=== PATIENT | male | born 1955 | race Caucasian/White ===

== ENCOUNTER 2023-04-14 10:37 | Emergency (ER) | payer MEDICARE, MEDICAID, SELFPAY ==
[2023-04-14 10:44] VITALS: BP 156/82; PULSE 111
[2023-04-14 10:46] VITALS: BP 122/68; PULSE 70; RESP 18; TEMP 36.5; O2SAT 97; BMI 21.9
[2023-04-14 11:44] VITALS: BP 121/66; PULSE 60; RESP 18; O2SAT 99
--- NOTE | 2023-04-14 11:44 | ED.GENADULT ---
HPI - General Adult General Chief complaint: General Medical Stated complaint: RAN OUT OF EMPHYSEMA MEDS,2LPM PER EMS Time Seen by Provider: 04/14/23 11:02 Source: patient Mode of arrival: ambulatory Limitations: no limitations History of Present Illness HPI narrative: 67-year-old male with history of COPD ran out of his albuterol medication. Patient reports being in allergic to inhaled steroids. Denies any fevers or chills. Has a chronic cough, chronic dyspnea on exertion. Is not worse than usual. He only ran out of his medication. Denies any fevers or chills. He denies any mucus production. Denies any chest pain. He is on oxygen at home approximately 2.5 L on a regular basis. Patient reports 5-6 septicemia chief patient is actively smoking. Denies smoking while using his oxygen. Related Data Previous Rx's Medication Instructions Recorded albuterol sulfate 90 mcg/actuation 2 inh inhalation QID PRN shortness 04/14/23 aerosol inhaler of breath or wheezing #6.7 grams ipratropium bromide 17 2 puff inhalation TID #12.9 grams 04/14/23 mcg/actuation HFA aerosol inhaler (Atrovent HFA) Allergies Allergy/AdvReac Type Severity Reaction Status Date / Time aspirin [Aspirin] Allergy Unknown RASH, Verified 04/14/23 10:51 SWELLING OF FACE, VOMITING ibuprofen [From Motrin] Allergy Unknown RASH, Verified 04/14/23 10:51 NUMBNESS TO EXTREMITIES NSAIDS (Non-Steroidal Allergy Unknown UNKNOWN Verified 04/14/23 10:51 Anti-Inflamma [Nsaids] aspirin Allergy Unknown swelling Uncoded 04/29/20 00:00 motrin Allergy Unknown swelling Uncoded 04/29/20 00:00 Review of Systems Review of Systems: GEN: Well developed, no acute distress, alert, oriented HEENT: Normocephalic, atraumatic, normal external ears, nose appears normal, no oropharyngeal edema or exudates Eyes: Normal to appearance Neck: Supple, no lymphadenopathy Respiratory: Talks in complete sentences, no respiratory distress, clear to auscultation bilaterally Cardiovascular: Regular rate and rhythm, no murmurs rubs or gallops Abdomen: Soft, nontender, nondistended, no guarding, no rebound Back: No CVA tenderness Extremities: No clubbing cyanosis or edema Neurologic: No focal neurologic deficits, cranial nerves 2-12 intact, strength is 5/5 bilaterally Skin: No rash PMFSH Social History Social History Advance Directives: No Physical Exam ED Vital Signs: Vital Signs - 24 hr 04/14/23 10:46 04/14/23 11:44 Temperature 97.7 F Pulse Rate 70 60 Respiratory Rate 18 18 Blood Pressure 122/68 121/66 Pulse Oximetry 97 99 Oxygen Delivery Method Nasal Cannula BMI result Body Mass Index 21.9 GEN: Well developed, no acute distress, alert, oriented HEENT: Normocephalic, atraumatic, normal external ears, nose appears normal, no oropharyngeal edema or exudates Eyes: Normal to appearance Neck: Supple, no lymphadenopathy Respiratory: Talks in complete sentences, no respiratory distress, clear to auscultation bilaterally Cardiovascular: Regular rate and rhythm, no murmurs rubs or gallops Abdomen: Soft, nontender, nondistended, no guarding, no rebound Back: No CVA tenderness Extremities: No clubbing cyanosis or edema Neurologic: No focal neurologic deficits, cranial nerves 2-12 intact, strength is 5/5 bilaterally Skin: No rash Course Course Course Narrative: Patient reports no change in his baseline respiratory status. Will prescribe the patient is albuterol inhaler. Since he reports being allergic to inhaled steroids, will order Atrovent to hopefully assist with his shortness of breath. Medical Decision Making Medical Decision Making MDM Narrative: Patient presents with chronic shortness of breath. Unchanged. Examination revealed 99% oxygen saturation on 2 L nasal cannula. Patient is typically on 2.5 L at home. Patient denies any progression of any of his symptoms. He is only requesting his medications be represcribed for him at this time, I will prescribe the patient albuterol as requested and also add Atrovent to help reduce his exacerbations. Recommending close follow-up with his primary care provider. Differential Diagnosis Differential Diagnoses: The differential diagnosis associated with the presentation includes (Shortness of breath, bronchitis, pneumonia, CHF, COPD) Chronic Conditions Patient?s care impacted by: Other (COPD) Discharge Plan Discharge Clinical Impression: COPD (chronic obstructive pulmonary disease) Patient Disposition: Home, Self-Care Instructions: COPD (Chronic Obstructive Pulmonary Disease) (ED) Prescriptions: New albuterol sulfate 90 mcg/actuation HFA aerosol inhaler 2 inh inhalation QID PRN (Reason: shortness of breath or wheezing) Qty: 6.7 0RF Atrovent HFA 17 mcg/actuation HFA aerosol inhaler 2 puff inhalation TID Qty: 12.9 0RF Referrals: Physician,Unknown J [Primary Care Provider] - Interventions: ED Discharge Assessment Last Done: 04/14/23 11:44 Discharge Date/Time: 04/14/23 11:45
== END 2023-04-14 11:45 | disposition home or self-care (01) ==
PROVIDERS: Emergency Provider Emergency Medicine
DX: J44.9 Chronic obstructive pulmonary disease, unspecified (principal); R06.02 Shortness of breath; Z99.81 Dependence on supplemental oxygen
CPT/HCPCS: 99282; 99283

== ENCOUNTER 2023-05-18 16:26 | Outpatient (REF) | payer MEDICARE, MEDICAID, SELFPAY ==
[2023-05-18 17:52] LABS: Imm Gran Abs Auto 0.01 X10*3/uL (0.00-0.03); Imm Gran Pct Auto 0.2 % (0.0-0.4); MANUAL DIFF FLAG SCAN; Mean Corpuscular Volume 104.3 fL (80.0-98.0); PLT CLUMP 1; SCAN SMEAR FLAG 1
[2023-05-18 17:54] LABS: Basophils Percent Auto 0.7 % (0-2); Eosinophils Absolute Auto 0.1 X10*3/uL (0.0-0.4); Eosinophils Percent Auto 2.4 % (0-4); Hematocrit 39.2 % (42.0-52.0); Hemoglobin 13.3 g/dl (14.0-18.0); Lymphocytes Absolute Auto 1.3 X10*3/uL (1.2-4.9); Lymphocytes Percent Auto 28.6 % (20-40); Mean Corpuscular HGB Conc 33.9 g/dl (31.0-36.0); Mean Corpuscular Hemoglobin 35.4 pg (27.0-33.0); Mean Platelet Volume 10.3 fL (9.4-12.4); Monocytes Absolute Auto 0.5 X10*3/uL (0.1-1.2); Monocytes Percent Auto 10.2 % (2-11); Neutrophils Absolute Auto 2.6 x10*3/uL (2.0-8.3); Neutrophils Percent Auto 57.9 % (45-73); Red Blood Count 3.76 X10*6/uL (4.60-5.80); Red Cell Distribution Width 12.8 % (11.0-16.0)
[2023-05-18 18:06] LABS: Estimated Average Glucose 94 mg/dL; Hemoglobin A1C 102.9474 umol/L; Hemoglobin A1c % 4.9 %
[2023-05-18 18:09] LABS: White Blood Count 4.5 X10*3/uL (4.8-10.8)
[2023-05-18 18:10] LABS: Platelet Count 74 X10*3/uL (160-400); SLIDE REVIEW VERIFIED
[2023-05-18 19:00] LABS: Alanine Aminotransferase 46 U/L (0-40); Albumin Level 2.8 g/dL (3.5-5.0); Alkaline Phosphatase 132 U/L (39-117); Anion Gap 11 (12-20); Aspartate Amino Transferase 65 U/L (5-37); Bilirubin Total 1.8 mg/dL (0.0-1.0); Blood Urea Nitrogen 9 mg/dL (9-16); Carbon Dioxide 26 mmol/L (22-29); Chloride 105 mmol/L (96-108); Cholesterol 124 mg/dL; Estimated Glomerular Filt Rate > 60; Glucose Random 182 mg/dL (60-115); HDL Cholesterol 46 mg/dL; LDL Cholesterol Calculated 67 mg/dl; Potassium 4.1 mmol/L (3.3-5.1); Sodium 138 mmol/L (135-145); Triglycerides 58 mg/dL
[2023-05-18 19:17] LABS: TSH reflex Free T4 0.73 uIU/mL (0.32-4.0); Vitamin D 25-OH Total 9.4 ng/mL (>30)
[2023-05-18 19:26] LABS: Folate 9.7 ng/mL (> or = 4.0); Vitamin B12 552 pg/mL (200-900)
[2023-05-18 22:11] LABS: Creatinine Urine 239.13 mg/dL; Microalbum/Creatinine Ratio Ur 4.1 ug/mg cr
[2023-05-19 11:06] LABS: CT PCR NOT DETECTED (Not Detect.); NG PCR NOT DETECTED (Not Detect.)
[2023-05-20 06:24] LABS: HBS Num1 182.39 mIU/mL (0-7.99); HBc Num1 4.97 S/CO (0.00-0.79); HBsAGNum1 0.39 S/CO (0.00-0.99); HIV AB/AG Nonreactive (Nonreactive); HIV Num 1 0.07 S/CO (0.00-0.99); Hepatitis B Surface Antigen Negative (Negative); ~HepC Num1 11.99 S/CO (0.00-0.79); ~Hepatitis B Surface Antibody REACTIVE (Nonreactive); ~Hepatitis C Antibody Reactive (Nonreactive)
[2023-05-20 08:47] LABS: HBc Num2 5.03 S/CO; HBc Num3 5.16 S/CO; Hepatitis B Core Antibody Reactive (Nonreactive)
[2023-05-20 12:09] LABS: Syphilis Screen Nonreactive (Nonreactive)
[2023-05-21 15:29] LABS: HCV Log PCR 5.55 Log IU/mL (NOT DETECTED); HepC Viral Load 358000 IU/mL (NOT DETECTED)
[2023-05-23 11:32] LABS: Free Prostate Spec Ag 0.1 ng/mL; Percent Free Prostate Spec Ag 33 % (calc) (>25); Prostate Specific Ag Total 0.3 ng/mL (< OR = 4.0)
== END 2023-05-18 16:27 | disposition home or self-care (01) ==
LOC: HO.HHCL 16:26
PROVIDERS: Visit Provider Student in an Organized Health Care Education/Training Program
DX: Z00.00 Encounter for general adult medical examination without abnormal findings (principal); E55.9 Vitamin D deficiency, unspecified; Z85.46 Personal history of malignant neoplasm of prostate; Z20.2 Contact with and (suspected) exposure to infections with a predominantly sexual mode of transmission; E11.9 Type 2 diabetes mellitus without complications; I10 Essential (primary) hypertension
CPT/HCPCS: 0353U; 80053; 80061; 82043; 82306; 82607; 82746; 83036; 84154; 84443; 85025; 86704; 86706; 86780; 86803; 87340; 87389; 87522

== ENCOUNTER 2023-06-21 07:02 | Emergency (ER) | payer MEDICARE, MEDICAID, SELFPAY ==
--- NOTE | ~2023-06-21 | XR_ITS ---
EXAMINATION: XR CHEST CLINICAL INFORMATION: Coughing COMPARISON: 01/14/2020 TECHNIQUE: Frontal view of the chest was obtained. FINDINGS: Heart and mediastinum within normal limits. Aortic calcifications are seen. No vascular congestion. Peribronchial cuffing and hyperinflation. Coarse and peribronchiolar markings are more prominent in the right upper lobe than on previous. No consolidations or effusions. Bones are demineralized with degenerative changes. Lateral views. XR/XR chest 1V IMPRESSION: Increasing peribronchiolar markings right upper lobe, possibly bronchitis. Consider short-term radiographic follow-up with PA and lateral.
--- NOTE | ~2023-06-21 | CT_ITS ---
EXAMINATION: CT ABDOMEN AND PELVIS WITHOUT CONTRAST CLINICAL INFORMATION: Left flank pain COMPARISON: 08/24/2011 report only TECHNIQUE: Multidetector volumetric imaging was performed from the superior aspect of the liver through the pubic symphysis. Sagittal and coronal reformatted images were obtained on the technologist's workstation. This CT examination was performed using dose optimization techniques as appropriate, variously including the following: *Automated exposure control *Adjustment of mA and/or kV according to patient size (this includes techniques or standardized protocols for targeted exams where dose is matched to indication/reason for exam; i.e. extremities or head) *Use of iterative reconstruction technique DLP: 350 mGy-cm FINDINGS: ANIMAL CARE TAKER: Nonspecific bowel pattern. LUNG BASES: The visualized lung bases are unremarkable. LIVER, GALLBLADDER, AND BILIARY TREE: Liver is small and nodular No focal hepatic lesion or biliary ductal dilatation is present. Distended but otherwise unremarkable gallbladder. PANCREAS: Unremarkable. SPLEEN: Enlarged at 14 cm. ADRENAL GLANDS: Unremarkable. KIDNEYS AND URETERS: The kidneys are normal in size, shape, and attenuation. No hydronephrosis or hydroureter. 4 mm medial upper pole calcification, possibly nonobstructing calculus versus vascular. No perinephric stranding. BLADDER: Decompressed. GASTROINTESTINAL TRACT: Stomach compressed. No evidence of bowel obstruction. Unremarkable appendix. Mild diverticulosis. ABDOMINAL WALL: Bilateral groin hernias containing ascitic fluid. LYMPH NODES: Normal. VASCULAR: Atherosclerotic calcifications nonaneurysmal aorta and iliac veins. Normal caliber inferior vena cava. PELVIC VISCERA: Prostate calcifications. PERITONEUM: Moderate ascites. OSSEOUS STRUCTURES: Bilateral sclerotic femoral heads, left greater than right, possibly bone infarcts. CT/CT abdomen pelvis wo IV con IMPRESSION: Cirrhosis, portal hypertension and moderate ascites. Chronic osteonecrosis bilateral femoral heads. 4 mm left upper pole nonobstructing renal calculus versus vascular calcification. Fleischner guidelines were followed.
[2023-06-21 07:05] VITALS: BP 124/32; PULSE 78; RESP 16; TEMP 36.9; O2SAT 94; BMI 21.3
[2023-06-21 07:38] LABS: MANUAL DIFF FLAG NO
[2023-06-21 07:44] VITALS: BP 107/57
[2023-06-21 07:44] LABS: Basophils Percent Auto 0.3 % (0-2); Eosinophils Absolute Auto 0.1 X10*3/uL (0.0-0.4); Eosinophils Percent Auto 3.7 % (0-4); Hematocrit 37.4 % (42.0-52.0); Hemoglobin 12.4 g/dl (14.0-18.0); Imm Gran Abs Auto 0.01 X10*3/uL (0.00-0.03); Imm Gran Pct Auto 0.3 % (0.0-0.4); Lymphocytes Absolute Auto 1.2 X10*3/uL (1.2-4.9); Lymphocytes Percent Auto 33.5 % (20-40); Mean Corpuscular HGB Conc 33.2 g/dl (31.0-36.0); Mean Corpuscular Hemoglobin 34.3 pg (27.0-33.0); Mean Corpuscular Volume 103.6 fL (80.0-98.0); Mean Platelet Volume 10.2 fL (9.4-12.4); Monocytes Absolute Auto 0.4 X10*3/uL (0.1-1.2); Monocytes Percent Auto 9.9 % (2-11); Neutrophils Absolute Auto 1.9 x10*3/uL (2.0-8.3); Neutrophils Percent Auto 52.3 % (45-73); Platelet Count 62 X10*3/uL (160-400); Red Blood Count 3.61 X10*6/uL (4.60-5.80); Red Cell Distribution Width 12.3 % (11.0-16.0); White Blood Count 3.6 X10*3/uL (4.8-10.8)
--- NOTE | 2023-06-21 08:07 | ED_ITS ---
HPI - Abdominal Pain General Chief Complaint: Abdominal Pain Stated Complaint: L flank pain Time Seen by Provider: 06/21/23 07:51 Source: patient Mode of arrival: ambulatory Limitations: no limitations History of Present Illness HPI narrative: 67-year-old male came in for evaluation of left-sided abdominal/left flank pain started since yesterday. Started as a coughing with no phlegm every time the patient cough feels heat in the left groin area, last night patient started to have a sudden onset of left side abdominal pain and left groin pain, pain is intermittent, worsening with movement or coughing, no relieving factor, never had a history of kidney stones, no fever, no chills no frequency urination, no dysuria, no hematuria. Last bowel movement was yesterday and was normal with no bleeding, no associated nausea or vomiting, passing flatus, never had intra-abdominal surgery in the past. Pain is moderate 8/10. Related Data Previous Rx's Medication Instructions Recorded albuterol sulfate 90 mcg/actuation 2 inh inhalation QID PRN shortness 04/14/23 aerosol inhaler of breath or wheezing #6.7 grams ipratropium bromide 17 2 puff inhalation TID #12.9 grams 04/14/23 mcg/actuation HFA aerosol inhaler (Atrovent HFA) Allergies Allergy/AdvReac Type Severity Reaction Status Date / Time aspirin [Aspirin] Allergy Unknown RASH, Verified 04/14/23 10:51 SWELLING OF FACE, VOMITING ibuprofen [From Motrin] Allergy Unknown RASH, Verified 04/14/23 10:51 NUMBNESS TO EXTREMITIES NSAIDS (Non-Steroidal Allergy Unknown UNKNOWN Verified 04/14/23 10:51 Anti-Inflamma [Nsaids] aspirin Allergy Unknown swelling Uncoded 04/29/20 00:00 motrin Allergy Unknown swelling Uncoded 04/29/20 00:00 Review of Systems Review of Systems All other systems are reviewed and are negative Constitutional: Reports as per HPI and Reports no additional constitutional complaints Eyes: Reports as per HPI and Reports no additional eye complaints Reports system reviewed and no additional complaints, except as documented Cardiovascular: Reports as per HPI and Reports no additional cardiovascular co mplaints Respiratory: Reports as per HPI and Reports no additional respiratory complaints Gastrointestinal: Reports as per HPI and Reports no additional gastrointestinal complaints Genitourinary: Reports no additional female genitourinary complaints Musculoskeletal: Reports no additional musculoskeletal complaints Skin/Breast: Reports system reviewed and no additional complaints, except as docu Psychiatric: Reports no additional psychiatric complaints Endocrine: Reports no additional endocrine complaints Hematologic/Lymphatic: Reports no additional hematologic/lymphatic complaints Allergic/Immunologic: Reports no additional allergic/immunologic complaints Reports system reviewed and no additional complaints, except as documented and Reports Abnormal speech present [facility] Social History Social History Alcohol intake: never Smoked in Last 30 Days: Yes Use of substances other than those prescribed or required for medical reasons: No Advance Directives: Yes Advance Directives Information Provided: Yes Advance Directives on File: No Physical Exam ED Vital Signs: Vital Signs - 24 hr 06/21/23 07:05 06/21/23 07:44 06/21/23 10:09 Temperature 98.5 F 98.4 F Pulse Rate 78 64 Respiratory Rate 16 17 Blood Pressure 124/32 L 107/57 L 95/45 L Pulse Oximetry 94 99 Oxygen Delivery Method Room Air Nasal Cannula Oxygen Flow Rate 2 BMI result Body Mass Index 21.3 Vital signs have been reviewed as appeared to be correct. Blood pressure normal. Heart rate normal. Respiration rate normal. Temperature normal. Oxygen saturation normal. Appearance: Alert. Oriented X3. No acute distress. Head: Normal external exam. Normocephalic. Atraumatic. No Gregory signs noted. No raccoon eyes noted Eyes: PERRLA. EOMI. Conjunctiva and sclera normal. Eyelids normal. ENT: TM's Normal. Pharynx normal. Uvula midline. Moist mucous membranes. No trismus noted. No drooling noted. No muffled voice noted. Neck: Normal inspection. Neck supple. FROM. No adenopathy. Thyroid Normal. No meningeal signs. No neck mass noted. CVS: Normal heart rate and rhythm. Heart sound normal. No murmurs noted. Pulses normal throughout. Respiratory: No respiratory distress. Painless inspiration. Breath sounds normal. No wheezes/rales/rhonchi noted. Chest nontender. No accessory muscle usage noted or decreased air movement noted. Abdomen: Soft, left abdominal tenderness, no rebound tenderness, no guarding. Bowel sounds normal in all 4 quadrants. No distention noted. No organomegaly noted. No visible injury noted. Back: Left CVA tenderness. Full range of motion noted. Skin: Skin warm and dry. Normal skin color. Normal skin turgor. No rashes/lesions/lacerations noted. Extremities: No lower extremity edema. Extremities exhibit normal range of motion. Extremities nontender. Neuro: Oriented X 3. Cranial nerve exam: II-XII are grossly intact No motor deficit. No sensory deficit. Reflexes normal. Course Course Course Narrative: 67-year-old male with left flank pain for 2 days patient also been having chronic coughing, patient presented with left-sided abdominal/left flank pain for 2 days, pain is mostly with coughing, movements. UA/CT of the abdomen pelvis showing no obstructive kidney stone, x-ray show no pneumonia, patient was instructed to take ibuprofen if needed for pain. Patient found also to have elevated LFTs, liver cirrhosis with portal hypertension on the CT of the abdomen and pelvis patient stated that he had a history of hepatitis C but do not follow up with doctor for, patient decline history of alcohol abuse history, patient was instructed to follow-up with his PCP and was given information for GI to follow up with. Abdominal exam revealed no right upper quadrant tenderness or rebound tenderness or guarding. Was instructed to refrain from taking Tylenol or drinking any alcohol (which the p atient declined). Overall patient's symptoms likely due to abdominal wall muscular pain. Medical Decision Making Differential Diagnosis Differential Diagnoses: The differential diagnosis associated with the presen tation includes (Kidney stone, colitis, diverticulitis, elevated LFTs, liver disease, severe anemia, electrolyte abnormality, pneumothorax, pneumonia.) Admission/Observation Consideration of admission/observation: Escalation of care including admissio n/observation considered Lab Data MDM Lab Attestation statement: I reviewed the patient's lab results. 06/21/23 07:28 06/21/23 07:28 Labs: Lab Results 06/21/23 06/21/23 06/21/23 Range/Units 07:28 07:28 10:16 WBC 3.6 L (4.8-10.8) X10*3/uL RBC 3.61 L (4.60-5.80) X10*6/uL Hgb 12.4 L (14.0-18.0) g/dl Hct 37.4 L (42.0-52.0) % MCV 103.6 H (80.0-98.0) fL MCH 34.3 H (27.0-33.0) pg MCHC 33.2 (31.0-36.0) g/dl RDW 12.3 (11.0-16.0) % Plt Count 62 L (160-400) X10*3/uL MPV 10.2 (9.4-12.4) fL Immature Gran % (Auto) 0.3 (0.0-0.4) % Neut % (Auto) 52.3 (45-73) % Lymph % (Auto) 33.5 (20-40) % [place] % (Auto) 9.9 (2-11) % Eos % (Auto) 3.7 (0-4) % Baso % (Auto) 0.3 (0-2) % Lymph # (Auto) 1.2 (1.2-4.9) X10*3/uL [place] # (Auto) 0.4 (0.1-1.2) X10*3/uL Eos # (Auto) 0.1 (0.0-0.4) X10*3/uL Baso # (Auto) 0.0 (0.0-0.2) X10*3/uL Abs Immat Gran (auto) 0.01 (0.00-0.03) X10*3/uL Absolute Neuts (auto) 1.9 L (2.0-8.3) x10*3/uL Absolute Nucleated RBC 0.000 (0.0-0.012) X10*3/uL Nucleated RBC % (auto) 0.0 (0.0-0.2) /100WBC Sodium 138 (135-145) mmol/L Potassium 4.5 (3.3-5.1) mmol/L Chloride 106 (96-108) mmol/L Carbon Dioxide 26 (22-29) mmol/L Anion Gap 11 L (12-20) BUN 7 L (9-16) mg/dL Creatinine 0.77 (0.5-1.4) mg/dL Estim Creat Clear Calc 84.7 Estimated GFR > 60 Random Glucose 109 (60-115) mg/dL Calcium 8.3 L D (8.4-10.2) mg/dL Total Bilirubin 1.9 H (0.0-1.0) mg/dL Direct Bilirubin 1.0 H (0.0-0.5) mg/dL AST 48 H (5-37) U/L ALT 33 (0-40) U/L Alkaline Phosphatase 117 (39-117) U/L Total Protein 6.7 (6.5-8.0) g/dL Albumin 2.5 L (3.5-5.0) g/dL Lipase 19 (8-78) U/L Urine Color Dark Yellow Urine Appearance Clear Urine pH 7.0 (5.0-9.0) Ur Specific [place] 1.025 (1.005-1.025) Urine Protein Negative (Neg-Trace) mg/dL Urine Glucose (UA) Negative (Negative) mg/dL Urine Ketones Trace (Negative) mg/dL Urine Blood Negative (Negative) Urine Nitrite Negative (Negative) Ur Leukocyte Esterase Trace H (Negative) Urine RBC 0-2 (0-2) /HPF Urine WBC 0-5 (0-5) /HPF Ur Squamous Epith Cells 0-2 (0-2) /HPF Urine Bacteria None Seen (None Seen) Hyaline Casts 0-2 (0-2) /LPF Independent Interpretation I performed an independent interpretation of an: CT Scan (Cirrhosis, portal hypertension and moderate ascites. Chronic osteonecrosis bilateral femoral heads. 4 mm left upper pole nonobstructing renal calculus versus vascular calcification. ) Radiology Impression Discussion of test interpretation with radiology: I have reviewed the radiologist's reading. (Cirrhosis, portal hypertension and moderate ascites. Chronic osteonecrosis bilateral femoral heads. 4 mm left upper pole nonobstructing renal calculus versus vascular calcification. ) Medications Administered Discontinued Medications Generic Name Dose Route Start Last Admin Trade Name Freq PRN Reason Stop Dose Admin Oxycodone HCl 5 mg 06/21/23 08:09 06/21/23 09:01 Oxycodone Hcl Immed Release 5 Mg Tablet PO 06/21/23 08:10 5 mg ONCE ONE Administration Discharge Plan Discharge Clinical Impression: Abdominal wall pain Patient Disposition: Home, Self-Care Instructions: Musculoskeletal Pain (ED) Additional Instructions: Refrain from taking Tylenol or drinking alcohol and follow up with delivery analyst/PCP for further evaluation of your liver issue. Prescriptions: No Action albuterol sulfate 90 mcg/actuation HFA aerosol inhaler 2 inh inhalation QID PRN (Reason: shortness of breath or wheezing) Qty: 6.7 0RF Atrovent HFA 17 mcg/actuation HFA aerosol inhaler 2 puff inhalation TID Qty: 12.9 0RF Referrals: Soraida Kwok MD [Physician] -
[2023-06-21 08:19] LABS: Alanine Aminotransferase 33 U/L (0-40); Albumin Level 2.5 g/dL (3.5-5.0); Alkaline Phosphatase 117 U/L (39-117); Anion Gap 11 (12-20); Aspartate Amino Transferase 48 U/L (5-37); Bilirubin Total 1.9 mg/dL (0.0-1.0); Blood Urea Nitrogen 7 mg/dL (9-16); Calcium 8.3 mg/dL (8.4-10.2); Carbon Dioxide 26 mmol/L (22-29); Chloride 106 mmol/L (96-108); Creatinine Clr Calc Pharmacy 84.7; Estimated Glomerular Filt Rate > 60; Glucose Random 109 mg/dL (60-115); Lipase 19 U/L (8-78); Potassium 4.5 mmol/L (3.3-5.1); Sodium 138 mmol/L (135-145); Total Protein 6.7 g/dL (6.5-8.0)
[2023-06-21] MEDS: oxyCODONE HCl Immed Release 5 MG TABLET PO (09:01)
[2023-06-21 10:09] VITALS: BP 95/45; PULSE 64; RESP 17; TEMP 36.9; O2SAT 99
--- NOTE | 2023-06-21 10:17 | PC.NURSE ---
pt's daughter gregory called ([phone][place] [facility] [place] status. pt is aware.
[2023-06-21 10:27] LABS: Appearance Urine Clear; Color Urine Dark Yellow; Glucose Urine UA Negative (Negative); Leukocyte Esterase Urine Trace (Negative); Nitrite Urine Negative (Negative); Specific Gravity - Urine 1.025 (1.005-1.025); UMIC TRIGGER UACC YES; Urine Blood Negative (Negative); Urine Ketones Trace mg/dL (Negative); Urine Protein Negative (Neg-Trace)
[2023-06-21 10:32] LABS: Bacteria Urine None Seen (None Seen); Hyaline Casts Urine 0-2 /LPF (0-2); RBC Urine 0-2 /HPF (0-2); Squamous Epithelial Cell Urine 0-2 /HPF (0-2); WBC Urine 0-5 /HPF (0-5)
== END 2023-06-21 12:58 | disposition home or self-care (01) ==
PROVIDERS: Emergency Provider Emergency Medicine
DX: R10.9 Unspecified abdominal pain (principal); M79.18 Myalgia, other site; R05.3 Chronic cough; Z79.899 Other long term (current) drug therapy
CPT/HCPCS: 36415; 71045; 74176; 80048; 80076; 81001; 83690; 85025; 99284

== ENCOUNTER 2023-06-22 15:34 | Emergency (ER) | payer MEDICARE, MEDICAID, SELFPAY ==
--- NOTE | ~2023-06-22 | XR_ITS ---
EXAMINATION: XR CHEST CLINICAL INFORMATION: Pain. COMPARISON: 06/21/2023. TECHNIQUE: Frontal view of the chest was obtained. FINDINGS: The cardiomediastinal silhouette is stable. There is mild diffuse increased interstitial markings similar to previous. There is no focal lung consolidation or pleural effusion. The bony structures and soft tissues are unremarkable XR/XR chest 1V IMPRESSION: No active cardiopulmonary disease. No significant interval change.
[2023-06-22 15:58] VITALS: BP 138/80; PULSE 74; RESP 18; TEMP 36.8; O2SAT 95; BMI 25.8
--- NOTE | 2023-06-22 15:59 | ED.SOB ---
HPI - SOB/Dyspnea General Chief Complaint: Abdominal Pain Stated Complaint: difficulty breathing Time Seen by Provider: 06/22/23 18:39 Source: patient Mode of arrival: ambulatory Limitations: no limitations History of Present Illness HPI Narrative: 67-year-old male with past medical history of COPD, cirrhosis, presenting to the ED complaining of left-sided abdominal pain worse with coughing/breathing.? Patient is evaluated in our ED yesterday, states pain worse with coughing today.? Patient had labs showing transaminitis, CXR showing possible bronchitis and CT abdomen/pelvis showing cirrhosis with portal hypertension in the left upper pole nonobstructing renal calculus. Patient currently in wheelchair No fever no chills no urinary complaint patient has been diagnosed with hepatitis-C has not started any treatment here plan to see contact center manager in 2 weeks Related Data Previous Rx's Medication Instructions Recorded albuterol sulfate 90 mcg/actuation 2 inh inhalation QID PRN shortness 04/14/23 aerosol inhaler of breath or wheezing #6.7 grams ipratropium bromide 17 2 puff inhalation TID #12.9 grams 04/14/23 mcg/actuation HFA aerosol inhaler (Atrovent HFA) oxycodone 5 mg tablet 5 mg PO Q6H PRN pain #20 tabs 06/22/23 Allergies Allergy/AdvReac Type Severity Reaction Status Date / Time aspirin [Aspirin] Allergy Unknown RASH, Verified 04/14/23 10:51 SWELLING OF FACE, VOMITING ibuprofen [From Motrin] Allergy Unknown RASH, Verified 04/14/23 10:51 NUMBNESS TO EXTREMITIES NSAIDS (Non-Steroidal Allergy Unknown UNKNOWN Verified 04/14/23 10:51 Anti-Inflamma [Nsaids] aspirin Allergy Unknown swelling Uncoded 04/29/20 00:00 motrin Allergy Unknown swelling Uncoded 04/29/20 00:00 Review of Systems Review of Systems: Yes all other systems are reviewed and are negative PMFSH Social History Social History Alcohol intake: never Smoked in Last 30 Days: Yes Use of substances other than those prescribed or required for medical reasons: No Advance Directives: No Advance Directives Information Provided: No Physical Exam Vital Signs: Vital Signs: Last Vital Signs Temp 98.3 F 06/22/23 15:58 Pulse 88 06/22/23 21:15 Resp 20 08/16/23 21:15 BP 136/74 06/22/23 21:15 Pulse Ox 95 06/22/23 21:15 O2 Del Method Nasal Cannula 06/22/23 21:15 O2 Flow Rate 2 06/22/23 21:15 BMI result Body Mass Index 25.8 Appearance: Alert. Oriented X3. No acute distress. Eyes: No pallor/icterus ENT: Pharynx normal. Oral Mucosa moist Neck: Normal inspection. Neck supple. CVS: Normal heart rate and rhythm. Pulses normal. Respiratory: No respiratory distress. Equal air entry bilateral, no wheezing/rales/rhonchi Abdomen: Soft free fluid+ no rebound tenderness or guarding slight tenderness on the left flank and left lower abdomen Bowel sounds are present, no mass palpable, no CVA tenderness Skin: Skin warm and dry. Normal skin color. Normal skin turgor. Extremities: No lower extremity edema. No calf tenderness Neuro: Oriented X 3. No motor deficit. No sensory deficit.No cerebellar signs , cranial nerves II-XII intact Course Course Course Narrative: RME: 67-year-old male with past medical history of COPD, cirrhosis, presenting to the ED complaining of left-sided abdominal pain worse with coughing/breathing. Patient is evaluated in our ED yesterday, states pain worse with coughing today. Patient had labs showing transaminitis, CXR showing possible bronchitis and CT abdomen/pelvis showing cirrhosis with portal hypertension in the left upper pole nonobstructing renal calculus. Patient currently in wheelchair Repeat labs/UA ordered today Full HPI, ROS and PE to be performed by primary ED provider. Medications Administered Discontinued Medications Generic Name Dose Route Start Last Admin Trade Name Freq PRN Reason Stop Dose Admin Oxycodone HCl 10 mg 06/22/23 19:19 06/22/23 19:53 Oxycodone Hcl Immed Release 5 Mg Tablet PO 06/22/23 19:20 10 mg ONCE ONE Administration Medical Decision Making Medical Decision Making [facility] Narrative: Patient chest x-ray is negative CT scan was done negative yesterday showed left kidney stone nonobstructive with cirrhosis and ascites labs are stable advised to follow-up with contact center manager pain medication as prescribed patient refused repeat labs Discharge Plan Discharge Clinical Impression: Chronic hepatitis C with cirrhosis Patient Disposition: Home, Self-Care Instructions: Cirrhosis (ED), Hepatitis C (ED) Additional Instructions: See contact center manager as scheduled Pain medication advised Prescriptions: New oxycodone 5 mg tablet 5 mg PO Q6H PRN (Reason: pain) Qty: 20 0RF Rx Instructions: Partial Fill upon patient request. No Action albuterol sulfate 90 mcg/actuation HFA aerosol inhaler 2 inh inhalation QID PRN (Reason: shortness of breath or wheezing) Qty: 6.7 0RF Atrovent HFA 17 mcg/actuation HFA aerosol inhaler 2 puff inhalation TID Qty: 12.9 0RF Interventions: ED Discharge Assessment Last Done: 06/22/23 21:20 Discharge Date/Time: 06/22/23 21:21 Print Language: [place]
--- NOTE | 2023-06-22 16:34 | MHC.EDTECH ---
PATIENT REFUSED LABS ,SAID HE HAD SOME TAKEN YESTERDAY ,PIT PROVIDER AND GEOPHYSICAL DRAFTER AWARE .
[2023-06-22 18:30] VITALS: BP 131/64; PULSE 83; RESP 16; O2SAT 92
[2023-06-22] MEDS: oxyCODONE HCl Immed Release 5 MG TABLET 10 MG PO (19:53)
[2023-06-22 21:15] VITALS: BP 136/74; PULSE 88; RESP 20; O2SAT 95
== END 2023-06-22 21:21 | disposition home or self-care (01) ==
PROVIDERS: Emergency Provider Internal Medicine
DX: R06.02 Shortness of breath (principal); K74.3 Primary biliary cirrhosis; R07.89 Other chest pain; R10.2 Pelvic and perineal pain; B18.2 Chronic viral hepatitis C; Z79.899 Other long term (current) drug therapy
CPT/HCPCS: 71045; 99283; 99284

== ENCOUNTER 2023-07-01 13:03 | Outpatient (REF) | payer MEDICARE, MEDICAID, SELFPAY ==
[2023-07-01 18:17] LABS: INTERNATIONAL NORM RATIO 1.1 (0.9-1.1); Prothrombin Time 12.9 SEC (11.1-13.3)
[2023-07-04 12:58] LABS: Alpha Fetoprotein 26.3 ng/mL (<6.1)
[2023-07-07 09:09] LABS: Hepatitis C Genotype 1b
== END 2023-07-01 13:04 | disposition home or self-care (01) ==
LOC: HO.HHCL 13:03
PROVIDERS: Visit Provider Internal Medicine
DX: B18.2 Chronic viral hepatitis C (principal)
CPT/HCPCS: 36415; 82105; 85610; 87902

== ENCOUNTER 2023-08-26 11:21 | Outpatient (REF) | payer MEDICARE, MEDICAID, SELFPAY ==
[2023-08-29 17:13] LABS: HCV Log PCR 5.41 Log IU/mL (NOT DETECTED); HepC Viral Load 255000 IU/mL (NOT DETECTED)
[2023-09-02 16:08] LABS: FIB-ALT 20 U/L (9-46); FIB-Alpha-2-Macroglobulin 197 mg/dL (106-279); FIB-Apolipoprotein A1 107 mg/dL (94-176); FIB-GGT 41 U/L (3-70); FIB-Haptoglobin 11 mg/dL (43-212); FIB-Total Bilirubin 2.2 mg/dL (0.2-1.2); Liver Fibrosis Score 0.91; Liver Fibrosis Stage F4; Nec Inflam Act Grade A0-A1; Nec Inflam Act Score 0.18
== END 2023-08-26 11:22 | disposition home or self-care (01) ==
LOC: HO.HHCL 11:21
PROVIDERS: Visit Provider Family Medicine
DX: B18.2 Chronic viral hepatitis C (principal)
CPT/HCPCS: 36415; 81596; 87522

== ENCOUNTER 2023-08-31 14:36 | Outpatient (AMB) | payer MEDICARE, SELFPAY ==
--- NOTE | 2023-08-31 14:55 | MHC.OFFVIS ---
Intake Intake Visit Reasons: Renal stone Intake Note: New Patient presents for initial visit renal stone Urology Medications: none Blood Thinner: none Superintendent [employer] Required: No Allergies aspirin [Aspirin] Allergy (Unknown, Verified 08/31/23 15:33) RASH, SWELLING OF FACE, VOMITING ibuprofen [From Motrin] Allergy (Unknown, Verified 08/31/23 15:33) RASH, NUMBNESS TO EXTREMITIES NSAIDS (Non-Steroidal Anti-Inflamma [Nsaids] Allergy (Unknown, Verified 08/31/23 15:33) UNKNOWN aspirin Allergy (Unknown, Uncoded 08/31/23 15:33) swelling motrin Allergy (Unknown, Uncoded 08/31/23 15:33) swelling Medication List - Last Reconciled 08/31/23 by DEANNE Newman albuterol sulfate 90 mcg/actuation 2 inhalations inhalation QID PRN ipratropium bromide 17 mcg/actuation (Atrovent HFA) 2 puffs inhalation TID oxycodone 5 mg PO Q6H PRN HPI HPI Comments History of Present Illness Details Jose Raul is a pleasant 68-year-old male patient of who was accompanied by his daughter at today's office visit. He has a past medical history of COPD and hep C. He presents to the office today as a new patient for nephrolithiasis. In discussion with the patient and his daughter today he reports having seeked emergency room care approximately 2 months ago here at [facility] for ongoing left-sided abdominal/left flank pain at which time a CT of the abdomen and pelvis was ordered. These results were reviewed with the patient is daughter today. The kidneys are normal in size, shape, and attenuation. No hydronephrosis or hydroureter. 4 mm medial upper pole calcification, possibly nonobstructing calculus versus vascular. He reports pain has since subsided significantly. However, he also states pain is intermittent. He discusses his main concern with his liver as well as his emphysema. When asked he endorses to not be drinking water. He reports not liking the way that it taste. Discussed at length potential causes for nephrolithiasis as well as further surveillance monitoring. In office urinalysis results reviewed with the patient and his daughter today. When asked patient does report concentrated in foul-smelling urine at times however states that if he increases his fluid intake this then subsides. He otherwise denies any bothersome urinary issues or concerns. When asked he reports to be happy with current voiding parameters. [facility] Social History Alcohol intake: never Review of Systems Const Reports no additional complaints Eyes Reports no additional complaints ENT Reports no additional complaints Card Reports no additional complaints Resp Reports as per HPI GI Reports as per HPI Reports as per HPI Musc Reports no additional complaints Neuro Reports no additional complaints Psych Reports no additional complaints Endo Reports no additional complaints Yemi/Lymph Reports no additional complaints Aller/Immun Reports no additional complaints Physical Exam Const General: cooperative, comfortable, no acute distress, well developed, alert and awake Nutritional Appearance: thin Orientation/consciousness: patient oriented x3 Limitations: wheelchair HEENT Head: Yes normal to inspection, Yes No palpable skull fracture present and Yes atraumatic Eyes General: appearance normal, both eyes and all related structures Neck Neck: Yes normal visual inspection and Yes trachea midline Chest Chest palpation & inspection: normal inspection of the chest Resp Effort & Inspection: normal respiratory effort and able to speak in complete sentences Cardio Rate: regular rate GI Other: round General: Yes no CVA tenderness Back/Spine/Pelvis Back: no CVA tenderness Neuro General: patient oriented x3 Extrem General: Yes normal to inspection Psych Appearance: grossly normal Mental Status: mental status grossly normal Speech and movement: Normal speech and movement present and Clear speech present Affect: normal affect Attitude: cooperative Thought process: Normal thought process present Thought content: Normal thought content present Insight: Fair insight present (Psych) Judgement: Fair judgement present (Psych) Results AMB Urinalysis, Automated UA Leukoctes 70 Sofia/uL Last Edit by Antonio Diehl on 08/31/23 14:58 UA Nitrite Negative Last Edit by Antonio Diehl on 08/31/23 14:58 UA Urobilinogen 2 mg/dL Last Edit by Antonio Diehl on 08/31/23 14:58 UA Protein 30 mg/dL Last Edit by Antonio Diehl on 08/31/23 14:58 UA pH 6.0 Last Edit by Antonio Diehl on 08/31/23 14:58 UA Blood 0 Joselito/uL Last Edit by Antonio Diehl on 08/31/23 14:58 UA Specific [place] 1.030 Last Edit by Antonio Diehl on 08/31/23 14:58 UA Ketone Positive Last Edit by Antonio Diehl on 08/31/23 14:58 UA Bilirubin 1 mg/dL Last Edit by Antonio Diehl on 08/31/23 14:58 UA Glucose 0 mg/dL Last Edit by Antonio Diehl on 08/31/23 14:58 Results Reviewed Results Reviewed: Laboratory Last Values Urine pH (Auto) 6.0 08/31/23 14:56 Specific [place] (Auto) 1.030 08/31/23 14:56 Urine Protein (Auto) 30 mg/dL 08/31/23 14:56 Glucose (UA)(Auto) 0 mg/dL 08/31/23 14:56 Urine Ketones (Auto) Positive 08/31/23 14:56 Urine Blood (Auto) 0 Joselito/uL 08/31/23 14:56 Urine Nitrite (Auto) Negative 08/31/23 14:56 Urine Bilirubin (Auto) 1 mg/dL 08/31/23 14:56 Urine Urobilinogen (Auto) 2 mg/dL 08/31/23 14:56 Leukocyte Esterase (Auto) 70 Sofia/uL 08/31/23 14:56 Date of Service: 06/21/23 EXAMINATION: CT ABDOMEN AND PELVIS WITHOUT CONTRAST FINDINGS: OVER THE ROAD DRIVER: Nonspecific bowel pattern. LUNG BASES: The visualized lung bases are unremarkable. LIVER, GALLBLADDER, AND BILIARY TREE: Liver is small and nodular No focal hepatic lesion or biliary ductal dilatation is present. Distended but otherwise unremarkable gallbladder. PANCREAS: Unremarkable. SPLEEN: Enlarged at 14 cm. ADRENAL GLANDS: Unremarkable. KIDNEYS AND URETERS: The kidneys are normal in size, shape, and attenuation. No hydronephrosis or hydroureter. 4 mm medial upper pole calcification, possibly nonobstructing calculus versus vascular. No perinephric stranding. BLADDER: Decompressed. GASTROINTESTINAL TRACT: Stomach compressed. No evidence of bowel obstruction. Unremarkable appendix. Mild diverticulosis. ABDOMINAL WALL: Bilateral groin hernias containing ascitic fluid. LYMPH NODES: Normal. VASCULAR: Atherosclerotic calcifications nonaneurysmal aorta and iliac veins. Normal caliber inferior vena cava. PELVIC VISCERA: Prostate calcifications. PERITONEUM: Moderate ascites. OSSEOUS STRUCTURES: Bilateral sclerotic femoral heads, left greater than right, possibly bone infarcts. IMPRESSION: Cirrhosis, portal hypertension and moderate ascites. Chronic osteonecrosis bilateral femoral heads. 4 mm left upper pole nonobstructing renal calculus versus vascular calcification. Assessment & Plan Assessment & Plan (1) Nephrolithiasis: Code(s): N20.0 - Calculus of kidney Plan In office urinalysis results reviewed with the patient today; as noted above. CT of the abdomen results reviewed with the patient today; as noted above. Discussed at length potential causes for nephrolithiasis. Discussed, educated, encouraged on the importance of drinking plenty of water daily. Discussed adding 1 oz of lemon juice to water daily. Will continue with surveillance monitoring. Will obtain renal ultrasound in 6 months. Follow-up in 6 months with imaging to be completed prior; or sooner with any issues, concerns, and or questions. Orders: Orders AMB Urinalysis Automated Today Z13.9 - Encounter for screening, unspecified US renal BI 6 Months N20.0 - Calculus of kidney Patient Instructions: The patient had an opportunity to ask questions regarding the treatment plan. All questions were answered. Physical exam, labs, and imaging were discussed and reviewed in detail. As well as risks, benefits, and discussion of treatment choices. No major barriers to understanding were identified. The patient expressed understanding and agreement with the above treatment plan. The patient was made aware they should contact our office by phone for worsening of their current condition, the appearance of new symptoms, or with any questions or concerns. Compliance is encouraged with any medications and follow up testing that is ordered. It is a privilege to be allowed the opportunity to participate in? your urological care.? Again, if you have any questions or concerns If you have any questions or concerns please do not hesitate to contact me. The office is [phone]. This note is constructed using voice recognition software. While every effort has been made to ensure accuracy sales marketing coordinator errors may have been included. Yours sincerely, DEANNE Newman Coding Level of Care Code New Pt Level 3 (56795) Diagnoses Nephrolithiasis N20.0
== END 2023-08-31 15:28 | disposition home or self-care (01) ==
LOC: HO.HUSH 14:37
PROVIDERS: PCP Internal Medicine; Visit Provider Nurse Practitioner Family
DX: N20.0 Calculus of kidney (principal)
CPT/HCPCS: 99203

== ENCOUNTER → 2023-08-31 14:36 | Outpatient (BNVA) | payer MEDICARE, MEDICAID, SELFPAY | PROVIDERS: PCP Internal Medicine; Visit Provider Nurse Practitioner Family | DX: N20.0 Calculus of kidney (principal) | CPT/HCPCS: 81003 ==

== ENCOUNTER 2023-09-05 13:11 | Outpatient (REF) | payer MEDICARE, SELFPAY ==
--- NOTE | ~2023-09-05 | US_ITS ---
EXAMINATION: US COMPLETE ABDOMEN WITH LIVER ELASTOGRAPHY CLINICAL INFORMATION: Cirrhosis of liver COMPARISON: None available. TECHNIQUE: Real-time imaging of the abdominal viscera. Noninvasive ultrasound liver fibrosis assessment is performed using Dez ElastPQ point quantification shear wave elastography (2D-SWE) with a C5-2 MHz transducer. Multiple elastography samples are obtained. FINDINGS: PANCREAS: The pancreas is not well seen due to bowel gas. ABDOMINAL AORTA: The proximal are normal in caliber. The mid and distal abdominal aorta are obscured by bowel gas. INFERIOR VENA CAVA: Visualized portions are normal. LIVER: The right lobe of the liver is atrophic. The contours of the liver are nodular. The echotexture is coarse. No focal or intrahepatic biliary duct dilatation. The right lobe measures 12.1 cm in length. The left lobe measures 12.1 cm in length. Portal flow is hepatopedal. There is significant ascites with movement of the liver during breast suspension during elastography. High probability of elastography being nondiagnostic/erroneous due to movement. Shear wave liver elastography median stiffness is 0.13 m/s (reference: normal median stiffness is 1.3 m/s or less). IQR/median stiffness to assess sampling precision is 1.03 (reference: good quality data set is IQR/median stiffness of 0.15 or less). GALLBLADDER: The gallbladder is physiologically distended without evidence of stones, sludge, polyps or pericholecystic fluid. The gallbladder wall is thickened, measuring 0.78. This is not unusual in the setting of ascites. No sonographic Yi's sign. COMMON BILE DUCT: Normal in caliber measuring 0.3 cm in diameter. RIGHT KIDNEY: Normal. No hydronephrosis. No renal calculi or focal parenchymal lesions. The kidney measures 10.6 cm in maximum dimension. LEFT KIDNEY: Normal. No hydronephrosis. No renal calculi or focal parenchymal lesions. The kidney measures 10.8 cm in maximum dimension. SPLEEN: Enlarged. The spleen measures 14.3 cm in maximum dimension. FREE FLUID: Large amount ascites in the upper abdomen, surrounding the liver. US/US abdomen comp w elastography IMPRESSION: 1. Atrophic right lobe of the liver with nodular contours of the liver and coarse echotexture suggestive of cirrhosis. 2. Large amount of ascites in the upper abdomen, surrounding the liver. 3. Splenomegaly. 4. Pancreas is not well seen due to bowel gas. 5. Thickening of the gallbladder wall is not unusual in the setting of ascites. 2. Liver elastography: Median value 0.13 corresponding to high probability of normal quality of data set is 1.03 indicates poor quality of data set, as discussed above. REFERENCE: Society of Radiologists in Ultrasound Liver Stiffness Thresholds (2020): LIVER STIFFNESS THRESHOLDS: *Liver Stiffness equal or less than 1.3 m/s: High probability of being normal. *Liver Stiffness less than 1.7 m/s: In the absence of other known clinical signs, rules out compensated advanced chronic liver disease. *Liver Stiffness 1.7-2.1 m/s: Suggestive of compensated advanced chronic liver disease but need further test for confirmation. *Liver Stiffness over 2.1 m/s: Rules in compensated advanced chronic liver disease. *Liver Stiffness over 2.4 m/s: Suggestive of clinically significant portal hypertension. QUALITY OF DATA SET: *IQR/Median value equal or less than 0.15 implies a quality data set. *IQR/Median value over 0.15 implies a poor quality data set. SIGNIFICANT CHANGE FROM PRIOR EXAM: Significant change if liver stiffness measurement is 10% or greater from prior exam. OTHER CONSIDERATIONS: The stage of liver fibrosis may be overestimated in the setting of acute hepatitis, liver inflammation, elevated liver function tests, hepatic vascular congestion, obstructive cholestasis, non-fasting state, and infiltrative diseases such as amyloidosis and lymphoma. In some patients with NAFLD, the liver stiffness thresholds for compensated advanced chronic liver disease may be lower. In causes other than viral hepatitis and NAFLD, liver stiffness thresholds are not well established.
== END 2023-09-05 13:12 | disposition home or self-care (01) ==
LOC: HO.US 13:11
PROVIDERS: PCP Internal Medicine; Visit Provider Student in an Organized Health Care Education/Training Program
DX: K74.69 Other cirrhosis of liver (principal)
CPT/HCPCS: 76705; 76981

== ENCOUNTER 2023-10-11 14:47 | Emergency (ER) | payer MEDICARE, MEDICAID, SELFPAY ==
--- NOTE | ~2023-10-11 | CT_ITS ---
EXAMINATION: CT ABDOMEN AND PELVIS WITHOUT CONTRAST CLINICAL INFORMATION: Ascites COMPARISON: Previous abdominal ultrasound August [address] of the abdomen and pelvis February 2023 TECHNIQUE: Multidetector volumetric imaging was performed from the superior aspect of the liver through the pubic symphysis. Sagittal and coronal reformatted images were obtained on the technologist's workstation. This CT examination was performed using dose optimization techniques as appropriate, variously including the following: *Automated exposure control *Adjustment of mA and/or kV according to patient size (this includes techniques or standardized protocols for targeted exams where dose is matched to indication/reason for exam; i.e. extremities or head) *Use of iterative reconstruction technique DLP: 676 mGy-cm FINDINGS: LUNG BASES: Bronchiectasis and bronchial wall thickening in the left lower lobe. 3 mm calcified left lower lobe nodule. Findings are similar to June 2023 exam. Large amount of ascites LIVER, GALLBLADDER, AND BILIARY TREE: Cirrhotic-appearing liver. No focal liver lesion. Normal gallbladder. No biliary duct dilatation. PANCREAS: Unremarkable. SPLEEN: Upper normal-size spleen measuring 13 cm. ADRENAL GLANDS: Unremarkable. KIDNEYS AND URETERS: The kidneys are normal in size, shape, and attenuation. No hydronephrosis, hydroureter. Stable central calcification upper pole left kidney probably representing a vascular calcification posterior done. No perinephric stranding. BLADDER: Unremarkable. GASTROINTESTINAL TRACT: Diverticulosis. No evidence of diverticulitis. Small and large bowel are otherwise normal. Appendix is normal. Question wall thickening of the distal thoracic esophagus. Normal stomach. ABDOMINAL WALL: Umbilical and bilateral inguinal hernias containing fluid. LYMPH NODES: Normal. VASCULAR: Varices are in normal caliber abdominal aorta. Atherosclerotic disease. PELVIC VISCERA: Unremarkable. OSSEOUS STRUCTURES: Bilateral femoral CT/CT abdomen pelvis wo IV con IMPRESSION: Cirrhosis, ascites and varices. Bilateral inguinal hernias containing ascitic fluid. Diverticulosis colon. Question wall thickening distal thoracic esophagus. Fleischner guidelines were followed.
--- NOTE | ~2023-10-11 | XR_ITS ---
EXAMINATION: XR CHEST CLINICAL INFORMATION: Shortness of breath COMPARISON: 06/22/2023 TECHNIQUE: Frontal view of the chest was obtained. FINDINGS: Chronically increased bronchovascular markings are not significantly changed. There are no pleural effusions. The cardiomediastinal silhouette is stable. XR/XR chest 1V IMPRESSION: Chronically increased bronchovascular markings but no significant change since 06/22/2023.
[2023-10-11] MEDS: Albuterol Sulfate 5 MG, Albuterol/Iprat 2.5/0.5MG 3 ML 3 ML INHALE (15:06)
[2023-10-11 15:07] VITALS: PULSE 68; RESP 22; O2SAT 97
[2023-10-11 15:13] VITALS: BP 131/66; BP 136/75; PULSE 87; RESP 24; TEMP 36.4; O2SAT 92; O2SAT 98; BMI 23.5
--- NOTE | 2023-10-11 15:16 | ED.SOB ---
HPI - SOB/Dyspnea General Chief Complaint: Upper Respiratory Symptoms Stated Complaint: SOB FOR DAYS PER EMS Time Seen by Provider: 10/11/23 15:16 Source: patient Mode of arrival: EMS Limitations: no limitations History of Present Illness HPI Narrative: Patient with hepatitis-C untreated with ascites COPD on oxygen 2.5 L been feeling increased shortness of breath for last 10 days over the last 3 days oxygen was increased to 4 L to keep saturation more than 90% no chest pain patient feel nauseated using nebulizing treatment without much relief Related Data Home Medications Medication Instructions Recorded Confirmed ergocalciferol (vitamin D2) 1,250 1,250 mcg PO TH 10/11/23 10/11/23 mcg (50,000 unit) capsule fluticasone fur. 100 mcg-umeclid 1 ea inhalation QAM 10/11/23 10/11/23 62.5 mcg-vilant 25 mcg inhalat.powder (Trelegy Ellipta) Previous Rx's Medication Instructions Recorded albuterol sulfate 90 mcg/actuation 2 inh inhalation QID PRN shortness 04/14/23 aerosol inhaler of breath or wheezing #6.7 grams pantoprazole 40 mg tablet,delayed 40 mg PO DAILY #30 tabs 10/11/23 release (Protonix) spironolactone 50 mg tablet 50 mg PO QAM #30 tabs 10/11/23 Allergies Allergy/AdvReac Type Severity Reaction Status Date / Time aspirin [Aspirin] Allergy Unknown RASH, Verified 10/11/23 15:17 SWELLING OF FACE, VOMITING ibuprofen [From Motrin] Allergy Unknown RASH, Verified 10/11/23 15:17 NUMBNESS TO EXTREMITIES NSAIDS (Non-Steroidal Allergy Unknown UNKNOWN Verified 10/11/23 15:17 Anti-Inflamma [Nsaids] aspirin Allergy Unknown swelling Uncoded 08/31/23 15:33 motrin Allergy Unknown swelling Uncoded 08/31/23 15:33 Review of Systems Review of Systems: Yes all other systems are reviewed and are negative [facility] Social History Social History Alcohol intake: never Physical Exam Vital Signs: Vital Signs: Last Vital Signs Temp 98.3 F 10/11/23 20:21 Pulse 98 10/11/23 20:21 Resp 16 10/11/23 20:21 BP 115/62 10/11/23 20:21 Pulse Ox 97 10/11/23 20:21 O2 Del Method Nasal Cannula 10/11/23 20:21 O2 Flow Rate 2.5 10/11/23 20:21 Oxygen Flow Rate 2.5 10/11/23 15:13 BMI result Body Mass Index 23.5 Appearance: Alert. Oriented X3. Moderate respiratory distress Eyes: PERRLA, No Nystagmus ENT: Pharynx normal. Oral Mucosa moist Neck: Normal inspection. Neck supple. CVS: Normal heart rate and rhythm. Pulses normal. Respiratory: No respiratory distress. Equal air entry bilateral, decreased air entry bilateral lower prolonged expiration Abdomen: Tense with free fluid nontender Bowel sounds are present, no mass palpable, no CVA tenderness Skin: Skin warm and dry. Normal skin color. Normal skin turgor. Extremities: 1+lower extremity edema. No calf tenderness Neuro: Oriented X 3. No motor deficit. Medications Administered Discontinued Medications Generic Name Dose Route Start Last Admin Trade Name Freq PRN Reason Stop Dose Admin Albuterol Sulfate 5 mg/ 0 mg 10/11/23 15:03 10/11/23 15:06 Albuterol/Ipratropium 3 ml INHALE 10/11/23 15:04 1 each ONCE ONE Administration Albumin Human 100 mls @ 100 mls/hr 10/11/23 18:15 10/11/23 21:13 Kedbumin 25 % IV 10/11/23 20:14 Infused Q1H MARINA Infusion Medical Decision Making Medical Decision Making [facility] Narrative: Patient with tense ascites secondary to hepatitis-C 5.5 L was removed patient feeling much better breathing better saturating 98% at 2 L , fluid sent for cell count and culture. Urine has nitrite with no bacteria patient denies any symptoms\ Fluid negative for SBP will discharge patient home on spironolactone Differential Diagnosis Differential Diagnoses: The differential diagnosis associated with the presentation includes Ascites/CHF/hypoxia/SBP Admission/Observation Consideration of admission/observation: Escalation of care including admission/observation considered Consult Healthcare Provider Management of the patient was discussed with: Hospitalist Lab Data [facility] Lab Attestation statement: I reviewed the patient's lab results. 10/11/23 16:35 10/11/23 16:35 Labs: Lab Results 10/11/23 10/11/23 Range/Units 16:35 18:55 WBC 4.2 L (4.8-10.8) X10*3/uL RBC 3.11 L (4.60-5.80) X10*6/uL Hgb 11.0 L (14.0-18.0) g/dl Hct 34.1 L (42.0-52.0) % MCV 109.6 H (80.0-98.0) fL MCH 35.4 H (27.0-33.0) pg MCHC 32.3 (31.0-36.0) g/dl RDW 13.5 (11.0-16.0) % Plt Count 57 L (160-400) X10*3/uL MPV Not Reportable Immature Gran % (Auto) 0.2 (0.0-0.4) % Neut % (Auto) 65.0 (45-73) % Lymph % (Auto) 19.2 L (20-40) % [place] % (Auto) 10.2 (2-11) % Eos % (Auto) 4.7 H (0-4) % Baso % (Auto) 0.7 (0-2) % Lymph # (Auto) 0.8 L (1.2-4.9) X10*3/uL [place] # (Auto) 0.4 (0.1-1.2) X10*3/uL Eos # (Auto) 0.2 (0.0-0.4) X10*3/uL Baso # (Auto) 0.0 (0.0-0.2) X10*3/uL Abs Immat Gran (auto) 0.01 (0.00-0.03) X10*3/uL Absolute Neuts (auto) 2.6 (2.0-8.3) x10*3/uL Absolute Nucleated RBC 0.000 (0.0-0.012) X10*3/uL Nucleated RBC % (auto) 0.0 (0.0-0.2) /100WBC Smear Tech's Comments VERIFIED PT 14.5 H (11.1-13.3) SEC INR 1.2 H (0.9-1.1) APTT 39.7 H (26.0-36.4) SEC Sodium 137 (135-145) mmol/L Potassium 4.4 (3.3-5.1) mmol/L Chloride 101 (96-108) mmol/L Carbon Dioxide 31 H (22-29) mmol/L Anion Gap 9 L (12-20) BUN 10 (9-16) mg/dL Creatinine 0.68 (0.5-1.4) mg/dL Estim Creat Clear Calc 98.5 Estimated GFR > 60 Random Glucose 191 H (60-115) mg/dL Calcium 8.6 (8.4-10.2) mg/dL Magnesium 1.8 (1.6-2.6) mg/dL Total Bilirubin 2.4 H (0.0-1.0) mg/dL AST 52 H (5-37) U/L ALT 28 (0-40) U/L Alkaline Phosphatase 104 (39-117) U/L B-Natriuretic Peptide 92 (<100) pg/mL Total Protein 7.5 (6.5-8.0) g/dL Albumin 2.4 L (3.5-5.0) g/dL Urine Color [place] Urine Appearance Clear Urine pH 5.5 (5.0-9.0) Ur Specific [place] >= 1.030 H (1.005-1.025) Urine Protein Trace (Neg-Trace) mg/dL Urine Glucose (UA) Negative (Negative) mg/dL Urine Ketones Trace (Negative) mg/dL Urine Blood Negative (Negative) Urine Nitrite Positive H (Negative) Ur Leukocyte Esterase Negative (Negative) Urine RBC 3-5 H (0-2) /HPF Urine WBC 0-5 (0-5) /HPF Ur Squamous Epith Cells 0-2 (0-2) /HPF Calcium Oxalate Crystal Present Urine Bacteria None Seen (None Seen) Hyaline Casts 0-2 (0-2) /LPF Peritoneal WBC 0.084 X10*3/uL Peritoneal RBC < 0.002 X10*6/uL [place] Neutrophils 10 % [place] Lymphocytes 26 % Peritoneal Monocytes 14 % Peritoneal Eosinophils 0 % Peritoneal Basophils 0 % Peritoneal Other Cells 50 % Independent Interpretation I performed an independent interpretation of an: CT Scan Radiology Impression Discussion of test interpretation with radiology: I have reviewed the radiologist's reading. Radiologist Impression: CT/CT abdomen pelvis wo IV con IMPRESSION: Cirrhosis, ascites and varices. Bilateral inguinal hernias containing ascitic fluid. Diverticulosis colon. Question wall thickening distal thoracic esophagus. Fleischner guidelines were followed. Procedures Paracentesis Time Out Performed: Yes Indication: Ascites Procedure: therapeutic paracentesis Location: RLQ Local Anesthetic: lidocaine 1% Amount of anesthesia used (mL): 1 Preparation: sterile prep and drape Amount of fluid obtained (mL): 5,500 Fluid: clear Size of Needle Used: 7 Post Procedure Exam: awake, alert Patient Tolerated Procedure: well Complications: none Critical Care Time Critical Care Time Critical Care Time: Yes Total Critical Care Time: 55 Attestation: The patient was critically ill with a high probability of imminent or life threatening deterioration. I spent greater than 60 minutes of discontinuous time evaluating the patient,delivering critical care at the bedside, discussing and evaluating pertinent data with consultants. Critical care time does not include time spent performing separately billable procedures or teaching. Total time spent performing critical care was 55 minutes. Discharge Plan Discharge Clinical Impression: Anasarca Patient Disposition: Home, Self-Care Instructions: Ascites (ED) Additional Instructions: Take medication as prescribed and follow-up with gastroenterology Prescriptions: New spironolactone 50 mg tablet 50 mg PO QAM Qty: 30 0RF pantoprazole [Protonix] 40 mg tablet,delayed release (DR/EC) 40 mg PO DAILY Qty: 30 0RF No Action ergocalciferol (vitamin D2) 1,250 mcg (50,000 unit) capsule 1,250 mcg PO TH Trelegy Ellipta 100-62.5-25 mcg blister with device 1 ea INHALATION QAM albuterol sulfate 90 mcg/actuation HFA aerosol inhaler 2 inh inhalation QID PRN (Reason: shortness of breath or wheezing) Qty: 6.7 0RF Referrals: Usman Alvarado MD [Physician] - 1 week
[2023-10-11 16:00] VITALS: BP 137/74; PULSE 84; RESP 24; TEMP 36.3; O2SAT 97
[2023-10-11 16:56] LABS: Imm Gran Abs Auto 0.01 X10*3/uL (0.00-0.03); Imm Gran Pct Auto 0.2 % (0.0-0.4); MANUAL DIFF FLAG SCAN; PLT CLUMP 1; SCAN SMEAR FLAG 1
[2023-10-11 16:57] LABS: Basophils Percent Auto 0.7 % (0-2); Eosinophils Absolute Auto 0.2 X10*3/uL (0.0-0.4); Eosinophils Percent Auto 4.7 % (0-4); Hematocrit 34.1 % (42.0-52.0); Lymphocytes Absolute Auto 0.8 X10*3/uL (1.2-4.9); Lymphocytes Percent Auto 19.2 % (20-40); Mean Corpuscular HGB Conc 32.3 g/dl (31.0-36.0); Mean Corpuscular Hemoglobin 35.4 pg (27.0-33.0); Mean Corpuscular Volume 109.6 fL (80.0-98.0); Monocytes Absolute Auto 0.4 X10*3/uL (0.1-1.2); Monocytes Percent Auto 10.2 % (2-11); Neutrophils Absolute Auto 2.6 x10*3/uL (2.0-8.3); Red Blood Count 3.11 X10*6/uL (4.60-5.80); Red Cell Distribution Width 13.5 % (11.0-16.0)
[2023-10-11 17:01] LABS: Alanine Aminotransferase 28 U/L (0-40); Albumin Level 2.4 g/dL (3.5-5.0); Alkaline Phosphatase 104 U/L (39-117); Anion Gap 9 (12-20); Aspartate Amino Transferase 52 U/L (5-37); Bilirubin Total 2.4 mg/dL (0.0-1.0); Blood Urea Nitrogen 10 mg/dL (9-16); Calcium 8.6 mg/dL (8.4-10.2); Carbon Dioxide 31 mmol/L (22-29); Chloride 101 mmol/L (96-108); Creatinine Clr Calc Pharmacy 98.5; Estimated Glomerular Filt Rate > 60; Glucose Random 191 mg/dL (60-115); Magnesium 1.8 mg/dL (1.6-2.6); Potassium 4.4 mmol/L (3.3-5.1); Sodium 137 mmol/L (135-145); Total Protein 7.5 g/dL (6.5-8.0)
[2023-10-11 17:05] LABS: B Type Natriuretic Peptide 92 pg/mL (<100)
[2023-10-11 17:06] LABS: INTERNATIONAL NORM RATIO 1.2 (0.9-1.1); Prothrombin Time 14.5 SEC (11.1-13.3)
[2023-10-11 17:08] LABS: Partial Thromboplastin Time 39.7 SEC (26.0-36.4)
[2023-10-11 17:10] LABS: Appearance Urine Clear; Color Urine Orange; Glucose Urine UA Negative (Negative); Leukocyte Esterase Urine Negative (Negative); Nitrite Urine Positive (Negative); PH 5.5 (5.0-9.0); Specific Gravity - Urine >= 1.030 (1.005-1.025); UMIC TRIGGER UACC YES; Urine Blood Negative (Negative); Urine Ketones Trace mg/dL (Negative); Urine Protein Trace mg/dL (Neg-Trace)
[2023-10-11 17:25] LABS: Platelet Count 57 X10*3/uL (160-400); White Blood Count 4.2 X10*3/uL (4.8-10.8)
[2023-10-11 17:27] LABS: SLIDE REVIEW VERIFIED
--- NOTE | 2023-10-11 17:28 | PHA.MEDREC ---
Pharmacy Consult ? Medication Reconciliation Pharmacy has completed the medication reconciliation. Patient and family confirmed medications. Colleen Vo, DamarisD
[2023-10-11 17:35] LABS: Bacteria Urine None Seen (None Seen); Calcium Oxalate Crystals Urine Present; Hyaline Casts Urine 0-2 /LPF (0-2); Squamous Epithelial Cell Urine 0-2 /HPF (0-2); UACC Culture Trigger YES; WBC Urine 0-5 /HPF (0-5)
[2023-10-11] MEDS: Albumin Human 25 % 100 ML IV ×2 (19:23→20:11)
[2023-10-11 19:37] LABS: MN% 88.3 %; PMN% 11.7 %; WBC Peritoneal Fluid 0.084 X10*3/uL
[2023-10-11 19:40] LABS: RBC Peritoneal Fluid < 0.002 X10*6/uL
[2023-10-11 20:21] VITALS: BP 115/62; PULSE 98; RESP 16; TEMP 36.8; O2SAT 97
[2023-10-11 20:44] LABS: BF Shift QC OK YES; Man Diluent Bkgrd OK YES
[2023-10-11 21:12] LABS: Basophils Peritoneal Fl 0 %; Eosinophils Peritoneal Fl 0 %
--- NOTE | 2023-10-11 21:13 | PC.NURSE ---
this rn assumed care of pt @ 1900. family at bedside. pt medicated according to jan. awaiting on ambulance for transport back to home
[2023-10-11 21:16] LABS: Lymphocyte Peritoneal Fl 26 %; Monocytes Peritoneal Fl 14 %; Neutrophils Peritoneal Fluid 10 %; Other Peritioneal Fl 50 %
[2023-10-11 21:24] VITALS: O2SAT 97
--- NOTE | 2023-10-11 21:58 | PC.NURSE ---
iv removed at time of discharge. ems report given for transport back to pt home. pt provided with discharge packet. pt verbalized understanding of discharge plan.
[2023-10-11 22:28] LABS: Albumin Peritoneal Fluid 0.2 GM/DL
== END 2023-10-11 22:00 | disposition home or self-care (01) ==
PROVIDERS: Emergency Provider Internal Medicine; PCP Family Medicine
DX: R60.1 Generalized edema (principal); R10.31 Right lower quadrant pain; R10.2 Pelvic and perineal pain; R06.02 Shortness of breath; J44.9 Chronic obstructive pulmonary disease, unspecified; Z99.81 Dependence on supplemental oxygen; Z79.899 Other long term (current) drug therapy
CPT/HCPCS: 36415; 49082; 71045; 74176; 80053; 81001; 82042; 83735; 83880; 85025; 85610; 85730; 87070; 87073; 87086; 87205; 89051; 94640; 96365; 96366; 99285; P9047

== ENCOUNTER 2023-10-16 04:10 | Emergency (ER) | payer MEDICARE, MEDICAID, SELFPAY ==
--- NOTE | ~2023-10-16 | US_ITS ---
EXAMINATION: US ABDOMEN COMPLETE CLINICAL INFORMATION: Abdominal pain. Evaluate for ascites.. COMPARISON: Previous abdominal abdominal ultrasound August [address] of the abdomen and pelvis October 2023 TECHNIQUE: Real-time imaging of the abdominal viscera. FINDINGS: PANCREAS: Not well visualized ABDOMINAL AORTA: Not well-visualized INFERIOR VENA CAVA: Not well visualized LIVER: Cirrhotic-appearing liver. New slightly hyperechoic solid lesion in the peripheral left lobe measuring 1.8 cm. No other focal liver lesion. No biliary duct dilatation. The main portal vein is patent with appropriate hepatopedal flow. GALLBLADDER: Gallbladder is contracted. The gallbladder wall appears thickened. COMMON BILE DUCT: Normal in caliber measuring 0.5 cm in diameter. RIGHT KIDNEY: Normal. No hydronephrosis. No renal calculi or focal parenchymal lesions. The kidney measures 9 cm in maximum dimension. LEFT KIDNEY: Normal. No hydronephrosis. No renal calculi or focal parenchymal lesions. The kidney measures 10.6 cm in maximum dimension. SPLEEN: Slightly enlarged. The spleen measures 14 cm in maximum dimension. FREE FLUID: Moderate amount of ascites. US/US abdomen complete IMPRESSION: Cirrhotic-appearing liver. Newly appreciated 1.8 cm slightly hyperechoic lesion in the left lobe of the liver. Follow-up liver MRI recommended. Contracted gallbladder. The gallbladder wall thickening similar to prior exams. Moderate amount of ascites.
--- NOTE | ~2023-10-16 | XR_ITS ---
EXAMINATION: XR CHEST CLINICAL INFORMATION: Shortness of breath COMPARISON: Previous chest x-ray 10/11/2023 TECHNIQUE: 2 views of the chest were obtained. FINDINGS: No significant abnormality is noted involving the heart, lungs, mediastinum, bony thorax or soft tissues. XR/XR chest 2V IMPRESSION: Unremarkable examination.
[2023-10-16 04:14] VITALS: BP 125/64; BP 133/79; PULSE 76; PULSE 88; RESP 20; TEMP 36.8; O2SAT 94; O2SAT 98; BMI 24.4
[2023-10-16 05:31] LABS: Influenza A PCR NEGATIVE (Negative); Influenza B PCR NEGATIVE (Negative); Resp Syncy Virus RNA Qual PCR NEGATIVE (Negative); SARS COV2 PCR INHOUSE NEGATIVE (Negative)
[2023-10-16 06:05] VITALS: BP 123/71; PULSE 87; RESP 20; O2SAT 96
--- NOTE | 2023-10-16 06:06 | PC.NURSE ---
Pt A&Ox3, denies any pain, BIBA from home, reports increase SOB since yesterday with no relief of home inhalers. Was here Tuesday for same reason and had paracentesis done with 5 L of fluid drained. ABD is distended. Pt is on 2L via [place] at baseline, SPo2 94%, RR 22, reports improvement with duoneb EMS gave.
--- NOTE | 2023-10-16 06:40 | ED.GENADULT ---
HPI - General Adult General Chief complaint: Dyspnea Stated complaint: sob Time Seen by Provider: 10/16/23 06:35 Source: patient and EMS Mode of arrival: EMS Limitations: no limitations History of Present Illness HPI narrative: Patient is a 68 year old assigned male at with a history of COPD, hepatitis C with cirrhosis, and kidney stones presenting to the emergency department today with shortness of breath. Patient states that over the last day he has had worsening shortness of breath with no relief from his inhalers. Patient states that he was seen here 5 days ago, on 10/11/2023, and had a paracentesis which removed 5 liters of fluid. Patient states that he does not feel like his abdomen is that large today and does not want to be tapped. Patient denies any dizziness, lightheadedness, abdominal pain, nausea, vomiting, fever, chills, blurry vision, double vision, loss of vision, chest pain, back pain, night sweats, pain with urination, increased urinary frequency, increased urinary urgency, blood in his urine or stool, syncope or a near syncopal episode, recent trauma or falls, bowel incontinence, bladder incontinence, bowel retention, bladder retention, or any other complaints at this time. Onset (ago): day(s) (1) Severity: mild Severity scale (1-10): 3 Relieving factors: none Exacerbating factors: none Associated symptoms: shortness of breath Treatments prior to arrival: none Related Data Home Medications Medication Instructions Recorded Confirmed ergocalciferol (vitamin D2) 1,250 1,250 mcg PO TH 10/11/23 10/11/23 mcg (50,000 unit) capsule fluticasone fur. 100 mcg-umeclid 1 ea inhalation QAM 10/11/23 10/11/23 62.5 mcg-vilant 25 mcg inhalat.powder (Trelegy Ellipta) Previous Rx's Medication Instructions Recorded albuterol sulfate 90 mcg/actuation 2 inh inhalation QID PRN shortness 04/14/23 aerosol inhaler of breath or wheezing #6.7 grams pantoprazole 40 mg tablet,delayed 40 mg PO DAILY #30 tabs 10/11/23 release (Protonix) spironolactone 50 mg tablet 50 mg PO QAM #30 tabs 10/11/23 Allergies Allergy/AdvReac Type Severity Reaction Status Date / Time aspirin [Aspirin] Allergy Unknown RASH, Verified 10/16/23 04:26 SWELLING OF FACE, VOMITING ibuprofen [From Motrin] Allergy Unknown RASH, Verified 10/16/23 04:26 NUMBNESS TO EXTREMITIES NSAIDS (Non-Steroidal Allergy Unknown UNKNOWN Verified 10/16/23 04:26 Anti-Inflamma [Nsaids] aspirin Allergy Unknown swelling Uncoded 08/31/23 15:33 motrin Allergy Unknown swelling Uncoded 08/31/23 15:33 Review of Systems Constitutional: Constitutional: Reports no additional constitutional complaints, Denies chills, Denies fever(s) and Denies night sweats Eyes: Eyes: Reports no additional eye complaints, Denies blurry vision, Denies change in vision, Denies diplopia, Denies eye discharge, Denies loss of vision and Denies eye pain ENT: Denies dizziness Cardiovascular: Cardiovascular: Reports no additional cardiovascular complaints, Denies chest pain, Denies lightheadedness, Denies Loss of Consciousness and Reports dyspnea Respiratory: Respiratory: Reports no additional respiratory complaints and Reports dyspnea Gastrointestinal: Gastrointestinal: Reports no additional gastrointestinal complaints, Denies abdominal pain, Denies melena, Denies hematochezia, Denies change in bowel habits and Denies change in stool character Genitourinary: Genitourinary: Reports no additional male genitourinary complaints, Denies hematuria, Denies oliguria, Denies difficulty urinating, Denies dysuria, Denies urinary frequency, Denies urinary hesitancy, Denies urinary incontinence and Denies urinary urgency Musculoskeletal: Musculoskeletal: Reports no additional musculoskeletal complaints, Denies numbness and Denies tingling Neurologic: Denies dizziness, Denies loss of vision, Denies numbness and Denies tingling Psychiatric: Psychiatric: Reports no additional psychiatric complaints Endocrine: Endocrine: Reports no additional endocrine complaints Hematologic/Lymphatic: Hematologic/Lymphatic: Reports no additional hematologic/lymphatic complaints Allergic/Immunologic: Allergic/Immunologic: Reports no additional allergic/immunologic complaints PMFSH Past Medical History Attestation statement: The following information was validated with the patient. Source: old records reviewed and nursing notes reviewed Social History Social History Alcohol intake: never Smoked in Last 30 Days: Yes Use of substances other than those prescribed or required for medical reasons: No Advance Directives: Yes Advance Directives Information Provided: Yes Advance Directives on File: No Physical Exam ED Vital Signs: Vital Signs - 24 hr 10/16/23 04:14 10/16/23 06:05 10/16/23 07:39 Temperature 98.2 F Pulse Rate 76 87 89 Respiratory Rate 20 20 23 H Blood Pressure 125/64 123/71 Pulse Oximetry 94 96 Oxygen Delivery Method Nasal Cannula Nasal Cannula Oxygen Flow Rate 2.5 10/16/23 09:21 Temperature 97.6 F Pulse Rate 106 H Respiratory Rate 26 H Blood Pressure 133/66 Pulse Oximetry 98 Oxygen Delivery Method Nasal Cannula Oxygen Flow Rate 4 BMI result Body Mass Index 24.4 Const General: cooperative, no acute distress, alert and awake Nutritional Appearance: well nourished Orientation/consciousness: patient oriented x3 Limitations: no limitations HENMT Head: Yes normal to inspection and Yes atraumatic Ears: hearing grossly normal bilaterally and external ears normal General nose exam: Normal external nose present, no nasal discharge noted and no epistaxis Face and sinus: Yes normal facial exam, No abrasion and No laceration Mouth: Normal oral and palatal mucosa present, no drooling and no muffled voice Eyes General: appearance normal, both eyes and all related structures Periorbital: periorbital findings normal Eyelids: Yes eyelids normal Conjunctivae: conjunctivae normal Pupils: Equal, round and reactive pupils present EOM: EOMs intact bilaterally Neck Neck: Yes normal visual inspection, Yes full ROM and Yes no lymphadenopathy Chest Chest palpation & inspection: normal inspection of the chest Resp Effort & Inspection: normal respiratory effort and able to speak in complete sentences GI Inspection: Yes distended (chronic for the patient - reported it is not worse than usual) Palpation (GI): Soft to palpation, not firm, nontender, no guarding and not rigid Neuro General: patient oriented x3 and moves all extremities Cranial nerves: Yes Equal, round and reactive pupils present Cognition (Neuro): normal cognition Motor exam (neuro): 5/5 motor strength present throughout Sensory Exam: Normal double simultaneous stimulation for sensation Coordination: [id number] test normal Extrem General: Yes normal to inspection, Yes full ROM and Yes capillary refill normal Psych Appearance: grossly normal Mental Status: mental status grossly normal Affect: normal affect Attitude: cooperative Thought process: Normal thought process present Thought content: Normal thought content present Insight: Good insight present (Psych) Medications Administered Discontinued Medications Generic Name Dose Route Start Last Admin Trade Name Freq PRN Reason Stop Dose Admin Albuterol Sulfate 2.5 mg/ 0 mg 10/16/23 07:34 10/16/23 07:37 Albuterol/Ipratropium 3 ml INHALE 10/16/23 07:35 5 dose ONCE ONE Administration Lorazepam 1 mg 10/16/23 08:50 10/16/23 09:00 Lorazepam 2 Mg/Ml Vial IVPUSH 10/16/23 08:51 1 mg ONCE ONE Administration Methylprednisolone Sodium Succinate 60 mg 10/16/23 08:50 10/16/23 09:00 Methylprednisolone Sod Succ 125 Mg/2 Ml Vial IVPUSH 10/16/23 08:51 60 mg ONCE ONE Administration Medical Decision Making Medical Decision Making [facility] Narrative: Patient is a 68 year old assigned male at with a history of COPD, hepatitis C with cirrhosis, and kidney stones presenting to the emergency department today with shortness of breath. Patient's physical exam was as noted in the physical exam portion of this note. Patient's blood work showed findings consistent for the patient and his liver disease. Patient's EKG was unremarkable. Patient's chest x-ray showed no acute process. Patient's abdominal US showed a new 1.8cm hyperechoic lesion in the liver which radiology recommends following up on an outpatient basis for. I explained my physical exam findings as well as all test results to the patient. I answered all questions asked by the patient. Patient declined admission or paracentesis. Patient received IV Solu-medrol, a breathing treatment, and IV ativan which he stated helped his symptoms significantly. I stressed the importance of the patient taking his medication as prescribed and continuing to use his oxygen at 4lpm. I stressed the importance of the patient following up with his primary care provider. I stressed the importance of the patient returning to the emergency department immediately if his symptoms were to worsen or if he were to develop any dizziness, shortness of breath, difficulty breathing, chest pain, blurry vision, loss of vision, nausea, vomiting, abdominal pain, fever, chills, back pain, or any other complaints. Patient verbalized agreement and understanding with this treatment plan and discharge. Differential Diagnosis Differential Diagnoses: The differential diagnosis associated with the presentation includes Ascites COPD exacerbation Anxiety Admission/Observation Consideration of admission/observation: Escalation of care including admission/observation considered Patient would have been admitted to the hospital had his work up had any findings where hospital admission was appropriate, his clinical presentation warranted hospital admission, and he had been willing to be admitted. Lab Data [facility] Lab Attestation statement: I reviewed the patient's lab results. My interpretation of these results are in the [facility] Rationale portion of this note. 10/16/23 08:11 10/16/23 08:11 Labs: Lab Results 10/16/23 10/16/23 10/16/23 Range/Units 04:50 08:10 08:11 WBC 6.2 (4.8-10.8) X10*3/uL RBC 3.11 L (4.60-5.80) X10*6/uL Hgb 11.1 L (14.0-18.0) g/dl Hct 33.0 L (42.0-52.0) % MCV 106.1 H (80.0-98.0) fL MCH 35.7 H (27.0-33.0) pg MCHC 33.6 (31.0-36.0) g/dl RDW 13.8 (11.0-16.0) % Plt Count 77 L D (160-400) X10*3/uL MPV 10.3 (9.4-12.4) fL Immature Gran % (Auto) 0.3 (0.0-0.4) % Neut % (Auto) 61.7 (45-73) % Lymph % (Auto) 22.8 (20-40) % [place] % (Auto) 10.4 (2-11) % Eos % (Auto) 4.2 H (0-4) % Baso % (Auto) 0.6 (0-2) % Lymph # (Auto) 1.4 (1.2-4.9) X10*3/uL [place] # (Auto) 0.7 (0.1-1.2) X10*3/uL Eos # (Auto) 0.3 (0.0-0.4) X10*3/uL Baso # (Auto) 0.0 (0.0-0.2) X10*3/uL Abs Immat Gran (auto) 0.02 (0.00-0.03) X10*3/uL Absolute Neuts (auto) 3.9 (2.0-8.3) x10*3/uL Absolute Nucleated RBC 0.000 (0.0-0.012) X10*3/uL Nucleated RBC % (auto) 0.0 (0.0-0.2) /100WBC PT 15.6 H (11.1-13.3) SEC INR 1.3 H (0.9-1.1) APTT 40.7 H (26.0-36.4) SEC Sodium 137 (135-145) mmol/L Potassium 5.0 (3.3-5.1) mmol/L Chloride 99 (96-108) mmol/L Carbon Dioxide 32 H (22-29) mmol/L Anion Gap 11 L (12-20) BUN 9 (9-16) mg/dL Creatinine 0.69 (0.5-1.4) mg/dL Estim Creat Clear Calc 103.8 Estimated GFR > 60 Random Glucose 137 H (60-115) mg/dL Lactic Acid 0.9 (0.5-2.0) mmol/L Calcium 8.5 (8.4-10.2) mg/dL Magnesium 1.9 (1.6-2.6) mg/dL Total Bilirubin 2.1 H (0.0-1.0) mg/dL AST 47 H (5-37) U/L ALT 28 (0-40) U/L Alkaline Phosphatase 103 (39-117) U/L Troponin I High Sens 3.3 (<3.5-35.0) ng/L Total Protein 7.1 (6.5-8.0) g/dL Albumin 2.6 L (3.5-5.0) g/dL Influenza Type A (PCR) NEGATIVE (Negative) Influenza Type B (PCR) NEGATIVE (Negative) RSV RNA Qual (PCR) NEGATIVE (Negative) SARS-CoV-2 RNA (RT-PCR) NEGATIVE (Negative) Independent Interpretation I performed an independent interpretation of an: EKG, Plain X-Ray and Ultrasound Interpretation: My interpretation is in agreement with the radiologist's impression of these imaging studies. EXAMINATION: XR CHEST CLINICAL INFORMATION: Shortness of breath COMPARISON: Previous chest x-ray 10/11/2023 TECHNIQUE: 2 views of the chest were obtained. FINDINGS: No significant abnormality is noted involving the heart, lungs, mediastinum, bony thorax or soft tissues. XR/XR chest 2V IMPRESSION: Unremarkable examination. Dictated By: Anabel Masterson MD Signed By: Electronically signed by Anabel Masterson MD 10/16/23 0918 EXAMINATION: US ABDOMEN COMPLETE CLINICAL INFORMATION: Abdominal pain. Evaluate for ascites.. COMPARISON: Previous abdominal abdominal ultrasound August [address] of the abdomen and pelvis October 2023 TECHNIQUE: Real-time imaging of the abdominal viscera. FINDINGS: PANCREAS: Not well visualized ABDOMINAL AORTA: Not well-visualized INFERIOR VENA CAVA: Not well visualized LIVER: Cirrhotic-appearing liver. New slightly hyperechoic solid lesion in the peripheral left lobe measuring 1.8 cm. No other focal liver lesion. No biliary duct dilatation. The main portal vein is patent with appropriate hepatopedal flow. GALLBLADDER: Gallbladder is contracted. The gallbladder wall appears thickened. COMMON BILE DUCT: Normal in caliber measuring 0.5 cm in diameter. RIGHT KIDNEY: Normal. No hydronephrosis. No renal calculi or focal parenchymal lesions. The kidney measures 9 cm in maximum dimension. LEFT KIDNEY: Normal. No hydronephrosis. No renal calculi or focal parenchymal lesions. The kidney measures 10.6 cm in maximum dimension. SPLEEN: Slightly enlarged. The spleen measures 14 cm in maximum dimension. FREE FLUID: Moderate amount of ascites. US/US abdomen complete IMPRESSION: Cirrhotic-appearing liver. Newly appreciated 1.8 cm slightly hyperechoic lesion in the left lobe of the liver. Follow-up liver MRI recommended. Contracted gallbladder. The gallbladder wall thickening similar to prior exams. Moderate amount of ascites. Dictated By: Anabel Masterson MD Signed By: Electronically signed by Anabel Masterson MD 10/16/23 0937 Vent. Rate: 086 BPM Atrial Rate: 086 BPM P-R Int: 142 ms QRS Dur: 076 ms QT Int: 352 ms P-R-T Axes: 051 080 058 degrees QTc Int: 421 ms Normal sinus rhythm Normal ECG When compared with ECG of 14-JAN-2020 10:10, No significant change was found DD/ [id number] Radiology Impression Discussion of test interpretation with radiology: I have reviewed the radiologist's reading. Independent Historian Clinical information obtained from an independent historian. History obtained from or confirmed by: EMS (EMS provided additional history and confirmed the history provided by the patient.) and Other (patient's daughter provided additional history and confirmed the history provided by the patient.) Discharge Plan Discharge Clinical Impression: COPD (chronic obstructive pulmonary disease), Anxiety, Cirrhosis Patient Disposition: Home, Self-Care Instructions: Cirrhosis (ED), COPD (Chronic Obstructive Pulmonary Disease) (DC), Anxiety (ED) Additional Instructions: Your abdominal US showed a 1.8cm slightly hyperechoic lesion in the left lobe of the liver. This needs follow up with a GI specialist. Follow up with your primary care provider and your GI doctor. Return to the emergency department immediately if your symptoms worsen or if you develop any dizziness, shortness of breath, difficulty breathing, chest pain, blurry vision, loss of vision, nausea, vomiting, abdominal pain, fever, chills, back pain, or any other complaints. Prescriptions: No Action ergocalciferol (vitamin D2) 1,250 mcg (50,000 unit) capsule 1,250 mcg PO TH Trelegy Ellipta 100-62.5-25 mcg blister with device 1 ea INHALATION QAM spironolactone 50 mg tablet 50 mg PO QAM Qty: 30 0RF pantoprazole [Protonix] 40 mg tablet,delayed release (DR/EC) 40 mg PO DAILY Qty: 30 0RF albuterol sulfate 90 mcg/actuation HFA aerosol inhaler 2 inh inhalation QID PRN (Reason: shortness of breath or wheezing) Qty: 6.7 0RF Referrals: Soledad Galarza DO [Primary Care Provider] - Print Language: Lao
--- NOTE | 2023-10-16 07:07 | ECG_ITS ---
Test Reason : SOB Blood Pressure : / mmHG Vent. Rate : 086 BPM Atrial Rate : 086 BPM P-R Int : 142 ms QRS Dur : 076 ms QT Int : 352 ms P-R-T Axes : 051 080 058 degrees QTc Int : 421 ms Normal sinus rhythm Normal ECG When compared with ECG of 14-JAN-2020 10:10, No significant change was found Referred By: Elizabeth Sears Electronically Signed By:DRAKE JC
[2023-10-16] MEDS: Albuterol Sulfate 2.5 MG, Albuterol/Iprat 2.5/0.5MG 3 ML 3 ML INHALE (07:37)
[2023-10-16 07:39] VITALS: PULSE 89; RESP 23; O2SAT 94
[2023-10-16 08:16] LABS: MANUAL DIFF FLAG NO
[2023-10-16 08:28] LABS: Lactic Acid 0.9 mmol/L (0.5-2.0)
[2023-10-16 08:28] LABS: Basophils Percent Auto 0.6 % (0-2); Eosinophils Absolute Auto 0.3 X10*3/uL (0.0-0.4); Eosinophils Percent Auto 4.2 % (0-4); Hemoglobin 11.1 g/dl (14.0-18.0); INTERNATIONAL NORM RATIO 1.3 (0.9-1.1); Imm Gran Abs Auto 0.02 X10*3/uL (0.00-0.03); Imm Gran Pct Auto 0.3 % (0.0-0.4); Lymphocytes Absolute Auto 1.4 X10*3/uL (1.2-4.9); Lymphocytes Percent Auto 22.8 % (20-40); Mean Corpuscular HGB Conc 33.6 g/dl (31.0-36.0); Mean Corpuscular Hemoglobin 35.7 pg (27.0-33.0); Mean Corpuscular Volume 106.1 fL (80.0-98.0); Mean Platelet Volume 10.3 fL (9.4-12.4); Monocytes Absolute Auto 0.7 X10*3/uL (0.1-1.2); Monocytes Percent Auto 10.4 % (2-11); Neutrophils Absolute Auto 3.9 x10*3/uL (2.0-8.3); Neutrophils Percent Auto 61.7 % (45-73); Platelet Count 77 X10*3/uL (160-400); Prothrombin Time 15.6 SEC (11.1-13.3); Red Blood Count 3.11 X10*6/uL (4.60-5.80); Red Cell Distribution Width 13.8 % (11.0-16.0); White Blood Count 6.2 X10*3/uL (4.8-10.8)
[2023-10-16 08:31] LABS: Partial Thromboplastin Time 40.7 SEC (26.0-36.4)
[2023-10-16 08:33] LABS: Alanine Aminotransferase 28 U/L (0-40); Albumin Level 2.6 g/dL (3.5-5.0); Alkaline Phosphatase 103 U/L (39-117); Anion Gap 11 (12-20); Aspartate Amino Transferase 47 U/L (5-37); Bilirubin Total 2.1 mg/dL (0.0-1.0); Blood Urea Nitrogen 9 mg/dL (9-16); Calcium 8.5 mg/dL (8.4-10.2); Carbon Dioxide 32 mmol/L (22-29); Chloride 99 mmol/L (96-108); Creatinine Clr Calc Pharmacy 103.8; Estimated Glomerular Filt Rate > 60; Glucose Random 137 mg/dL (60-115); Magnesium 1.9 mg/dL (1.6-2.6); Sodium 137 mmol/L (135-145); Total Protein 7.1 g/dL (6.5-8.0)
[2023-10-16 08:40] LABS: Troponin-I High Sensitivity 3.3 ng/L (<3.5-35.0)
--- NOTE | 2023-10-16 08:45 | PC.NURSE ---
upset with staff, requesting food and something to drink. provider and rn to bedside to explain events of the emergency visit today. provided with sandwich and juice. patient much more comfortable and less agitated after receiving sandwich. removed EMS iv and re-established IV in right forearm. medicated per the MAR.
[2023-10-16] MEDS: methylPREDNISolone Sod Succ 125 MG/2 ML VIAL 60 MG IVPUSH (09:00)
[2023-10-16] MEDS: LORazepam 2 MG/ML VIAL 1 MG IVPUSH (09:00)
[2023-10-16 09:21] VITALS: BP 133/66; PULSE 106; RESP 26; TEMP 36.4; O2SAT 98
[2023-10-16 10:00] VITALS: BP 127/75; PULSE 100; RESP 22; O2SAT 4
--- NOTE | 2023-10-16 11:35 | PC.NURSE ---
medical office secretary notified that pt needs transportation at this time - will notify pt and family on ETA when able.
--- NOTE | 2023-10-16 11:55 | PC.NURSE ---
pt and family speaking w/ ED provider at this time.
--- NOTE | 2023-10-16 12:15 | PC.NURSE ---
pt refused transportation via S d/t wait. pt uses 2.5L via [place] baseline and [place] 4L [place] [facility] [place] pt verbalizes he does not want to use transportation services. pt and family aware that oxygen is not provided/they do not have pt's oxygen concentrator with them. family states concentrator is not portable and they do not want to wait.
== END 2023-10-16 12:17 | disposition home or self-care (01) ==
PROVIDERS: Physician Assistant Medical; Emergency Provider Emergency Medicine Emergency Medical Services; PCP Family Medicine
DX: J44.9 Chronic obstructive pulmonary disease, unspecified (principal); F41.9 Anxiety disorder, unspecified; K74.60 Unspecified cirrhosis of liver; R06.02 Shortness of breath; Z20.822 Contact with and (suspected) exposure to COVID-19; Z20.828 Contact with and (suspected) exposure to other viral communicable diseases; B19.20 Unspecified viral hepatitis C without hepatic coma; Z99.81 Dependence on supplemental oxygen; Z79.899 Other long term (current) drug therapy
CPT/HCPCS: 0241U; 36415; 71046; 76700; 80053; 83605; 83735; 84484; 85025; 85610; 85730; 87040; 93005; 94640; 96374; 96375; 99284; 99285; J2060; J2930

== ENCOUNTER → 2023-10-16 07:07 | Outpatient (BNV) | payer MEDICARE, MEDICAID, SELFPAY | PROVIDERS: Emergency Provider Emergency Medicine Emergency Medical Services; PCP Family Medicine; Visit Provider Internal Medicine | DX: R06.02 Shortness of breath (principal) | CPT/HCPCS: 93010 ==

== ENCOUNTER 2023-10-22 20:08 | Emergency (ER) | payer MEDICARE, MEDICAID, SELFPAY ==
--- NOTE | 2023-10-22 | ECG_ITS ---
Test Reason : DYSPEA Blood Pressure : / mmHG Vent. Rate : 080 BPM Atrial Rate : 080 BPM P-R Int : 150 ms QRS Dur : 078 ms QT Int : 372 ms P-R-T Axes : 075 081 075 degrees QTc Int : 429 ms Normal sinus rhythm Normal ECG When compared with ECG of 16-OCT-2023 07:26, No significant change was found Referred By: Generic ED Physician Electronically Signed By:aDrryl Gilbert
[2023-10-22 20:18] VITALS: BP 124/62; PULSE 94; O2SAT 96
[2023-10-22 20:28] VITALS: BP 124/65; PULSE 82; RESP 20; TEMP 36.5; O2SAT 98; BMI 23.7
[2023-10-22 20:55] LABS: Basophils Percent Auto 0.4 % (0-2); Lymphocytes Absolute Auto 1.2 X10*3/uL (1.2-4.9); PLT CLUMP 1; SCAN SMEAR FLAG 1
[2023-10-22 20:57] LABS: Eosinophils Absolute Auto 0.3 X10*3/uL (0.0-0.4); Eosinophils Percent Auto 6.7 % (0-4); Hematocrit 30.3 % (42.0-52.0); Hemoglobin 10.2 g/dl (14.0-18.0); Imm Gran Abs Auto 0.02 X10*3/uL (0.00-0.03); Imm Gran Pct Auto 0.4 % (0.0-0.4); Mean Corpuscular HGB Conc 33.7 g/dl (31.0-36.0); Mean Corpuscular Hemoglobin 35.4 pg (27.0-33.0); Mean Corpuscular Volume 105.2 fL (80.0-98.0); Monocytes Absolute Auto 0.6 X10*3/uL (0.1-1.2); Monocytes Percent Auto 12.2 % (2-11); Neutrophils Absolute Auto 2.9 x10*3/uL (2.0-8.3); Neutrophils Percent Auto 57.3 % (45-73); Red Blood Count 2.88 X10*6/uL (4.60-5.80); Red Cell Distribution Width 13.9 % (11.0-16.0)
[2023-10-22 20:59] LABS: Platelet Count 71 X10*3/uL (160-400); White Blood Count 5.1 X10*3/uL (4.8-10.8)
[2023-10-22 21:00] LABS: MANUAL DIFF FLAG NO
[2023-10-22 21:18] LABS: Lactic Acid 1.3 mmol/L (0.5-2.0)
[2023-10-22 21:24] LABS: Alanine Aminotransferase 34 U/L (0-40); Albumin Level 2.4 g/dL (3.5-5.0); Alkaline Phosphatase 123 U/L (39-117); Anion Gap 11 (12-20); Aspartate Amino Transferase 47 U/L (5-37); Bilirubin Total 1.5 mg/dL (0.0-1.0); Blood Urea Nitrogen 12 mg/dL (9-16); Calcium 8.5 mg/dL (8.4-10.2); Carbon Dioxide 29 mmol/L (22-29); Chloride 100 mmol/L (96-108); Creatinine Clr Calc Pharmacy 85.6; Estimated Glomerular Filt Rate > 60; Glucose Random 180 mg/dL (60-115); Potassium 4.4 mmol/L (3.3-5.1); Sodium 136 mmol/L (135-145); Total Protein 6.7 g/dL (6.5-8.0)
[2023-10-22 21:37] LABS: Influenza A PCR NEGATIVE (Negative); Influenza B PCR NEGATIVE (Negative); Resp Syncy Virus RNA Qual PCR NEGATIVE (Negative); SARS COV2 PCR INHOUSE NEGATIVE (Negative)
--- NOTE | 2023-10-22 22:22 | ED_ITS ---
HPI - General Adult General Chief complaint: General Medical Stated complaint: ABD PAIN,DIFF BREATHING Time Seen by Provider: 10/22/23 22:22 Source: patient Mode of arrival: EMS Limitations: no limitations History of Present Illness HPI narrative: 68-year-old male history of hepatitis C, COPD wears home oxygen who presents emergency department for abdominal distension and shortness of breath. Patient was seen in the emergency department on 10/11/2023 (11 days prior) for similar complaints and had 5.5 L of ascites fluid drained from his abdomen. He states the fluid has reaccumulated and he is feeling a pressure in his abdomen. He states that he has had a good appetite he has been eating and drinking well. He denied fever, chills or weakness above his baseline. Related Data Home Medications Medication Instructions Recorded Confirmed ergocalciferol (vitamin D2) 1,250 1,250 mcg PO TH 10/11/23 10/11/23 mcg (50,000 unit) capsule fluticasone fur. 100 mcg-umeclid 1 ea inhalation QAM 10/11/23 10/11/23 62.5 mcg-vilant 25 mcg inhalat.powder (Trelegy Ellipta) Previous Rx's Medication Instructions Recorded albuterol sulfate 90 mcg/actuation 2 inh inhalation QID PRN shortness 04/14/23 aerosol inhaler of breath or wheezing #6.7 grams pantoprazole 40 mg tablet,delayed 40 mg PO DAILY #30 tabs 10/11/23 release (Protonix) spironolactone 50 mg tablet 50 mg PO QAM #30 tabs 10/11/23 furosemide 40 mg tablet (Lasix) 40 mg PO DAILY #30 tabs 10/22/23 spironolactone 50 mg tablet 50 mg PO BID 30 days #60 tabs 10/22/23 Allergies Allergy/AdvReac Type Severity Reaction Status Date / Time aspirin [Aspirin] Allergy Unknown RASH, Verified 10/16/23 04:26 SWELLING OF FACE, VOMITING ibuprofen [From Motrin] Allergy Unknown RASH, Verified 10/16/23 04:26 NUMBNESS TO EXTREMITIES NSAIDS (Non-Steroidal Allergy Unknown UNKNOWN Verified 10/16/23 04:26 Anti-Inflamma [Nsaids] aspirin Allergy Unknown swelling Uncoded 08/31/23 15:33 motrin Allergy Unknown swelling Uncoded 08/31/23 15:33 Review of Systems 2 Review of Systems: Yes all other systems are reviewed and are negative [facility], [facility] Past Medical History [facility] Narrative: Social history: He states he lives alone. States that his daughter helps a make his appointments. He has an appointment to see his GI specialist in November of 2023 Social History Social History Alcohol intake: never Advance Directives: No Advance Directives Information Provided: No Physical Exam ED Vital Signs: Vital Signs - 24 hr 10/22/23 20:28 Temperature 97.7 F Pulse Rate 82 Respiratory Rate 20 Blood Pressure 124/65 Pulse Oximetry 98 Oxygen Delivery Method Nasal Cannula BMI result Body Mass Index 23.7 Vital signs were normal, patient's O2 saturation was 98% on 2.5 L now and this is his baseline FiO2. General: Awake, alert in no distress Head: Normocephalic, atraumatic EENT: PERRL, Lids normal, sclera normal, conjunctiva normal, nose normal , ears normal, throat without erythema or exudates Neck: Supple, no adenopathy, no trachea midline or C-spine tenderness Lung: breath sounds symmetric, no wheezing, rales or rhonchi Chest: symmetric movement, nontender Heart: regular rate and rhythm, normal S1, S2 no murmurs or rubs Abdomen: soft, distended consistent with ascites however his abdomen is not tense at this time, there is no abdominal tenderness Back: no vertebral tenderness, no CVAT Extremities: no deformities, moves all extremities symmetrically Neuro: Awake, alert, oriented, normal speech, cranial nerves intact, moves all extremities symmetrically Psych: Pleasant, cooperative Medical Decision Making Medical Decision Making [facility] Narrative: 68-year-old male history of hepatitis C, COPD wears home oxygen who presents emergency department for abdominal distension and shortness of breath. Had a similar presentation a 10/11/2023 (11 days prior) for similar complaints and had 5.5 L of ascites fluid drained from his abdomen. It appears at this time but the fluid has reaccumulated however he does not have tense ascites and he has no tenderness or do not think that he has subacute bacterial peritonitis. My interpretation patient's laboratory evaluation is as follows:WBC normal 5100 no left shift. Low platelet count [id number]. Elevated PT/INR 15.6 and 1.38 as well as elevated PTT 40.7-consistent with his liver failure. Glucose elevated 180. Bilirubin elevated 1.5. AST elevated 47. Alk-phos elevated 123. Total protein normal at 6.7, albumin low 2.4. Patient's 10/11/[address] scan which did not reveal any acute findings. On 10/16/2023 patient had a right upper quadrant ultrasound which revealed chronic appearing liver with a new 1.8 cm hyperechoic lesion in the left lobe but no acute findings. Patient's presentation is consistent with his chronic liver failure and he has reaccumulated the ascites. Patient is only on 50 mg of spironolactone once a day, I will increase this dose to 50 mg q.12 hours. Is also started on Lasix 40 mg once a day. He is advised to restrict his fluid intake and to take these 2 medications as prescribed. I did give the patient information to contact our Outpatient interventional radiology department to see if he can be set up for routine paracenteses to help with his reaccumulation of ascites. Differential Diagnosis Differential Diagnoses: The differential diagnosis associated with the presentation includes Differential diagnosis includes was not limited to ascites, subacute bacterial peritonitis, pancreatitis, bowel obstruction Admission/Observation Consideration of admission/observation: Escalation of care including admission/observation considered Lab Data MDM Lab Attestation statement: I reviewed the patient's lab results. 10/22/23 20:43 10/22/23 20:43 Labs: Lab Results 10/22/23 10/22/23 Range/Units 20:43 20:47 WBC 5.1 (4.8-10.8) X10*3/uL RBC 2.88 L (4.60-5.80) X10*6/uL Hgb 10.2 L (14.0-18.0) g/dl Hct 30.3 L (42.0-52.0) % MCV 105.2 H (80.0-98.0) fL MCH 35.4 H (27.0-33.0) pg MCHC 33.7 (31.0-36.0) g/dl RDW 13.9 (11.0-16.0) % Plt Count 71 L (160-400) X10*3/uL MPV 10.0 (9.4-12.4) fL Immature Gran % (Auto) 0.4 (0.0-0.4) % Neut % (Auto) 57.3 (45-73) % Lymph % (Auto) 23.0 (20-40) % Jones % (Auto) 12.2 H (2-11) % Eos % (Auto) 6.7 H (0-4) % Baso % (Auto) 0.4 (0-2) % Lymph # (Auto) 1.2 (1.2-4.9) X10*3/uL Jones # (Auto) 0.6 (0.1-1.2) X10*3/uL Eos # (Auto) 0.3 (0.0-0.4) X10*3/uL Baso # (Auto) 0.0 (0.0-0.2) X10*3/uL Abs Immat Gran (auto) 0.02 (0.00-0.03) X10*3/uL Absolute Neuts (auto) 2.9 (2.0-8.3) x10*3/uL Absolute Nucleated RBC 0.000 (0.0-0.012) X10*3/uL Nucleated RBC % (auto) 0.0 (0.0-0.2) /100WBC Sodium 136 (135-145) mmol/L Potassium 4.4 (3.3-5.1) mmol/L Chloride 100 (96-108) mmol/L Carbon Dioxide 29 (22-29) mmol/L Anion Gap 11 L (12-20) BUN 12 (9-16) mg/dL Creatinine 0.81 (0.5-1.4) mg/dL Estim Creat Clear Calc 85.6 Estimated GFR > 60 Random Glucose 180 H (60-115) mg/dL Lactic Acid 1.3 (0.5-2.0) mmol/L Calcium 8.5 (8.4-10.2) mg/dL Total Bilirubin 1.5 H (0.0-1.0) mg/dL AST 47 H (5-37) U/L ALT 34 (0-40) U/L Alkaline Phosphatase 123 H (39-117) U/L Total Protein 6.7 (6.5-8.0) g/dL Albumin 2.4 L (3.5-5.0) g/dL Influenza Type A (PCR) NEGATIVE (Negative) Influenza Type B (PCR) NEGATIVE (Negative) RSV RNA Qual (PCR) NEGATIVE (Negative) SARS-CoV-2 RNA (RT-PCR) NEGATIVE (Negative) Discharge Plan Discharge Clinical Impression: Acute liver failure Qualifiers: Hepatic coma status: without hepatic coma Qualified Code(s): K72.00 - Acute and subacute hepatic failure without coma Ascites Qualifiers: Ascites type: other type Qualified Code(s): R18.8 - Other ascites Patient Disposition: Home, Self-Care Instructions: Ascites (ED) Additional Instructions: At this time I do not think you have an infection of the ascites fluid and I do not think that you have tense ascites that requires emergent/urgent drainage in the emergency department. Have your daughter called the interventional radiology department on Tuesday morning to set up an appointment next week so that they can drain the fluid from your abdomen. The interventional radiologist can set up appointments for you every 2-3 weeks or as needed to help keep the fluid from getting too large in your abdomen. This will you will not have to come to the emergency department if your belly is distended. Call the main number and either ask for interventional radiology or put in the extension [phone]. I am increasing her spironolactone from 50 mg once a day to 50 mg twice a day. I am also starting you on Lasix 20 mg once a day to try to keep the fluid from reaccumulating in your abdomen These medications are called water pills and they will make you pee frequently, the goal is to restrict the amount of fluid that you drink set your peeing out more fluid than you take in. Follow-up with your doctor in 2 days. Please return to the emergency department if your symptoms get worse or if you develop any symptoms that are concerning to you. Prescriptions: New spironolactone 50 mg tablet 50 mg PO BID 30 Days Qty: 60 0RF furosemide [Lasix] 40 mg tablet 40 mg PO DAILY Qty: 30 0RF No Action ergocalciferol (vitamin D2) 1,250 mcg (50,000 unit) capsule 1,250 mcg PO TH Trelegy Ellipta 100-62.5-25 mcg blister with device 1 ea INHALATION QAM spironolactone 50 mg tablet 50 mg PO QAM Qty: 30 0RF pantoprazole [Protonix] 40 mg tablet,delayed release (DR/EC) 40 mg PO DAILY Qty: 30 0RF albuterol sulfate 90 mcg/actuation HFA aerosol inhaler 2 inh inhalation QID PRN (Reason: shortness of breath or wheezing) Qty: 6.7 0RF
[2023-10-23 00:09] VITALS: BP 123/67; PULSE 70; RESP 20; O2SAT 98
--- NOTE | 2023-10-23 00:14 | PC.NURSE ---
this RN called patients daughter to update her and to review discharge plan; daughter became verbally aggressive, upset that father was not drained in the ER. explained his course of stay, vital signs, lab work, and discharge instructions. reviewed the plan with interventional radiology and the change in meds. daughter still very upset and requesting to speak to the MD.
--- NOTE | 2023-10-23 00:18 | PC.NURSE ---
did speak w/ daughter on the phone; DC plan remains the same.
== END 2023-10-23 00:18 | disposition home or self-care (01) ==
PROVIDERS: Emergency Provider Emergency Medicine Emergency Medical Services
DX: K72.00 Acute and subacute hepatic failure without coma (principal); R18.8 Other ascites; R14.0 Abdominal distension (gaseous); R06.02 Shortness of breath; B19.20 Unspecified viral hepatitis C without hepatic coma; J44.9 Chronic obstructive pulmonary disease, unspecified; Z99.81 Dependence on supplemental oxygen; Z20.822 Contact with and (suspected) exposure to COVID-19; Z20.828 Contact with and (suspected) exposure to other viral communicable diseases
CPT/HCPCS: 0241U; 36415; 80053; 83605; 85025; 93005; 99283; 99284

== ENCOUNTER → 2023-10-22 20:55 | Outpatient (BNV) | payer MEDICARE, MEDICAID, SELFPAY | PROVIDERS: Emergency Provider Emergency Medicine Emergency Medical Services; Visit Provider Internal Medicine Cardiovascular Disease | DX: R06.00 Dyspnea, unspecified (principal) | CPT/HCPCS: 93010 ==

== ENCOUNTER 2023-10-26 07:01 | Emergency (ER) | payer MEDICARE, MEDICAID, SELFPAY ==
--- NOTE | ~2023-10-26 | CT_ITS ---
EXAMINATION: CT HEAD WITHOUT CONTRAST CLINICAL INFORMATION: Question head strike COMPARISON: None TECHNIQUE: Contiguous axial imaging was performed from the skull base to vertex without intravenous administration of contrast. This CT examination was performed using dose optimization techniques as appropriate, variously including the following: *Automated exposure control *Adjustment of mA and/or kV according to patient size (this includes techniques or standardized protocols for targeted exams where dose is matched to indication/reason for exam; i.e. extremities or head) *Use of iterative reconstruction technique DLP: 928 mGy-cm FINDINGS: There is no evidence of acute intracranial hemorrhage or territorial infarction. Chronic white matter small vessel ischemic changes. No abnormal mass effect or midline shift is seen. Wilson to white matter differentiation is well preserved. No extra-axial fluid collections are identified. The ventricles are normal in size. There is no abnormal attenuation within the brain parenchyma. The osseous structures and soft tissues are normal. Mucoperiosteal thickening of the right sphenoid sinus. The mastoid air cells and visualized portions of the paranasal sinuses are well aerated. CT/CT cervical spine wo IV con IMPRESSION: 1. No acute intracranial pathology. 2. Chronic white matter small vessel ischemic changes. EXAMINATION: Noncontrast CT scan of the cervical spine. INDICATION: Neck pain COMPARISON: None. TECHNIQUE: Helical, multidetector axial images were obtained from the occiput to the upper thorax. Coronal and sagittal reformats of the cervical spine were provided for interpretation. DLP: 928 mGy-cm FINDINGS: No acute fractures or dislocations of the cervical spine are seen. Straightening of the normal cervical curvature which may be secondary to patient positioning versus muscle spasm. Very slight grade 1 anterolisthesis of C3 on C4. Multilevel degenerative changes. Anatomic alignment and positioning of the vertebral bodies and posterior elements is noted. The atlantoaxial joint and craniovertebral articulations are normal without evidence of subluxation. There is no prevertebral soft tissue swelling. The thyroid gland and visualized portions of the lung apices and mediastinum are unremarkable. IMPRESSION: 1. No acute visible fracture or dislocation. 2. Straightening of the normal cervical curvature which may be secondary to patient positioning versus muscle spasm. 3. Very slight grade 1 anterolisthesis of C3 on C4. 4. Multilevel degenerative changes.
--- NOTE | ~2023-10-26 | XR_ITS ---
EXAMINATION: CHEST, PELVIS AND RIGHT HIP CLINICAL INFORMATION: Cough and right hip pain COMPARISON: CT abdomen pelvis 10/11/2023, chest radiograph 10/16/2023 TECHNIQUE: Single view chest with single view pelvis and 2 additional views right hip FINDINGS: Again seen are changes of osteonecrosis in the left hip and to a lesser extent the right hip. No acute fractures are seen. The heart and pulmonary vessels appear normal. There is a slight increase in reticular nodular densities and interstitial opacity in the right lung compared to the left lung and the prior study. Findings could be related to COPD and associated bronchiectasis which can be seen at the lung bases at the time of the prior CT abdomen pelvis. No pleural effusions or gross consolidations with air bronchograms are seen. XR/XR chest 1V IMPRESSION: 1. No acute intrathoracic disease. Slight increase in reticular nodular densities and interstitial opacity in the right lung compared to the left lung with bronchiectasis and COPD better demonstrated on prior CT. 2. Bilateral hip osteonecrosis/AVN, left greater than right which has been seen in the past.
--- NOTE | ~2023-10-26 | XR_ITS ---
EXAMINATION: CHEST, PELVIS AND RIGHT HIP CLINICAL INFORMATION: Cough and right hip pain COMPARISON: CT abdomen pelvis 10/11/2023, chest radiograph 10/16/2023 TECHNIQUE: Single view chest with single view pelvis and 2 additional views right hip FINDINGS: Again seen are changes of osteonecrosis in the left hip and to a lesser extent the right hip. No acute fractures are seen. The heart and pulmonary vessels appear normal. There is a slight increase in reticular nodular densities and interstitial opacity in the right lung compared to the left lung and the prior study. Findings could be related to COPD and associated bronchiectasis which can be seen at the lung bases at the time of the prior CT abdomen pelvis. No pleural effusions or gross consolidations with air bronchograms are seen. XR/XR hip RT w PEL1V IMPRESSION: 1. No acute intrathoracic disease. Slight increase in reticular nodular densities and interstitial opacity in the right lung compared to the left lung with bronchiectasis and COPD better demonstrated on prior CT. 2. Bilateral hip osteonecrosis/AVN, left greater than right which has been seen in the past.
[2023-10-26 07:11] VITALS: BP 129/74; PULSE 90; O2SAT 97
[2023-10-26 07:15] VITALS: BP 131/68; PULSE 75; RESP 20; TEMP 36.9; O2SAT 98; BMI 23.8
--- NOTE | 2023-10-26 07:20 | ECG_ITS ---
Test Reason : fall Blood Pressure : / mmHG Vent. Rate : 073 BPM Atrial Rate : 073 BPM P-R Int : 146 ms QRS Dur : 074 ms QT Int : 380 ms P-R-T Axes : 049 080 054 degrees QTc Int : 418 ms Normal sinus rhythm Normal ECG When compared with ECG of 22-OCT-2023 20:55, No significant change was found Referred By: Felicia Abdi Electronically Signed By:TORI SUAREZ MD
--- NOTE | 2023-10-26 07:21 | ED.FALL ---
HPI - Fall General Chief Complaint: Fall Stated Complaint: Fall Time Seen by Provider: 10/26/23 07:20 Source: patient and EMS Mode of arrival: EMS Limitations: other ( poor historian) History of Present Illness HPI Narrative: This is a 68-year-old male history of nephrolithiasis presenting to the emergency department for evaluation of fall, patient reports he went to go sit on his bed, he missed the bed fell onto his right hip. Fall beyond that unclear. Reports initially is having hip pain now improved. Daughter wanted him to come in and be evaluated. He denies any preceding symptoms to fall such as chest pain, shortness of breath, dizziness, headache or weakness. Patient reports slight discomfort to his right hip at this time. Denies numbness tingling changes in urination, chest pain, shortness of breath, nausea, vomiting, abdominal pain Related Data Home Medications Medication Instructions Recorded Confirmed ergocalciferol (vitamin D2) 1,250 1,250 mcg PO TH 10/11/23 10/11/23 mcg (50,000 unit) capsule fluticasone fur. 100 mcg-umeclid 1 ea inhalation QAM 10/11/23 10/11/23 62.5 mcg-vilant 25 mcg inhalat.powder (Trelegy Ellipta) Previous Rx's Medication Instructions Recorded albuterol sulfate 90 mcg/actuation 2 inh inhalation QID PRN shortness 04/14/23 aerosol inhaler of breath or wheezing #6.7 grams pantoprazole 40 mg tablet,delayed 40 mg PO DAILY #30 tabs 10/11/23 release (Protonix) spironolactone 50 mg tablet 50 mg PO QAM #30 tabs 10/11/23 furosemide 40 mg tablet (Lasix) 40 mg PO DAILY #30 tabs 10/22/23 spironolactone 50 mg tablet 50 mg PO BID 30 days #60 tabs 10/22/23 albuterol sulfate 2.5 mg/3 mL 2.5 mg (3 mL) inhalation Q6H #75 mL 10/26/23 (0.083 %) solution for nebulization albuterol sulfate 90 mcg/actuation 2 inh inhalation Q4-6H PRN 10/26/23 breath activated powder inhaler shortness of breath or wheezing #1 ea Allergies Allergy/AdvReac Type Severity Reaction Status Date / Time aspirin [Aspirin] Allergy Unknown RASH, Verified 10/16/23 04:26 SWELLING OF FACE, VOMITING ibuprofen [From Motrin] Allergy Unknown RASH, Verified 10/16/23 04:26 NUMBNESS TO EXTREMITIES NSAIDS (Non-Steroidal Allergy Unknown UNKNOWN Verified 10/16/23 04:26 Anti-Inflamma [Nsaids] aspirin Allergy Unknown swelling Uncoded 08/31/23 15:33 motrin Allergy Unknown swelling Uncoded 08/31/23 15:33 Review of Systems Review of Systems: Constitutional : No Weight loss, No Fever, No Chills, No Fatigue, No Malaise ENT/Mouth : No sore throat, No Rhinorrhea Eyes: No Eye Pain, No Swelling, No Redness Cardiovascular : No Chest Pain, No SOB, No Dyspnea on Exertion, No Orthopnea, No Edema, No Palpitations Respiratory : No Cough, No Sputum, No Wheezing Gastrointestinal : No Nausea, No Vomiting, No Diarrhea, No Constipation, No abdominal Pain, No Hematochezia, No Melena Genitourinary : No Dysuria, No Urinary Frequency, No Hematuria, Musculoskeletal : + joint pain, No Myalgias, No Joint Swelling Skin : No Skin Lesions, No rash Neuro : No Weakness, No Numbness, No Dizziness, No Headache Psych : No Anxiety/Panic, No Depression All other systems reviewed and are negative Yes all other systems are reviewed and are negative [facility] Past Medical History Attestation statement: The following information was validated with the patient. Source: old records reviewed and nursing notes reviewed Social History Social History Alcohol intake: never Smoked in Last 30 Days: Yes Use of substances other than those prescribed or required for medical reasons: No Advance Directives: No Advance Directives Information Provided: Yes Physical Exam Vital Signs: Vital Signs: Last Vital Signs Temp 98.5 F 10/26/23 07:15 Pulse 85 10/26/23 09:11 Resp 20 10/26/23 09:11 BP 131/68 10/26/23 07:15 Pulse Ox 98 10/26/23 07:15 O2 Del Method Nasal Cannula 10/26/23 07:15 Oxygen Flow Rate 2 10/26/23 07:15 BMI result Body Mass Index 23.8 vital signs stable Appearance: Alert.? Oriented X3.? No acute distress.? Head: Normocephalic, atraumatic, no step-offs or deformities Eyes: Pupils equal, round and reactive to light.? ENT: Pharynx normal.? Neck: Normal inspection.? Neck supple.? CVS: Normal heart rate and rhythm.? Pulses normal.? Respiratory: No respiratory distress.? Breath sounds diffuse expiratory wheezing..? Abdomen: Soft and nontender.? Skin: Skin warm and dry.? Normal skin color.? Normal skin turgor.? Extremities: No lower extremity edema.? No calf ttp. 5/5 strength to bilateral upper and lower extremities . Full range of motion to bilateral hips, ankles, knees. Neuro: Oriented X 3.? No motor deficit.? No sensory deficit. CN 2-12 intact . Patient able to ambulate without difficulty Course Reevaluation(s) Reevaluation #1: patient has been having a cough while in the department, when I asked him about the cough he says it has been going on for a while. This could explain why patient has significant wheezing on expiration on exam. bronchodilator protocol ordered Time: 07:53 Reevaluation #2: CBC appears to be around patient's baseline with a macrocytic anemia likely secondary to chronic alcohol abuse. Chemistry unremarkable. Total bilirubin 2.2, no abdominal tenderness to palpation and appears to be around patient's baseline, transaminases elevated however this appears to be around patient's baseline. Albumin 2.8. Likely 3rd spacing. Patient is scheduled to have a paracentesis on Tuesday according to patient's daughter. Troponin negative, EKG nonischemic. Serology, chest x-ray And x-ray of pelvis pending. Time: 09:22 Reevaluation #3: Flu / COVID/RSV negative. x-ray of right hip / pelvis with bilateral hip osteonecrosis an avascular necrosis left greater than right which is been seen in the past. Patient able to ambulate without difficulty. Patient's x-ray of chest with no acute intrathoracic disease slight increase in reticular nodular densities and interstitial opacity in the right lung compared to the left lung unlikely pneumonia this is likely chronic lung condition. CT of cervical spine with no acute visible fracture dislocation straightening of the normal cervical curvature question muscle spasm. Multilevel degenerative changes in question anterolisthesis of C3 and C4. CT head no acute intracranial pathology. Chronic white matter small-vessel ischemic changes. Patient to be discharged home. Educated patient on diagnosis and treatment plan, answered all question, patient verbalizes understanding. At this time patient will be discharged home, advised to return with new or worsening symptoms. Educated on worrisome signs and symptoms and when to return. At this time I feel comfortable discharge home. Time: 10:30 Medications Administered Discontinued Medications Generic Name Dose Route Start Last Admin Trade Name Ronaldo PRN Reason Stop Dose Admin Albuterol Sulfate 2 puff 10/26/23 08:45 10/26/23 09:10 Albuterol Sulfate 90 Mcg 8 Gm Inhaler INHALE 10/26/23 08:46 2 puff ONCE ONE Administration Lorazepam 0.5 mg 10/26/23 08:46 10/26/23 09:59 Lorazepam 0.5 Mg Tablet PO 10/26/23 08:47 0.5 mg ONCE ONE Administration Medical Decision Making Medical Decision Making [facility] Narrative: 68-year-old male presents status post fall while trying to get into his bed. Denies head strike, loss of consciousness. Not on blood thinners. Mild complaints of right hip pain. On exam There is diffuse expiratory wheezing in full range of motion to hip, knees and ankles bilaterally. likely mechanical fall. I do not suspect ACS, PE, intracranial hemorrhage, stroke, posterior stroke. Unlikely traumatic injury to head, neck, chest, abdomen or pelvis. Wheezing likely from chronic lung condition versus viral illness. No signs of acute respiratory distress Plan at this time labs, imaging , urine Differential Diagnosis Differential Diagnoses: The differential diagnosis associated with the presentation includes likely mechanical fall. I do not suspect ACS, PE, intracranial hemorrhage, stroke, posterior stroke. Unlikely traumatic injury to head, neck, chest, abdomen or pelvis. Wheezing likely from chronic lung condition versus viral illness. No signs of acute respiratory distress Admission/Observation Consideration of admission/observation: Escalation of care including admission/observation considered Lab Data [facility] Lab Attestation statement: I reviewed the patient's lab results. 10/26/23 08:17 10/26/23 08:17 Labs: Lab Results 10/26/23 Range/Units 08:17 WBC 5.1 (4.8-10.8) X10*3/uL RBC 3.23 L (4.60-5.80) X10*6/uL Hgb 11.5 L (14.0-18.0) g/dl Hct 34.6 L (42.0-52.0) % MCV 107.1 H (80.0-98.0) fL MCH 35.6 H (27.0-33.0) pg MCHC 33.2 (31.0-36.0) g/dl RDW 14.0 (11.0-16.0) % Plt Count 77 L (160-400) X10*3/uL MPV 10.0 (9.4-12.4) fL Immature Gran % (Auto) 0.4 (0.0-0.4) % Neut % (Auto) 60.7 (45-73) % Lymph % (Auto) 22.1 (20-40) % [place] % (Auto) 11.9 H (2-11) % Eos % (Auto) 4.3 H (0-4) % Baso % (Auto) 0.6 (0-2) % Lymph # (Auto) 1.1 L (1.2-4.9) X10*3/uL [place] # (Auto) 0.6 (0.1-1.2) X10*3/uL Eos # (Auto) 0.2 (0.0-0.4) X10*3/uL Baso # (Auto) 0.0 (0.0-0.2) X10*3/uL Abs Immat Gran (auto) 0.02 (0.00-0.03) X10*3/uL Absolute Neuts (auto) 3.1 (2.0-8.3) x10*3/uL Absolute Nucleated RBC 0.000 (0.0-0.012) X10*3/uL Nucleated RBC % (auto) 0.0 (0.0-0.2) /100WBC PT 15.3 H (11.1-13.3) SEC INR 1.3 H (0.9-1.1) Sodium 137 (135-145) mmol/L Potassium 4.4 (3.3-5.1) mmol/L Chloride 105 (96-108) mmol/L Carbon Dioxide 27 (22-29) mmol/L Anion Gap 9 L (12-20) BUN 9 (9-16) mg/dL Creatinine 0.76 (0.5-1.4) mg/dL Estim Creat Clear Calc 91.2 Estimated GFR > 60 Random Glucose 98 (60-115) mg/dL Calcium 9.4 D (8.4-10.2) mg/dL Total Bilirubin 2.2 H (0.0-1.0) mg/dL AST 58 H (5-37) U/L ALT 44 H (0-40) U/L Alkaline Phosphatase 126 H (39-117) U/L Troponin I High Sens 4.8 (<3.5-35.0) ng/L Total Protein 7.8 (6.5-8.0) g/dL Albumin 2.8 L (3.5-5.0) g/dL Influenza Type A (PCR) NEGATIVE (Negative) Influenza Type B (PCR) NEGATIVE (Negative) RSV RNA Qual (PCR) NEGATIVE (Negative) SARS-CoV-2 RNA (RT-PCR) NEGATIVE (Negative) Independent Interpretation I performed an independent interpretation of an: EKG ( ventricular rate 73 DC, QRS QT / QTC. EKG normal sinus rhythm no ST elevations or inversions concerning for acute ischemia), Plain X-Ray and CT Scan Interpretation: CT/CT head/brain wo IV con IMPRESSION: 1. No acute intracranial pathology. 2. Chronic white matter small vessel ischemic changes. EXAMINATION: Noncontrast CT scan of the cervical spine. INDICATION: Neck pain COMPARISON: None. TECHNIQUE: Helical, multidetector axial images were obtained from the occiput to the upper thorax. Coronal and sagittal reformats of the cervical spine were provided for interpretation. DLP: 928 mGy-cm FINDINGS: No acute fractures or dislocations of the cervical spine are seen. Straightening of the normal cervical curvature which may be secondary to patient positioning versus muscle spasm. Very slight grade 1 anterolisthesis of C3 on C4. Multilevel degenerative changes. Anatomic alignment and positioning of the vertebral bodies and posterior elements is noted. The atlantoaxial joint and craniovertebral articulations are normal without evidence of subluxation. There is no prevertebral soft tissue swelling. The thyroid gland and visualized portions of the lung apices and mediastinum are unremarkable. IMPRESSION: 1. No acute visible fracture or dislocation. 2. Straightening of the normal cervical curvature which may be secondary to patient positioning versus muscle spasm. 3. Very slight grade 1 anterolisthesis of C3 on C4. 4. Multilevel degenerative changes. Radiology Impression Discussion of test interpretation with radiology: I have reviewed the radiologist's reading. Critical Care Time Critical Care Time Critical Care Time: No Discharge Plan Discharge Clinical Impression: Fall, Hip pain, right, Cough, Wheezing Patient Disposition: Home, Self-Care Instructions: Fall Prevention (ED), Wheezing (ED) Additional Instructions: Take your medications as prescribed. If you were prescribed antibiotics today, it is important that you take your medication to their entirety, do not skip any doses, do not finish them early. Follow-up with your primary care provider this week. Return to the emergency department with new or worsening symptoms. Such as fevers, chills, chest pain, shortness of breath, nausea, vomiting, dizziness, headache, vision changes, lethargy In case of emergency call 911 IMPRESSION: 1. No acute intrathoracic disease. Slight increase in reticular nodular densities and interstitial opacity in the right lung compared to the left lung with bronchiectasis and COPD better demonstrated on prior CT. 2. Bilateral hip osteonecrosis/AVN, left greater than right which has been seen in the past. Prescriptions: New albuterol sulfate 90 mcg/actuation aerosol powdr breath activated 2 inh inhalation Q4-6H PRN (Reason: shortness of breath or wheezing) Qty: 1 0RF albuterol sulfate 2.5 mg /3 mL (0.083 %) solution for nebulization 2.5 mg inhalation Q6H Qty: 75 0RF No Action ergocalciferol (vitamin D2) 1,250 mcg (50,000 unit) capsule 1,250 mcg PO Trelegy Ellipta 100-62.5-25 mcg blister with device 1 ea INHALATION QAM spironolactone 50 mg tablet 50 mg PO QAM Qty: 30 0RF pantoprazole [Protonix] 40 mg tablet,delayed release (DR/EC) 40 mg PO DAILY Qty: 30 0RF spironolactone 50 mg tablet 50 mg PO BID 30 Days Qty: 60 0RF furosemide [Lasix] 40 mg tablet 40 mg PO DAILY Qty: 30 0RF albuterol sulfate 90 mcg/actuation HFA aerosol inhaler 2 inh inhalation QID PRN (Reason: shortness of breath or wheezing) Qty: 6.7 0RF Referrals: Jurcsak,Soledad A, DO [Primary Care Provider] - 1 day Stand Alone Forms: Work/School Release
[2023-10-26 08:24] LABS: Basophils Percent Auto 0.6 % (0-2); Eosinophils Percent Auto 4.3 % (0-4); Hemoglobin 11.5 g/dl (14.0-18.0); Imm Gran Abs Auto 0.02 X10*3/uL (0.00-0.03); Imm Gran Pct Auto 0.4 % (0.0-0.4)
[2023-10-26 08:25] LABS: Eosinophils Absolute Auto 0.2 X10*3/uL (0.0-0.4); Hematocrit 34.6 % (42.0-52.0); Lymphocytes Absolute Auto 1.1 X10*3/uL (1.2-4.9); Lymphocytes Percent Auto 22.1 % (20-40); Mean Corpuscular HGB Conc 33.2 g/dl (31.0-36.0); Mean Corpuscular Hemoglobin 35.6 pg (27.0-33.0); Mean Corpuscular Volume 107.1 fL (80.0-98.0); Monocytes Absolute Auto 0.6 X10*3/uL (0.1-1.2); Monocytes Percent Auto 11.9 % (2-11); Neutrophils Absolute Auto 3.1 x10*3/uL (2.0-8.3); Neutrophils Percent Auto 60.7 % (45-73); Red Blood Count 3.23 X10*6/uL (4.60-5.80)
[2023-10-26 08:26] LABS: Platelet Count 77 X10*3/uL (160-400); White Blood Count 5.1 X10*3/uL (4.8-10.8)
[2023-10-26 08:34] LABS: INTERNATIONAL NORM RATIO 1.3 (0.9-1.1); Prothrombin Time 15.3 SEC (11.1-13.3)
[2023-10-26 08:42] LABS: Alanine Aminotransferase 44 U/L (0-40); Albumin Level 2.8 g/dL (3.5-5.0); Alkaline Phosphatase 126 U/L (39-117); Anion Gap 9 (12-20); Aspartate Amino Transferase 58 U/L (5-37); Bilirubin Total 2.2 mg/dL (0.0-1.0); Blood Urea Nitrogen 9 mg/dL (9-16); Calcium 9.4 mg/dL (8.4-10.2); Carbon Dioxide 27 mmol/L (22-29); Chloride 105 mmol/L (96-108); Creatinine Clr Calc Pharmacy 91.2; Estimated Glomerular Filt Rate > 60; Glucose Random 98 mg/dL (60-115); Potassium 4.4 mmol/L (3.3-5.1); Sodium 137 mmol/L (135-145); Total Protein 7.8 g/dL (6.5-8.0)
[2023-10-26 08:47] LABS: Troponin-I High Sensitivity 4.8 ng/L (<3.5-35.0)
[2023-10-26] MEDS: Albuterol Sulfate 90 MCG 8 GM INHALER 2 PUFF INHALE (09:10)
[2023-10-26 09:11] VITALS: PULSE 85; RESP 20; O2SAT 98
[2023-10-26 09:22] LABS: Influenza A PCR NEGATIVE (Negative); Influenza B PCR NEGATIVE (Negative); Resp Syncy Virus RNA Qual PCR NEGATIVE (Negative); SARS COV2 PCR INHOUSE NEGATIVE (Negative)
[2023-10-26] MEDS: LORazepam 0.5 MG TABLET PO (09:59)
[2023-10-26 10:41] VITALS: BP 113/72; PULSE 109; RESP 20; O2SAT 94
[2023-10-26] MEDS: Morphine Sulfate Immed Release 15 MG TABLET PO (10:46)
== END 2023-10-26 12:04 | disposition home or self-care (01) ==
PROVIDERS: Physician Assistant; Emergency Provider Emergency Medicine Emergency Medical Services; PCP Family Medicine
DX: S79.911A Unspecified injury of right hip, initial encounter (principal); R05.9 Cough, unspecified; R06.02 Shortness of breath; R06.2 Wheezing; M25.551 Pain in right hip; R51.9 Headache, unspecified; R10.2 Pelvic and perineal pain; M54.2 Cervicalgia; W06.XXXA Fall from bed, initial encounter; Y93.9 Activity, unspecified; Y92.003 Bedroom of unspecified non-institutional (private) residence as the place of occurrence of the external cause; Y99.9 Unspecified external cause status; Z20.828 Contact with and (suspected) exposure to other viral communicable diseases; Z20.822 Contact with and (suspected) exposure to COVID-19; Z79.899 Other long term (current) drug therapy
CPT/HCPCS: 0241U; 36415; 70450; 71045; 72125; 73502; 80053; 84484; 85025; 85610; 93005; 94640; 99284; 99285

== ENCOUNTER → 2023-10-26 07:20 | Outpatient (BNV) | payer MEDICARE, MEDICAID, SELFPAY | PROVIDERS: Emergency Provider Emergency Medicine Emergency Medical Services; PCP Family Medicine; Visit Provider Internal Medicine Cardiovascular Disease | DX: R06.2 Wheezing (principal) | CPT/HCPCS: 93010 ==

== ENCOUNTER 2023-10-26 12:37 | Emergency (ER) | payer MEDICARE, MEDICAID, SELFPAY ==
--- NOTE | 2023-10-26 12:56 | ED_ITS ---
HPI - General Adult General Chief complaint: Altered Mental Status Stated complaint: RETURN D/T UNABLE TO GET INTO APT PER EMS Time Seen by Provider: 10/26/23 12:50 Source: EMS Mode of arrival: EMS Limitations: other ( poor historian ) History of Present Illness HPI narrative: 68-year-old male presents to the emergency department again after being discharged because when the ambulance got to his house he did not know the code to get in. They brought him back year until we figured out what the code was just discharged within the past 30 minutes. No new complaints. Please refer to initial note from today at 07:21. Related Data Home Medications Medication Instructions Recorded Confirmed ergocalciferol (vitamin D2) 1,250 1,250 mcg PO TH 10/11/23 10/11/23 mcg (50,000 unit) capsule fluticasone fur. 100 mcg-umeclid 1 ea inhalation QAM 10/11/23 10/11/23 62.5 mcg-vilant 25 mcg inhalat.powder (Trelegy Ellipta) Previous Rx's Medication Instructions Recorded albuterol sulfate 90 mcg/actuation 2 inh inhalation QID PRN shortness 04/14/23 aerosol inhaler of breath or wheezing #6.7 grams pantoprazole 40 mg tablet,delayed 40 mg PO DAILY #30 tabs 10/11/23 release (Protonix) spironolactone 50 mg tablet 50 mg PO QAM #30 tabs 10/11/23 furosemide 40 mg tablet (Lasix) 40 mg PO DAILY #30 tabs 10/22/23 spironolactone 50 mg tablet 50 mg PO BID 30 days #60 tabs 10/22/23 albuterol sulfate 2.5 mg/3 mL 2.5 mg (3 mL) inhalation Q6H #75 mL 10/26/23 (0.083 %) solution for nebulization albuterol sulfate 90 mcg/actuation 2 inh inhalation Q4-6H PRN 10/26/23 breath activated powder inhaler shortness of breath or wheezing #1 ea doxycycline hyclate 100 mg capsule 100 mg PO BID 10 days #20 caps 10/26/23 Allergies Allergy/AdvReac Type Severity Reaction Status Date / Time aspirin [Aspirin] Allergy Unknown RASH, Verified 10/16/23 04:26 SWELLING OF FACE, VOMITING ibuprofen [From Motrin] Allergy Unknown RASH, Verified 10/16/23 04:26 NUMBNESS TO EXTREMITIES NSAIDS (Non-Steroidal Allergy Unknown UNKNOWN Verified 10/16/23 04:26 Anti-Inflamma [Nsaids] aspirin Allergy Unknown swelling Uncoded 08/31/23 15:33 motrin Allergy Unknown swelling Uncoded 08/31/23 15:33 Review of Systems Review of Systems: Constitutional : No Weight loss, No Fever, No Chills, No Fatigue, No Malaise ENT/Mouth : No sore throat, No Rhinorrhea Eyes: No Eye Pain, No Swelling, No Redness Cardiovascular : No Chest Pain, No SOB, No Dyspnea on Exertion, No Orthopnea, No Edema, No Palpitations Respiratory : No Cough, No Sputum, No Wheezing Gastrointestinal : No Nausea, No Vomiting, No Diarrhea, No Constipation, No abdominal Pain, No Hematochezia, No Melena Genitourinary : No Dysuria, No Urinary Frequency, No Hematuria, Musculoskeletal : No joint pain, No Myalgias, No Joint Swelling Skin : No Skin Lesions, No rash Neuro : No Weakness, No Numbness, No Dizziness, No Headache Psych : No Anxiety/Panic, No Depression All other systems reviewed and are negative Yes all other systems are reviewed and are negative [facility] Past Medical History Attestation statement: The following information was validated with the patient. Source: old records reviewed and nursing notes reviewed Medical History (Updated 10/26/23 @ 13:01 by ANEUDY Becker) Oxygen dependent Social History Social History Alcohol intake: never Advance Directives: No Advance Directives Information Provided: Yes Physical Exam ED Vital Signs: Vital Signs - 24 hr 10/26/23 13:05 Temperature 97.2 F Pulse Rate 104 H Respiratory Rate 18 Blood Pressure 143/75 H Pulse Oximetry 92 Oxygen Delivery Method Nasal Cannula BMI result Body Mass Index 25.5 vss Appearance: Alert.? Oriented X3.? No acute distress.? Head: Normocephalic, atraumatic, no step-offs or deformities Eyes: Pupils equal, round and reactive to light.? ENT: Pharynx normal.? Neck: Normal inspection.? Neck supple.? CVS: Normal heart rate and rhythm.? Pulses normal.? Respiratory: No respiratory distress.? Breath sounds much improved very mild wheezing b/l Abdomen: Soft and nontender.? Skin: Skin warm and dry.? Normal skin color.? Normal skin turgor.? Extremities: No lower extremity edema.? No calf ttp. 5/5 strength to bilateral upper and lower extremities . Full range of motion to bilateral hips, ankles, knees. Neuro: Oriented X 3.? No motor deficit.? No sensory deficit. CN 2-12 intact . Patient able to ambulate without difficulty Course Reevaluation(s) Reevaluation #1: when EMS arrived to pick patient up they became concerned because he was much more sleepy than earlier, I did explain to them patient received morphine prior to being discharged for pain he is opiate naive therefore he may just be slightly more sleepy secondary to morphine. They were not comfortable. He is saturating 95-96% on room air. I gave Narcan X2 ( patient moved and the first narcan was mostly lost) to reverse the effects as they were concerned were unwilling to bring patient home. I showed them patient was saturating 98%, he was awake just sleepy. He is on home O2 and saturating very well on home O2. Patient's family member at home per nursing staff who have spoken to him multiple times. I feels the patient is good to go home. Received a head scan earlier today and has not had any falls. Time: 14:42 Reevaluation #2: Patient's cough continues while in the department he is not hypoxic. Will discharge home with antibiotics. Time: 14:49 Reevaluation #3: Spoke to John lee who states patient lives alone he refuse PT and case management. She tells me there is not some be there with him 247. [place] may be there to let him in however unclear if he will stay. Therefore will wait to ensure patient has a secure a ride home. As patient did have a narcotic and is sleepy. I told EMS that they could leave until we have a safe plan in place. At this time will place in observation until safe plan is in place Time: 14:55 Additional Reevaluation(s): 1500 Patient now screaming out awake alert x4. On the phone with daughter they are upset the patient is not home. I explained to them that on initial discharge she was brought home but nobody was there. EMS did not feel comfortable the patient appeared lethargic . I suspect this is secondary to narcotic. Narcan was given an outpatient alert and oriented x4. Daughter would like patient home. Patient would like himself home. Ambulance booked for 17:00. Medications Administered Discontinued Medications Generic Name Dose Route Start Last Admin Trade Name Ronaldo PRN Reason Stop Dose Admin Naloxone HCl 8 mg 10/26/23 14:41 10/26/23 14:45 Naloxone Hcl Nasal 4 Mg [place] NOSTRILALT 10/26/23 14:42 8 mg ONCE ONE Administration Medical Decision Making Medical Decision Making MDM Narrative: 68-year-old male re-presented to the emergency department after not being able to get into his house after being discharged. No medical complaints. No changes in his condition. Physical exam wheezing improved from initial exam. Plan at this time is to discharge patient home by ambulance, charge nurse spoke to family and they have the code to get into patient's home. Will call EMS to provide transport back home as patient is O2 dependent. Differential Diagnosis Differential Diagnoses: The differential diagnosis associated with the presentation includes Wheezing likely secondary to chronic lung conditions versus viral illness. No signs of acute respiratory distress. Alert and oriented x4 Unlikely stroke, posterior stroke. Admission/Observation Consideration of admission/observation: Escalation of care including admission/observation considered No indication Critical Care Time Critical Care Time Critical Care Time: No Discharge Plan Discharge Clinical Impression: Wheezing Patient Disposition: Home, Self-Care Instructions: Wheezing (ED) Additional Instructions: Take your medications as prescribed. If you were prescribed antibiotics today, it is important that you take your medication to their entirety, do not skip any doses, do not finish them early. Follow-up with your primary care provider this week. Return to the emergency department with new or worsening symptoms. In case of emergency call 911 Prescriptions: New doxycycline hyclate 100 mg capsule 100 mg PO BID 10 Days Qty: 20 0RF No Action ergocalciferol (vitamin D2) 1,250 mcg (50,000 unit) capsule 1,250 mcg PO TH Trelegy Ellipta 100-62.5-25 mcg blister with device 1 ea INHALATION QAM spironolactone 50 mg tablet 50 mg PO QAM Qty: 30 0RF pantoprazole [Protonix] 40 mg tablet,delayed release (DR/EC) 40 mg PO DAILY Qty: 30 0RF spironolactone 50 mg tablet 50 mg PO BID 30 Days Qty: 60 0RF furosemide [Lasix] 40 mg tablet 40 mg PO DAILY Qty: 30 0RF albuterol sulfate 90 mcg/actuation aerosol powdr breath activated 2 inh inhalation Q4-6H PRN (Reason: shortness of breath or wheezing) Qty: 1 0RF albuterol sulfate 2.5 mg /3 mL (0.083 %) solution for nebulization 2.5 mg inhalation Q6H Qty: 75 0RF albuterol sulfate 90 mcg/actuation HFA aerosol inhaler 2 inh inhalation QID PRN (Reason: shortness of breath or wheezing) Qty: 6.7 0RF Referrals: ED Physician,Generic [Physician] - 2 days Interventions: ED Discharge Assessment Last Done: 10/26/23 14:21 Discharge Date/Time: 10/26/23 14:22
[2023-10-26 13:05] VITALS: BP 132/82; BP 143/75; PULSE 104; PULSE 99; RESP 18; TEMP 36.2; O2SAT 92; O2SAT 95; BMI 25.5
--- NOTE | 2023-10-26 14:18 | PC.NURSE ---
Pt discharged from [facility]; [facility] brought patient back to [facility] after being unable to reach family & access residence. Pt discharged immediately, triage complete & vitals obtained. Pt remains on 2L NC. EMS returned for pickup - family confirmed that they are home and ready to receive patient. Report given to [facility] - preparing patient for transport.
--- NOTE | 2023-10-26 14:20 | MHC.EDTECH ---
@[phone] CALLED SON [phone] TO CONFIRM HE WAS HOME FOR THE PT PER EMS REQUEST
[2023-10-26] MEDS: Naloxone HCl Nasal 4 MG SPRAY 8 MG NOSTRILALT (14:45)
--- NOTE | 2023-10-26 15:06 | PC.NURSE ---
Pt acutely distressed; EMS refusing to transport patient home at this time due to lack of availability of family to stay at home with patient. Attempting to rebook transport for 1729. Attempting to provide verbal redirection. VSS, pt remains on 2L NC.
--- NOTE | 2023-10-26 15:36 | MHC.EDTECH ---
[facility] accepted transfer at 1531.
--- NOTE | 2023-10-26 15:42 | PC.NURSE ---
Spoke with patient family member extensively over the phone regarding plan of care. Pt to be rebooked for EMS transport at 1700. Pt remains agitated, verbal redirection unsuccessful. VSS. Pt speaking loudly on cell phone with daughter. NIKOS
--- NOTE | 2023-10-26 17:14 | PC.NURSE ---
Pt family member to [facility], requesting to take patient home herself. Discharge paperwork signed. Pt left unit in wheelchair with daughter.
== END 2023-10-26 17:14 | disposition home or self-care (01) ==
PROVIDERS: Emergency Provider Emergency Medicine Emergency Medical Services
DX: R41.82 Altered mental status, unspecified (principal); R06.2 Wheezing; G89.29 Other chronic pain

== ENCOUNTER 2023-10-28 07:08 | Day surgery (SDC) | payer MEDICARE, MEDICAID, SELFPAY ==
--- NOTE | ~2023-10-28 | US_ITS ---
Ultrasound paracentesis History: Ascites. Risks and benefits and possible complications were discussed with the patient and consent form was signed. A safe pocket of ascitic fluid was identified using ultrasound guidance, and the overlying skin was marked. The abdomen prepped and draped in sterile fashion. 1% lidocaine was used as a local anesthetic. Using ultrasound guidance, a 5 fr catheter was placed into the ascitic pocket. 3.4 liters of yellow fluid was removed passively. The catheter was then removed. A few farm loan representative images from before and after the examination were obtained. The procedure was performed by Porfirio Horvath PA-C and supervised by Dr. Marin. US/US paracentesis abd w/image Impression: Ultrasound-guided paracentesis as described above. No immediate complications
[2023-10-28 08:17] VITALS: BMI 22.0
--- NOTE | 2023-10-28 08:21 | PC.NURSE ---
patient states he fell out of bed this morning but does not remmeber how or what made him fall. pt denies hitting his head or LOC. ANEUDY Arrieta notified via [employer].
[2023-10-28 08:35] LABS: Glucose, Whole Blood 164 mg/dL (60-115)
[2023-10-28 10:40] VITALS: BP 113/61; PULSE 88; RESP 20; TEMP 36.8; O2SAT 96
[2023-10-28 10:55] VITALS: BP 119/61; PULSE 87; RESP 18; TEMP 37.1; O2SAT 96
== END 2023-10-28 11:11 | disposition home or self-care (01) ==
PROVIDERS: Visit Provider Physician Assistant Surgical
DX: R18.8 Other ascites (principal); K72.00 Acute and subacute hepatic failure without coma; R14.0 Abdominal distension (gaseous); J44.9 Chronic obstructive pulmonary disease, unspecified; Z99.81 Dependence on supplemental oxygen; B19.20 Unspecified viral hepatitis C without hepatic coma; Z79.51 Long term (current) use of inhaled steroids; Z79.82 Long term (current) use of aspirin; Z79.1 Long term (current) use of non-steroidal anti-inflammatories (NSAID); Z79.899 Other long term (current) drug therapy
CPT/HCPCS: 49083; 82947

== ENCOUNTER → 2023-10-28 09:30 | Outpatient (BNV) | payer MEDICARE, MEDICAID, SELFPAY | PROVIDERS: Visit Provider Radiology Diagnostic Radiology | DX: R18.8 Other ascites (principal) | CPT/HCPCS: 49083 ==

== ENCOUNTER 2023-10-29 21:17 | Inpatient (IN) | payer MEDICARE, MEDICAID, SELFPAY ==
--- NOTE | ~2023-10-29 | CT_ITS ---
EXAMINATION: CT CHEST WITHOUT CONTRAST CLINICAL INFORMATION: Hypoxemia COMPARISON: None available. TECHNIQUE: Multidetector volumetric CT imaging of the chest was done. Axial MIP volume rendering provided. Sagittal and coronal reformatted images were obtained. This CT examination was performed using dose optimization techniques as appropriate, variously including the following: *Automated exposure control *Adjustment of mA and/or kV according to patient size (this includes techniques or standardized protocols for targeted exams where dose is matched to indication/reason for exam; i.e. extremities or head) *Use of iterative reconstruction technique DLP: 206 mGy-cm FINDINGS: CONTROL DIRECTOR: Well-expanded lungs. LUNGS: There is diffuse emphysematous changes of both lungs with left lower lobe atelectasis/small consolidation. There is a 5 mm calcified nodule left lung base. MEDIASTINUM: There is an endotracheal tube with its tip 4.1 cm above the dillon. There is enteric tube with its tip below diaphragm in the stomach. CORONARY ARTERY CALCIFICATION: There is mild coronary artery calcification. PLEURA: Suspect minimal left posterior pleural thickening. No pleural effusion, pleural mass or thickening. AXILLA: No lymphadenopathy. UPPER ABDOMEN: The liver is slightly lobulated. The spleen is unremarkable. There is diffuse ascites. OSSEOUS STRUCTURES: No aggressive lytic or sclerotic process seen. CT/CT chest wo IV con IMPRESSION: Diffuse emphysema with left lower lobe small focal consolidation/atelectasis. Diffuse ascites and lobulated liver is suspicious for cirrhosis. Fleischner guidelines were followed.
--- NOTE | ~2023-10-29 | US_ITS ---
EXAMINATION: US ABDOMEN LIMITED CLINICAL INFORMATION: Ascites. Fluid check. COMPARISON: Most recent abdominal radiograph dated 11/03/[address] abdomen/pelvis dated 10/30/2023. TECHNIQUE: Real-time imaging of the right upper quadrant abdominal viscera. FINDINGS: Moderate to large volume ascites, increased when compared to the recent CT. No organized fluid collection. No visualized mass. US/US abdomen limited IMPRESSION: Moderate to large volume ascites, increased when compared to the CT dated 10/30/2023.
--- NOTE | ~2023-10-29 | XR_ITS ---
EXAMINATION: XR CHEST CLINICAL INFORMATION: Support tubing evaluation COMPARISON: Earlier 11/02/2023 exam TECHNIQUE: Frontal view of the chest was obtained. FINDINGS: Endotracheal tube tip above the dillon. There is a nasogastric tube with its tip pointed towards the pylorus. Right-sided central line appears to overlie the right atrium. No pneumothorax or pneumomediastinum. Heart size normal with normal caliber pulmonary vessels. There are patchy nodular and linear infiltrates in both lungs most prominent in the right perihilar region and right lower lobe. These are stable. XR/XR chest 1V IMPRESSION: Stable infiltrates. Support tubing are in acceptable position.
--- NOTE | ~2023-10-29 | US_ITS ---
ULTRASOUND GUIDED PARACENTESIS HISTORY: Ascites. Risks and benefits and possible complications were discussed with the patient and consent form was signed. A safe pocket of ascitic fluid was identified using ultrasound guidance, and the overlying skin was marked. The abdomen prepped and draped in sterile fashion. 1% lidocaine was used as a local anesthetic. Using ultrasound guidance, a 5 fr catheter was placed into the ascitic pocket. 3.3 liters of yellow fluid was removed passively. The catheter was then removed. A few customer success representative images from before and after the examination were obtained. The procedure was performed by Porfirio Horvath PA-C and supervised by Dr. Marin. US/US paracentesis abd w/image IMPRESSION: Ultrasound-guided paracentesis as described above. No immediate complications
--- NOTE | ~2023-10-29 | US_ITS ---
STUDY: Hepatic ultrasound with color Doppler and spectral waveform analysis INDICATION: Portal hypertension, check patency of portal and hepatic veins, rule out thrombus and Budd-Chiari syndrome. COMPARISON: 11/02/2023 CT and 10/30/2023 CT and ultrasound. TECHNIQUE: Real-time ultrasound was used to interrogate the portal venous system, hepatic arteries and hepatic veins with grayscale, color Doppler and spectral waveform analysis. Permanent documented images obtained. Study is technically limited due to ascites and portable nature in intubated ICU patient. FINDINGS: Liver is small in size with nodular contour. The portal splenic confluence is not visualized due to technical limitations. Visualized extrahepatic, main, right and left portal veins are patent with hepatopedal flow. Main, left and right hepatic veins are patent with normal directional flow. Main, right and left hepatic arteries are patent with antegrade flow. Velocity in the main hepatic artery 67.3 cm/s, in the right hepatic artery, 82 cm/s and in the left hepatic artery, 78 cm/s. Visualized splenic vein is patent. Splenic hilar collaterals are present. Spleen was not measured on today's study but previously measured [address] Inferior vena cava is patent. Ascites is present. Multiple floating mildly dilated small bowel loops identified in the right lower, left lower and left upper quadrants. US/US duplex arterial venous comp IMPRESSION: Patency and normal directional flow portal, hepatic veins and hepatic arteries. Cirrhosis and ascites.
--- NOTE | ~2023-10-29 | XR_ITS ---
EXAMINATION: XR CHEST CLINICAL INFORMATION: Shortness of breath COMPARISON: X-ray 10/26/2023 TECHNIQUE: 2 frontal views of the chest was obtained. FINDINGS: Slightly rotated positioning. Lordotic view. Monitoring leads overlie the chest. Cardiomediastinal silhouette is stable, line for positioning/technique. Stable mild elevation left hemidiaphragm. Peribronchial thickening in bilateral lower lobes. Peribronchial hazy opacities in the right lower lung. This may reflect infectious or inflammatory process. No significant pleural effusion. No pulmonary edema. No significant pneumothorax.. XR/XR chest 1V IMPRESSION: Peribronchial thickening in bilateral lower lungs, and right lower lung peribronchial hazy opacities. This could reflect infectious or inflammatory process. No pleural effusion.
--- NOTE | ~2023-10-29 | US_ITS ---
EXAMINATION: US ABDOMEN LIMITED CLINICAL INFORMATION: Doppler to rule out portal venous thrombosis. COMPARISON: None available. TECHNIQUE: Real-time imaging of the right upper quadrant abdominal viscera. FINDINGS: Limited imaging the right upper quadrant reveals a widely patent portal vein with normal Doppler flow. US/US abdomen limited IMPRESSION: Patent portal vein.
--- NOTE | ~2023-10-29 | XR_ITS ---
EXAMINATION: XR CHEST CLINICAL INFORMATION: Hypoxia. COMPARISON: 11/02/2023. TECHNIQUE: Frontal view of the chest was obtained. FINDINGS: The cardiac mediastinal silhouette is stable. There is an endotracheal tube in good position above the dillon. A gastric tube extends below the diaphragm. A right central line is in a stable position. There is mild diffuse interstitial prominence similar to previous. There is no new consolidation or pleural effusion. The bony structures and soft tissues are unremarkable. XR/XR chest 1V IMPRESSION: Lines and tubes in good position. Mild diffuse interstitial prominence similar to previous. No significant interval change.
--- NOTE | ~2023-10-29 | XR_ITS ---
EXAMINATION: XR CHEST CLINICAL INFORMATION: Hypoxia. COMPARISON: Most recent chest radiograph dated 11/04/2023. TECHNIQUE: Frontal view of the chest was obtained. FINDINGS: Endotracheal tube with the tip approximately 2.8 cm proximal to the dillon. Enterogastric tube with its tip beneath the left hemidiaphragm and extending beyond the imaged field of view. Right-sided central venous catheter in unchanged position. Chronic interstitial prominence, unchanged. No new focal airspace consolidation. No pleural effusion or pneumothorax. Stable cardiomediastinal silhouette. XR/XR chest 1V IMPRESSION: 1. Endotracheal tube with its tip approximately 2.8 cm proximal to the dillon. Additional support lines in appropriate position as above. 2. No acute cardiopulmonary findings.
--- NOTE | ~2023-10-29 | CT_ITS ---
EXAMINATION: CT HEAD WITHOUT CONTRAST CLINICAL INFORMATION: Agitation. Altered mental status. COMPARISON: CT head 10/26/2023. TECHNIQUE: Contiguous axial imaging was performed from the skull base to vertex without intravenous administration of contrast. This CT examination was performed using dose optimization techniques as appropriate, variously including the following: *Automated exposure control *Adjustment of mA and/or kV according to patient size (this includes techniques or standardized protocols for targeted exams where dose is matched to indication/reason for exam; i.e. extremities or head) *Use of iterative reconstruction technique DLP: 701 mGy-cm FINDINGS: Mild diffuse commensurate prominence of ventricles and sulci is noted. Mild subcortical and periventricular white matter patchy hypodensities visualized. No intracranial hemorrhage, tumors or acute infarcts visualized. Moderate segmental calcific atherosclerosis of the cavernous portions of the internal carotid arteries. Orbits and globes are normal in appearance. No significant opacification of the visualized paranasal sinuses, mastoid air cells and middle ear cavities. CT/CT head/brain wo IV con IMPRESSION: 1. No acute intracranial abnormalities. 2. Mild white matter chronic small vessel ischemic changes.
--- NOTE | ~2023-10-29 | CT_ITS ---
EXAMINATION: CT ABDOMEN AND PELVIS WITH CONTRAST CLINICAL INFORMATION: Severe abdominal pain COMPARISON: CT abdomen pelvis without contrast 10/29/2023, ultrasound abdomen 10/30/2023 TECHNIQUE: Multidetector volumetric images were obtained from the superior aspect of the liver through the pubic symphysis following administration 85 mL of Omnipaque 350 intravenous contrast. Sagittal and coronal reformatted images were obtained on the technologist's workstation. Oral contrast: No This CT examination was performed using dose optimization techniques as appropriate, variously including the following: *Automated exposure control *Adjustment of mA and/or kV according to patient size (this includes techniques or standardized protocols for targeted exams where dose is matched to indication/reason for exam; i.e. extremities or head) *Use of iterative reconstruction technique DLP: 593 mGy-cm FINDINGS: LUNG BASES: Dense seen is marked peribronchial thickening with bronchiectasis and inspissation of branching bronchi obstructed with mucus. No focal consolidations. No suspicious lung masses. Large calcified granuloma left lower lobe. Underlying changes of bullous emphysema are present. LIVER, GALLBLADDER, AND BILIARY TREE: Cirrhotic appearing liver is once again seen. No focal hepatic lesion or biliary ductal dilatation is present. The gallbladder is unremarkable with no evidence of radiopaque gallstones, gallbladder wall thickening, or obvious pericholecystic inflammatory changes. Ascites is once again seen, decreased since yesterday's study. PANCREAS: Unremarkable. SPLEEN: Splenomegaly again noted measuring 14 cm. ADRENAL GLANDS: Unremarkable. KIDNEYS AND URETERS: The kidneys are normal in size, shape, and attenuation. No hydronephrosis, hydroureter, or calculi seen. No perinephric stranding. BLADDER: Unremarkable. GASTROINTESTINAL TRACT: The small and large bowel are unremarkable. The appendix is unremarkable. ABDOMINAL WALL: A periumbilical hernia seen containing fluid. A left inguinal hernia is seen containing fluid only. LYMPH NODES: No retroperitoneal lymphadenopathy. VASCULAR: Calcific atherosclerotic changes are present in the aorta and iliofemoral vessels. There is no evidence of an abdominal aortic aneurysm. The portal venous system is patent. The IVC appears normal PELVIC VISCERA: Unremarkable. OSSEOUS STRUCTURES: Unremarkable. CT/CT abdomen pelvis w IV con IMPRESSION: 1. Cirrhotic appearing liver with splenomegaly and ascites. 2. Other incidental findings as described above. 3. A cause for the patient's severe abdominal pain has not been found. Fleischner guidelines were followed.
--- NOTE | ~2023-10-29 | CT_ITS ---
EXAMINATION: CT ABDOMEN AND PELVIS WITHOUT CONTRAST CLINICAL INFORMATION: Abdominal pain with history of hepatitis C and ascites COMPARISON: Paracentesis yesterday, CT abdomen pelvis 10/11/2023 TECHNIQUE: Multidetector volumetric imaging was performed from the superior aspect of the liver through the pubic symphysis. Sagittal and coronal reformatted images were obtained on the technologist's workstation. This CT examination was performed using dose optimization techniques as appropriate, variously including the following: *Automated exposure control *Adjustment of mA and/or kV according to patient size (this includes techniques or standardized protocols for targeted exams where dose is matched to indication/reason for exam; i.e. extremities or head) *Use of iterative reconstruction technique DLP: 6:15 mGy-cm FINDINGS: LUNG BASES: Marked peribronchial thickening is present with bronchiectasis and inspissation of branching bronchi obstructed with mucus. No focal consolidations. No suspicious lung masses. Large calcified granuloma left lower lobe. LIVER, GALLBLADDER, AND BILIARY TREE: The liver is is cirrhotic and shape. No focal hepatic lesion or biliary ductal dilatation is present. The gallbladder is unremarkable with no evidence of radiopaque gallstones, gallbladder wall thickening, or obvious pericholecystic inflammatory changes. Moderate ascites is present throughout the abdomen extending into bilateral inguinal hernias. PANCREAS: Unremarkable. SPLEEN: Spleen is enlarged at 15 cm ADRENAL GLANDS: Unremarkable. KIDNEYS AND URETERS: The kidneys are normal in size, shape, and attenuation. No hydronephrosis, hydroureter, or calculi seen. No perinephric stranding. BLADDER: Unremarkable. GASTROINTESTINAL TRACT: Previously seen thickened esophagus is no longer present. There is diverticulosis of the colon without evidence of diverticulitis. The small and large bowel are unremarkable. The appendix is unremarkable, floating in ascites. ABDOMINAL WALL: Bilateral inguinal hernias contain ascites LYMPH NODES: No retroperitoneal lymphadenopathy VASCULAR: Calcific atherosclerotic changes are present in the aorta and iliofemoral vessels. There is no evidence of an abdominal aortic aneurysm. PELVIC VISCERA: The prostate and seminal vesicles are unremarkable. OSSEOUS STRUCTURES: Unremarkable. CT/CT abdomen pelvis wo IV con IMPRESSION: 1. Cirrhotic liver with associated splenomegaly and moderate ascites. 2. Colonic diverticulosis without diverticulitis. 3. Marked peribronchial thickening with bronchiectasis and inspissation of branching bronchi obstructed with mucus. 4. Other incidental findings as described above. Fleischner guidelines were followed.
--- NOTE | ~2023-10-29 | XR_ITS ---
EXAMINATION: XR ABDOMEN KUB CLINICAL INDICATION: Ileus. COMPARISON: CT abdomen/pelvis 10/30/2023. CT chest 11/02/2023. TECHNIQUE: AP view of the abdomen. FINDINGS: Nonspecific bowel gas pattern with diffuse distention of the small and large bowel, that is overall similar compared to the legal billing clerk image of the CT from 10/30/2023. Enteric tube terminates at the level of the stomach. Midline lower pelvic catheter seen. No acute osseous findings. Again noted patchy airspace opacities in the retrocardiac region, refer to recent CT chest for additional details. Partially imaged right IJ CVC catheter projecting over the right atrium. XR/XR KUB IMPRESSION: Diffuse gaseous distention of the small and large bowel suggesting the presence of ongoing ileus, not convincingly changed compared to 10/30/2023.
[2023-10-29 21:39] VITALS: BP 109/67; BP 127/83; PULSE 83; PULSE 86; RESP 16; TEMP 36.6; O2SAT 96; BMI 25.0
[2023-10-29 21:44] VITALS: BP 109/67; PULSE 83; RESP 16; TEMP 36.6; O2SAT 96
--- NOTE | 2023-10-29 21:45 | PC.NURSE ---
Pt presents to ED via EMS form home for abd pain starting today after dinner. Pt has hx of ascites and gets his abdomen drained 3x a week. Pt reports he has gotten drained this week, but the pain feels like it does when he has to be drained. Pt reports laying back makes it better. EMS placed 20g IV in the left wrist. Pt is resting in bed at this time, waiting ED provider.
--- NOTE | 2023-10-29 22:04 | ED.ABDPAIN ---
HPI - Abdominal Pain General Chief Complaint: Abdominal Pain Stated Complaint: ABD PAIN PER EMS Time Seen by Provider: 10/29/23 21:46 Source: patient and EMS Mode of arrival: EMS Limitations: no limitations History of Present Illness HPI narrative: 68-year-old male with history of hepatitis-C (nonalcoholic), COPD on supplemental oxygen came in for abdominal distension and shortness of breath, patient s/p paracentesis yesterday, patient is complaining of abdominal pain, no fever or chills, no change mental status. Related Data Home Medications Medication Instructions Recorded Confirmed ergocalciferol (vitamin D2) 1,250 1,250 mcg PO TH 10/11/23 10/28/23 mcg (50,000 unit) capsule fluticasone fur. 100 mcg-umeclid 1 ea inhalation QAM 10/11/23 10/28/23 62.5 mcg-vilant 25 mcg inhalat.powder (Trelegy Ellipta) Previous Rx's Medication Instructions Recorded albuterol sulfate 90 mcg/actuation 2 inh inhalation QID PRN shortness 04/14/23 aerosol inhaler of breath or wheezing #6.7 grams pantoprazole 40 mg tablet,delayed 40 mg PO DAILY #30 tabs 10/11/23 release (Protonix) furosemide 40 mg tablet (Lasix) 40 mg PO DAILY #30 tabs 10/22/23 spironolactone 50 mg tablet 50 mg PO BID 30 days #60 tabs 10/22/23 albuterol sulfate 2.5 mg/3 mL 2.5 mg (3 mL) inhalation Q6H #75 mL 10/26/23 (0.083 %) solution for nebulization albuterol sulfate 90 mcg/actuation 2 inh inhalation Q4-6H PRN 10/26/23 breath activated powder inhaler shortness of breath or wheezing #1 ea doxycycline hyclate 100 mg capsule 100 mg PO BID 10 days #20 caps 10/26/23 Allergies Allergy/AdvReac Type Severity Reaction Status Date / Time aspirin [Aspirin] Allergy Unknown RASH, Verified 10/16/23 04:26 SWELLING OF FACE, VOMITING ibuprofen [From Motrin] Allergy Unknown RASH, Verified 10/16/23 04:26 NUMBNESS TO EXTREMITIES NSAIDS (Non-Steroidal Allergy Unknown UNKNOWN Verified 10/16/23 04:26 Anti-Inflamma [Nsaids] aspirin Allergy Unknown swelling Uncoded 08/31/23 15:33 motrin Allergy Unknown swelling Uncoded 08/31/23 15:33 Review of Systems Review of Systems All other systems are reviewed and are negative Constitutional: Reports as per HPI and Reports no additional constitutional complaints Eyes: Reports as per HPI and Reports no additional eye complaints Reports system reviewed and no additional complaints, except as documented Cardiovascular: Reports as per HPI and Reports no additional cardiovascular complaints Respiratory: Reports as per HPI and Reports no additional respiratory complaints Gastrointestinal: Reports as per HPI and Reports no additional gastrointestinal complaints Genitourinary: Reports no additional female genitourinary complaints Musculoskeletal: Reports no additional musculoskeletal complaints Skin/Breast: Reports system reviewed and no additional complaints, except as docu Psychiatric: Reports no additional psychiatric complaints Endocrine: Reports no additional endocrine complaints Hematologic/Lymphatic: Reports no additional hematologic/lymphatic complaints Allergic/Immunologic: Reports no additional allergic/immunologic complaints Reports system reviewed and no additional complaints, except as documented and Reports Abnormal speech present [facility] Past Medical History Medical History Oxygen dependent Social History Social History Alcohol intake: never Smoked in Last 30 Days: Yes Use of substances other than those prescribed or required for medical reasons: No Advance Directives: No Advance Directives Information Provided: No Physical Exam ED Vital Signs: Vital Signs - 24 hr 10/29/23 21:39 10/29/23 21:44 Temperature 98 F 98 F Pulse Rate 83 83 Respiratory Rate 16 16 Blood Pressure 109/67 109/67 Pulse Oximetry 96 96 Oxygen Delivery Method Nasal Cannula Nasal Cannula Oxygen Flow Rate 2 BMI result Body Mass Index 25.0 Vital signs have been reviewed and appear to be correct. Blood pressure elevated. Heart rate normal. Respiratory rate normal. Temperature normal. Oxygen saturation normal. Appearance: Alert. Oriented X3. No acute distress. Head: Normal external exam. Normocephalic. Atraumatic. No Gregory signs noted. No raccoon eyes noted Eyes: PERRLA. EOMI. Conjunctiva and sclera normal. Eyelids normal. ENT: TM's Normal. Pharynx normal. Uvula midline. Moist mucous membranes. No trismus noted. No drooling noted. No muffled voice noted. Neck: Normal inspection. Neck supple. FROM. No adenopathy. Thyroid Normal. No meningeal signs. No neck mass noted. CVS: Normal heart rate and rhythm. Heart sound normal. No murmurs noted. Pulses normal throughout. Respiratory: No respiratory distress. Painless inspiration. Breath sounds normal. No wheezes/rales/rhonchi noted. Chest nontender. No accessory muscle usage noted or decreased air movement noted. Abdomen: Distended, diffuse tenderness, was voluntarily guarding but no rebound tenderness. Bowel sounds normal in all 4 quadrants. No distention noted. No organomegaly noted. No visible injury noted. Back: No CVA tenderness. Full range of motion noted. Skin: Skin warm and dry. Normal skin color. Normal skin turgor. No rashes/lesions/lacerations noted. Extremities: No lower extremity edema. Extremities exhibit normal range of motion. Extremities nontender. Neuro: Oriented X 3. Cranial nerve exam: II-XII are grossly intact No motor deficit. No sensory deficit. Reflexes normal. Procedures Paracentesis Time Out Performed: Yes Indication: possible spontaneous bacterial peritonitis Procedure: diagnostic paracentesis Location: LLQ Bedside Ultrasound Used: yes, Ascites confirmed and location marked Preparation: sterile prep and drape Amount of fluid obtained (mL): 1,500 Fluid: clear Size of Needle Used: 20 Post Procedure Exam: awake, alert Patient Tolerated Procedure: well Complications: pain Course Reevaluation(s) Reevaluation #1: S/p paracentesis yesterday physical exam is concern of SBP, had repeat paracentesis today and we will check for culture meanwhile patient will be getting 2 g of prophylactic ceftriaxone. Hyperammonemia, start patient on lactulose. Time: 00:02 Medical Decision Making Differential Diagnosis Differential Diagnoses: The differential diagnosis associated with the presentation includes (SBP, sepsis, severe ascites and abdominal distension, colitis, kidney stone, diverticulitis, severe anemia, electrolyte abnormality.) Admission/Observation Consideration of admission/observation: Escalation of care including admission/observation considered Consult Healthcare Provider Management of the patient was discussed with: Hospitalist (Dr. Mendoza) Lab Data MDM Lab Attestation statement: I reviewed the patient's lab results. 10/29/23 22:12 10/29/23 22:12 Labs: Lab Results 10/29/23 10/29/23 10/29/23 Range/Units 22:12 22:42 23:58 WBC 4.1 L (4.8-10.8) X10*3/uL RBC 2.75 L (4.60-5.80) X10*6/uL Hgb 9.8 L (14.0-18.0) g/dl Hct 29.0 L (42.0-52.0) % MCV 105.5 H (80.0-98.0) fL MCH 35.6 H (27.0-33.0) pg MCHC 33.8 (31.0-36.0) g/dl RDW 13.9 (11.0-16.0) % Plt Count 69 L (160-400) X10*3/uL MPV 9.9 (9.4-12.4) fL Immature Gran % (Auto) 0.2 (0.0-0.4) % Neut % (Auto) 62.3 (45-73) % Lymph % (Auto) 21.9 (20-40) % [place] % (Auto) 12.1 H (2-11) % Eos % (Auto) 3.0 (0-4) % Baso % (Auto) 0.5 (0-2) % Lymph # (Auto) 0.9 L (1.2-4.9) X10*3/uL [place] # (Auto) 0.5 (0.1-1.2) X10*3/uL Eos # (Auto) 0.1 (0.0-0.4) X10*3/uL Baso # (Auto) 0.0 (0.0-0.2) X10*3/uL Abs Immat Gran (auto) 0.01 (0.00-0.03) X10*3/uL Absolute Neuts (auto) 2.5 (2.0-8.3) x10*3/uL Absolute Nucleated RBC 0.000 (0.0-0.012) X10*3/uL Nucleated RBC % (auto) 0.0 (0.0-0.2) /100WBC Smear Tech's Comments VERIFIED PT 16.7 H (11.1-13.3) SEC INR 1.4 H (0.9-1.1) APTT 40.6 H (26.0-36.4) SEC Sodium 134 L (135-145) mmol/L Potassium 4.5 (3.3-5.1) mmol/L Chloride 101 (96-108) mmol/L Carbon Dioxide 31 H (22-29) mmol/L Anion Gap 7 L (12-20) BUN 14 (9-16) mg/dL Creatinine 0.86 (0.5-1.4) mg/dL Estim Creat Clear Calc 83.3 Estimated GFR > 60 Random Glucose 175 H (60-115) mg/dL Calcium 8.4 D (8.4-10.2) mg/dL Total Bilirubin 1.5 H (0.0-1.0) mg/dL Direct Bilirubin 1.0 H (0.0-0.5) mg/dL AST 49 H (5-37) U/L ALT 34 (0-40) U/L Alkaline Phosphatase 121 H (39-117) U/L Ammonia 168 H (13-55) umol/L Total Protein 6.5 (6.5-8.0) g/dL Albumin 2.2 L (3.5-5.0) g/dL Lipase 22 (8-78) U/L Peritoneal WBC 0.093 X10*3/uL Peritoneal RBC < 0.002 X10*6/uL Independent Interpretation I performed an independent interpretation of an: CT Scan (1. Cirrhotic liver with associated splenomegaly and moderate ascites. 2. Colonic diverticulosis without diverticulitis. 3. Marked peribronchial thickening with bronchiectasis and inspissation of branching bronchi obstructed with mucus. 4. Other incidental findings as described above. ) Radiology Impression Discussion of test interpretation with radiology: I have reviewed the radiologist's reading. (1. Cirrhotic liver with associated splenomegaly and moderate ascites. 2. Colonic diverticulosis without diverticulitis. 3. Marked peribronchial thickening with bronchiectasis and inspissation of branching bronchi obstructed with mucus. 4. Other incidental findings as described above. ) Chronic Conditions Patient?s care impacted by: Other (Hepatitis C) Medications Administered Discontinued Medications Generic Name Dose Route Start Last Admin Trade Name Freq PRN Reason Stop Dose Admin Lactulose 30 gm 10/29/23 22:46 10/29/23 22:55 Lactulose 20 Gm/30 Ml Solution PO 10/29/23 22:47 30 gm ONCE ONE Administration Morphine Sulfate 2 mg 10/29/23 22:38 10/29/23 22:44 Morphine Sulfate 2 Mg/Ml Cartridge IVPUSH 10/29/23 22:39 2 mg ONCE ONE Administration Protocol Critical Care Time Critical Care Time Critical Care Time: Yes Total Critical Care Time: 60 Attestation: I spent 60 minutes providing critical care service to the patient, this including time spent at the bedside to evaluate the patient, reassess the patient, monitoring vital signs, review labs, and radiographic studies, counseling the patient/family, discussing the case with consultants, disposition the patient. Discharge Plan Discharge Clinical Impression: Hyperammonemia, SBP (spontaneous bacterial peritonitis) Patient Disposition: Admitted As Inpatient
[2023-10-29 22:28] LABS: Basophils Percent Auto 0.5 % (0-2); PLT CLUMP 1; SCAN SMEAR FLAG 1
[2023-10-29 22:30] LABS: Eosinophils Absolute Auto 0.1 X10*3/uL (0.0-0.4); Hemoglobin 9.8 g/dl (14.0-18.0); Imm Gran Abs Auto 0.01 X10*3/uL (0.00-0.03); Imm Gran Pct Auto 0.2 % (0.0-0.4); Lymphocytes Absolute Auto 0.9 X10*3/uL (1.2-4.9); Lymphocytes Percent Auto 21.9 % (20-40); MANUAL DIFF FLAG SCAN; Mean Corpuscular HGB Conc 33.8 g/dl (31.0-36.0); Mean Corpuscular Hemoglobin 35.6 pg (27.0-33.0); Mean Corpuscular Volume 105.5 fL (80.0-98.0); Mean Platelet Volume 9.9 fL (9.4-12.4); Monocytes Absolute Auto 0.5 X10*3/uL (0.1-1.2); Monocytes Percent Auto 12.1 % (2-11); Neutrophils Absolute Auto 2.5 x10*3/uL (2.0-8.3); Neutrophils Percent Auto 62.3 % (45-73); Red Blood Count 2.75 X10*6/uL (4.60-5.80); Red Cell Distribution Width 13.9 % (11.0-16.0)
[2023-10-29 22:36] LABS: Ammonia 168 umol/L (13-55)
[2023-10-29 22:43] LABS: Alanine Aminotransferase 34 U/L (0-40); Albumin Level 2.2 g/dL (3.5-5.0); Anion Gap 7 (12-20); Aspartate Amino Transferase 49 U/L (5-37); Blood Urea Nitrogen 14 mg/dL (9-16); Calcium 8.4 mg/dL (8.4-10.2); Carbon Dioxide 31 mmol/L (22-29); Chloride 101 mmol/L (96-108); Creatinine Clr Calc Pharmacy 83.3; Estimated Glomerular Filt Rate > 60; Glucose Random 175 mg/dL (60-115); Lipase 22 U/L (8-78); Potassium 4.5 mmol/L (3.3-5.1); Sodium 134 mmol/L (135-145); Total Protein 6.5 g/dL (6.5-8.0)
[2023-10-29] MEDS: Morphine Sulfate 2 MG/ML CARTRIDGE IVPUSH (22:44)
[2023-10-29 22:52] LABS: Alkaline Phosphatase 121 U/L (39-117); Bilirubin Total 1.5 mg/dL (0.0-1.0)
[2023-10-29 22:53] LABS: INTERNATIONAL NORM RATIO 1.4 (0.9-1.1); Prothrombin Time 16.7 SEC (11.1-13.3)
[2023-10-29 22:55] LABS: Partial Thromboplastin Time 40.6 SEC (26.0-36.4)
[2023-10-29] MEDS: Lactulose 20 GM/30 ML SOLUTION 30 GM PO (22:55)
[2023-10-29 22:56] LABS: White Blood Count 4.1 X10*3/uL (4.8-10.8)
[2023-10-29 22:57] LABS: Platelet Count 69 X10*3/uL (160-400)
--- NOTE | 2023-10-29 23:18 | PC.NURSE ---
Daughter left bedside, requested we call with updates. [phone]
[2023-10-29 23:21] LABS: SLIDE REVIEW VERIFIED
[2023-10-30 00:09] LABS: WBC Peritoneal Fluid 0.093 X10*3/uL
--- NOTE | 2023-10-30 00:09 | PC.NURSE ---
Dr Yost at bedside to perform paracentesis. Pt draining fluid well at this time.Sample collected and walked to lab.
--- NOTE | 2023-10-30 00:16 | PC.NURSE ---
Pt drained total of 1450mL of peritoneal fluid
[2023-10-30 00:18] LABS: RBC Peritoneal Fluid < 0.002 X10*6/uL
[2023-10-30] MEDS: cefTRIAXone sodium 2 GM in 0.9 % Sodium Chloride 50 ML IV (00:40)
[2023-10-30 00:41] LABS: BF Shift QC OK YES; Lymphocyte Peritoneal Fl 21 %; Monocytes Peritoneal Fl 40 %; Neutrophils Peritoneal Fluid 8 %; Other Peritioneal Fl 31 %
[2023-10-30] MEDS: Albumin Human 25 % 100 ML IV (01:11)
--- NOTE | 2023-10-30 01:53 | P.HPHOSP_ITS ---
History of Present Illness Date of Service: 10/30/23 Chief Complaint: Abdominal pain This is a 68-year-old male with pertinent history of hepatitis-C cirrhosis, chronic hypoxemic respiratory failure due to COPD who presents to the emergency department for evaluation of abdominal pain. Patient also complaining of abdominal distension and difficulty breathing due to the distention. Patient is very somnolent at the time of my evaluation. He is oriented when awake but falls back to sleep at the end of conversation. Has chills but does not know if he has fevers. Unclear compliance with medications. Admits nausea but no vomiting, palpitations, chest discomfort, changes in urinary habits. In the emergency department, 1.5 L ascitic fluid drained. His ammonia was found to be elevated. Review of Systems 2 Review of Systems: Yes Unobtainable due to mental status PMFSH Medical History Hepatitis C Cirrhosis COPD (chronic obstructive pulmonary disease) Oxygen dependent Pertinent family history: Unable to obtain Social History Alcohol intake: never Smoked in Last 30 Days: Yes Use of substances other than those prescribed or required for medical reasons: No Advance Directives: No Advance Directives Information Provided: No Meds Allergies Allergy/AdvReac Type Severity Reaction Status Date / Time aspirin [Aspirin] Allergy Unknown RASH, Verified 10/16/23 04:26 SWELLING OF FACE, VOMITING ibuprofen [From Motrin] Allergy Unknown RASH, Verified 10/16/23 04:26 NUMBNESS TO EXTREMITIES NSAIDS (Non-Steroidal Allergy Unknown UNKNOWN Verified 10/16/23 04:26 Anti-Inflamma [Nsaids] aspirin Allergy Unknown swelling Uncoded 08/31/23 15:33 motrin Allergy Unknown swelling Uncoded 08/31/23 15:33 Active Medications: Current Medications Acetaminophen (Acetaminophen 325 Mg Tablet) 650 mg PO Q6H PRN PRN Reason: Pain, Mild (Pain Scale 1-3) Melatonin (Melatonin 3 Mg Tablet) 6 mg PO BEDTIME PRN PRN Reason: Insomnia Ondansetron HCl (Ondansetron Hcl 4 Mg/2 Ml Vial) 4 mg IVPUSH Q8H PRN PRN Reason: Nausea and Vomiting Sodium Chloride (0.9 % Sodium Chloride Flush 3 Ml Syringe) 3 ml IVFLUSH [facility] Home Medications Medication Instructions Recorded Confirmed Last Taken Type ergocalciferol (vitamin D2) 1,250 1,250 mcg PO TH 10/11/23 10/28/23 Unknown History mcg (50,000 unit) capsule fluticasone fur. 100 mcg-umeclid 1 ea inhalation QAM 10/11/23 10/28/23 10/11/23 History 62.5 mcg-vilant 25 mcg inhalat.powder (Trelegy Ellipta) Physical Exam 2 Vital Signs and Narrative: Vital Signs: Last Vital Signs Temp 98 F 10/29/23 21:44 Pulse 83 10/29/23 21:44 Resp 16 10/29/23 21:44 BP 109/67 10/29/23 21:44 Pulse Ox 96 10/29/23 21:44 O2 Del Method Nasal Cannula 10/29/23 21:44 O2 Flow Rate 2 10/29/23 21:44 Oxygen Flow Rate 2 10/29/23 21:39 BMI result Body Mass Index 25.0 Middle-aged male lying in bed in no distress on supplemental oxygen Neck supple, no JVD Regular rate and rhythm, S1-S2 heard Regular breath sounds bilaterally, no wheezing or crackles appreciated Abdomen with abdominal tenderness to deep palpation, no guarding, no rigidity, no rebound tenderness Patient is somnolent but awakens to verbal stimulus, oriented to self, place and time but falls back asleep at the end of conversation Psych: Lethargic Results Labs 10/29/23 22:12 10/29/23 22:12 Labs: Laboratory Results - last 24 hr 10/29/23 10/29/23 10/29/23 22:12 22:42 23:58 MCV 105.5 H MCH 35.6 H MCHC 33.8 RDW 13.9 Plt Count 69 L MPV 9.9 Immature Gran % (Auto) 0.2 Neut % (Auto) 62.3 Lymph % (Auto) 21.9 [place] % (Auto) 12.1 H Eos % (Auto) 3.0 Baso % (Auto) 0.5 Lymph # (Auto) 0.9 L [place] # (Auto) 0.5 Eos # (Auto) 0.1 Baso # (Auto) 0.0 Abs Immat Gran (auto) 0.01 Absolute Neuts (auto) 2.5 Absolute Nucleated RBC 0.000 Nucleated RBC % (auto) 0.0 Smear Tech's Comments VERIFIED PT 16.7 H INR 1.4 H APTT 40.6 H Anion Gap 7 L Estim Creat Clear Calc 83.3 Estimated GFR > 60 Random Glucose 175 H Calcium 8.4 D Total Bilirubin 1.5 H Direct Bilirubin 1.0 H AST 49 H ALT 34 Alkaline Phosphatase 121 H Ammonia 168 H Total Protein 6.5 Albumin 2.2 L Lipase 22 Peritoneal WBC 0.093 Peritoneal RBC < 0.002 Periton Neutrophils 8 Periton Lymphocytes 21 Peritoneal Monocytes 40 Peritoneal Other Cells 31 Imaging Radiologist's Impressions: Impressions Abdomen/Pelvis CT 10/29/23 23:40 IMPRESSION: 1. Cirrhotic liver with associated splenomegaly and moderate ascites. 2. Colonic diverticulosis without diverticulitis. 3. Marked peribronchial thickening with bronchiectasis and inspissation of branching bronchi obstructed with mucus. 4. Other incidental findings as described above. Fleischner guidelines were followed. Assessment and Plan (1) Decompensated hepatic cirrhosis: Status: Acute (2) Hepatic encephalopathy: Status: Acute (3) Abdominal pain: Status: Acute Plan This is a 68-year-old male with pertinent history of hepatitis-C cirrhosis, chronic hypoxemic respiratory failure due to COPD who presents to the emergency department for evaluation of abdominal pain. #. Abdominal pain in a patient with acute decompensated liver cirrhosis with ascites and encephalopathy: CYNDI-SOFA score <7. Initiating empiric IV antibiotics. Diagnostic ascitic tap done in the ER, awaiting results. Initiating scheduled lactulose. Continue diuretics. Continue to monitor ammonia and mentation. Consulted Gastroenterology, appreciate assistance #. Thrombocytopenia due to cirrhosis: Defer Lovenox #. Macrocytic anemia: Likely due to liver disease. Obtaining B12 and folate. #. Chronic hypoxemic respiratory failure due to COPD: No exacerbation during admission. Continue home trelegy Ellipta #. Hepatitis C: Outpatient treatment Med rec pending DVT prophylaxis: Mechanical Full code Admit as inpatient and will require two night minimum hospital stay for IV antibiotics, monitoring mentation (as above), which is not possible in a lesser acute setting. Specialist consult pending Quality Stroke Does the patient have a stroke diagnosis?: No VTE Prior VTE?: No VTE Risk Level:: Medical - moderate - high VTE Device Contraindication: N/A - Device Ordered VTE Drug Contraindication: Treatment Not Indicated
[2023-10-30 02:12] VITALS: BP 104/50; PULSE 68; RESP 20; TEMP 36.4; O2SAT 98
[2023-10-30] MEDS: Morphine Sulfate 4 MG/ML CARTRIDGE IVPUSH ×2 (02:22→08:14)
[2023-10-30 02:52] LABS: pH Peritoneal Fluid 7.47
[2023-10-30 03:02] LABS: Albumin Peritoneal Fluid 0.4 GM/DL; Glucose Peritoneal Fluid 186 MG/DL; LDH Peritoneal Fluid 35 U/L; Total Protein Peritoneal Fluid 0.8 GM/DL
--- NOTE | 2023-10-30 04:28 | PC.NURSE ---
Called pt's daughter to give updates and inform her that he is admitted to room 379.
[2023-10-30 06:30] LABS: MANUAL DIFF FLAG NO
[2023-10-30 06:43] LABS: Ammonia 59 umol/L (13-55)
[2023-10-30 06:50] LABS: Alanine Aminotransferase 33 U/L (0-40); Albumin Level 2.6 g/dL (3.5-5.0); Alkaline Phosphatase 108 U/L (39-117); Anion Gap 10 (12-20); Aspartate Amino Transferase 47 U/L (5-37); Bilirubin Total 2.2 mg/dL (0.0-1.0); Blood Urea Nitrogen 12 mg/dL (9-16); Calcium 8.7 mg/dL (8.4-10.2); Carbon Dioxide 32 mmol/L (22-29); Chloride 101 mmol/L (96-108); Creatinine Clr Calc Pharmacy 87.4; Estimated Glomerular Filt Rate > 60; Glucose Random 125 mg/dL (60-115); Potassium 4.7 mmol/L (3.3-5.1); Sodium 138 mmol/L (135-145); Total Protein 6.6 g/dL (6.5-8.0)
[2023-10-30 07:14] LABS: Basophils Percent Auto 0.8 % (0-2); Eosinophils Absolute Auto 0.2 X10*3/uL (0.0-0.4); Eosinophils Percent Auto 4.4 % (0-4); Hematocrit 31.5 % (42.0-52.0); Hemoglobin 10.5 g/dl (14.0-18.0); Imm Gran Abs Auto 0.01 X10*3/uL (0.00-0.03); Imm Gran Pct Auto 0.3 % (0.0-0.4); Lymphocytes Percent Auto 26.7 % (20-40); Mean Corpuscular HGB Conc 33.3 g/dl (31.0-36.0); Mean Corpuscular Hemoglobin 36.2 pg (27.0-33.0); Mean Corpuscular Volume 108.6 fL (80.0-98.0); Monocytes Absolute Auto 0.5 X10*3/uL (0.1-1.2); Monocytes Percent Auto 12.8 % (2-11); Neutrophils Absolute Auto 2.2 x10*3/uL (2.0-8.3); Red Cell Distribution Width 13.7 % (11.0-16.0); White Blood Count 3.9 X10*3/uL (4.8-10.8)
[2023-10-30 07:15] LABS: Platelet Count 63 X10*3/uL (160-400)
[2023-10-30 07:16] VITALS: BP 143/62; PULSE 82; RESP 18; TEMP 36.3; O2SAT 96
[2023-10-30 07:28] LABS: Folate 8.9 ng/mL (> or = 4.0)
--- NOTE | 2023-10-30 08:00 | PC.NURSE ---
Pt yelling out in pain, Pain medication not yet due per JAN, MD Dr Horta notified, Pain medication and frequency changed, Pt medicated per JAN, Upon reassessment Pt resting in bed with eyes closed, less frequent yelling out, respirations even and unlabored, daughter at bedside.
[2023-10-30 08:13] LABS: Magnesium 1.8 mg/dL (1.6-2.6)
[2023-10-30] MEDS: 0.9 % Sodium Chloride Flush 3 ML SYRINGE IVFLUSH ×3 (08:15→19:55)
[2023-10-30] MEDS: Lactulose 20 GM/30 ML SOLUTION 30 GM PO ×2 (08:15→23:34)
--- NOTE | 2023-10-30 09:16 | PHA.MEDREC ---
Pharmacy Consult ? Medication Reconciliation Pharmacy has completed the medication reconciliation. spoke with daughter to confirm medications. She reports that she takes care of him and the only meds that he has been on are the inhalers and the water pills . Previous discharge papers say he was given an outpatient antibiotic but the daughter was unable to recognize it and reports that only the diuretics were at the pharmacy after his admission.
--- NOTE | 2023-10-30 09:57 | HO.PM.IMPN ---
Subjective Subjective Date of Service: 10/30/23 Interval History: confused c/o severe abd pain No hematemesis, hematochezia, or melena. Review of Systems Review of Systems: Yes all other systems are reviewed and are negative Physical Exam Vital Signs: Vital Signs: Last Vital Signs Temp 97.3 F 10/30/23 07:16 Pulse 82 10/30/23 07:16 Resp 18 10/30/23 07:16 BP 143/62 H 10/30/23 07:16 Pulse Ox 96 10/30/23 07:16 O2 Del Method Nasal Cannula 10/30/23 07:16 O2 Flow Rate 2 10/30/23 07:16 Oxygen Flow Rate 2 10/29/23 21:39 BMI result Body Mass Index 25.0 Gen: confused, in pain HEENT: sclera anicteric, moist mucus membranes Neck: supple Lungs: clear to auscultation bilaterally Heart: regular rate and rhythm, no murmurs Abd: distended, generalized tenderness, paracentesis site without fluid leakage Ext: no edema Skin: warm/well-perfused Neuro: alert, disoriented, asterixis Psych: impaired insight Objective Data Active Medications Acetaminophen (Acetaminophen 325 Mg Tablet) 650 mg PO Q6H PRN PRN Reason: Pain, Mild (Pain Scale 1-3) Hydromorphone HCl (Hydromorphone Hcl 0.5 Mg/0.5 Ml Syringe) 0.5 mg IVPUSH Q2H PRN; Protocol PRN Reason: severe pain Ceftriaxone Sodium 2 gm/ (Sodium Chloride) 50 mls @ 100 mls/hr IV DAILY [facility] Last Admin: 10/30/23 02:23 Dose: Not Given Documented By: PIYUSH Non-Admin Reason: Duplicate Order Lactulose (Lactulose 20 Gm/30 Ml Solution) 30 gm PO TID [facility] Last Admin: 10/30/23 08:15 Dose: 30 gm Documented By: NISHA Melatonin (Melatonin 3 Mg Tablet) 6 mg PO BEDTIME PRN PRN Reason: Insomnia Ondansetron HCl (Ondansetron Hcl 4 Mg/2 Ml Vial) 4 mg IVPUSH Q8H PRN PRN Reason: Nausea and Vomiting Rifaximin (Rifaximin 550 Mg Tablet) 550 mg PO BID [facility] Sodium Chloride (0.9 % Sodium Chloride Flush 3 Ml Syringe) 3 ml IVFLUSH QSHIFT [facility] Last Admin: 10/30/23 08:15 Dose: 3 ml Documented By: NISHA Labs 10/30/23 06:25 10/30/23 06:25 Labs: Laboratory Results - last 24 hr 10/29/23 10/29/23 10/29/23 22:12 22:42 23:58 MCV 105.5 H MCH 35.6 H MCHC 33.8 RDW 13.9 Plt Count 69 L MPV 9.9 Immature Gran % (Auto) 0.2 Neut % (Auto) 62.3 Lymph % (Auto) 21.9 [place] % (Auto) 12.1 H Eos % (Auto) 3.0 Baso % (Auto) 0.5 Lymph # (Auto) 0.9 L [place] # (Auto) 0.5 Eos # (Auto) 0.1 Baso # (Auto) 0.0 Abs Immat Gran (auto) 0.01 Absolute Neuts (auto) 2.5 Absolute Nucleated RBC 0.000 Nucleated RBC % (auto) 0.0 Smear Tech's Comments VERIFIED PT 16.7 H INR 1.4 H APTT 40.6 H Anion Gap 7 L Estim Creat Clear Calc 83.3 Estimated GFR > 60 Random Glucose 175 H Calcium 8.4 D Magnesium Total Bilirubin 1.5 H Direct Bilirubin 1.0 H AST 49 H ALT 34 Alkaline Phosphatase 121 H Ammonia 168 H Total Protein 6.5 Albumin 2.2 L Lipase 22 Folate Peritoneal pH 7.47 Peritoneal WBC 0.093 Peritoneal RBC < 0.002 Periton Neutrophils 8 Periton Lymphocytes 21 Peritoneal Monocytes 40 Peritoneal Other Cells 31 Peritoneal Creatinine 1.0 Peritoneal Tot Protein 0.8 Peritoneal Albumin 0.4 Peritoneal LDH 35 Peritoneal Glucose 186 10/30/23 06:25 MCV 108.6 H MCH 36.2 H MCHC 33.3 RDW 13.7 Plt Count 63 L MPV 10.0 Immature Gran % (Auto) 0.3 Neut % (Auto) 55.0 Lymph % (Auto) 26.7 [place] % (Auto) 12.8 H Eos % (Auto) 4.4 H Baso % (Auto) 0.8 Lymph # (Auto) 1.0 L [place] # (Auto) 0.5 Eos # (Auto) 0.2 Baso # (Auto) 0.0 Abs Immat Gran (auto) 0.01 Absolute Neuts (auto) 2.2 Absolute Nucleated RBC 0.000 Nucleated RBC % (auto) 0.0 Smear Tech's Comments PT INR APTT Anion Gap 10 L Estim Creat Clear Calc 87.4 Estimated GFR > 60 Random Glucose 125 H Calcium 8.7 Magnesium 1.8 Total Bilirubin 2.2 H Direct Bilirubin AST 47 H ALT 33 Alkaline Phosphatase 108 Ammonia 59 H Total Protein 6.6 Albumin 2.6 L Lipase Folate 8.9 Peritoneal pH Peritoneal WBC Peritoneal RBC Periton Neutrophils Periton Lymphocytes Peritoneal Monocytes Peritoneal Other Cells Peritoneal Creatinine Peritoneal Tot Protein Peritoneal Albumin Peritoneal LDH Peritoneal Glucose Microbiology Microbiology Results: Microbiology 10/30/23 00:09 Gram Stain - Final Ascites Fluid Assessment and Plan (1) Abdominal pain: Status: Acute (2) Hepatic encephalopathy: Status: Acute Plan d1 68yo M with decompensated HCV cirrhosis with ascites, chronic hypoxia due to COPD presenting with abd pain/distension decompensated HCV cirrhosis with ascites - paracentesis done in ED 10/28 [3.4L removed] and 10/29 [1.5L removed], no evidence of SBP - ceftriaxone for SBP prophylaxis - resume spironolactone + furosemide, sodium restriction - abd US to t/o PVT - GI consult pending - check FOBT - hydromorphone IV prn pain hepatic encephalopathy - lactulose, add rifaximin untreated HCV - GI consult, outpt treatment chronic hypoxic RF due to COPD - continue home Trelegy, prn albuterol, 2L O2 via NC VTE ppx - SCDs dispo - TBD In my clinical judgment, the patient requires continued inpatient hospitalization for the following reasons: decomp cirrhosis, pain control, encephalopathy Total time managing care of this patient today: 50 minutes. Quality Stroke Does the patient have a stroke diagnosis?: No VTE Prior VTE?: No VTE Risk Level:: Medical - moderate - high VTE Device Contraindication: N/A - Device Ordered VTE Drug Contraindication: Treatment Not Indicated
[2023-10-30] MEDS: HYDROmorphone HCl 0.5 MG/0.5 ML SYRINGE IVPUSH ×2 (10:11→13:22)
[2023-10-30 11:15] LABS: Influenza A PCR NEGATIVE (Negative); Influenza B PCR NEGATIVE (Negative); Resp Syncy Virus RNA Qual PCR NEGATIVE (Negative); SARS COV2 PCR INHOUSE NEGATIVE (Negative)
[2023-10-30 11:16] VITALS: BP 142/88; PULSE 125; RESP 18; TEMP 36; O2SAT 96
--- NOTE | 2023-10-30 12:18 | PC.NURSE ---
Pt daughter wanted an update, Primary RN unavailable. This group underwriter went to speak with daughter/HCP. Updated for tests, medications, labs, what to expect with illness. Daughter states understanding, upset, crying at bedside next to patient. Comfort and support given and available as needed for patient and family. Pt dgt ask for no visitors at this time besides herself and her fiance Eliot
--- NOTE | 2023-10-30 13:32 | PC.NURSE ---
desk clerks supervisor and security notified no visitors per HCP/Dgt
--- NOTE | 2023-10-30 14:10 | PC.NURSE ---
Daughter had more questions, attempted to educate dgt, learning barrier identified, wants to speak with MD, MD paged per daughters request.
[2023-10-30] MEDS: HYDROmorphone HCl 0.5 MG/0.5 ML SYRINGE 0.75 MG IVPUSH ×4 (15:05→22:19)
[2023-10-30] MEDS: Pantoprazole Sodium 40 MG/10 ML VIAL IVPUSH (15:13)
--- NOTE | 2023-10-30 15:19 | PC.NURSE ---
Pt spitting out lactlose after attempting to give x 2, made aware
--- NOTE | 2023-10-30 15:37 | PM.EVENT ---
Event Note Date of Service: 10/30/23 Event Note: GI Consult-Full note dictated. History completely from his daughter, the RN's, and the EMR. Imp:68 yo male with advanced cirrhosis due to apparent untreated chronic Hep C, as well as underlying significant lung disease, with associated ascites with tap negative for SBP, significant encephalopathy, hypersplenism, and coagulopathy. There has been no GI bleeding. Imaging studies do not show any acute process. Rec: Continue supportive care as you are doing with diuretics, Lactulose and Xifaxan, and PPI. He is not a transplant candidate given his significant lung disease. I reviewed the severity of his condition in detail with his daughter. I encouraged her to make him a DNR/DNI given his poor prognosis. However, I told her that the supportive and comfort measures could certainly continue. She understood. Please call if I can be of further assistance. Thanks Time Spent With Patient Time: Total time managing care of this patient today ____ minutes.
[2023-10-30 15:42] VITALS: BP 157/80; PULSE 104; RESP 17; TEMP 36.8; O2SAT 95
--- NOTE | 2023-10-30 16:23 | MHC.CM.PN ---
CM SPOKE TO PTS DAUGHTERFAUSTINO SHE REPORTS THE PT LIVES ALONE BUT HAS BEEN WITH HER RECENTLY DUE TO DECLINE SHE SAYS HE IS INDEPENDENT AT BASELINE AND USES A CANE AND NEBULIZER FOR DME SHE SAYS HE HAS ALWAYS REFUSED SERVICES SHE SAYS THE PT DID A HCP IN THE PAST NAMING HER BUT THEY NO LONGER HAVE IT SHE SAYS THE PTS PCP GAVE THEM A NEW ONE BUT HE NEVER COMPLETED IT CM WILL ATTEMPT TO COMPLETE A HCP WITH PT WHEN CONDITION IMPROVES IMM DELIVERED DCP TBD: HOME WITH [facility] VS STR TRANSPORT TBD BY DISPO
[2023-10-30] MEDS: iohexoL 350 MG/ML 100 ML INFUS..BTL IV (18:44)
[2023-10-30 19:49] VITALS: BP 130/61; PULSE 112; RESP 17; TEMP 36.8; O2SAT 93
[2023-10-30] MEDS: Spironolactone 25 MG TABLET 50 MG PO (19:54)
--- NOTE | 2023-10-30 20:09 | PC.NURSE ---
pt combative for care and medications to give. this nurse tried to give medications with syringe but pt spited out, and yells don't do this. grabbing staffs. impossible to give anything by po. will continue to monitor.
--- NOTE | 2023-10-30 22:48 | CONS_ITS ---
DATE OF SERVICE: 10/30/2023 REASON FOR CONSULTATION: Cirrhosis, ascites, and hepatic encephalopathy. HISTORY OF PRESENT ILLNESS: This has been obtained completely from his daughter, John; his nurses; and the medical record. Unfortunately, the patient cannot give any history at the present time due to his poor mental status. The patient is a 68-year-old male with an apparent underlying history of untreated chronic hepatitis C in relation to a distant history of substance abuse. He has developed cirrhosis and has required periodic paracenteses recently. He was brought back to the ER due to worsening mental status as well as his increasing ascites. There has been no report of GI bleeding nor any definitive fever at home. Up until recently, his mental status had been good and he had been eating well at home. He tends to live by himself, but has close observation and care from his daughter. He was just recently started on diuretics as an outpatient through the ER. There is no history of any alcohol use and he has not used drugs in many years. There is no family history of known liver disease. Other significant medical problems include pulmonary disease from COPD, for which he uses oxygen periodically at home. Since admission to the hospital, he has been receiving some lactulose, but has not yet had any bowel movements. There has been no reported GI bleeding here in the hospital. He has had paracenteses, which have been negative for spontaneous bacterial peritonitis. CURRENT MEDICATIONS: His medications at home included an inhaler Trelegy, as well as the recent initiation of furosemide and spironolactone. His medications here in the hospital include albuterol inhaler p.r.n., IV ceftriaxone, furosemide, 40 mg daily, Dilaudid p.r.n., lactulose, melatonin p.r.n., morphine p.r.n., Zofran, IV pantoprazole, rifaximin, and spironolactone. PAST MEDICAL HISTORY: Cirrhosis as above in relation to chronic hepatitis C. COPD for which he is using oxygen at home. There is no reported history of NE or stroke. He apparently has had diabetes in the past, but is no longer needing medication for that. He has had arm surgery for infection, but no other significant surgeries according to his daughter. SOCIAL HISTORY: He does smoke. He does not use any drugs nor alcohol at the present time. His over 10 years ago. FAMILY HISTORY: Noncontributory. REVIEW OF SYSTEMS: Not available from the patient due to his poor mental status. PHYSICAL EXAMINATION: GENERAL: The patient is an elderly, somewhat chronically ill-appearing male. He is not responsive to questioning. SKIN: Warm and dry. Anicteric sclerae. NECK: Supple. CHEST: Reveals bilateral expiratory wheezing and rhonchi. CARDIAC: Normal S1, S2. ABDOMEN: Soft, but distended with ascites. Bowel sounds are normal. There is some mild diffuse tenderness. EXTREMITIES: Without edema. I could not elicit any definitive asterixis on exam. LABORATORY DATA: Abdominal ultrasound done today was negative for any sign of portal vein thrombosis on Doppler studies. His CT of the abdomen done yesterday revealed a liver consistent with cirrhosis, but no focal lesion nor biliary obstruction. There was a moderate amount of ascites. The spleen was enlarged. The pancreas was unremarkable. GI tract was unremarkable as well. His ascites was negative for spontaneous bacterial peritonitis based on cell count. White blood cell count 3.9, hemoglobin 10.5, platelets 63,000. PT 16.7 with INR 1.4. Normal electrolytes. BUN 12, creatinine 0.8, total bilirubin 2.2, AST 47, ALT 33, alkaline phosphatase 108. Ammonia level was 168 and today was 59. Albumin 2.6. Folate 8.9. His hepatitis C viral load was 255,000 in August. IMPRESSION: The patient is a 68-year-old male with advanced liver disease in relation to chronic hepatitis C that has remained untreated. He presents with worsening liver function with associated ascites, hepatic encephalopathy, and evidence of hypersplenism with thrombocytopenia. His ascites was negative for spontaneous bacterial peritonitis based on cell count and there has been no gastrointestinal bleeding. He also has underlying significant pulmonary disease. Based on his clinical history, he is not a liver transplant candidate given the significant associated lung disease. Given his significant liver disease as well as his pulmonary disease, I did have a very detailed discussion with his daughter, John. We focused on continuing supportive care and keep him comfortable, but if things were to deteriorate, I recommended to her that he should be a do not resuscitate and do not intubate patient given his poor prognosis both in regard to his liver disease and pulmonary disease. I did encourage her to think about this and discuss this further with the hospitalist staff. However, otherwise, I would continue supportive care that he is receiving already with the diuretics, the medication for his encephalopathy, his PPI, and his analgesics. I do not think he needs to be on antibiotics based on the negative paracentesis in regard to spontaneous bacterial peritonitis. I do not think he needs any further imaging studies at this time given the negative ultrasound and CT scans since this admission. Again, this has all been reviewed in detail with his daughter and she understood. Thank you for the consultation. MD ARLENE Oh/TOÑA / [id number] MTDD
[2023-10-31] MEDS: HYDROmorphone HCl 0.5 MG/0.5 ML SYRINGE 0.75 MG IVPUSH ×5 (00:50→22:11)
--- NOTE | 2023-10-31 01:49 | PC.NURSE ---
per previous RN, Shanthi, order was placed for rectal lactulose as patient was not taking PO due to spitting and being combative. Shanthi notified me that patient's daughter John was coming in to assist. Patient was given PO lactulose with help from daughter who stated that staff can call her anytime should he not be taking lactulose.
[2023-10-31 04:00] VITALS: BP 145/63; PULSE 114; RESP 18; TEMP 37.1; O2SAT 95
[2023-10-31 05:49] LABS: PLT CLUMP 1
--- NOTE | 2023-10-31 05:49 | PC.NURSE ---
pt did not take any po meds, dr. Mendoza notified, order [place] Lactulose however, [place] Lactulose never came to floor from pharmacy. called to pharm. Mena said, working on it. after 23:00, hand off to night nurse. pt daughter came after my shift given PO Lactulose. still No BM. pt uncomfortably crying, yelling, and keep saying that please will continue to monitor.
[2023-10-31 05:51] LABS: Hematocrit 33.6 % (42.0-52.0); Mean Corpuscular HGB Conc 32.7 g/dl (31.0-36.0); Mean Corpuscular Hemoglobin 36.2 pg (27.0-33.0); Mean Platelet Volume 9.7 fL (9.4-12.4); Red Blood Count 3.04 X10*6/uL (4.60-5.80); Red Cell Distribution Width 14.4 % (11.0-16.0)
[2023-10-31 06:01] LABS: Platelet Count 110 X10*3/uL (160-400)
[2023-10-31 06:02] LABS: Mean Corpuscular Volume 110.5 fL (80.0-98.0)
[2023-10-31 06:05] LABS: Alanine Aminotransferase 42 U/L (0-40); Albumin Level 2.9 g/dL (3.5-5.0); Alkaline Phosphatase 122 U/L (39-117); Anion Gap 13 (12-20); Aspartate Amino Transferase 81 U/L (5-37); Bilirubin Total 4.3 mg/dL (0.0-1.0); Blood Urea Nitrogen 15 mg/dL (9-16); Calcium 9.4 mg/dL (8.4-10.2); Carbon Dioxide 32 mmol/L (22-29); Chloride 99 mmol/L (96-108); Creatinine Clr Calc Pharmacy 77.9; Estimated Glomerular Filt Rate > 60; Glucose Random 131 mg/dL (60-115); Magnesium 1.7 mg/dL (1.6-2.6); Potassium 4.8 mmol/L (3.3-5.1); Sodium 139 mmol/L (135-145); Total Protein 7.4 g/dL (6.5-8.0)
[2023-10-31] MEDS: Lactulose 320 GM/480 ML SOLUTION 200 GM PR (06:05)
[2023-10-31 06:19] VITALS: BP 132/62; PULSE 112; RESP 17; TEMP 37.1; O2SAT 95
--- NOTE | 2023-10-31 06:21 | PC.NURSE ---
Currently patient is alert and moaning and repeating only please . Easily arousable to name or light touch. contacted via [employer] with concern of patient moaning and poor color, however he is in liver failure. His vital signs have been stable. No BM on [id number] Mendoza to see patient. MD to floor and ordered lactulose enema. Administered at 0605. Awaiting results.
[2023-10-31] MEDS: Pantoprazole Sodium 40 MG/10 ML VIAL IVPUSH ×2 (06:39→17:26)
[2023-10-31 08:00] VITALS: BP 129/60; PULSE 118; RESP 20; TEMP 37.1; O2SAT 95
[2023-10-31] MEDS: cefTRIAXone sodium 1 GM in 0.9 % Sodium Chloride 50 ML IV (09:00)
--- NOTE | 2023-10-31 10:44 | P.PNIM_ITS ---
Subjective Subjective Date of Service: 10/31/23 Interval History: agitated, seems to be in pain but not consistent with exam No hematemesis, hematochezia, or melena. Review of Systems Review of Systems: Yes Unobtainable due to mental status Physical Exam 2 Vital Signs: Vital Signs: Last Vital Signs Temp 98.7 F 10/31/23 08:00 Pulse 118 H 10/31/23 08:00 Resp 20 10/31/23 08:00 BP 129/60 10/31/23 08:00 Pulse Ox 95 10/31/23 08:00 O2 Del Method Room Air 10/31/23 08:00 O2 Flow Rate 2 10/31/23 04:00 Oxygen Flow Rate 2 10/29/23 21:39 BMI result Body Mass Index 25.0 Gen: confused, in pain HEENT: sclera anicteric, moist mucus membranes Neck: supple Lungs: clear to auscultation bilaterally Heart: regular rate and rhythm, no murmurs Abd: distended, not consistently tender, paracentesis site without fluid leakage Ext: no edema Skin: warm/well-perfused Neuro: alert, disoriented, asterixis Psych: impaired insight Objective Data Active Medications Acetaminophen (Acetaminophen 325 Mg Tablet) 650 mg PO Q6H PRN PRN Reason: Pain, Mild (Pain Scale 1-3) Albuterol Sulfate (Albuterol Sulfate 90 Mcg 8 Gm Inhaler) 2 puff INHALE Q4H PRN PRN Reason: shortness of breath or wheezing Fluticasone/Umeclidinium/Vilanterol (Fluticasone/Umeclidinium/Vilanterol 100/62.5/25 Blst.W.Dev) 1 puff INHALE RDAILY [facility] Last Admin: 10/31/23 09:02 Dose: Not Given Documented By: STAR Non-Admin Reason: Patient Condition Contraindication Furosemide (Furosemide 40 Mg Tablet) 40 mg PO DAILY [facility]; Protocol Last Admin: 10/30/23 10:37 Dose: Not Given Documented By: SARMAD Non-Admin Reason: Patient Refused Hydromorphone HCl (Hydromorphone Hcl 0.5 Mg/0.5 Ml Syringe) 0.75 mg IVPUSH Q2H PRN; Protocol PRN Reason: severe pain Last Admin: 10/31/23 07:52 Dose: 0.75 mg Documented By: IVAN Ceftriaxone Sodium 1 gm/ (Sodium Chloride) 50 mls @ 100 mls/hr IV Q24H [facility] Lactulose (Lactulose 20 Gm/30 Ml Solution) 30 gm PO Q6H [facility] Last Admin: 10/31/23 03:06 Dose: Not Given Documented By: TAZ Non-Admin Reason: given 2333, off schedule Melatonin (Melatonin 3 Mg Tablet) 6 mg PO BEDTIME PRN PRN Reason: Insomnia Ondansetron HCl (Ondansetron Hcl 4 Mg/2 Ml Vial) 4 mg IVPUSH Q8H PRN PRN Reason: Nausea and Vomiting Pantoprazole Sodium (Pantoprazole Sodium 40 Mg/10 Ml Vial) 40 mg IVPUSH BID@0630,1630 [facility] Last Admin: 10/31/23 06:39 Dose: 40 mg Documented By: TAZ Rifaximin (Rifaximin 550 Mg Tablet) 550 mg PO BID [facility] Last Admin: 10/30/23 20:09 Dose: Not Given Documented By: SERGIO Non-Admin Reason: Patient Refused Sodium Chloride (0.9 % Sodium Chloride Flush 3 Ml Syringe) 3 ml IVFLUSH QSHIFT [facility] Last Admin: 10/30/23 19:55 Dose: 3 ml Documented By: SERGIO Spironolactone (Spironolactone 25 Mg Tablet) 50 mg PO BID [facility]; Protocol Last Admin: 10/30/23 19:54 Dose: 50 mg Documented By: SERGIO Labs 10/31/23 05:15 10/31/23 05:15 Labs: Laboratory Results - last 24 hr 10/30/23 10/31/23 10:15 05:15 MCV 110.5 H MCH 36.2 H MCHC 32.7 RDW 14.4 Plt Count 110 L D MPV 9.7 Absolute Nucleated RBC 0.000 Nucleated RBC % (auto) 0.0 Anion Gap 13 Estim Creat Clear Calc 77.9 Estimated GFR > 60 Random Glucose 131 H Calcium 9.4 D Magnesium 1.7 Total Bilirubin 4.3 H AST 81 H ALT 42 H Alkaline Phosphatase 122 H Total Protein 7.4 Albumin 2.9 L Influenza Type A (PCR) NEGATIVE Influenza Type B (PCR) NEGATIVE RSV RNA Qual (PCR) NEGATIVE SARS-CoV-2 RNA (RT-PCR) NEGATIVE Microbiology Microbiology Results: Microbiology 10/30/23 00:09 Gram Stain - Final Ascites Fluid Anaerobic Culture - Preliminary No growth to date. Body Fluid Culture - Preliminary No growth to date. 10/30/23 00:30 Blood Culture - Preliminary Blood - Venous No growth after 24 hours. 10/30/23 00:30 Blood Culture - Preliminary Blood - Venous No growth after 24 hours. Assessment and Plan (1) Abdominal pain: Status: Acute (2) Hepatic encephalopathy: Status: Acute Plan d2 68yo M with decompensated HCV cirrhosis with ascites, chronic hypoxia due to COPD presenting with abd pain/distension decompensated HCV cirrhosis with ascites - paracentesis done in ED 10/28 [3.4L removed] and 10/29 [1.5L removed], no evidence of SBP - ceftriaxone for SBP prophylaxis - resumed spironolactone + furosemide, sodium restriction - abd US to r/o PVT negative - GI consulted - FOBT pending but no signs of active bleeding - hydromorphone IV prn pain hepatic encephalopathy - lactulose + rifaximin - given agitation, will check CT head untreated HCV - GI consult, outpt treatment chronic hypoxic RF due to COPD - continue home Trelegy, prn albuterol, 2L O2 via NC VTE ppx - SCDs dispo - TBD In my clinical judgment, the patient requires continued inpatient hospitalization for the following reasons: decomp cirrhosis, pain control, encephalopathy Total time managing care of this patient today: 50 minutes. Quality Stroke Does the patient have a stroke diagnosis?: No VTE Prior VTE?: No VTE Risk Level:: Medical - moderate - high VTE Device Contraindication: N/A - Device Ordered VTE Drug Contraindication: Treatment Not Indicated
[2023-10-31] MEDS: LORazepam 2 MG/ML VIAL 0.5 MG IVPUSH (10:59)
[2023-10-31] MEDS: 0.9 % Sodium Chloride Flush 3 ML SYRINGE IVFLUSH ×3 (11:00→22:12)
[2023-10-31 11:11] LABS: Ammonia 61 umol/L (13-55)
[2023-10-31 15:08] VITALS: BP 128/84; PULSE 118; RESP 20; TEMP 36.7; O2SAT 96
[2023-10-31] MEDS: Albumin Human 25 % 100 ML IV ×2 (15:41→22:08)
[2023-10-31 19:53] VITALS: BP 120/57; PULSE 100; RESP 16; TEMP 36.7; O2SAT 96
--- NOTE | 2023-10-31 22:27 | PC.NURSE ---
pt said please, don't do this. resist to care, resist to take meds. impossible to give po meds. this nurse explained to importance of medication. He verbalize to understands it but not taking it. pt spits out the meds, shaking the head, keep saying please, please. given IV meds only. lung sounds rhochi. Oxygen in place via NC 2L. will continue to monitor.
[2023-11-01] MEDS: HYDROmorphone HCl 0.5 MG/0.5 ML SYRINGE 0.75 MG IVPUSH ×6 (00:47→21:20)
--- NOTE | 2023-11-01 02:22 | PC.NURSE ---
pt lung sounds rhonchi. called RT to check on him. RT told me not bad. he doens't need deep suctioning. pt still yelling, crying, most of time q2 dilaudid provided by Emar. will continue to monitor any changes.
[2023-11-01] MEDS: Albumin Human 25 % 100 ML IV ×4 (03:01→19:56)
[2023-11-01 04:00] VITALS: BP 122/68; PULSE 107; RESP 20; TEMP 36.6; O2SAT 94
[2023-11-01] MEDS: Pantoprazole Sodium 40 MG/10 ML VIAL IVPUSH ×2 (05:32→17:12)
[2023-11-01 06:52] LABS: INTERNATIONAL NORM RATIO 1.4 (0.9-1.1); Prothrombin Time 17.5 SEC (11.1-13.3)
[2023-11-01 06:55] LABS: Hematocrit 31.3 % (42.0-52.0); Hemoglobin 10.1 g/dl (14.0-18.0); Mean Corpuscular HGB Conc 32.3 g/dl (31.0-36.0); Mean Corpuscular Hemoglobin 36.1 pg (27.0-33.0); Mean Corpuscular Volume 111.8 fL (80.0-98.0); Mean Platelet Volume 9.9 fL (9.4-12.4); Platelet Count 87 X10*3/uL (160-400); Red Cell Distribution Width 14.3 % (11.0-16.0); White Blood Count 9.3 X10*3/uL (4.8-10.8)
[2023-11-01 07:02] LABS: Alanine Aminotransferase 48 U/L (0-40); Albumin Level 3.5 g/dL (3.5-5.0); Alkaline Phosphatase 82 U/L (39-117); Anion Gap 13 (12-20); Aspartate Amino Transferase 98 U/L (5-37); Bilirubin Total 3.3 mg/dL (0.0-1.0); Blood Urea Nitrogen 30 mg/dL (9-16); Calcium 9.6 mg/dL (8.4-10.2); Carbon Dioxide 30 mmol/L (22-29); Chloride 102 mmol/L (96-108); Creatinine Clr Calc Pharmacy 58.7; Estimated Glomerular Filt Rate 59; Glucose Random 136 mg/dL (60-115); Magnesium 1.9 mg/dL (1.6-2.6); Potassium 5.1 mmol/L (3.3-5.1); Sodium 140 mmol/L (135-145); Total Protein 6.9 g/dL (6.5-8.0)
[2023-11-01 07:25] LABS: Amylase Peritoneal Fluid 24
[2023-11-01 07:52] VITALS: BP 131/60; PULSE 107; RESP 16; TEMP 36; O2SAT 96
--- NOTE | 2023-11-01 09:11 | PC.NURSE ---
Approximately 0815, [employer] notified primary RN that patient pulled out his IV. Secondary RN applied pressure and 2x2 gauze without issue. MD notified of incident and plan to re-establish access.
[2023-11-01 09:13] LABS: Estimated Average Glucose 88 mg/dL; Hemoglobin A1c % 4.7 % (<6.0)
[2023-11-01] MEDS: Lactulose 20 GM/30 ML SOLUTION 30 GM PO ×2 (10:55→19:59)
[2023-11-01] MEDS: Lidocaine 4 % Patch ADH..PATCH 1 PATCH TRANSDERMA (10:55)
[2023-11-01] MEDS: cefTRIAXone sodium 1 GM in 0.9 % Sodium Chloride 50 ML IV (10:55)
--- NOTE | 2023-11-01 11:14 | PC.NURSE ---
Attempted to medicate patient with ordered dose of PO lactulose. Utilized 10mL syringe to measure medicine, patient only received 10mg of ordered dose- then began spitting out medicine. Dr. Brown notified. MAR documentation updated with lower dose than ordered administered.
--- NOTE | 2023-11-01 12:40 | PC.NURSE ---
Dr. Brown ordering 1:1 observation for patient for physical safety due to patient attempting to climb out of bed requiring two staff for redirection. Daughter declined to have sitter present in room while she is visiting. Education provided about reason for sitter and advised to inform staff when she is leaving. Sitter present outside of room. Camera in room remains in place. Dr. Brown notified of situation.
--- NOTE | 2023-11-01 13:05 | P.PNIM_ITS ---
Subjective Subjective Date of Service: 11/01/23 Interval History: seems similar to yesterday-still intermittent agitated ,No hematemesis, hematochezia, or melena. no fever has still abd pain which seems improving daughter is at bedside Review of Systems Review of Systems: Yes all other systems are reviewed and are negative Physical Exam 2 Vital Signs: Vital Signs: Last Vital Signs Temp 96.8 F 11/01/23 07:52 Pulse 107 H 11/01/23 07:52 Resp 16 11/01/23 07:52 BP 131/60 11/01/23 07:52 Pulse Ox 96 11/01/23 07:52 O2 Del Method Nasal Cannula 11/01/23 07:52 O2 Flow Rate 3 11/01/23 07:52 Oxygen Flow Rate 2 10/29/23 21:39 BMI result Body Mass Index 25.0 Gen: confused, in pain,po intake decreased HEENT: sclera anicteric, moist mucus membrane . Lungs: clear to auscultation bilaterally Heart: regular rate and rhythm, no murmurs Abd: distended, not consistently tender-mild tender , paracentesis site without fluid leakage clean. Ext: no edema or cyanosis Neuro: alert, disoriented, asterixis Psych: impaired insight Objective Data Active Medications Acetaminophen (Acetaminophen 325 Mg Tablet) 650 mg PO Q6H PRN PRN Reason: Pain, Mild (Pain Scale 1-3) Albuterol Sulfate (Albuterol Sulfate 90 Mcg 8 Gm Inhaler) 2 puff INHALE Q4H PRN PRN Reason: shortness of breath or wheezing Fluticasone/Umeclidinium/Vilanterol (Fluticasone/Umeclidinium/Vilanterol 100/62.5/25 Blst.W.Dev) 1 puff INHALE RDAILY [facility] Last Admin: 11/01/23 08:04 Dose: Not Given Documented By: ANGELITA Non-Admin Reason: pt appears confused and not following command Furosemide (Furosemide 40 Mg Tablet) 40 mg PO DAILY [facility]; Protocol Last Admin: 11/01/23 11:28 Dose: Not Given Documented By: GREYSON Non-Admin Reason: Patient Refused Hydromorphone HCl (Hydromorphone Hcl 0.5 Mg/0.5 Ml Syringe) 0.75 mg IVPUSH Q2H PRN; Protocol PRN Reason: severe pain Last Admin: 11/01/23 11:50 Dose: 0.75 mg Documented By: GREYSON Ceftriaxone Sodium 1 gm/ (Sodium Chloride) 50 mls @ 100 mls/hr IV Q24H [facility] Last Infusion: 11/01/23 11:29 Dose: Infused Documented By: GREYSON Lactulose (Lactulose 20 Gm/30 Ml Solution) 30 gm PO Q6H [facility] Last Admin: 11/01/23 10:55 Dose: 10 gm Documented By: GREYSON Comments: Patient tolerated 15mL of solution before refusing further administration. notified. Lidocaine (Lidocaine 4 % Patch Adh..Patch) 1 patch TRANSDERMA DAILY [facility]; Protocol Last Admin: 11/01/23 10:55 Dose: 1 patch Documented By: GREYSON Melatonin (Melatonin 3 Mg Tablet) 6 mg PO BEDTIME PRN PRN Reason: Insomnia Ondansetron HCl (Ondansetron Hcl 4 Mg/2 Ml Vial) 4 mg IVPUSH Q8H PRN PRN Reason: Nausea and Vomiting Pantoprazole Sodium (Pantoprazole Sodium 40 Mg/10 Ml Vial) 40 mg IVPUSH BID@0630,1630 [facility] Last Admin: 11/01/23 05:32 Dose: 40 mg Documented By: SERGIO Rifaximin (Rifaximin 550 Mg Tablet) 550 mg PO BID [facility] Last Admin: 11/01/23 11:29 Dose: Not Given Documented By: GREYSON Non-Admin Reason: Patient Refused Sodium Chloride (0.9 % Sodium Chloride Flush 3 Ml Syringe) 3 ml IVFLUSH QSHIFT [facility] Last Admin: 11/01/23 11:25 Dose: Not Given Documented By: GREYSON Non-Admin Reason: Previously Administered Spironolactone (Spironolactone 25 Mg Tablet) 50 mg PO BID [facility]; Protocol Last Admin: 11/01/23 11:29 Dose: Not Given Documented By: GREYSON Non-Admin Reason: Patient Refused Labs 11/01/23 06:26 11/01/23 06:26 Labs: Laboratory Results - last 24 hr 10/29/23 10/31/23 11/01/23 23:58 05:15 06:26 MCV 111.8 H MCH 36.1 H MCHC 32.3 RDW 14.3 Plt Count 87 L MPV 9.9 Absolute Nucleated RBC 0.000 Nucleated RBC % (auto) 0.0 Smear Path Review PT 17.5 H INR 1.4 H Anion Gap 13 Estim Creat Clear Calc 58.7 Estimated GFR 59 Random Glucose 136 H Estimat Average Glucose 88 Hemoglobin A1c % 4.7 Calcium 9.6 Magnesium 1.9 Total Bilirubin 3.3 H AST 98 H ALT 48 H Alkaline Phosphatase 82 Total Protein 6.9 Albumin 3.5 Peritoneal Amylase 24 Microbiology Microbiology Results: Microbiology 10/30/23 00:09 Gram Stain - Final Ascites Fluid Anaerobic Culture - Preliminary No growth to date. Body Fluid Culture - Final No growth after 2 days 10/30/23 00:30 Blood Culture - Preliminary Blood - Venous No growth after 48 hours. 10/30/23 00:30 Blood Culture - Preliminary Blood - Venous No growth after 48 hours. Assessment and Plan (1) Hepatic encephalopathy: Status: Acute (2) Decompensated hepatic cirrhosis: Status: Acute Plan 68 yo male with advanced cirrhosis due to apparent untreated chronic Hep C, as well as underlying significant lung disease, with associated ascites with tap negative for SBP, significant encephalopathy, hypersplenism, and coagulopathy- presenting with abd pain/distension decompensated HCV cirrhosis with ascites paracentesis done in ED 10/28 [3.4L removed] and 10/29 [1.5L removed], no evidence of SBP. ct head negative abd US to r/o PVT negative,CT of the abdomen done yesterday revealed a liver consistent with cirrhosis, but no focal lesion nor biliary obstruction. blood culture neg@48hrs,ascitis cultures preliminary negative ammonia levels improving 168--59-61 passing bm's FOBT and ua needs to be sent plan: encourage po inatke ,avoid sedative meds. hold spironolactone + furosemide due to low po intake for today . continue sodium restriction ,ceftriaxone for SBP prophylaxis continue lactulose and rifixamine ,moniter bm's (goal is 3-4 bm /day) hydromorphone IV prn pain mild yvonne/insetting of liver cirrosis and diuretics/taps/dec po intake added albumin,hold diuretics ,encourage po inatke ,avoid sedative meds. nephrology eval hepatic encephalopathy moniter mental status - lactulose + rifaximin agitation monitering added sitter ,avoid sedative meds untreated HCV GI - outpt treatment. also considerin advanced liver dis /copd : not candidate for liver transplant ,recomended supportive care ,consider dnr/dni if worsen. chronic hypoxic RF due to COPD will check vbg continue home Trelegy, prn albuterol, 2L O2 via NC will check vbg VTE ppx- SCDs dispo- TBD. ongoing continued inpatient hospitalization for the following reasons: decomp cirrhosis, pain control, encephalopathy,also need mantal status monitering Quality Stroke Does the patient have a stroke diagnosis?: No VTE Prior VTE?: No VTE Risk Level:: Medical - moderate - high VTE Device Contraindication: N/A - Device Ordered VTE Drug Contraindication: Treatment Not Indicated
[2023-11-01] MEDS: Magnesium Sulfate/D5W 1 GM/100 ML PIGGYBACK IV (13:58)
--- NOTE | 2023-11-01 14:34 | P.CDIM_ITS ---
PROVIDER RESPONSE TEXT: To clarify, the appropriate diagnosis supported by the clinical indicators: End Stage liver failure QUERY TEXT: PHYSICIAN'S DOCUMENTATION REQUEST Date of Query: 11/01/2023 11:16 AM EST Patient Name: Mahesh Bhatia Admit Date: 10/30/2023 Dear Tanna Brown, A review of the medical record indicates additional documentation may be needed. Please review below and update the documentation accordingly. Clinical Indicators: Abdominal pain, short of breath, lethargic, change in mental status. PN: Acute decompensated liver cirrhosis with ascites. Paracentesis, 1.5 l ascitic fluid drained Increase lactulose He is not a transplant candidate given his significant lung disease. GI: Advanced liver disease in relation to chronic hepatitis c that has remained untreated, who presen ts with worsening liver function. Based on the above, could you clarify the appropriate diagnosis, if significant, that supports the ab ove abnormalities and additional evaluation, monitoring, and/or treatment rendered: Acute liver failure Acute/subacute liver failure Acute on chronic liver failure End Stage liver failure Other please specify Not treating liver failure Other (explain) Clinically unable to determine (explain) Thank you, Jocelyn Rosenberg, CCS, CDIS Use of terms such as suspected, likely, concern for, or probable (associated with a specific diagnosi s that is being evaluated, monitored, or treated as if it exists) are acceptable and can be coded in the inpatient se tting, when documented at the time of discharge. Please use your independent medical judgment in providing your response. THIS QUERY IS PART OF THE PERMANENT MEDICAL RECORD
[2023-11-01 14:36] LABS: Venous Blood Gas Refer to POC result
[2023-11-01 14:39] LABS: VBG Base Excess 12.4 mmol/L; VBG HCO3 37 mmol/L (22-26); VBG pCO2 51 mmHg; VBG pH 7.47 (7.32-7.43); VBG pO2 205 mmHg
[2023-11-01 15:17] VITALS: BP 127/59; PULSE 110; RESP 17; TEMP 36; O2SAT 97
[2023-11-01] MEDS: 0.9 % Sodium Chloride Flush 3 ML SYRINGE IVFLUSH ×2 (17:12→20:00)
[2023-11-01] MEDS: Zinc Sulfate 220 MG CAPSULE PO (17:20)
[2023-11-01 20:00] VITALS: BP 151/70; PULSE 125; RESP 20; TEMP 36.8; O2SAT 92
[2023-11-01 22:04] VITALS: RESP 18
[2023-11-02] VITALS (25 sets, daily range): BP systolic 69–131; BP diastolic 47–84; PULSE 51–115; RESP 10–66; TEMP 34.7–37; O2SAT 71–100; BMI 22.8
[2023-11-02] MEDS: HYDROmorphone HCl 0.5 MG/0.5 ML SYRINGE 0.75 MG IVPUSH ×3 (01:17→10:12)
[2023-11-02] MEDS: Albumin Human 25 % 100 ML IV ×2 (01:18→09:19)
[2023-11-02] MEDS: Pantoprazole Sodium 40 MG/10 ML VIAL IVPUSH ×2 (05:42→18:42)
--- NOTE | 2023-11-02 07:20 | PM.EVENT ---
Event Note Date of Service: 11/02/23 Event Note: 68-year-old male with history of hepatitis-C cirrhosis, chronic hypoxemic respiratory failure due to COPD Baseline creatinine of 0.8 Received IV contrast on 10/30 Creatinine bumped to 1.22 on 11/01 Poor PO intake- LAsix and aldactone on hold Follow creatinine and avoid hypotension/nephrotoxins Agree with holding diuretics temporarily and watch renal function for now Time Spent With Patient Time: Total time managing care of this patient today ____ minutes.
[2023-11-02] MEDS: Zinc Sulfate 220 MG CAPSULE PO (09:24)
[2023-11-02] MEDS: 0.9 % Sodium Chloride Flush 3 ML SYRINGE IVFLUSH ×2 (09:24→15:56)
[2023-11-02] MEDS: rifAXIMin 550 MG TABLET PO ×2 (09:24→21:42)
[2023-11-02] MEDS: Lactulose 20 GM/30 ML SOLUTION 30 GM PO (09:24)
[2023-11-02] MEDS: Lidocaine 4 % Patch ADH..PATCH 1 PATCH TRANSDERMA (09:35)
[2023-11-02 10:51] LABS: Anion Gap 12 (12-20); Blood Urea Nitrogen 30 mg/dL (9-16); Calcium 10.2 mg/dL (8.4-10.2); Carbon Dioxide 33 mmol/L (22-29); Chloride 101 mmol/L (96-108); Creatinine Clr Calc Pharmacy 74.6; Estimated Glomerular Filt Rate > 60; Glucose Random 174 mg/dL (60-115); Potassium 4.6 mmol/L (3.3-5.1); Sodium 141 mmol/L (135-145)
[2023-11-02] MEDS: cefTRIAXone sodium 1 GM in 0.9 % Sodium Chloride 50 ML IV ×2 (11:40→23:09)
--- NOTE | 2023-11-02 11:43 | MHC.CM.PN ---
Addendum entered by Lilli Donohue 11/02/23 13:13: Spoke with Dtr John. She was notified that her father was able to document a HCP this morning. Shortly after that call a rapid response was called on the patient. Both HCPs were called with Dr Brown. Both indicated that they want everything done for the patient. The patient will be evaluated for ICU transfer. A MOLST 2020, was found in the EMR. The HCPs were notified of the patients wishes at that time. Original Note: Met with patient and his brother Oh. Patient more alert today. He is able to answer questions. A HCP has been documented. The patient has chosen his brother Oh and his dtr John as HCPs. The document has been scanned into the EMR. Copies have been given to Oh and a copy left at the pts bedside for John. A financial consult has been sent. The patient will need a secondary payor. The patient has Health safety net and Medicare. [facility] via [facility].
[2023-11-02] MEDS: LORazepam 2 MG/ML VIAL 0.5 MG IVPUSH (12:53)
--- NOTE | 2023-11-02 13:13 | P.PNIM_ITS ---
Subjective Subjective Date of Service: 11/02/23 Interval History: hepatic encephalopathy ,copd Review of Systems Patient is intermittently agitated and mental status also fluctuating Patient is not participating in the care including p.o. medications and keeping episode oxygen Physical Exam 2 Vital Signs: Vital Signs: Last Vital Signs Temp 98.6 F 11/02/23 07:39 Pulse 104 H 11/02/23 07:39 Resp 16 11/02/23 07:39 BP 126/58 L 11/02/23 07:39 Pulse Ox 79 L 11/02/23 07:39 O2 Del Method Room Air 11/02/23 07:39 O2 Flow Rate 3 11/02/23 03:31 Oxygen Flow Rate 2 10/29/23 21:39 BMI result Body Mass Index 25.0 physicial exam limited due to agiatation Appearance: Alert.? Oriented X1.?agitated .? cvs: rrr, [id number] . res:air entry diminshed . abd: no rebound or guarding ,abd globular ,unable to tell if pain, bs present. ext pulses present , no cyanosis . neuro: agiatated,moving all ext. Objective Data Active Medications Acetaminophen (Acetaminophen 325 Mg Tablet) 650 mg PO Q6H PRN PRN Reason: Pain, Mild (Pain Scale 1-3) Albuterol Sulfate (Albuterol Sulfate 90 Mcg 8 Gm Inhaler) 2 puff INHALE Q4H PRN PRN Reason: shortness of breath or wheezing Fluticasone/Umeclidinium/Vilanterol (Fluticasone/Umeclidinium/Vilanterol 100/62.5/25 Blst.W.Dev) 1 puff INHALE RDAILY [facility] Last Admin: 11/01/23 08:04 Dose: Not Given Documented By: ANGELITA Non-Admin Reason: pt appears confused and not following command Furosemide (Furosemide 40 Mg Tablet) 40 mg PO DAILY [facility]; Protocol Last Admin: 11/01/23 11:28 Dose: Not Given Documented By: GREYSON Non-Admin Reason: Patient Refused Ceftriaxone Sodium 1 gm/ (Sodium Chloride) 50 mls @ 100 mls/hr IV Q24H [facility] Last Infusion: 11/02/23 12:59 Dose: Infused Documented By: RISHABH Lactulose (Lactulose 20 Gm/30 Ml Solution) 30 gm PO Q6H [facility] Last Admin: 11/02/23 09:24 Dose: 30 gm Documented By: RISHABH Lidocaine (Lidocaine 4 % Patch Adh..Patch) 1 patch TRANSDERMA DAILY [facility]; Protocol Last Admin: 11/02/23 09:35 Dose: 1 patch Documented By: RISHABH Melatonin (Melatonin 3 Mg Tablet) 6 mg PO BEDTIME PRN PRN Reason: Insomnia Ondansetron HCl (Ondansetron Hcl 4 Mg/2 Ml Vial) 4 mg IVPUSH Q8H PRN PRN Reason: Nausea and Vomiting Pantoprazole Sodium (Pantoprazole Sodium 40 Mg/10 Ml Vial) 40 mg IVPUSH BID@0630,1630 [facility] Last Admin: 11/02/23 05:42 Dose: 40 mg Documented By: NORY Rifaximin (Rifaximin 550 Mg Tablet) 550 mg PO BID [facility] Last Admin: 11/02/23 09:24 Dose: 550 mg Documented By: RISHABH Sodium Chloride (0.9 % Sodium Chloride Flush 3 Ml Syringe) 3 ml IVFLUSH QSHIFT [facility] Last Admin: 11/02/23 09:24 Dose: 3 ml Documented By: RISHABH Spironolactone (Spironolactone 25 Mg Tablet) 50 mg PO BID [facility]; Protocol Last Admin: 11/01/23 11:29 Dose: Not Given Documented By: GREYSON Non-Admin Reason: Patient Refused Zinc Sulfate (Zinc Sulfate 220 Mg Capsule) 220 mg PO DAILY [facility] Last Admin: 11/02/23 09:24 Dose: 220 mg Documented By: RISHABH Labs 11/01/23 06:26 11/02/23 10:08 Labs: Laboratory Results - last 24 hr 11/01/23 11/02/23 11/02/23 14:32 10:08 12:54 Hold Purple Top SEE NOTE Hold Blue Top SEE NOTE VBG pH 7.47 H VBG pCO2 51 VBG pO2 205 VBG HCO3 37 H VBG O2 Saturation 100.0 VBG Base Excess 12.4 Anion Gap 12 Estim Creat Clear Calc 74.6 Estimated GFR > 60 Random Glucose 174 H Calcium 10.2 D Hold Yellow Top See Note Microbiology Microbiology Results: Microbiology 10/30/23 00:09 Gram Stain - Final Ascites Fluid Anaerobic Culture - Preliminary No growth to date. Body Fluid Culture - Final No growth after 2 days Assessment and Plan (1) Hepatic encephalopathy: Status: Acute (2) Decompensated hepatic cirrhosis: Status: Acute Plan 68 yo male with advanced cirrhosis due to apparent untreated chronic Hep C, as well as underlying significant lung disease, with associated ascites with tap negative for SBP, significant encephalopathy, hypersplenism, and coagulopathy- presenting with abd pain/distension decompensated HCV cirrhosis with ascites,hepatic encephalopathy and thrombocytopenia paracentesis done in ED 10/28 [3.4L removed] and 10/29 [1.5L removed], no evidence of SBP. ct head negative abd US to r/o PVT negative,CT of the abdomen done yesterday revealed a liver consistent with cirrhosis, but no focal lesion nor biliary obstruction. blood culture neg@48hrs,ascitis cultures preliminary negative ammonia levels improving 168--59-61 yesterday FOBT and ua needs to be sent passing bm yesterday plan: encourage po inatke ,avoid sedative meds. hold spironolactone + furosemide due to low po intake . continue sodium restriction ,ceftriaxone for SBP prophylaxis continue lactulose and rifixamine ,moniter bm's (goal is 3-4 bm /day)-patient gets agitated and difficult to take his p.o. medications, added rectal lactulose also hold opoids and sedative meds ,given 1 dose of ativan 0.5. mild yvonne/insetting of liver cirrosis and diuretics/taps/dec po intake added albumin,hold diuretics ,encourage po inatke ,avoid sedative meds. nephrology eval hepatic encephalopathy moniter mental status - lactulose + rifaximin agitation monitering added sitter ,avoid sedative meds untreated HCV GI - outpt treatment. also considerin advanced liver dis /copd : not candidate for liver transplant ,recomended supportive care ,consider dnr/dni if worsen. chronic hypoxic RF due to COPD-patient does not keep oxygen on due to agiatation ,sats keep trending down . yesterday vbg ok home Trelegyhold , continue albuterol, oxygen : added vbg/cxr. VTE ppx- SCDs dispo- TBD. ongoing continued inpatient hospitalization for the following reasons: decomp cirrhosis, pain control, encephalopathy,agiatation -impending worsening of encephalopathy due to not taking medications and hypoxia in the setting of underlying chronic respiratory failure with COPD and not keeping oxygen: Patient may benefit from ICU level of care. Above is discussed with ICU and both of patient's healthcare proxy's -their wishes are for full code now . above conversation witnessed by pillowcase turner(Lilli Donohue). Icu also updated and advised to d/w further management with HCP. Quality Stroke Does the patient have a stroke diagnosis?: No VTE Prior VTE?: No VTE Risk Level:: Medical - moderate - high VTE Device Contraindication: N/A - Device Ordered VTE Drug Contraindication: Treatment Not Indicated
[2023-11-02 13:14] LABS: Venous Blood Gas Refer to POC result
[2023-11-02 13:18] LABS: VBG Base Excess 12.6 mmol/L; VBG HCO3 38 mmol/L (22-26); VBG pCO2 52 mmHg; VBG pH 7.46 (7.32-7.43); VBG pO2 51 mmHg
--- NOTE | 2023-11-02 13:31 | PC.NURSE ---
Pt. is confused, agitated, and resistive to care. Refusing PO medications; needs alot of prompting and redirections. Pt. yells out and been screaming most of the morning, and also keeps taking his Oxygen off. IV Diuladid given for abdominal pain. Lactulose PO given and taken by a pt. after many prompts, No BM yet. Pt. was found to be hypoxic 71% on RA after taking his O2 off. Multiple attempts to put back O2 failed, pt. became combative grabbing and yelling . Dr. Brown was notified and the bed side. Oxy mask ordered by a Provider but pt. still was taking it off, confused and resisitive. Rapid Response was called since the pt. remained hypoxic at 70s to 80s on RA. IV Ativan given at, labs and chest x ray ordered. Pt.. transferred to ICU for advanced care and closer monitoring.
--- NOTE | 2023-11-02 13:54 | PC.NURSE ---
COMMUNITY PLACEMENT WORKER called on S3 from room 379 at approx 1240 (see COMMUNITY PLACEMENT WORKER assessment). Patient altered mental status - agitated & not oriented, just calling out & pulling off oxygen. O2sat on room air low 80's. IVP ativan given during COMMUNITY PLACEMENT WORKER without effect. Dr Brown called family, after talking with daughter & brother, plan to do everything needed for patient - transfer to ICU ordered. Received patient to ICU at approx [address] Monzon at bedside during COMMUNITY PLACEMENT WORKER & at this time. Labs drawn during COMMUNITY PLACEMENT WORKER. Bedside echo done by Dr Monzon. Portable CX done & viewed by Dr Monzon. VBG's viewed by Dr Monzon. Patient still calling out, confused. Non-behavioral restraints applied to keep oxygen mask on. Plan for additional tests / possible intubation per Dr Monzon. Evan GALAVIZ taking over as primary RN - aware of plan of care.
[2023-11-02] MEDS: propofoL 200 MG/20 ML VIAL 100 MG IVPUSH (14:30)
[2023-11-02 14:32] LABS: Vitamin B12 598 pg/mL (200-900)
[2023-11-02] MEDS: propofoL 1,000 MG/100 ML VIAL 13.81 MG IVCONT ×2 (14:40→19:39)
[2023-11-02] MEDS: Norepinephrine Bitartrate/D5W 8 MG/250 ML PLAST..BAG 7.19 MG IV (14:46)
--- NOTE | 2023-11-02 16:09 | PC.NURSE ---
Pt intubated at 1453 by MD Monzon without incident. RT and this sports writer at bedside. Propofol and levophed administered per MD orders and recorded in MAR. Pt has 7.5 ETT at 24 at the lip. Md inserted OG tube and placed TLC in R IJ.
[2023-11-02 16:15] LABS: Appearance Urine Clear; Color Urine Dark Yellow; Glucose Urine UA Negative (Negative); Leukocyte Esterase Urine Trace (Negative); Nitrite Urine Negative (Negative); PH 5.5 (5.0-9.0); Specific Gravity - Urine 1.025 (1.005-1.025); UMIC TRIGGER UACC YES; Urine Blood Small (1+) (Negative); Urine Ketones Trace mg/dL (Negative); Urine Protein Trace mg/dL (Neg-Trace)
[2023-11-02 16:24] LABS: Bacteria Urine None Seen (None Seen); Hyaline Casts Urine 0-2 /LPF (0-2); RBC Urine 0-2 /HPF (0-2); Squamous Epithelial Cell Urine 0-2 /HPF (0-2); WBC Urine 0-5 /HPF (0-5)
[2023-11-02] MEDS: Midazolam HCl/PF 2 MG/2 ML VIAL IVPUSH ×2 (16:35→20:24)
[2023-11-02 16:44] LABS: TSH reflex Free T4 0.87 uIU/mL (0.32-4.0)
--- NOTE | 2023-11-02 18:07 | PC.NURSE ---
Pt's HCP wants only people listed in chart as contacts to be able to visit patient.
--- NOTE | 2023-11-02 18:24 | W.PM.CCCN ---
History of Present Illness Data of Consult Service Date: 11/02/23 Requesting physician: Tanna Brown Primary Care Provider: Soledad Galarza DO HPI Reason for consult: Hypoxemic respiratory failure 68-year-old male non alcoholic chronic untreated hepatitis-C with cirrhosis and portal hypertension as a result came in complaining of abdominal pain and twice had a not a several L of ascites removed the fluid this time demonstrating by the serum to ascitic fluid out albumin gradient that the fluid is likely indicative of portal hypertension unlikely to represent spontaneous bacterial peritonitis and there was an insignificant white count as well so not likely to be a source of infection Oriented only to person and his previous elevation of ammonia had improved initially when he was taking his lactulose but he stopped taking anything p.o. in the last 24 hours and then his sats fell into the 70s and a rapid response was called he did note that he was short of breath and you could see intracostal retractions and some diaphragmatic paradox all consistent with his underlying the no COPD but his blood gas remained essentially unchanged pCO2 which seems to be chronically at about 50 with a compensated pH no evidence of metabolic acidosis preserved renal function even though he only has marginal urine output he has borderline but adequate blood pressures and he was being treated empirically for spontaneous bacterial peritonitis with ceftriaxone 1 g every 24 hours up until now his chest x-ray appeared to be no different with possibly all little elevation of his left hemidiaphragm etiology so far on no but there was no free air noted in the abdomen bowel pattern possibly a nonspecific ileus and there was still at least a modest to moderate amount of residual ascites bedside echo showing normal LV and RV size structure and function with no wall motion abnormality 60% ejection fraction no primary valve or pericardial disease He remained combative refusing his oxygen saturations once again falling with further alteration of mental status and he was intubated could easily comfortably without complication and following a little bit of sedation sputum was sent for culture CT scan of the chest is now pending and a right sided internal jugular central venous pressure catheter with tip in the right atrium was placed mean right atrial pressure averaging at 10 urine output is present In addition attempted and failed to obtain CSF will have to query Interventional Radiology in the morning but will cover him empirically for his central nervous system as a potential source of infection It was confirmed that he does not have any drug or alcohol habits Review of Systems Review of Systems: Yes Unobtainable due to mental status PMFSH Past Medical History Medical History Hepatitis C Cirrhosis COPD (chronic obstructive pulmonary disease) Oxygen dependent Social History Social History Household Members: Unknown / Unable to assess Housing: Unknown / Unable to assess Unable to assess alcohol history related to: Unable to respond Alcohol intake: never Comment: 1:1 sitter at bedside. Patient Tobacco Use Status: Tobacco use Unknown Smoked in Last 30 Days: Yes Use of substances other than those prescribed or required for medical reasons: No Currently Displaying Signs/Symptoms of Drug Intoxication Withdrawal: No Advance Directives: No Advance Directives Information Provided: No service: No Meds Allergies Allergy/AdvReac Type Severity Reaction Status Date / Time aspirin [Aspirin] Allergy Unknown RASH, Verified 10/16/23 04:26 SWELLING OF FACE, VOMITING ibuprofen [From Motrin] Allergy Unknown RASH, Verified 10/16/23 04:26 NUMBNESS TO EXTREMITIES NSAIDS (Non-Steroidal Allergy Unknown UNKNOWN Verified 10/16/23 04:26 Anti-Inflamma [Nsaids] aspirin Allergy Unknown swelling Uncoded 08/31/23 15:33 motrin Allergy Unknown swelling Uncoded 08/31/23 15:33 Active Medications: Current Medications Albuterol/Ipratropium (Albuterol/Iprat 2.5/0.5mg 3 Ml Ampul.Neb) 3 ml INHALE RQ4H WHILE AWAKE [facility] Last Admin: 11/02/23 15:17 Dose: Not Given Propofol (Diprivan) 1,000 mg in 100 mls @ 0 mls/hr IVCONT .Q0M [facility]; Protocol Last Titration: 11/02/23 18:15 Dose: 30 mcg/kg/min, 13.81 mls/hr Norepinephrine Bitartrate (Levophed) 8 mg in 250 mls @ 0 mls/hr IV .Q0M [facility]; Protocol Last Titration: 11/02/23 15:08 Dose: 0.17 mcg/kg/min, 24.45 mls/hr Ceftriaxone Sodium 1 gm/ (Sodium Chloride) 50 mls @ 100 mls/hr IV Q12H [facility] Vancomycin HCl 1,250 mg/ (Sodium Chloride) 250 mls @ 166.667 mls/hr IV ONCE ONE Stop: 11/02/23 19:43 Lactulose (Lactulose 20 Gm/30 Ml Solution) 20 gm PO TID [facility] Midazolam HCl (Midazolam Hcl/Pf 2 Mg/2 Ml Vial) 2 mg IVPUSH Q15M PRN PRN Reason: Restlessness Last Admin: 11/02/23 16:35 Dose: 2 mg Ondansetron HCl (Ondansetron Hcl 4 Mg/2 Ml Vial) 4 mg IVPUSH Q8H PRN PRN Reason: Nausea and Vomiting Pantoprazole Sodium (Pantoprazole Sodium 40 Mg/10 Ml Vial) 40 mg IVPUSH BID@0630,1630 [facility] Last Admin: 11/02/23 05:42 Dose: 40 mg Rifaximin (Rifaximin 550 Mg Tablet) 550 mg PO BID [facility] Last Admin: 11/02/23 09:24 Dose: 550 mg Sodium Chloride (0.9 % Sodium Chloride Flush 3 Ml Syringe) 3 ml IVFLUSH QSHIFT [facility] Last Admin: 11/02/23 15:56 Dose: 3 ml Spironolactone (Spironolactone 25 Mg Tablet) 50 mg PO BID [facility]; Protocol Last Admin: 11/01/23 11:29 Dose: Not Given Zinc Sulfate (Zinc Sulfate 220 Mg Capsule) 220 mg PO DAILY [facility] Last Admin: 11/02/23 09:24 Dose: 220 mg Home Medications Medication Instructions Recorded Confirmed Last Taken Type fluticasone fur. 100 mcg-umeclid 1 ea inhalation QAM 10/11/23 10/30/23 10/11/23 History 62.5 mcg-vilant 25 mcg inhalat.powder (Trelegy Ellipta) Physical Exam Vital Signs: Vital Signs: Last Vital Signs Temp 97.6 F 11/02/23 16:00 Pulse 51 11/02/23 18:00 Resp 20 11/02/23 18:00 BP 96/67 11/02/23 18:00 Pulse Ox 100 11/02/23 18:00 O2 Del Method Mechanical Ventil ation 11/02/23 18:00 O2 Flow Rate 12 11/02/23 14:00 FiO2 50 11/02/23 18:00 Oxygen Flow Rate 10 11/02/23 13:45 BMI result Body Mass Index 22.8 Low-dose Levophed is required resulting in pressure 116/65 with a mean of 82 currently oxygen saturation 100% with sinus bradycardia rate 50 Bedside echo with normal anatomy Lungs clear by chest x-ray with mild elevation of left hemidiaphragm Lungs clear to auscultation Abdomen distended but soft nontender no organomegaly Results Labs 11/01/23 06:26 11/02/23 10:08 Labs: BMP 11/02/23 10:08 Sodium 141 Potassium 4.6 Chloride 101 Carbon Dioxide 33 H BUN 30 H Creatinine 0.96 Calcium 10.2 D Urine 11/02/23 Range/Units 15:48 Urine Color Dark Yellow Urine Appearance Clear Urine pH 5.5 (5.0-9.0) Ur Specific Otto 1.025 (1.005-1.025) Urine Protein Trace (Neg-Trace) mg/dL Urine Glucose (UA) Negative (Negative) mg/dL Microbiology Microbiology Results: Microbiology 10/30/23 00:09 Ascites Fluid Gram Stain - Final 10/30/23 00:09 Ascites Fluid Anaerobic Culture - Preliminary No growth to date. 10/30/23 00:09 Ascites Fluid Body Fluid Culture - Final No growth after 2 days 10/30/23 00:30 Blood - Venous Blood Culture - Preliminary No growth after 48 hours. 10/30/23 00:30 Blood - Venous Blood Culture - Preliminary No growth after 48 hours. Assessment and Plan (1) Nephrolithiasis: Status: Acute (2) Hyperammonemia: Status: Acute (3) Hepatitis C: Status: Acute (4) Decompensated hepatic cirrhosis: Status: Acute (5) Hepatic encephalopathy: Status: Acute (6) Abdominal pain: Status: Acute (7) Acute hypoxemic respiratory failure: Status: Acute (8) Hepatopulmonary syndrome: Status: Acute Plan So the plan here is to try to obtain CSF sampling in the morning to complete mental status workup cover as a potential bacteremia/endo toxemia with increased ceftriaxone and vancomycin and obtain at least CT scan imaging of his chest for tonight keeping him intubated until we define further his chest pathology which could easily just be hepatopetal merry syndrome and will therefore temporize with the ventilator for support and adding thiamin and starting low volume feedings Total time managing care of this patient today: 90 minutes.
[2023-11-02] MEDS: vancomycin HCL 1,250 MG in 0.9 % Sodium Chloride 250 ML 166.67 MG IV (18:42)
[2023-11-02 18:48] LABS: MANUAL DIFF FLAG NO
[2023-11-02 18:53] LABS: VBG Base Excess 15.7 mmol/L; VBG HCO3 38 mmol/L (22-26); VBG pCO2 40 mmHg; VBG pH 7.58 (7.32-7.43); VBG pO2 65 mmHg
[2023-11-02 18:54] LABS: Basophils Percent Auto 0.3 % (0-2); Eosinophils Absolute Auto 0.3 X10*3/uL (0.0-0.4); Eosinophils Percent Auto 2.8 % (0-4); Hematocrit 29.7 % (42.0-52.0); Imm Gran Abs Auto 0.04 X10*3/uL (0.00-0.03); Imm Gran Pct Auto 0.4 % (0.0-0.4); Lymphocytes Absolute Auto 1.4 X10*3/uL (1.2-4.9); Lymphocytes Percent Auto 15.4 % (20-40); Mean Corpuscular HGB Conc 33.7 g/dl (31.0-36.0); Mean Corpuscular Hemoglobin 36.2 pg (27.0-33.0); Mean Corpuscular Volume 107.6 fL (80.0-98.0); Mean Platelet Volume 9.7 fL (9.4-12.4); Monocytes Absolute Auto 1.2 X10*3/uL (0.1-1.2); Monocytes Percent Auto 13.4 % (2-11); Neutrophils Percent Auto 67.7 % (45-73); Red Blood Count 2.76 X10*6/uL (4.60-5.80); Red Cell Distribution Width 14.6 % (11.0-16.0); White Blood Count 8.9 X10*3/uL (4.8-10.8)
[2023-11-02 19:01] LABS: Venous Blood Gas Refer to POC result
[2023-11-02 19:02] LABS: Platelet Count 99 X10*3/uL (160-400)
[2023-11-02 19:06] LABS: Lactic Acid 1.5 mmol/L (0.5-2.0)
[2023-11-02] MEDS: Albuterol/Iprat 2.5/0.5MG 3 ML AMPUL.NEB INHALE (19:14)
[2023-11-02 19:19] LABS: Alanine Aminotransferase 39 U/L (0-40); Albumin Level 3.8 g/dL (3.5-5.0); Alkaline Phosphatase 69 U/L (39-117); Anion Gap 10 (12-20); Aspartate Amino Transferase 71 U/L (5-37); Bilirubin Total 4.9 mg/dL (0.0-1.0); Blood Urea Nitrogen 32 mg/dL (9-16); Calcium 10.2 mg/dL (8.4-10.2); Carbon Dioxide 33 mmol/L (22-29); Chloride 101 mmol/L (96-108); Creatinine Clr Calc Pharmacy 66.9; Estimated Glomerular Filt Rate > 60; Glucose Random 177 mg/dL (60-115); Magnesium 2.2 mg/dL (1.6-2.6); Phosphorus 1.2 mg/dL (2.7-4.5); Potassium 4.4 mmol/L (3.3-5.1); Sodium 140 mmol/L (135-145); Total Protein 6.7 g/dL (6.5-8.0)
[2023-11-02 19:33] LABS: Procalcitonin 0.29 ng/mL
[2023-11-02 19:58] LABS: Erythrocyte Sedimentation Rate 7 MM/HR (0-15)
[2023-11-02] MEDS: Thiamine HCL 100 MG in 0.9 % Sodium Chloride 100 ML 202 MG IV (21:42)
[2023-11-02] MEDS: Spironolactone 25 MG TABLET 50 MG PO (21:42)
[2023-11-02] MEDS: Lactulose 20 GM/30 ML SOLUTION PO (21:42)
[2023-11-02] MEDS: Chlorhexidine Gluc Oral Rinse 15 ML MOUTHWASH BUCCAL (21:42)
[2023-11-03] VITALS (35 sets, daily range): BP systolic 93–135; BP diastolic 50–71; PULSE 64–113; RESP 13–20; TEMP 34.7–38.3; O2SAT 92–99; BMI 20.6
[2023-11-03] MEDS: Norepinephrine Bitartrate/D5W 8 MG/250 ML PLAST..BAG 24.45 MG IV (00:44)
[2023-11-03] MEDS: propofoL 1,000 MG/100 ML VIAL 18.41 MG IVCONT ×5 (03:23→23:30)
[2023-11-03] MEDS: Midazolam HCl/PF 2 MG/2 ML VIAL IVPUSH (03:25)
[2023-11-03 04:50] LABS: VBG Base Excess 16.3 mmol/L; VBG HCO3 38 mmol/L (22-26); VBG pCO2 35 mmHg; VBG pH 7.64 (7.32-7.43); VBG pO2 44 mmHg
[2023-11-03 04:54] LABS: Venous Blood Gas Refer to POC result
[2023-11-03 05:04] LABS: MANUAL DIFF FLAG NO
[2023-11-03 05:08] LABS: Basophils Percent Auto 0.3 % (0-2); Eosinophils Absolute Auto 0.3 X10*3/uL (0.0-0.4); Eosinophils Percent Auto 4.3 % (0-4); Hematocrit 29.7 % (42.0-52.0); Imm Gran Abs Auto 0.02 X10*3/uL (0.00-0.03); Imm Gran Pct Auto 0.3 % (0.0-0.4); Lymphocytes Absolute Auto 0.8 X10*3/uL (1.2-4.9); Lymphocytes Percent Auto 10.6 % (20-40); Mean Corpuscular HGB Conc 33.7 g/dl (31.0-36.0); Mean Corpuscular Hemoglobin 35.8 pg (27.0-33.0); Mean Corpuscular Volume 106.5 fL (80.0-98.0); Monocytes Absolute Auto 0.8 X10*3/uL (0.1-1.2); Monocytes Percent Auto 10.7 % (2-11); Neutrophils Absolute Auto 5.8 x10*3/uL (2.0-8.3); Neutrophils Percent Auto 73.8 % (45-73); Red Blood Count 2.79 X10*6/uL (4.60-5.80); Red Cell Distribution Width 15.1 % (11.0-16.0); White Blood Count 7.8 X10*3/uL (4.8-10.8)
[2023-11-03 05:09] LABS: INTERNATIONAL NORM RATIO 1.7 (0.9-1.1); Platelet Count 84 X10*3/uL (160-400); Prothrombin Time 21.1 SEC (11.1-13.3)
[2023-11-03 05:11] LABS: Ammonia 81 umol/L (13-55)
[2023-11-03 05:25] LABS: Alanine Aminotransferase 37 U/L (0-40); Albumin Level 3.6 g/dL (3.5-5.0); Alkaline Phosphatase 66 U/L (39-117); Anion Gap 14 (12-20); Aspartate Amino Transferase 63 U/L (5-37); Bilirubin Total 6.2 mg/dL (0.0-1.0); Blood Urea Nitrogen 31 mg/dL (9-16); Carbon Dioxide 30 mmol/L (22-29); Chloride 100 mmol/L (96-108); Creatinine Clr Calc Pharmacy 65.1; Estimated Glomerular Filt Rate > 60; Glucose Random 176 mg/dL (60-115); Magnesium 1.9 mg/dL (1.6-2.6); Phosphorus 0.9 mg/dL (2.7-4.5); Potassium 4.3 mmol/L (3.3-5.1); Sodium 140 mmol/L (135-145); Total Protein 6.4 g/dL (6.5-8.0)
[2023-11-03] MEDS: Pantoprazole Sodium 40 MG/10 ML VIAL IVPUSH ×2 (05:25→15:26)
[2023-11-03] MEDS: Sodium,Potassium Phosphates POWD.PACK 2 PACKET PO ×4 (05:57→20:30)
[2023-11-03] MEDS: 0.9 % Sodium Chloride Flush 3 ML SYRINGE IVFLUSH ×2 (07:01→13:59)
[2023-11-03] MEDS: Albuterol/Iprat 2.5/0.5MG 3 ML AMPUL.NEB INHALE ×4 (07:44→19:17)
[2023-11-03] MEDS: Famotidine/PF 20 MG/2 ML VIAL IVPUSH (08:16)
[2023-11-03] MEDS: Lactulose 20 GM/30 ML SOLUTION PO ×3 (08:16→20:30)
[2023-11-03] MEDS: Thiamine HCL 100 MG in 0.9 % Sodium Chloride 100 ML 202 MG IV ×2 (08:16→20:47)
[2023-11-03] MEDS: Spironolactone 25 MG TABLET 50 MG PO ×2 (08:16→20:30)
[2023-11-03] MEDS: Chlorhexidine Gluc Oral Rinse 15 ML MOUTHWASH BUCCAL ×3 (08:16→20:30)
[2023-11-03] MEDS: Zinc Sulfate 220 MG CAPSULE PO (08:17)
[2023-11-03] MEDS: rifAXIMin 550 MG TABLET PO ×3 (08:17→20:30)
--- NOTE | 2023-11-03 09:51 | HO.SKINPHOTO ---
Location: Coccyx Category: Pressure Stage: Stage 1 Length: 5 Width: 4 Depth: 0 cm
[2023-11-03] MEDS: cefTRIAXone sodium 1 GM in 0.9 % Sodium Chloride 50 ML IV ×2 (10:37→22:03)
[2023-11-03] MEDS: Norepinephrine Bitartrate/D5W 8 MG/250 ML PLAST..BAG 18.7 MG IV (11:32)
[2023-11-03] MEDS: vancomycin HCL 750 MG in 0.9 % Sodium Chloride 250 ML 265 MG IV (12:05)
--- NOTE | 2023-11-03 12:33 | MHC.CM.PN ---
Pt continues care in ICU: confused and agitated at times: ? infectious source. Pt had been staying with his dtr prior to admission but will likely need STR support: Referrals have been made and were updated 11/03. CM to follow for finalization of d/c needs.
--- NOTE | 2023-11-03 12:41 | HO.WOUND ---
Wound Consult: Initial 68yr old [place] [facility] [place]23 01:50 - See progress notes and H&P for detailed history. Wound consult placed for Sacral wound - unable to assess pts skin at time of arrival to bedside - discussed with direct care team and photo review - after discussion and photo review - irregular maroon pigmentations are not pressure related despite not blanching they are not consistent in pressure injury formation and are related to patients Thrombocytopenia - see chart for lab values. Per direct care team pink intact tissue did not rimma over observed bony prominence of sacrum - stage 1 Pressure injury. Inpatient wound care team will continue to follow for assessment at future date and or time. Sacrum Etiology: ??Stage 1 pressure injury Wound Bed: intact pink nonblanchable tissue per direct care team Drainage / Odor: None Edges: ? irregular Janene wound: Purpura (related to Thrombocytopenia) - not pressure related Goals of Treatment: ?Foam application to protect from friction and moisture and aid in off loading Recommendations: 1. Turn and Reposition every 2 hours and as needed for patient comfort. - Use wedges and or pillows to aid in supportive off loading position. 2. Off Load all bony prominences with use of pillows and heel boots if needed.? Apply Preventative foams where needed. ? 3. Monitor for incontinence and moisture control, use barrier creams when needed for prevention and treatment. 4. Provide adequate and supplemental nutrition. 5. Continue low air loss mattress. 6.Sacrum - Off Load Pressure - Cleanse with routine cleansing, pat dry. ?Cover with foam dressing peel back and assess Q shift and change every 3 days and PRN for soiling. Re-consult wound care Nurse for wound deterioration or wound changes.
--- NOTE | 2023-11-03 15:31 | PM.CCPN ---
Subjective Subjective Date of Service: 11/03/23 Interval History: 68-year-old male with chronic hepatitis C untreated secondary hepatic cirrhosis and portal hypertension and presented with acute hypoxemic respiratory failure and altered mental status yesterday with only mild elevation of his ammonia level and significant degree of hypophosphatemia is the only other metabolic issues and he does have underlying severe COPD but no real distinct infiltrate was noted and had concerns that this could all be just at the no part and parcel of hepatic pulmonary syndrome but we subsequently had speech is sputum that was growing Gram-positive cocci so presumably staph or strep infection and now 1/2 blood culture bottles also growing Gram-positive cocci in cluster did and awaiting for that organism but being covered by vancomycin Of note, the progressive thrombocytopenia I believe not to be related to a septic process I believe it is part and parcel of the portal hypertension probable hypersplenism today, and the other problem is his intolerance for the feedings he has developed a clinical ileus with high gastric residuals and feedings had to be stopped and the KUB showed no free air but bowel wall was thickened with diffuse dilatation of the small and large bowel Critical Care Time (minutes): 45 Physical Exam Vital Signs: Vital Signs: Last Vital Signs Temp 98.8 F 11/03/23 15:00 Pulse 84 11/03/23 15:13 Resp 18 11/03/23 15:13 BP 94/54 L 11/03/23 15:00 Pulse Ox 93 11/03/23 15:00 O2 Del Method Mechanical Ventil ation 11/03/23 15:00 O2 Flow Rate 12 11/02/23 14:00 FiO2 30 11/03/23 15:13 Oxygen Flow Rate 10 11/02/23 13:45 BMI result Body Mass Index 20.6 he is requiring a low dose of Levophed but vital signs are well maintained with good urine output stable renal function indicating adequate perfusion the ileus with thickened bowel fermin could be part and parcel of the portal hypertension bedside echo with preserved LV and RV function and the mean right atrial pressures are hovering between 6 and 10 so if anything passive congestion is somewhat diminished bowel is distended but still seemed seemingly has bowel sounds present no palpable organomegaly skin is not mottled it is there is no acrocyanosis Objective Data Labs 11/04/23 05:20 11/04/23 05:20 Labs: Laboratory Results - last 24 hr 11/02/23 11/02/23 11/02/23 15:31 15:48 18:41 WBC RBC Hgb Hct MCV MCH MCHC RDW Plt Count MPV Immature Gran % (Auto) Neut % (Auto) Lymph % (Auto) [place] % (Auto) Eos % (Auto) Baso % (Auto) Lymph # (Auto) [place] # (Auto) Eos # (Auto) Baso # (Auto) Abs Immat Gran (auto) Absolute Neuts (auto) Absolute Nucleated RBC Nucleated RBC % (auto) ESR PT INR VBG pH VBG pCO2 VBG pO2 VBG HCO3 VBG O2 Saturation VBG Base Excess Sodium Potassium Chloride Carbon Dioxide Anion Gap BUN Creatinine Estim Creat Clear Calc Estimated GFR Random Glucose Lactic Acid 1.5 Calcium Phosphorus Magnesium Total Bilirubin AST ALT Alkaline Phosphatase Ammonia Total Protein Albumin Procalcitonin TSH 0.87 Urine Color Dark Yellow Urine Appearance Clear Urine pH 5.5 Ur Specific [place] 1.025 Urine Protein Trace Urine Glucose (UA) Negative Urine Ketones Trace Urine Blood Small (1+) H Urine Nitrite Negative Ur Leukocyte Esterase Trace H Urine RBC 0-2 Urine WBC 0-5 Ur Squamous Epith Cells 0-2 Urine Bacteria None Seen Hyaline Casts 0-2 11/02/23 11/02/23 11/03/23 18:42 18:46 04:38 WBC 8.9 7.8 RBC 2.76 L 2.79 L Hgb 10.0 L 10.0 L Hct 29.7 L 29.7 L MCV 107.6 H 106.5 H MCH 36.2 H 35.8 H MCHC 33.7 33.7 RDW 14.6 15.1 Plt Count 99 L 84 L MPV 9.7 10.0 Immature Gran % (Auto) 0.4 0.3 Neut % (Auto) 67.7 73.8 H Lymph % (Auto) 15.4 L 10.6 L [place] % (Auto) 13.4 H 10.7 Eos % (Auto) 2.8 4.3 H Baso % (Auto) 0.3 0.3 Lymph # (Auto) 1.4 0.8 L [place] # (Auto) 1.2 0.8 Eos # (Auto) 0.3 0.3 Baso # (Auto) 0.0 0.0 Abs Immat Gran (auto) 0.04 H 0.02 Absolute Neuts (auto) 6.0 5.8 Absolute Nucleated RBC 0.000 0.000 Nucleated RBC % (auto) 0.0 0.0 ESR 7 PT 21.1 H D INR 1.7 H VBG pH 7.58 H VBG pCO2 40 VBG pO2 65 VBG HCO3 38 H VBG O2 Saturation 96.0 VBG Base Excess 15.7 Sodium 140 140 Potassium 4.4 4.3 Chloride 101 100 Carbon Dioxide 33 H 30 H Anion Gap 10 L 14 BUN 32 H 31 H Creatinine 1.06 1.09 Estim Creat Clear Calc 66.9 65.1 Estimated GFR > 60 > 60 Random Glucose 177 H 176 H Lactic Acid Calcium 10.2 10.0 Phosphorus 1.2 L 0.9 L* Magnesium 2.2 1.9 Total Bilirubin 4.9 H 6.2 H AST 71 H 63 H ALT 39 37 Alkaline Phosphatase 69 66 Ammonia 81 H Total Protein 6.7 6.4 L Albumin 3.8 3.6 Procalcitonin 0.29 TSH Urine Color Urine Appearance Urine pH Ur Specific [place] Urine Protein Urine Glucose (UA) Urine Ketones Urine Blood Urine Nitrite Ur Leukocyte Esterase Urine RBC Urine WBC Ur Squamous Epith Cells Urine Bacteria Hyaline Casts 11/03/23 04:44 WBC RBC Hgb Hct MCV MCH MCHC RDW Plt Count MPV Immature Gran % (Auto) Neut % (Auto) Lymph % (Auto) [place] % (Auto) Eos % (Auto) Baso % (Auto) Lymph # (Auto) [place] # (Auto) Eos # (Auto) Baso # (Auto) Abs Immat Gran (auto) Absolute Neuts (auto) Absolute Nucleated RBC Nucleated RBC % (auto) ESR PT INR VBG pH 7.64 H* VBG pCO2 35 VBG pO2 44 VBG HCO3 38 H VBG O2 Saturation 78.0 VBG Base Excess 16.3 Sodium Potassium Chloride Carbon Dioxide Anion Gap BUN Creatinine Estim Creat Clear Calc Estimated GFR Random Glucose Lactic Acid Calcium Phosphorus Magnesium Total Bilirubin AST ALT Alkaline Phosphatase Ammonia Total Protein Albumin Procalcitonin TSH Urine Color Urine Appearance Urine pH Ur Specific [place] Urine Protein Urine Glucose (UA) Urine Ketones Urine Blood Urine Nitrite Ur Leukocyte Esterase Urine RBC Urine WBC Ur Squamous Epith Cells Urine Bacteria Hyaline Casts Microbiology Microbiology Results: Microbiology 11/02/23 15:31 Blood - Central Line Blood Culture - Preliminary Prelim: GPC Gram Stain only 10/30/23 00:09 Ascites Fluid Gram Stain - Final 10/30/23 00:09 Ascites Fluid Anaerobic Culture - Preliminary No growth to date. 10/30/23 00:09 Ascites Fluid Body Fluid Culture - Final No growth after 2 days 11/02/23 15:12 Sputum - Suctioned Gram Stain - Final 11/02/23 15:12 Sputum - Suctioned Sputum Culture - Preliminary Culture in progress. 10/30/23 00:30 Blood - Venous Blood Culture - Preliminary No growth after 48 hours. 10/30/23 00:30 Blood - Venous Blood Culture - Preliminary No growth after 48 hours. Progress Note: A&P Assessment and plan (1) Hepatopulmonary syndrome: Status: Acute (2) Acute hypoxemic respiratory failure: Status: Acute (3) Abdominal pain: Status: Acute (4) Hepatic encephalopathy: Status: Acute (5) Decompensated hepatic cirrhosis: Status: Acute (6) Hepatitis C: Status: Acute (7) SBP (spontaneous bacterial peritonitis): Status: Acute (8) Hyperammonemia: Status: Acute (9) Nephrolithiasis: Status: Acute (10) COPD exacerbation: Status: Acute (11) Acute pneumonia: Status: Acute Plan as we await the species on the 1 positive blood culture and sputum culture will continue vancomycin with the help of pharmacy and I maintaining the ceftriaxone as well because I am just empirically covering the central nervous system having been unable to obtain a CSF sample still, suffice it to say, I see no clinical evidence of spontaneous bacterial peritonitis but I do have concerns about the portal hypertension and the ileus in case this is a process in a bed in the be due to more extreme portal hypertension and I am therefore going to get a duplex scan just to rule out a Budd-Chiari Quality Stroke Does the patient have a stroke diagnosis?: No VTE Prior VTE?: No VTE Risk Level:: Medical - moderate - high VTE Device Contraindication: N/A - Device Ordered VTE Drug Contraindication: Treatment Not Indicated
--- NOTE | 2023-11-03 18:19 | PC.NURSE ---
Addendum entered by Trina Sandra RN 11/03/23 19:05: VO Dr Nicolás IBARRA now for ? ilius - XRay called Original Note: [address] Monzon start tube feeds. 1800 - bilious output from mouth with repositioning - tube feeds placed on hold and MD called to bedside. OGT placed to continuos suction with 950 cc immediate bilious output. MD notified and aware. OGT switched to low intermittent suction VO Dr Monzon. VSS.
[2023-11-03] MEDS: bisacodyL 10 MG SUPP.RECT PR (20:19)
[2023-11-04] VITALS (34 sets, daily range): BP systolic 91–119; BP diastolic 50–91; PULSE 75–128; RESP 18; TEMP 34.5–37.3; O2SAT 93–98; BMI 20.7
[2023-11-04] MEDS: vancomycin HCL 750 MG in 0.9 % Sodium Chloride 250 ML 265 MG IV (00:30)
[2023-11-04] MEDS: 0.9 % Sodium Chloride Flush 3 ML SYRINGE IVFLUSH ×3 (00:41→14:10)
[2023-11-04] MEDS: Norepinephrine Bitartrate/D5W 8 MG/250 ML PLAST..BAG 15.82 MG IV (03:05)
[2023-11-04 04:03] LABS: OBS Int Ctl Valid YES; OBS1 POSITIVE (NEGATIVE)
[2023-11-04] MEDS: propofoL 1,000 MG/100 ML VIAL 18.41 MG IVCONT ×4 (04:07→19:07)
[2023-11-04 05:31] LABS: VBG Base Excess 13.3 mmol/L; VBG HCO3 35 mmol/L (22-26); VBG pCO2 35 mmHg; VBG pO2 64 mmHg
[2023-11-04 05:32] LABS: Venous Blood Gas Refer to POC result
[2023-11-04 05:38] LABS: MANUAL DIFF FLAG NO
[2023-11-04 05:41] LABS: Basophils Percent Auto 0.5 % (0-2); Eosinophils Absolute Auto 0.4 X10*3/uL (0.0-0.4); Eosinophils Percent Auto 6.6 % (0-4); Hematocrit 29.9 % (42.0-52.0); Imm Gran Abs Auto 0.02 X10*3/uL (0.00-0.03); Imm Gran Pct Auto 0.4 % (0.0-0.4); Lymphocytes Absolute Auto 0.4 X10*3/uL (1.2-4.9); Lymphocytes Percent Auto 7.5 % (20-40); Mean Corpuscular HGB Conc 33.4 g/dl (31.0-36.0); Mean Corpuscular Hemoglobin 35.5 pg (27.0-33.0); Monocytes Absolute Auto 0.5 X10*3/uL (0.1-1.2); Monocytes Percent Auto 9.7 % (2-11); Neutrophils Absolute Auto 4.2 x10*3/uL (2.0-8.3); Neutrophils Percent Auto 75.3 % (45-73); Red Blood Count 2.82 X10*6/uL (4.60-5.80); Red Cell Distribution Width 15.5 % (11.0-16.0); White Blood Count 5.6 X10*3/uL (4.8-10.8)
[2023-11-04 05:43] LABS: Platelet Count 58 X10*3/uL (160-400)
[2023-11-04 05:44] LABS: INTERNATIONAL NORM RATIO 1.7 (0.9-1.1); Prothrombin Time 21.1 SEC (11.1-13.3)
[2023-11-04 05:55] LABS: Ammonia 83 umol/L (13-55)
[2023-11-04] MEDS: Pantoprazole Sodium 40 MG/10 ML VIAL IVPUSH ×2 (05:58→15:27)
[2023-11-04 05:59] LABS: Alanine Aminotransferase 35 U/L (0-40); Albumin Level 3.4 g/dL (3.5-5.0); Alkaline Phosphatase 76 U/L (39-117); Anion Gap 15 (12-20); Aspartate Amino Transferase 50 U/L (5-37); Bilirubin Total 5.8 mg/dL (0.0-1.0); Blood Urea Nitrogen 30 mg/dL (9-16); Calcium 9.3 mg/dL (8.4-10.2); Carbon Dioxide 29 mmol/L (22-29); Chloride 99 mmol/L (96-108); Creatinine Clr Calc Pharmacy 50.2; Estimated Glomerular Filt Rate 56; Glucose Random 176 mg/dL (60-115); Magnesium 1.9 mg/dL (1.6-2.6); Phosphorus 3.9 mg/dL (2.7-4.5); Potassium 4.2 mmol/L (3.3-5.1); Sodium 139 mmol/L (135-145); Total Protein 6.5 g/dL (6.5-8.0)
[2023-11-04 07:29] LABS: Triglycerides 70 mg/dL (<150)
[2023-11-04 07:29] LABS: Glucose, Whole Blood 150 mg/dL (60-115)
[2023-11-04] MEDS: Albuterol/Iprat 2.5/0.5MG 3 ML AMPUL.NEB INHALE ×4 (07:51→19:48)
[2023-11-04] MEDS: Albumin Human 25 % 100 ML IV ×2 (07:53→08:58)
[2023-11-04] MEDS: bisacodyL 10 MG SUPP.RECT PR ×2 (07:53→23:17)
[2023-11-04] MEDS: Chlorhexidine Gluc Oral Rinse 15 ML MOUTHWASH BUCCAL ×3 (08:02→20:49)
[2023-11-04] MEDS: Thiamine HCL 100 MG in 0.9 % Sodium Chloride 100 ML 202 MG IV ×2 (08:02→20:37)
[2023-11-04] MEDS: Zinc Sulfate 220 MG CAPSULE PO (08:02)
[2023-11-04] MEDS: rifAXIMin 550 MG TABLET PO ×3 (08:02→20:49)
[2023-11-04] MEDS: Spironolactone 25 MG TABLET 50 MG PO ×2 (08:02→20:49)
[2023-11-04] MEDS: Famotidine/PF 20 MG/2 ML VIAL IVPUSH (08:02)
[2023-11-04] MEDS: Lactulose 20 GM/30 ML SOLUTION PO ×3 (08:02→20:49)
[2023-11-04 08:16] LABS: Appearance Urine Clear; Color Urine Orange; Leukocyte Esterase Urine Negative (Negative); Specific Gravity - Urine >= 1.030 (1.005-1.025); UMIC TRIGGER UA YES; Urine Blood Negative (Negative); Urine Ketones Trace mg/dL (Negative); Urine Protein Trace mg/dL (Neg-Trace)
[2023-11-04 08:28] LABS: Bacteria Urine None Seen (None Seen); Hyaline Casts Urine 0-2 /LPF (0-2); Squamous Epithelial Cell Urine 0-2 /HPF (0-2); WBC Urine 0-5 /HPF (0-5)
[2023-11-04 09:30] LABS: Basophils Percent Auto 0.4 % (0-2); Hemoglobin 9.6 g/dl (14.0-18.0); Imm Gran Abs Auto 0.03 X10*3/uL (0.00-0.03); Imm Gran Pct Auto 0.6 % (0.0-0.4)
[2023-11-04 09:32] LABS: Eosinophils Absolute Auto 0.3 X10*3/uL (0.0-0.4); Eosinophils Percent Auto 6.9 % (0-4); Hematocrit 28.4 % (42.0-52.0); Lymphocytes Absolute Auto 0.5 X10*3/uL (1.2-4.9); Mean Corpuscular HGB Conc 33.8 g/dl (31.0-36.0); Mean Corpuscular Hemoglobin 36.2 pg (27.0-33.0); Mean Corpuscular Volume 107.2 fL (80.0-98.0); Mean Platelet Volume 9.9 fL (9.4-12.4); Monocytes Absolute Auto 0.5 X10*3/uL (0.1-1.2); Monocytes Percent Auto 10.8 % (2-11); Neutrophils Absolute Auto 3.5 x10*3/uL (2.0-8.3); Neutrophils Percent Auto 70.3 % (45-73); Red Blood Count 2.65 X10*6/uL (4.60-5.80); Red Cell Distribution Width 15.7 % (11.0-16.0)
[2023-11-04 09:33] LABS: Platelet Count 57 X10*3/uL (160-400); White Blood Count 4.9 X10*3/uL (4.8-10.8)
[2023-11-04 09:39] LABS: INTERNATIONAL NORM RATIO 1.8 (0.9-1.1); Prothrombin Time 21.5 SEC (11.1-13.3)
[2023-11-04] MEDS: cefTRIAXone sodium 1 GM in 0.9 % Sodium Chloride 50 ML IV ×2 (10:01→23:23)
--- NOTE | 2023-11-04 10:03 | MHC.CLN ---
PT IS INTUBATED AND SEDATED UNABLE TO TOLERATE TF R/T ILEUS WITH HIGH GRVs D/C TF; TO START TPN REVIEWED LABS; DISCUSSED WITH PHARMACY RECOMMEND TPN TODAY (11/04/23) AT 40ML/HR TO PROVIDE 682KCALS (1168 TOTAL KCALS WITH SEDATION), 48G PROTEIN, 144GM DEXTROSE NOTED TRIGS WNL DAY 2 (11/05/23) INCREASE TPN TO GOAL OF 65ML/HR TO PROVIDE 1108KCALS (1594KCALS WITH SEDATION; 25KCALS/KG), 78G PROTEIN, 234G DEXTROSE REPLETE LYTES NEEDED DAY 3 (11/06/23) CONTINUE TPN AT GOAL 65ML/HR AND ADD 30G LIPIDS TO PROVIDE 1408KCALS (1894KCALS WITH SEDATION; 30KCALS/KG), 78G PROTEIN (1.2G/KG), 234G DEXTROSE REPLETE LYTES NEEDED CONTACT RD VIA [employer] DURING OFF HOURS IF NEEDED
[2023-11-04 10:04] LABS: Anion Gap 13 (12-20); Blood Urea Nitrogen 28 mg/dL (9-16); Calcium 9.4 mg/dL (8.4-10.2); Carbon Dioxide 30 mmol/L (22-29); Chloride 100 mmol/L (96-108); Creatinine Clr Calc Pharmacy 46.3; Estimated Glomerular Filt Rate 51; Magnesium 1.9 mg/dL (1.6-2.6); Phosphorus 3.7 mg/dL (2.7-4.5); Sodium 139 mmol/L (135-145); Triglycerides 70 mg/dL (<150)
[2023-11-04 10:36] LABS: Vancomycin Random 15.2 mcg/mL (15-20)
--- NOTE | 2023-11-04 10:50 | HE.PHANOTE ---
RE: NISA Patients level 15.2. Will decrease dose to 1000 mg Q24H and get a level on 11/06 @1000. Renal function unstable currently. wiill get level and access for efficacy vs safety
[2023-11-04] MEDS: vancomycin HCL 1,000 MG in 0.9 % Sodium Chloride 250 ML 270 MG IV (11:01)
[2023-11-04 11:06] LABS: Glucose, Whole Blood 162 mg/dL (60-115)
--- NOTE | 2023-11-04 11:47 | MHC.CM.PN ---
Pt continues on ventilatory support in ICU: final blood cx results pending: Pt has been referred to area [facility] centers in anticipation of rehab needs. CM to follow
--- NOTE | 2023-11-04 14:25 | PM.CCPN ---
Subjective Subjective Date of Service: 11/04/23 Interval History: 68-year-old male with chronic untreated hepatitis-C with secondary cirrhosis and portal hypertension developed altered mental status was noted to be hypophosphatemic with acute hypoxic respiratory failure evidence of a little bit of agitated delirium and the fluid that was removed from his abdomen failed to show evidence of spontaneous bacterial peritonitis seem to be consistent with portal hypertension and he required intubation which went without complication is remained quiet on sedation and sputum is now is growing a Gram-positive coccus with 4+ polys so this implication of possible pneumonia now I am noticing is developing acute kidney insufficiency this concerning and because of this I will stop his vancomycin and I might even consider the cephalosporin as well but for now vancomycin changed to linezolid and follow renal function Critical Care Time (minutes): 45 Physical Exam Vital Signs: Vital Signs: Last Vital Signs Temp 98.4 F 11/04/23 14:00 Pulse 86 11/04/23 14:00 Resp 18 11/04/23 14:00 BP 98/50 L 11/04/23 14:00 Pulse Ox 97 11/04/23 14:00 O2 Del Method Mechanical Ventil ation 11/04/23 14:00 O2 Flow Rate 12 11/02/23 14:00 FiO2 30 11/04/23 14:00 Oxygen Flow Rate 10 11/02/23 13:45 BMI result Body Mass Index 20.7 Stable vital signs doing beautifully in synchronized with the ventilator with low minute ventilatory requirements and low FiO2 Abdomen still distended but there are positive bowel sounds and there was some flatus with small bowel movement from Dulcolax Chest without adventitious sounds Cardiac exam by echo within normal limits Objective Data Labs 11/04/23 08:50 11/04/23 08:50 Labs: Laboratory Results - last 24 hr 11/04/23 11/04/23 11/04/23 03:50 05:20 05:25 WBC 5.6 RBC 2.82 L Hgb 10.0 L Hct 29.9 L MCV 106.0 H MCH 35.5 H MCHC 33.4 RDW 15.5 Plt Count 58 L D MPV 10.0 Immature Gran % (Auto) 0.4 Neut % (Auto) 75.3 H Lymph % (Auto) 7.5 L [place] % (Auto) 9.7 Eos % (Auto) 6.6 H Baso % (Auto) 0.5 Lymph # (Auto) 0.4 L [place] # (Auto) 0.5 Eos # (Auto) 0.4 Baso # (Auto) 0.0 Abs Immat Gran (auto) 0.02 Absolute Neuts (auto) 4.2 Absolute Nucleated RBC 0.000 Nucleated RBC % (auto) 0.0 PT 21.1 H INR 1.7 H VBG pH 7.60 H* VBG pCO2 35 VBG pO2 64 VBG HCO3 35 H VBG O2 Saturation 91.0 VBG Base Excess 13.3 Sodium 139 Potassium 4.2 Chloride 99 Carbon Dioxide 29 Anion Gap 15 BUN 30 H Creatinine 1.28 Estim Creat Clear Calc 50.2 Estimated GFR 56 POC Glucose Random Glucose 176 H Calcium 9.3 D Phosphorus 3.9 Magnesium 1.9 Total Bilirubin 5.8 H AST 50 H ALT 35 Alkaline Phosphatase 76 Ammonia 83 H Total Protein 6.5 Albumin 3.4 L Triglycerides 70 Urine Color Urine Appearance Urine pH Ur Specific [place] Urine Protein Urine Glucose (UA) Urine Ketones Urine Blood Urine Nitrite Ur Leukocyte Esterase Urine RBC Urine WBC Ur Squamous Epith Cells Urine Bacteria Hyaline Casts Stool Occult Blood POSITIVE Random Vancomycin 11/04/23 11/04/23 11/04/23 07:23 07:47 08:50 WBC 4.9 RBC 2.65 L Hgb 9.6 L Hct 28.4 L MCV 107.2 H MCH 36.2 H MCHC 33.8 RDW 15.7 Plt Count 57 L MPV 9.9 Immature Gran % (Auto) 0.6 H Neut % (Auto) 70.3 Lymph % (Auto) 11.0 L [place] % (Auto) 10.8 Eos % (Auto) 6.9 H Baso % (Auto) 0.4 Lymph # (Auto) 0.5 L [place] # (Auto) 0.5 Eos # (Auto) 0.3 Baso # (Auto) 0.0 Abs Immat Gran (auto) 0.03 Absolute Neuts (auto) 3.5 Absolute Nucleated RBC 0.000 Nucleated RBC % (auto) 0.0 PT 21.5 H INR 1.8 H VBG pH VBG pCO2 VBG pO2 VBG HCO3 VBG O2 Saturation VBG Base Excess Sodium 139 Potassium 4.0 Chloride 100 Carbon Dioxide 30 H Anion Gap 13 BUN 28 H Creatinine 1.39 Estim Creat Clear Calc 46.3 Estimated GFR 51 POC Glucose 150 H Random Glucose Calcium 9.4 Phosphorus 3.7 Magnesium 1.9 Total Bilirubin AST ALT Alkaline Phosphatase Ammonia Total Protein Albumin Triglycerides 70 Urine Color [place] Urine Appearance Clear Urine pH 5.0 Ur Specific [place] >= 1.030 H Urine Protein Trace Urine Glucose (UA) See Note Urine Ketones Trace Urine Blood Negative Urine Nitrite See Note Ur Leukocyte Esterase Negative Urine RBC 3-5 H Urine WBC 0-5 Ur Squamous Epith Cells 0-2 Urine Bacteria None Seen Hyaline Casts 0-2 Stool Occult Blood Random Vancomycin 11/04/23 11/04/23 10:12 11:02 WBC RBC Hgb Hct MCV MCH MCHC RDW Plt Count MPV Immature Gran % (Auto) Neut % (Auto) Lymph % (Auto) [place] % (Auto) Eos % (Auto) Baso % (Auto) Lymph # (Auto) [place] # (Auto) Eos # (Auto) Baso # (Auto) Abs Immat Gran (auto) Absolute Neuts (auto) Absolute Nucleated RBC Nucleated RBC % (auto) PT INR VBG pH VBG pCO2 VBG pO2 VBG HCO3 VBG O2 Saturation VBG Base Excess Sodium Potassium Chloride Carbon Dioxide Anion Gap BUN Creatinine Estim Creat Clear Calc Estimated GFR POC Glucose 162 H Random Glucose Calcium Phosphorus Magnesium Total Bilirubin AST ALT Alkaline Phosphatase Ammonia Total Protein Albumin Triglycerides Urine Color Urine Appearance Urine pH Ur Specific [place] Urine Protein Urine Glucose (UA) Urine Ketones Urine Blood Urine Nitrite Ur Leukocyte Esterase Urine RBC Urine WBC Ur Squamous Epith Cells Urine Bacteria Hyaline Casts Stool Occult Blood Random Vancomycin 15.2 Microbiology Microbiology Results: Microbiology 10/30/23 00:09 Ascites Fluid Gram Stain - Final 10/30/23 00:09 Ascites Fluid Anaerobic Culture - Final NO GROWTH AFTER 5 DAYS 10/30/23 00:09 Ascites Fluid Body Fluid Culture - Final No growth after 2 days 11/02/23 15:12 Sputum - Suctioned Gram Stain - Final 11/02/23 15:12 Sputum - Suctioned Sputum Culture - Preliminary Culture in progress. 11/02/23 15:31 Blood - Central Line Blood Culture - Final Coag negative Staphylococcus 10/30/23 00:30 Blood - Venous Blood Culture - Final No growth after 5 days. 10/30/23 00:30 Blood - Venous Blood Culture - Final No growth after 5 days. 11/02/23 15:31 Blood - Central Line Blood Culture - Preliminary No growth after 24 hours. Progress Note: A&P Assessment and plan (1) Acute pneumonia: Status: Acute (2) COPD exacerbation: Status: Acute (3) Hepatopulmonary syndrome: Status: Acute (4) Acute hypoxemic respiratory failure: Status: Acute (5) Abdominal pain: Status: Acute (6) Hepatic encephalopathy: Status: Acute (7) Decompensated hepatic cirrhosis: Status: Acute (8) Hepatitis C: Status: Acute (9) SBP (spontaneous bacterial peritonitis): Status: Acute (10) Nephrolithiasis: Status: Acute (11) Hyperammonemia: Status: Acute Plan So I believe he has got hepato pulmonary syndrome but there may very well be a component of pneumonia for which were treating him and the ventilator of course to support him through the lung the no shunting in ventilation perfusion mismatch etc. Quality Stroke Does the patient have a stroke diagnosis?: No VTE Prior VTE?: No VTE Risk Level:: Medical - moderate - high VTE Device Contraindication: N/A - Device Ordered VTE Drug Contraindication: Treatment Not Indicated
[2023-11-04] MEDS: Linezolid/D5W 600 MG/300 ML PIGGYBACK 300 MG IV (14:42)
[2023-11-04] MEDS: methylPREDNISolone Sod Succ 40 MG/ML VIAL 30 MG IVPUSH ×2 (15:27→21:07)
[2023-11-04 17:48] LABS: Glucose, Whole Blood 186 mg/dL (60-115)
[2023-11-04] MEDS: Parenteral Nutrition 960 ML 40 ML IV (21:07)
[2023-11-04 23:57] LABS: Glucose, Whole Blood 249 mg/dL (60-115)
[2023-11-05] VITALS (39 sets, daily range): BP systolic 100–126; BP diastolic 51–70; PULSE 64–97; RESP 14–21; TEMP 34.3–36.8; O2SAT 95–98; BMI 20.2
[2023-11-05] MEDS: propofoL 1,000 MG/100 ML VIAL 13.81 MG IVCONT ×2 (00:09→05:50)
[2023-11-05] MEDS: 0.9 % Sodium Chloride Flush 3 ML SYRINGE IVFLUSH ×2 (00:09→23:00)
[2023-11-05] MEDS: Insulin Lispro 100 UNIT/ML 3 ML VIAL SUBCUT ×4 (00:09→17:58)
[2023-11-05] MEDS: Norepinephrine Bitartrate/D5W 8 MG/250 ML PLAST..BAG 7.19 MG IV (01:40)
[2023-11-05] MEDS: methylPREDNISolone Sod Succ 40 MG/ML VIAL 30 MG IVPUSH ×4 (03:49→21:39)
[2023-11-05] MEDS: Linezolid/D5W 600 MG/300 ML PIGGYBACK 300 MG IV ×2 (03:49→15:12)
[2023-11-05 04:58] LABS: VBG Base Excess 9.4 mmol/L; VBG HCO3 32 mmol/L (22-26); VBG pCO2 39 mmHg; VBG pH 7.52 (7.32-7.43); VBG pO2 58 mmHg
[2023-11-05 04:59] LABS: Venous Blood Gas Refer to POC result
[2023-11-05 05:14] LABS: Albumin Level 3.6 g/dL (3.5-5.0); Anion Gap 10 (12-20); Blood Urea Nitrogen 27 mg/dL (9-16); Calcium 9.2 mg/dL (8.4-10.2); Carbon Dioxide 28 mmol/L (22-29); Chloride 100 mmol/L (96-108); Creatinine Clr Calc Pharmacy 51.9; Estimated Glomerular Filt Rate 58; Glucose Random 326 mg/dL (60-115); Phosphorus 2.7 mg/dL (2.7-4.5); Potassium 4.4 mmol/L (3.3-5.1); Sodium 134 mmol/L (135-145)
[2023-11-05 05:44] LABS: Glucose, Whole Blood 255 mg/dL (60-115)
[2023-11-05] MEDS: Pantoprazole Sodium 40 MG/10 ML VIAL IVPUSH (05:50)
--- NOTE | 2023-11-05 07:04 | P.PNCC_ITS ---
Subjective Subjective Date of Service: 11/05/23 Interval History: 68-year-old advanced cirrhotic from chronic hepatitis-C untreated with portal hypertension presented with acute hypoxic respiratory failure and altered mental status with agitated delirium requiring an intubation sedation and there is a question of a secondary bacterial infection we have Gram-positive cocci with 4+ polys from the sputum sample but no distinct infiltrate on the chest CT scan and I am sure that there is a component here of hepatopulmonary syndrome and patient has been doing very well and currently with a low minute ventilatory requirement and low FiO2 so today for the 1st time we stop propofol and it has been several hours and so far no awakening but is a little more spontaneous movement of extremities and upon recent day she and I might switch over to dexmedetomidine is started to develop a little bit of increase in BUN and creatinine and urinalysis with some proteinuria and hematuria and I was concerned with a medication reaction so I stopped the vancomycin and change that to linezolid and he remains and also empirically on ceftriaxone which I was using to cover the central nervous system because I was unable to perform the spinal tap Critical Care Time (minutes): 45 Physical Exam 2 Vital Signs: Vital Signs: Last Vital Signs Temp 97.0 F 11/05/23 06:00 Pulse 69 11/05/23 06:00 Resp 18 11/05/23 06:00 BP 124/66 11/05/23 06:00 Pulse Ox 98 11/05/23 06:00 O2 Del Method Mechanical Ventil ation 11/05/23 06:00 O2 Flow Rate 12 11/02/23 14:00 FiO2 30 11/05/23 06:00 Oxygen Flow Rate 10 11/02/23 13:45 BMI result Body Mass Index 20.2 vital signs always stable 105/56 with a mean of 72 oxygen saturations 98% in sinus rhythm at a rate of 83 bedside echo with preserved normal LV and RV function chest with diminished bilateral breath sounds commensurate with his COPD diagnosis no adventitious sounds just mild prolongation of expiratory time with some mild diaphragmatic effort no in near what it was initially abdomen is soft and I might it re-attempt some low-dose feedings but right now he is on TPN because of his ileus and high residuals before Objective Data Labs 11/04/23 08:50 11/05/23 04:49 Labs: Laboratory Results - last 24 hr 11/04/23 11/04/23 11/04/23 05:20 07:23 07:47 WBC RBC Hgb Hct MCV MCH MCHC RDW Plt Count MPV Immature Gran % (Auto) Neut % (Auto) Lymph % (Auto) [place] % (Auto) Eos % (Auto) Baso % (Auto) Lymph # (Auto) [place] # (Auto) Eos # (Auto) Baso # (Auto) Abs Immat Gran (auto) Absolute Neuts (auto) Absolute Nucleated RBC Nucleated RBC % (auto) PT INR VBG pH VBG pCO2 VBG pO2 VBG HCO3 VBG O2 Saturation VBG Base Excess Sodium Potassium Chloride Carbon Dioxide Anion Gap BUN Creatinine Estim Creat Clear Calc Estimated GFR POC Glucose 150 H Random Glucose Calcium Phosphorus Magnesium Albumin Triglycerides 70 Urine Color [place] Urine Appearance Clear Urine pH 5.0 Ur Specific [place] >= 1.030 H Urine Protein Trace Urine Glucose (UA) See Note Urine Ketones Trace Urine Blood Negative Urine Nitrite See Note Ur Leukocyte Esterase Negative Urine RBC 3-5 H Urine WBC 0-5 Ur Squamous Epith Cells 0-2 Urine Bacteria None Seen Hyaline Casts 0-2 Random Vancomycin 11/04/23 11/04/23 11/04/23 08:50 10:12 11:02 WBC 4.9 RBC 2.65 L Hgb 9.6 L Hct 28.4 L MCV 107.2 H MCH 36.2 H MCHC 33.8 RDW 15.7 Plt Count 57 L MPV 9.9 Immature Gran % (Auto) 0.6 H Neut % (Auto) 70.3 Lymph % (Auto) 11.0 L [place] % (Auto) 10.8 Eos % (Auto) 6.9 H Baso % (Auto) 0.4 Lymph # (Auto) 0.5 L [place] # (Auto) 0.5 Eos # (Auto) 0.3 Baso # (Auto) 0.0 Abs Immat Gran (auto) 0.03 Absolute Neuts (auto) 3.5 Absolute Nucleated RBC 0.000 Nucleated RBC % (auto) 0.0 PT 21.5 H INR 1.8 H VBG pH VBG pCO2 VBG pO2 VBG HCO3 VBG O2 Saturation VBG Base Excess Sodium 139 Potassium 4.0 Chloride 100 Carbon Dioxide 30 H Anion Gap 13 BUN 28 H Creatinine 1.39 Estim Creat Clear Calc 46.3 Estimated GFR 51 POC Glucose 162 H Random Glucose Calcium 9.4 Phosphorus 3.7 Magnesium 1.9 Albumin Triglycerides 70 Urine Color Urine Appearance Urine pH Ur Specific [place] Urine Protein Urine Glucose (UA) Urine Ketones Urine Blood Urine Nitrite Ur Leukocyte Esterase Urine RBC Urine WBC Ur Squamous Epith Cells Urine Bacteria Hyaline Casts Random Vancomycin 15.2 11/04/23 11/04/23 11/05/23 17:44 23:53 04:49 WBC RBC Hgb Hct MCV MCH MCHC RDW Plt Count MPV Immature Gran % (Auto) Neut % (Auto) Lymph % (Auto) [place] % (Auto) Eos % (Auto) Baso % (Auto) Lymph # (Auto) [place] # (Auto) Eos # (Auto) Baso # (Auto) Abs Immat Gran (auto) Absolute Neuts (auto) Absolute Nucleated RBC Nucleated RBC % (auto) PT INR VBG pH VBG pCO2 VBG pO2 VBG HCO3 VBG O2 Saturation VBG Base Excess Sodium 134 L Potassium 4.4 Chloride 100 Carbon Dioxide 28 Anion Gap 10 L BUN 27 H Creatinine 1.24 Estim Creat Clear Calc 51.9 Estimated GFR 58 POC Glucose 186 H 249 H Random Glucose 326 H Calcium 9.2 Phosphorus 2.7 Magnesium 2.0 Albumin 3.6 Triglycerides Urine Color Urine Appearance Urine pH Ur Specific [place] Urine Protein Urine Glucose (UA) Urine Ketones Urine Blood Urine Nitrite Ur Leukocyte Esterase Urine RBC Urine WBC Ur Squamous Epith Cells Urine Bacteria Hyaline Casts Random Vancomycin 11/05/23 11/05/23 04:51 05:41 WBC RBC Hgb Hct MCV MCH MCHC RDW Plt Count MPV Immature Gran % (Auto) Neut % (Auto) Lymph % (Auto) [place] % (Auto) Eos % (Auto) Baso % (Auto) Lymph # (Auto) [place] # (Auto) Eos # (Auto) Baso # (Auto) Abs Immat Gran (auto) Absolute Neuts (auto) Absolute Nucleated RBC Nucleated RBC % (auto) PT INR VBG pH 7.52 H VBG pCO2 39 VBG pO2 58 VBG HCO3 32 H VBG O2 Saturation 86.0 VBG Base Excess 9.4 Sodium Potassium Chloride Carbon Dioxide Anion Gap BUN Creatinine Estim Creat Clear Calc Estimated GFR POC Glucose 255 H Random Glucose Calcium Phosphorus Magnesium Albumin Triglycerides Urine Color Urine Appearance Urine pH Ur Specific [place] Urine Protein Urine Glucose (UA) Urine Ketones Urine Blood Urine Nitrite Ur Leukocyte Esterase Urine RBC Urine WBC Ur Squamous Epith Cells Urine Bacteria Hyaline Casts Random Vancomycin Microbiology Microbiology Results: Microbiology 11/02/23 15:31 Blood - Central Line Blood Culture - Preliminary No growth after 48 hours. 10/30/23 00:09 Ascites Fluid Gram Stain - Final 10/30/23 00:09 Ascites Fluid Anaerobic Culture - Final NO GROWTH AFTER 5 DAYS 10/30/23 00:09 Ascites Fluid Body Fluid Culture - Final No growth after 2 days 11/02/23 15:12 Sputum - Suctioned Gram Stain - Final 11/02/23 15:12 Sputum - Suctioned Sputum Culture - Preliminary Culture in progress. 11/02/23 15:31 Blood - Central Line Blood Culture - Final Coag negative Staphylococcus 10/30/23 00:30 Blood - Venous Blood Culture - Final No growth after 5 days. 10/30/23 00:30 Blood - Venous Blood Culture - Final No growth after 5 days. Progress Note: A&P Assessment and plan (1) Acute pneumonia: Status: Acute (2) COPD exacerbation: Status: Acute (3) Hepatopulmonary syndrome: Status: Acute (4) Acute hypoxemic respiratory failure: Status: Acute (5) Abdominal pain: Status: Acute (6) Hepatic encephalopathy: Status: Acute (7) Decompensated hepatic cirrhosis: Status: Acute (8) Hepatitis C: Status: Acute (9) SBP (spontaneous bacterial peritonitis): Status: Acute (10) Hyperammonemia: Status: Acute (11) Nephrolithiasis: Status: Acute Plan at this point OG suction was only yielding on the average 20 cc/hour so I am assuming 30 cc/hours going antegrade and with that I will start trickle feeding continue the TPN for now stay off of sedation and when he starts to wake up because of the late hour of the day up probably then restart him on a low-dose of dexmedetomidine repeat Doppler ultrasound of his liver shows that he has got good flow in both the hepatic venous and portal venous systems Quality Stroke Does the patient have a stroke diagnosis?: No VTE Prior VTE?: No VTE Risk Level:: Medical - moderate - high VTE Device Contraindication: N/A - Device Ordered VTE Drug Contraindication: Treatment Not Indicated
[2023-11-05] MEDS: Albuterol/Iprat 2.5/0.5MG 3 ML AMPUL.NEB INHALE ×4 (07:38→20:09)
[2023-11-05] MEDS: Lactulose 20 GM/30 ML SOLUTION PO ×3 (08:05→20:17)
[2023-11-05] MEDS: Thiamine HCL 100 MG in 0.9 % Sodium Chloride 100 ML 202 MG IV ×2 (08:05→20:11)
[2023-11-05] MEDS: Chlorhexidine Gluc Oral Rinse 15 ML MOUTHWASH BUCCAL ×3 (08:05→20:17)
[2023-11-05] MEDS: rifAXIMin 550 MG TABLET PO ×3 (08:09→20:17)
[2023-11-05] MEDS: Famotidine/PF 20 MG/2 ML VIAL IVPUSH (08:09)
[2023-11-05] MEDS: Zinc Sulfate 220 MG CAPSULE PO (08:09)
[2023-11-05] MEDS: Spironolactone 25 MG TABLET 50 MG PO ×2 (08:09→20:18)
[2023-11-05] MEDS: cefTRIAXone sodium 1 GM in 0.9 % Sodium Chloride 50 ML IV ×2 (10:45→22:50)
[2023-11-05 12:00] LABS: Glucose, Whole Blood 223 mg/dL (60-115)
[2023-11-05 14:47] LABS: Venous Blood Gas Refer to POC result
[2023-11-05 14:48] LABS: VBG Base Excess 9.4 mmol/L; VBG HCO3 33 mmol/L (22-26); VBG pCO2 42 mmHg; VBG pO2 84 mmHg
[2023-11-05 14:59] LABS: Anion Gap 10 (12-20); Blood Urea Nitrogen 26 mg/dL (9-16); Calcium 9.2 mg/dL (8.4-10.2); Carbon Dioxide 28 mmol/L (22-29); Chloride 104 mmol/L (96-108); Creatinine Clr Calc Pharmacy 62.8; Estimated Glomerular Filt Rate > 60; Glucose Random 218 mg/dL (60-115); Potassium 4.3 mmol/L (3.3-5.1); Sodium 138 mmol/L (135-145)
[2023-11-05 17:52] LABS: Glucose, Whole Blood 254 mg/dL (60-115)
[2023-11-05] MEDS: dexmedeTOMIDidine HCL/NS 400 MCG/100 ML INFUS..BTL 15.5 MCG IVCONT (18:45)
[2023-11-05] MEDS: Parenteral Nutrition 1,560 ML 65 ML IV (20:30)
[2023-11-05] MEDS: bisacodyL 10 MG SUPP.RECT PR (21:39)
[2023-11-05] MEDS: dexmedeTOMIDidine HCL/NS 400 MCG/100 ML INFUS..BTL 12.4 MCG IVCONT (23:00)
[2023-11-06] VITALS (40 sets, daily range): BP systolic 100–125; BP diastolic 40–96; PULSE 64–101; RESP 14–21; TEMP 34.9–37.4; O2SAT 82–100; BMI 20.2
[2023-11-06 00:36] LABS: Glucose, Whole Blood 307 mg/dL (60-115)
[2023-11-06] MEDS: Insulin Lispro 100 UNIT/ML 3 ML VIAL SUBCUT ×4 (00:37→18:37)
[2023-11-06] MEDS: methylPREDNISolone Sod Succ 40 MG/ML VIAL 30 MG IVPUSH ×2 (03:08→09:06)
[2023-11-06] MEDS: Linezolid/D5W 600 MG/300 ML PIGGYBACK 300 MG IV ×2 (03:09→14:53)
[2023-11-06 04:49] LABS: VBG Base Excess 7.8 mmol/L; VBG HCO3 31 mmol/L (22-26); VBG pCO2 38 mmHg; VBG pH 7.51 (7.32-7.43); VBG pO2 65 mmHg
[2023-11-06 05:41] LABS: Ammonia 61 umol/L (13-55)
[2023-11-06 05:42] LABS: Albumin Level 3.3 g/dL (3.5-5.0)
[2023-11-06 05:44] LABS: Triglycerides 23 mg/dL (<150)
[2023-11-06 05:45] LABS: INTERNATIONAL NORM RATIO 1.7 (0.9-1.1); Prothrombin Time 20.8 SEC (11.1-13.3)
[2023-11-06 05:48] LABS: Glucose, Whole Blood 307 mg/dL (60-115)
[2023-11-06 05:52] LABS: Albumin Level 3.3 g/dL (3.5-5.0); Anion Gap 11 (12-20); Blood Urea Nitrogen 29 mg/dL (9-16); Calcium 9.3 mg/dL (8.4-10.2); Carbon Dioxide 26 mmol/L (22-29); Chloride 102 mmol/L (96-108); Estimated Glomerular Filt Rate > 60; Glucose Random 361 mg/dL (60-115); Magnesium 2.1 mg/dL (1.6-2.6); Phosphorus 2.5 mg/dL (2.7-4.5); Potassium 5.2 mmol/L (3.3-5.1); Sodium 134 mmol/L (135-145)
[2023-11-06] MEDS: dexmedeTOMIDidine HCL/NS 400 MCG/100 ML INFUS..BTL 7.75 MCG IVCONT (05:56)
[2023-11-06 06:07] LABS: Venous Blood Gas Refer to POC result
[2023-11-06] MEDS: Albuterol/Iprat 2.5/0.5MG 3 ML AMPUL.NEB INHALE ×4 (07:35→19:19)
[2023-11-06] MEDS: Chlorhexidine Gluc Oral Rinse 15 ML MOUTHWASH BUCCAL (07:55)
[2023-11-06] MEDS: Famotidine/PF 20 MG/2 ML VIAL IVPUSH (07:55)
[2023-11-06] MEDS: Lactulose 20 GM/30 ML SOLUTION PO (07:55)
[2023-11-06] MEDS: Zinc Sulfate 220 MG CAPSULE PO (07:55)
[2023-11-06] MEDS: Thiamine HCL 100 MG in 0.9 % Sodium Chloride 100 ML 202 MG IV ×2 (07:55→20:23)
[2023-11-06] MEDS: rifAXIMin 550 MG TABLET PO (07:55)
[2023-11-06] MEDS: Spironolactone 25 MG TABLET 50 MG PO (07:56)
--- NOTE | 2023-11-06 10:14 | P.PNCC_ITS ---
Subjective Subjective Date of Service: 11/06/23 Interval History: 68-year-old fairly cachectic looking man definitely asthenic, who has chronic hepatitis-C untreated with cirrhosis and portal hypertension and some features of hepatic insufficiency in the hospital developed altered mental status agitated delirium and hypoxemic respiratory failure requiring sedation and intubation and even though it was hard to depicted distinct infiltrate sputum was growing Gram-positive cocci with 4+ polys turning out to be methicillin sensitive Staph aureus may very well a been a community-acquired pneumonia and he also had elevated ammonia levels that needed to be clock back seems to be doing well with diminishing signs of respiratory insufficiency and diminished minute ventilatory requirement diminished FiO2 requirement so today he gets pressure support trial sedation shot off and inclusive of the dexmedetomidine so hopefully he will wake up Critical Care Time (minutes): 35 Physical Exam 2 Vital Signs: Vital Signs: Last Vital Signs Temp 99.1 F 11/06/23 09:00 Pulse 85 11/06/23 09:00 Resp 18 11/06/23 09:00 BP 110/57 L 11/06/23 09:00 Pulse Ox 97 11/06/23 09:00 O2 Del Method Mechanical Ventil ation 11/06/23 09:00 O2 Flow Rate 12 11/02/23 14:00 FiO2 30 11/06/23 09:00 Oxygen Flow Rate 10 11/02/23 13:45 BMI result Body Mass Index 20.2 vital signs is stable neurologically nonfocal cardiac exam by bedside echo inta ct LV RV function the low lung sounds are diminished bilaterally no adventitious sounds peripherally he has no would edema no neck vein distension inferior vena caval diameter is normal Objective Data Labs 11/04/23 08:50 11/06/23 04:36 Labs: Laboratory Results - last 24 hr 11/05/23 11/05/23 11/05/23 11:52 14:37 14:41 PT INR VBG pH 7.50 H VBG pCO2 42 VBG pO2 84 VBG HCO3 33 H VBG O2 Saturation 100.0 VBG Base Excess 9.4 Sodium 138 Potassium 4.3 Chloride 104 Carbon Dioxide 28 Anion Gap 10 L BUN 26 H Creatinine 1.00 Estim Creat Clear Calc 62.8 Estimated GFR > 60 POC Glucose 223 H Random Glucose 218 H Calcium 9.2 Phosphorus Magnesium Ammonia Albumin Triglycerides 11/05/23 11/06/23 11/06/23 17:49 00:32 04:36 PT 20.8 H INR 1.7 H VBG pH VBG pCO2 VBG pO2 VBG HCO3 VBG O2 Saturation VBG Base Excess Sodium 134 L Potassium 5.2 H D Chloride 102 Carbon Dioxide 26 Anion Gap 11 L BUN 29 H Creatinine 1.03 Estim Creat Clear Calc 61.0 Estimated GFR > 60 POC Glucose 254 H 307 H Random Glucose 361 H* Calcium 9.3 Phosphorus 2.5 L Magnesium 2.1 Ammonia 61 H Albumin 3.3 L Triglycerides 11/06/23 11/06/23 11/06/23 04:36 04:42 05:44 PT INR VBG pH 7.51 H VBG pCO2 38 VBG pO2 65 VBG HCO3 31 H VBG O2 Saturation 91.0 VBG Base Excess 7.8 Sodium Potassium Chloride Carbon Dioxide Anion Gap BUN Creatinine Estim Creat Clear Calc Estimated GFR POC Glucose 307 H Random Glucose Calcium Phosphorus Magnesium Ammonia Albumin 3.3 L Triglycerides 23 Microbiology Microbiology Results: Microbiology 11/02/23 15:12 Sputum - Suctioned Gram Stain - Final 11/02/23 15:12 Sputum - Suctioned Sputum Culture - Final Staphylococcus aureus 11/02/23 15:31 Blood - Central Line Blood Culture - Preliminary No growth after 48 hours. 10/30/23 00:09 Ascites Fluid Gram Stain - Final 10/30/23 00:09 Ascites Fluid Anaerobic Culture - Final NO GROWTH AFTER 5 DAYS 10/30/23 00:09 Ascites Fluid Body Fluid Culture - Final No growth after 2 days 11/02/23 15:31 Blood - Central Line Blood Culture - Final Coag negative Staphylococcus 10/30/23 00:30 Blood - Venous Blood Culture - Final No growth after 5 days. 10/30/23 00:30 Blood - Venous Blood Culture - Final No growth after 5 days. Progress Note: A&P Assessment and plan (1) Acute pneumonia: Status: Acute (2) COPD exacerbation: Status: Acute (3) Hepatopulmonary syndrome: Status: Acute (4) Acute hypoxemic respiratory failure: Status: Acute (5) Abdominal pain: Status: Acute (6) Hepatic encephalopathy: Status: Acute (7) Decompensated hepatic cirrhosis: Status: Acute (8) Hepatitis C: Status: Acute (9) Hyperammonemia: Status: Acute (10) SBP (spontaneous bacterial peritonitis): Status: Acute (11) Nephrolithiasis: Status: Acute Plan plan is to do pressure support trial and await his awakening and hopefully controllable behavior with good cognitive function Quality Stroke Does the patient have a stroke diagnosis?: No VTE Prior VTE?: No VTE Risk Level:: Medical - moderate - high VTE Device Contraindication: N/A - Device Ordered VTE Drug Contraindication: Treatment Not Indicated
[2023-11-06 12:05] LABS: Glucose, Whole Blood 267 mg/dL (60-115)
[2023-11-06] MEDS: methylPREDNISolone Sod Succ 40 MG/ML VIAL 20 MG IVPUSH ×2 (14:53→20:22)
[2023-11-06 18:35] LABS: Glucose, Whole Blood 280 mg/dL (60-115)
[2023-11-06] MEDS: dexmedeTOMIDidine HCL/NS 400 MCG/100 ML INFUS..BTL 15.5 MCG IVCONT (20:38)
[2023-11-06] MEDS: Parenteral Nutrition 1,560 ML 65 ML IV (21:24)
[2023-11-07] VITALS (21 sets, daily range): BP systolic 102–122; BP diastolic 53–66; PULSE 74–89; RESP 15–20; TEMP 36–36.5; O2SAT 86–99; BMI 22.0
[2023-11-07 00:33] LABS: Glucose, Whole Blood 284 mg/dL (60-115)
[2023-11-07] MEDS: Insulin Lispro 100 UNIT/ML 3 ML VIAL SUBCUT ×2 (00:41→05:56)
[2023-11-07] MEDS: Linezolid/D5W 600 MG/300 ML PIGGYBACK 300 MG IV (02:43)
[2023-11-07] MEDS: methylPREDNISolone Sod Succ 40 MG/ML VIAL 20 MG IVPUSH ×3 (02:43→22:56)
--- NOTE | 2023-11-07 03:04 | PC.NURSE ---
Acquired care at 1900. Pt was with family at bedside.After family left, pt became agitated. Precedex was restarted fpr few hours which made pt calmed down. Slept for few hours. Overnight pt have moderate amount of mushy to liquidy brown colored stool. Abdomen remains hugely distended.
[2023-11-07 05:48] LABS: VBG Base Excess 6.9 mmol/L; VBG HCO3 31 mmol/L (22-26); VBG pCO2 47 mmHg; VBG pH 7.43 (7.32-7.43); VBG pO2 68 mmHg
[2023-11-07 05:50] LABS: Venous Blood Gas Refer to POC result
[2023-11-07 05:54] LABS: Glucose, Whole Blood 281 mg/dL (60-115)
[2023-11-07 06:07] LABS: MANUAL DIFF FLAG NO
[2023-11-07 06:20] LABS: Ammonia 59 umol/L (13-55)
[2023-11-07 06:25] LABS: Basophils Percent Auto 0.2 % (0-2); Hematocrit 26.7 % (42.0-52.0); Hemoglobin 8.8 g/dl (14.0-18.0); Imm Gran Abs Auto 0.06 X10*3/uL (0.00-0.03); Lymphocytes Absolute Auto 0.4 X10*3/uL (1.2-4.9); Lymphocytes Percent Auto 6.1 % (20-40); Mean Corpuscular Hemoglobin 36.8 pg (27.0-33.0); Mean Platelet Volume 10.9 fL (9.4-12.4); Monocytes Absolute Auto 0.5 X10*3/uL (0.1-1.2); Neutrophils Percent Auto 84.7 % (45-73); Red Blood Count 2.39 X10*6/uL (4.60-5.80); Red Cell Distribution Width 15.5 % (11.0-16.0); White Blood Count 5.9 X10*3/uL (4.8-10.8)
[2023-11-07 06:30] LABS: Anion Gap 10 (12-20); Blood Urea Nitrogen 38 mg/dL (9-16); Calcium 9.6 mg/dL (8.4-10.2); Carbon Dioxide 28 mmol/L (22-29); Chloride 99 mmol/L (96-108); Estimated Glomerular Filt Rate > 60; Glucose Random 289 mg/dL (60-115); Magnesium 2.2 mg/dL (1.6-2.6); Potassium 5.6 mmol/L (3.3-5.1); Sodium 131 mmol/L (135-145); Triglycerides 27 mg/dL (<150)
[2023-11-07 06:31] LABS: Mean Corpuscular Volume 111.7 fL (80.0-98.0); Platelet Count 45 X10*3/uL (160-400)
[2023-11-07 06:51] LABS: INTERNATIONAL NORM RATIO 2.1 (0.9-1.1); Prothrombin Time 25.6 SEC (11.1-13.3)
[2023-11-07] MEDS: Albuterol/Iprat 2.5/0.5MG 3 ML AMPUL.NEB INHALE ×4 (08:03→19:56)
[2023-11-07 08:09] LABS: Glucose, Whole Blood 241 mg/dL (60-115)
[2023-11-07] MEDS: Sodium Zirconium Cyclosilicate 10 GM POWD.PACK PO (08:27)
[2023-11-07] MEDS: Lactulose 20 GM/30 ML SOLUTION PO ×3 (08:27→22:58)
[2023-11-07] MEDS: Famotidine/PF 20 MG/2 ML VIAL IVPUSH (08:28)
[2023-11-07] MEDS: Zinc Sulfate 220 MG CAPSULE PO (08:28)
[2023-11-07] MEDS: 0.9 % Sodium Chloride Flush 3 ML SYRINGE IVFLUSH ×3 (08:30→22:59)
[2023-11-07] MEDS: rifAXIMin 550 MG TABLET PO ×3 (08:30→22:59)
[2023-11-07] MEDS: ceFAZolin Sodium/Dextrose,Iso 2 GM/50 ML PIGGYBACK IV ×3 (08:31→23:51)
--- NOTE | 2023-11-07 08:47 | PM.EVENT ---
Documented by User: Marilynn Mccann NP 11/07/23 08:49 Event Note Date of Service: 11/07/23 Event Note: The pt is 68-yo male with decompensated HCV cirrhosis with ascites, chronic hypoxia due to COPD admitted on 10/29/23 with acute decompensated liver cirrhosis with ascites and encephalopathy. Paracentesis was done in ED 10/28 [3.4L removed] and 10/29 [1.5L removed], no evidence of SBP. Imaging showed nothing acute. He c/o severe abd pain, was intermittently agitated. No BM, no hematemesis, hematochezia, or melena. He was seen by GI with the recommendation to continue supportive care with diuretics, Lactulose and Xifaxan, and PPI.? On 10/29/23 a [employer] was called when his sats fell into the 70s, he was SOB using accessory muscles. He was combative, refusing oxygen and was intubated and transferred to the ICU. A right sided internal jugular central venous pressure catheter was placed. Sputum was sent for culture, CT scan of the chest showed left lower lobe consolidation. Sputum grew GPC and he was covered with vancomycin. He was empirically covered with ceftriaxone for spontaneous bacterial peritonitis, and with caspofungin for his central nervous system as a potential source of infection. He was started on tube feeds but developed a clinical ileus with high gastric residuals and feedings had to be stopped. KUB showed no free air but bowel wall was thickened with diffuse dilatation of the small and large bowel. Parenteral nutrition was initiated on 11/05/23. Vanco was replaced with Linezolid for developing acute kidney insufficiency.? 11/06/23 he was extubated. He began to move his bowels on 11/05/23 and has multiple BM?s since. He remains NPO pending swallow evaluation. VS stable overnight satting 97-99% on 2LNC. Stable for transfer to medical floor. Time Spent With Patient Time: Total time managing care of this patient today ____ minutes. Documented by User: Delbert Bishop MD 11/07/23 09:44 Event Note Date of Service: 11/07/23
[2023-11-07] MEDS: Thiamine HCL 100 MG in 0.9 % Sodium Chloride 100 ML 202 MG IV ×2 (08:51→23:03)
--- NOTE | 2023-11-07 09:39 | MHC.CLN ---
F/U PATIENT EXTUBATED 11/06. CONTINUES NPO. ILEUS, WITH BM NOTED 11/05. LABS REVIEWED. COMMUNICATED WITH PHARMACY. RECOMMEND TPN AT GOAL 65ML/HR AND ADD 79G LIPIDS TO PROVIDE 1898KCALS (29.9KCALS/KG), 78G PROTEIN (1.2G/KG), 234G DEXTROSE REPLETE LYTES NEEDED. CONTINUE TO FOLLOW FOR TPN NEEDS, PO AND GI STATUS.
[2023-11-07 11:53] LABS: Glucose, Whole Blood 242 mg/dL (60-115)
--- NOTE | 2023-11-07 11:53 | P.PNIM_ITS ---
Subjective Subjective Date of Service: 11/07/23 Interval History: extubated yesterday and stepped down from ICU early this morning abd distended though states pain has improved from prior minimal cough Review of Systems Review of Systems: Yes all other systems are reviewed and are negative Physical Exam 2 Vital Signs: Vital Signs: Last Vital Signs Temp 96.8 F 11/07/23 11:46 Pulse 80 11/07/23 11:46 Resp 18 11/07/23 11:46 BP 107/59 L 11/07/23 11:46 Pulse Ox 91 L 11/07/23 11:46 O2 Del Method Nasal Cannula 11/07/23 11:46 O2 Flow Rate 2 11/07/23 11:46 FiO2 30 11/06/23 15:25 Oxygen Flow Rate 10 11/02/23 13:45 BMI result Body Mass Index 22.0 Gen: in no acute distress HEENT: sclera icteric, moist mucus membranes, thrush on tongue Neck: supple, RIJ CVC without signs of infection Lungs: diminished Heart: regular rate and rhythm, no murmurs Abd: distended + fluid wave Ext: no edema Skin: warm/well-perfused Neuro: alert and oriented x3, asterixis present Psych: appropriate affect Objective Data Active Medications Albuterol/Ipratropium (Albuterol/Iprat 2.5/0.5mg 3 Ml Ampul.Neb) 3 ml INHALE RQ4H WHILE AWAKE [facility] Last Admin: 11/07/23 11:19 Dose: 3 ml Documented By: SHIRA Clotrimazole (Clotrimazole 10 Mg Nicolette) 10 mg MUCOUS MEM 5XD [facility] Famotidine (Famotidine/Pf 20 Mg/2 Ml Vial) 20 mg IVPUSH DAILY [facility] Last Admin: 11/07/23 08:28 Dose: 20 mg Documented By: JORDIN Thiamine HCl 100 mg/ Sodium (Chloride) 101 mls @ 202 mls/hr IV BID [facility] Last Infusion: 11/07/23 09:55 Dose: Infused Documented By: JORDIN Cefazolin Sodium/Dextrose (Ancef) 2 gm in 50 mls @ 100 mls/hr IV Q8H [facility] Last Infusion: 11/07/23 09:11 Dose: Infused Documented By: JORDIN Insulin Human Lispro (Insulin Lispro 100 Unit/Ml 3 Ml Vial) 0 unit SUBCUT Q6H [facility]; Protocol Last Admin: 11/07/23 05:56 Dose: 6 unit Documented By: MANUEL Lactulose (Lactulose 20 Gm/30 Ml Solution) 20 gm PO TID [facility] Last Admin: 11/07/23 08:27 Dose: 20 gm Documented By: JORDIN Methylprednisolone Sodium Succinate (Methylprednisolone Sod Succ 40 Mg/Ml Vial) 20 mg IVPUSH Q6H [facility] Last Admin: 11/07/23 08:28 Dose: 20 mg Documented By: JORDIN Pharmacy Consult (Consult Rx Parenteral Nutrition Ordering) 1 each MISCELLANE DAILY PRN PRN Reason: Consult order Rifaximin (Rifaximin 550 Mg Tablet) 550 mg PO TID [facility] Last Admin: 11/07/23 08:30 Dose: 550 mg Documented By: JORDIN Sodium Chloride (0.9 % Sodium Chloride Flush 3 Ml Syringe) 3 ml IVFLUSH QSHIFT [facility] Last Admin: 11/07/23 08:30 Dose: 3 ml Documented By: JORDIN Spironolactone (Spironolactone 25 Mg Tablet) 50 mg PO BID [facility]; Protocol Last Admin: 11/06/23 20:43 Dose: Not Given Documented By: MANUEL Non-Admin Reason: NPO Zinc Sulfate (Zinc Sulfate 220 Mg Capsule) 220 mg PO DAILY [facility] Last Admin: 11/07/23 08:28 Dose: 220 mg Documented By: JORDIN Labs 11/07/23 05:45 11/07/23 05:45 Labs: Laboratory Results - last 24 hr 11/06/23 11/06/23 11/07/23 11:53 18:27 00:27 MCV MCH MCHC RDW Plt Count MPV Immature Gran % (Auto) Neut % (Auto) Lymph % (Auto) [place] % (Auto) Eos % (Auto) Baso % (Auto) Lymph # (Auto) [place] # (Auto) Eos # (Auto) Baso # (Auto) Abs Immat Gran (auto) Absolute Neuts (auto) Absolute Nucleated RBC Nucleated RBC % (auto) PT INR VBG pH VBG pCO2 VBG pO2 VBG HCO3 VBG O2 Saturation VBG Base Excess Anion Gap Estim Creat Clear Calc Estimated GFR POC Glucose 267 H 280 H 284 H Random Glucose Calcium Phosphorus Magnesium Ammonia Albumin Triglycerides 11/07/23 11/07/23 11/07/23 05:42 05:45 05:51 MCV 111.7 H MCH 36.8 H MCHC 33.0 RDW 15.5 Plt Count 45 L MPV 10.9 Immature Gran % (Auto) 1.0 H Neut % (Auto) 84.7 H Lymph % (Auto) 6.1 L [place] % (Auto) 8.0 Eos % (Auto) 0.0 Baso % (Auto) 0.2 Lymph # (Auto) 0.4 L [place] # (Auto) 0.5 Eos # (Auto) 0.0 Baso # (Auto) 0.0 Abs Immat Gran (auto) 0.06 H Absolute Neuts (auto) 5.0 Absolute Nucleated RBC 0.000 Nucleated RBC % (auto) 0.0 PT 25.6 H D INR 2.1 H VBG pH 7.43 VBG pCO2 47 VBG pO2 68 VBG HCO3 31 H VBG O2 Saturation 92.0 VBG Base Excess 6.9 Anion Gap 10 L Estim Creat Clear Calc 66.0 Estimated GFR > 60 POC Glucose 281 H Random Glucose 289 H Calcium 9.6 Phosphorus 3.0 Magnesium 2.2 Ammonia 59 H Albumin 3.0 L Triglycerides 27 11/07/23 07:57 MCV MCH MCHC RDW Plt Count MPV Immature Gran % (Auto) Neut % (Auto) Lymph % (Auto) [place] % (Auto) Eos % (Auto) Baso % (Auto) Lymph # (Auto) [place] # (Auto) Eos # (Auto) Baso # (Auto) Abs Immat Gran (auto) Absolute Neuts (auto) Absolute Nucleated RBC Nucleated RBC % (auto) PT INR VBG pH VBG pCO2 VBG pO2 VBG HCO3 VBG O2 Saturation VBG Base Excess Anion Gap Estim Creat Clear Calc Estimated GFR POC Glucose 241 H Random Glucose Calcium Phosphorus Magnesium Ammonia Albumin Triglycerides Microbiology Microbiology Results: Microbiology 11/02/23 15:12 Gram Stain - Final Sputum - Suctioned Sputum Culture - Final Staphylococcus aureus Assessment and Plan (1) Acute pneumonia: Status: Acute Plan d9 68yo M with decompensated HCV cirrhosis with ascites, chronic hypoxia due to COPD admitted 10/29/23 with ascites + encephalopathy paracentesis done in ED 10/28 [3.4L removed] and 10/29 [1.5L removed], no evidence of SBP. 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 for hypoxic resp failure; intubated found to have MSSA pneumonia and ileus antibiotics: ceftriaxone 10/30-, vancomycin 11/02-11/04, linezolid 11/04- [due to concern for LINDY] TPN started 11/05/23 but then started having BMs extbuated 11/06/23, stepped down to [facility] 11/07/23 MSSA pneumonia - change to cefazolin 11/07/23- ileus - resolved; d/c TPN; PRINTING PRESSMAN consulted and will start NDD1 solids/thin liquids decompensated HCV cirrhosis with ascites - will order therapeutic tap for tomorrow LINDY - mild, resolving; consider resuming diuretics if continues to improve hyperK - give SZC, hold spironolactone, recheck BMP in AM thrush - clotrimazole troches hepatic encephalopathy - lactulose + rifaximin untreated HCV - GI consult, outpt treatment chronic hypoxic RF due to COPD with acute exac - continue home Trelegy, prn albuterol, 2L O2 via NC - wean Solu-Medrol VTE ppx - SCDs dispo - PT consult In my clinical judgment, the patient requires continued inpatient hospitalization for the following reasons: decomp cirrhosis, pain control, encephalopathy I updated the pt's daughter at bedside Total time managing care of this patient today: 55 minutes. Quality Stroke Does the patient have a stroke diagnosis?: No VTE Prior VTE?: No VTE Risk Level:: Medical - moderate - high VTE Device Contraindication: N/A - Device Ordered VTE Drug Contraindication: Treatment Not Indicated
--- NOTE | 2023-11-07 13:25 | MHC.SL.SWA ---
Speech Pathologist Impression: Risk of Aspiration Due to: Lethargy Medically Fragile History of Pneumonia Hx of Recent Extubation Reduced Cognition Weak Voice Dysphasia Diet Status: Liquid Consistency and Strategies for Safe Swallow: Liquid Intake Recommendation: Thin Liquid Intake Strategies: Small Sips Solid Food Consistency: Dietary Recommendations: Pureed (NDD1) Oral Medication Intake: Whole with Puree Please contact the pharmacy regarding appropriate crushable or liquid drug formulations that are available whenever modified delivery is recommended. Compensatory Strategies and Precautions to be Taken for Safe Swallow: Sitting Upright (90 deg) Liquids from Straw Small Bites and Sips Alternate Liquids/Solids Rate of Ingestion Change Oral Check Supervision While Eating and Drinking for Safe Swallow: Total Supervision (1:1) Foods to Avoid: Mixed consistencies. Swallowing Recommended Treatments: Compens. Strategy Educat. Recommendation for Speech: Inpatient Speech Therapy Comment: Recommend START diet of PUREE Solids (NDD1) and THIN Liquids. Medication WHOLE with PUREE. 1:1 ASSISTANCE d/t mental status. Attempt to position as upright as possible. SUBMARINE ELEMENT COORDINATOR will continue to follow and advanced diet as tolerated. Timeline to reassess: PRN Mechanical Product Design Engineer Clinican/Clinical Fellow: No Supervisory Statement: I have reviewed and agree with the student/clinical fellow's documentation: N/A Speech Language Pathologist: Kayden Dee M.A., CCC-SUBMARINE ELEMENT COORDINATOR
[2023-11-07] MEDS: Fluticasone/Umeclidinium/Vilanterol 100/62.5/25 BLST.W.DEV 1 PUFF INHALE (15:06)
[2023-11-07] MEDS: Nystatin Oral Susp 500,000 UNIT/5 ML ORAL.SUSP 500000 UNIT PO ×2 (16:08→22:55)
[2023-11-07] MEDS: Morphine Sulfate 2 MG/ML CARTRIDGE IVPUSH (18:15)
[2023-11-08] VITALS (12 sets, daily range): BP systolic 102–115; BP diastolic 46–60; PULSE 66–89; RESP 16–20; TEMP 36.2–36.9; O2SAT 84–98; BMI 21.7
[2023-11-08 07:08] LABS: Ammonia 65 umol/L (13-55)
--- NOTE | 2023-11-08 07:22 | PC.NURSE ---
pt voided 200 via urinal, He later was incontinent of urine. Bladder scan in not ideal in pt with ascites but was 657. Pt immediately straight cathed without issue for only 60cc.
[2023-11-08 07:30] LABS: Alanine Aminotransferase 104 U/L (0-40); Alkaline Phosphatase 78 U/L (39-117); Anion Gap 11 (12-20); Aspartate Amino Transferase 104 U/L (5-37); Bilirubin Total 5.3 mg/dL (0.0-1.0); Blood Urea Nitrogen 43 mg/dL (9-16); Calcium 9.6 mg/dL (8.4-10.2); Carbon Dioxide 27 mmol/L (22-29); Chloride 101 mmol/L (96-108); Creatinine Clr Calc Pharmacy 64.3; Estimated Glomerular Filt Rate > 60; Glucose Random 186 mg/dL (60-115); Magnesium 2.1 mg/dL (1.6-2.6); Phosphorus 2.4 mg/dL (2.7-4.5); Potassium 5.1 mmol/L (3.3-5.1); Sodium 134 mmol/L (135-145); Triglycerides 36 mg/dL (<150)
[2023-11-08] MEDS: Fluticasone/Umeclidinium/Vilanterol 100/62.5/25 BLST.W.DEV 1 PUFF INHALE (07:35)
[2023-11-08] MEDS: Albuterol/Iprat 2.5/0.5MG 3 ML AMPUL.NEB INHALE ×4 (07:35→19:56)
[2023-11-08 08:52] LABS: Procalcitonin 0.28 ng/mL
[2023-11-08] MEDS: Thiamine HCL 100 MG in 0.9 % Sodium Chloride 100 ML 202 MG IV ×2 (09:04→21:26)
[2023-11-08] MEDS: rifAXIMin 550 MG TABLET PO ×3 (09:06→21:38)
[2023-11-08] MEDS: methylPREDNISolone Sod Succ 40 MG/ML VIAL 20 MG IVPUSH ×2 (09:06→21:25)
[2023-11-08] MEDS: Nystatin Oral Susp 500,000 UNIT/5 ML ORAL.SUSP 500000 UNIT PO ×4 (09:06→21:25)
[2023-11-08] MEDS: Zinc Sulfate 220 MG CAPSULE PO (09:06)
[2023-11-08] MEDS: Lactulose 20 GM/30 ML SOLUTION PO ×4 (09:06→21:25)
[2023-11-08] MEDS: Famotidine/PF 20 MG/2 ML VIAL IVPUSH (09:07)
[2023-11-08] MEDS: ceFAZolin Sodium/Dextrose,Iso 2 GM/50 ML PIGGYBACK IV ×2 (09:07→17:03)
[2023-11-08] MEDS: 0.9 % Sodium Chloride Flush 3 ML SYRINGE IVFLUSH ×2 (09:08→17:03)
--- NOTE | 2023-11-08 10:37 | MHC.SPEECHCO ---
Pt off floor for paracentesis, EVENTS SOLUTIONS CONSULTANT will re-attempt, as schedule allows.
[2023-11-08] MEDS: Lidocaine HCl 1 % MPF 5 ML VIAL SUBCUT (11:10)
--- NOTE | 2023-11-08 11:24 | MHC.CLN ---
F/U PT EXTUBATED AND TRANSFERRED TO MEDICAL FLOOR TPN D/C PER MD DIET ADVANCED TO PUREED CARGO STATION WORKER FOLLOWING FOR APPROPRIATE DIET CONSISTENCY RECOMMEND ADDING MAGIC CUP TO INCREASE KCALS MONITOR PO INTAKE CLOSELY
[2023-11-08] MEDS: Albumin Human 25 % 100 ML IV (12:04)
--- NOTE | 2023-11-08 12:50 | MHC.CM.PN ---
EMR reviewed and per MD rounds, pt is not medically cleared for D/C due to pending PT eval, and pending therapeutic tap today. CM will continue to follow.
--- NOTE | 2023-11-08 13:25 | P.PNIM_ITS ---
Subjective Subjective Date of Service: 11/08/23 Interval History: abd distended no dyspnea or cough Review of Systems Review of Systems: Yes all other systems are reviewed and are negative Physical Exam 2 Vital Signs: Vital Signs: Last Vital Signs Temp 98.2 F 11/08/23 12:00 Pulse 75 11/08/23 12:00 Resp 20 11/08/23 12:00 BP 104/46 L 11/08/23 12:00 Pulse Ox 95 11/08/23 12:00 O2 Del Method Room Air 11/08/23 12:00 O2 Flow Rate 1 11/08/23 07:25 FiO2 30 11/06/23 15:25 Oxygen Flow Rate 10 11/02/23 13:45 BMI result Body Mass Index 21.7 Gen: in no acute distress HEENT: sclera icteric, moist mucus membranes, thrush on tongue Neck: supple, RIJ CVC without signs of infection Lungs: diminished Heart: regular rate and rhythm, no murmurs Abd: distended + fluid wave Ext: no edema Skin: warm/well-perfused Neuro: alert and oriented x3, asterixis present Psych: appropriate affect Objective Data Active Medications Albuterol/Ipratropium (Albuterol/Iprat 2.5/0.5mg 3 Ml Ampul.Neb) 3 ml INHALE RQ4H WHILE AWAKE [facility] Last Admin: 11/08/23 11:31 Dose: 3 ml Documented By: SHIRA Famotidine (Famotidine/Pf 20 Mg/2 Ml Vial) 20 mg IVPUSH DAILY [facility] Last Admin: 11/08/23 09:07 Dose: 20 mg Documented By: JORDIN Fluticasone/Umeclidinium/Vilanterol (Fluticasone/Umeclidinium/Vilanterol 100/62.5/25 Blst.W.Dev) 1 puff INHALE RDAILY [facility] Last Admin: 11/08/23 07:35 Dose: 1 puff Documented By: SHIRA Thiamine HCl 100 mg/ Sodium (Chloride) 101 mls @ 202 mls/hr IV BID [facility] Last Infusion: 11/08/23 11:59 Dose: Infused Documented By: JORDIN Cefazolin Sodium/Dextrose (Ancef) 2 gm in 50 mls @ 100 mls/hr IV Q8H [facility] Last Infusion: 11/08/23 11:59 Dose: Infused Documented By: JORDIN Lactulose (Lactulose 20 Gm/30 Ml Solution) 20 gm PO QID [facility] Last Admin: 11/08/23 12:03 Dose: 20 gm Documented By: JORDIN Methylprednisolone Sodium Succinate (Methylprednisolone Sod Succ 40 Mg/Ml Vial) 20 mg IVPUSH Q12H [facility] Last Admin: 11/08/23 09:06 Dose: 20 mg Documented By: JORDIN Morphine Sulfate (Morphine Sulfate 2 Mg/Ml Cartridge) 2 mg IVPUSH Q3H PRN; Protocol PRN Reason: Pain, Severe (Pain Scale 7-10) Last Admin: 11/07/23 18:15 Dose: 2 mg Documented By: JORDIN Nystatin (Nystatin Oral Susp 500,000 Unit/5 Ml Oral.Susp) 500,000 unit PO QID [facility]; Protocol Last Admin: 11/08/23 12:03 Dose: 500,000 unit Documented By: JORDIN Rifaximin (Rifaximin 550 Mg Tablet) 550 mg PO TID [facility] Last Admin: 11/08/23 09:06 Dose: 550 mg Documented By: JORDIN Sodium Chloride (0.9 % Sodium Chloride Flush 3 Ml Syringe) 3 ml IVFLUSH QSHIFT [facility] Last Admin: 11/08/23 09:08 Dose: 3 ml Documented By: JORDIN Spironolactone (Spironolactone 25 Mg Tablet) 50 mg PO BID [facility]; Protocol Last Admin: 11/06/23 20:43 Dose: Not Given Documented By: MANUEL Non-Admin Reason: NPO Zinc Sulfate (Zinc Sulfate 220 Mg Capsule) 220 mg PO DAILY [facility] Last Admin: 11/08/23 09:06 Dose: 220 mg Documented By: JORDIN Labs 11/07/23 05:45 11/08/23 06:36 Labs: Laboratory Results - last 24 hr 11/08/23 11/08/23 06:36 06:40 Anion Gap 11 L Estim Creat Clear Calc 64.3 Estimated GFR > 60 Random Glucose 186 H Calcium 9.6 Phosphorus 2.4 L Magnesium 2.1 Total Bilirubin 5.3 H Direct Bilirubin 4.0 H AST 104 H ALT 104 H Alkaline Phosphatase 78 Ammonia 65 H Total Protein 6.0 L Albumin 3.0 L Triglycerides 36 Procalcitonin 0.28 Microbiology Microbiology Results: Microbiology 11/02/23 15:31 Blood Culture - Final Blood - Central Line No growth after 5 days. Assessment and Plan (1) Acute pneumonia: Status: Acute Plan d10 68yo M with decompensated HCV cirrhosis with ascites, chronic hypoxia due to COPD admitted 10/29/23 with ascites + encephalopathy paracentesis done in ED 10/28 [3.4L removed] and 10/29 [1.5L removed], no evidence of SBP SHUTDOWN COORDINATOR 11/02 for hypoxic resp failure; intubated found to have MSSA pneumonia and ileus antibiotics: ceftriaxone 10/30-, vancomycin 11/02-11/04, linezolid 11/04- [due to concern for LINDY] TPN started 11/05/23 but then started having BMs extbuated 11/06/23, stepped down to [facility] 11/07/23 MSSA pneumonia - changed to cefazolin 11/07/23-, trend PCT ileus - resolved; d/c'ed TPN; CAD DETAILER consulted and started NDD1 solids/thin liquids decompensated HCV cirrhosis with ascites - therapeutic tap today, 3.3L ascites removed, will give albumin, resume furosemide/spironolactone tomorrow if Cr at baseline LINDY - mild, resolving; resume diuretics if continues to improve hyperK - resolved thrush - nystatin hepatic encephalopathy - lactulose + rifaximin untreated HCV - GI consulted, outpt treatment chronic hypoxic RF due to COPD with acute exac - continue home Trelegy, prn albuterol, 2L O2 via NC - wean Solu-Medrol -> prednisone VTE ppx - SCDs dispo - PT consult pending In my clinical judgment, the patient requires continued inpatient hospitalization for the following reasons: hypoxia, ascites, ICU downgrade Total time managing care of this patient today: 35 minutes. Quality Stroke Does the patient have a stroke diagnosis?: No VTE Prior VTE?: No VTE Risk Level:: Medical - moderate - high VTE Device Contraindication: N/A - Device Ordered VTE Drug Contraindication: Treatment Not Indicated
--- NOTE | 2023-11-08 13:45 | HO.WOUND ---
Wound Consult: Follow up 68yr old male admitted to [facility] on?10/30/23 01:50 - See progress notes and H&P for detailed history. Wound consult placed for Sacral wound - previous assessment Per direct care team pink intact tissue did not rimma over observed bony prominence of sacrum - stage 1 Pressure injury, irregular maroon pigmentations are not pressure related despite not blanching they are not consistent in pressure injury formation and are related to patients Thrombocytopenia - see chart for lab values. Patient agreeable to assessment gladys and photo documentation -Chart review reveals pt remains with Thrombocytopenia. Sacrum and coccyx assessed - coccyx noted for dark maroon purple intact nonblanchable tissue in area previously noted to be Stage 1 Pressure Injury, currently DTI - see below for details. 11/03/23 Sacrum Etiology: ??Deep Tissue Injury Wound Bed: Dark maroon purple nonblanchable intact tissue Drainage / Odor: None Edges: ? irregular Janene wound: pink blanchable tissue along wth scattered areas of Purpura (related to Thrombocytopenia) Goals of Treatment: ?Foam application to protect from friction and moisture and aid in off loading No new topical recommendations needed at this time - continue with foam application and off loading pressure Recommendations: 1. Turn and Reposition every 2 hours and as needed for patient comfort. - Use wedges and or pillows to aid in supportive off loading position. 2. Off Load all bony prominences with use of pillows and heel boots if needed.? Apply Preventative foams where needed. ? 3. Monitor for incontinence and moisture control, use barrier creams when needed for prevention and treatment. 4. Provide adequate and supplemental nutrition. 5. Continue low air loss mattress. 6.Sacrum - Off Load Pressure - Cleanse with routine cleansing, pat dry. ?Cover with foam dressing peel back and assess Q shift and change every 3 days and PRN for soiling. Re-consult wound care Nurse for wound deterioration or wound changes.
--- NOTE | 2023-11-08 13:48 | P.CONNP_ITS ---
History of Present Illness Reason for Consult Consult date: 11/08/23 Reason for consult: yvonne Chief Complaint Chief complaint: abd pain History of Present Illness Narrative: 68-year-old male with pertinent history of hepatitis-C cirrhosis, chronic hypoxemic respiratory failure due to COPD who presents to the emergency department for evaluation of abdominal pain. Review of Systems Review of Systems Yes all other systems are reviewed and are negative Reports confusion Psychiatric: Reports confusion PMF Past Medical History Medical History Hepatitis C Cirrhosis COPD (chronic obstructive pulmonary disease) Oxygen dependent Social History Social History Household Members: Unknown / Unable to assess Housing: Unknown / Unable to assess Unable to assess alcohol history related to: Unable to respond Alcohol intake: never Comment: 1:1 sitter at bedside. Patient Tobacco Use Status: Tobacco use Unknown Smoked in Last 30 Days: Yes Use of substances other than those prescribed or required for medical reasons: No Currently Displaying Signs/Symptoms of Drug Intoxication Withdrawal: No Advance Directives: No Advance Directives Information Provided: No service: No Meds Allergies Allergy/AdvReac Type Severity Reaction Status Date / Time aspirin [Aspirin] Allergy Unknown RASH, Verified 10/16/23 04:26 SWELLING OF FACE, VOMITING ibuprofen [From Motrin] Allergy Unknown RASH, Verified 10/16/23 04:26 NUMBNESS TO EXTREMITIES NSAIDS (Non-Steroidal Allergy Unknown UNKNOWN Verified 10/16/23 04:26 Anti-Inflamma [Nsaids] aspirin Allergy Unknown swelling Uncoded 08/31/23 15:33 motrin Allergy Unknown swelling Uncoded 08/31/23 15:33 Active Medications: Current Medications Albuterol/Ipratropium (Albuterol/Iprat 2.5/0.5mg 3 Ml Ampul.Neb) 3 ml INHALE RQ4H WHILE AWAKE [facility] Last Admin: 11/08/23 11:31 Dose: 3 ml Famotidine (Famotidine/Pf 20 Mg/2 Ml Vial) 20 mg IVPUSH DAILY [facility] Last Admin: 11/08/23 09:07 Dose: 20 mg Fluticasone/Umeclidinium/Vilanterol (Fluticasone/Umeclidinium/Vilanterol 100/62.5/25 Blst.W.Dev) 1 puff INHALE RDAILY [facility] Last Admin: 11/08/23 07:35 Dose: 1 puff Thiamine HCl 100 mg/ Sodium (Chloride) 101 mls @ 202 mls/hr IV BID [facility] Last Infusion: 11/08/23 11:59 Dose: Infused Cefazolin Sodium/Dextrose (Ancef) 2 gm in 50 mls @ 100 mls/hr IV Q8H [facility] Last Infusion: 11/08/23 11:59 Dose: Infused Lactulose (Lactulose 20 Gm/30 Ml Solution) 20 gm PO QID [facility] Last Admin: 11/08/23 12:03 Dose: 20 gm Methylprednisolone Sodium Succinate (Methylprednisolone Sod Succ 40 Mg/Ml Vial) 20 mg IVPUSH Q12H [facility] Last Admin: 11/08/23 09:06 Dose: 20 mg Morphine Sulfate (Morphine Sulfate 2 Mg/Ml Cartridge) 2 mg IVPUSH Q3H PRN; Protocol PRN Reason: Pain, Severe (Pain Scale 7-10) Last Admin: 11/07/23 18:15 Dose: 2 mg Nystatin (Nystatin Oral Susp 500,000 Unit/5 Ml Oral.Susp) 500,000 unit PO QID [facility]; Protocol Last Admin: 11/08/23 12:03 Dose: 500,000 unit Rifaximin (Rifaximin 550 Mg Tablet) 550 mg PO TID [facility] Last Admin: 11/08/23 09:06 Dose: 550 mg Sodium Chloride (0.9 % Sodium Chloride Flush 3 Ml Syringe) 3 ml IVFLUSH QSHIFT [facility] Last Admin: 11/08/23 09:08 Dose: 3 ml Spironolactone (Spironolactone 25 Mg Tablet) 50 mg PO BID [facility]; Protocol Last Admin: 11/06/23 20:43 Dose: Not Given Zinc Sulfate (Zinc Sulfate 220 Mg Capsule) 220 mg PO DAILY [facility] Last Admin: 11/08/23 09:06 Dose: 220 mg Home Medications Medication Instructions Recorded Confirmed Last Taken Type fluticasone fur. 100 mcg-umeclid 1 ea inhalation QAM 10/11/23 10/30/23 10/11/23 History 62.5 mcg-vilant 25 mcg inhalat.powder (Trelegy Ellipta) Physical Exam Vital Signs: Last Vital Signs Temp 98.2 F 11/08/23 12:00 Pulse 75 11/08/23 12:00 Resp 20 01/02/24 12:00 BP 104/46 L 11/08/23 12:00 Pulse Ox 95 11/08/23 12:00 O2 Del Method Room Air 11/08/23 12:00 O2 Flow Rate 1 11/08/23 07:25 FiO2 30 11/06/23 15:25 Oxygen Flow Rate 10 11/02/23 13:45 BMI result Body Mass Index 21.7 Const General: confusion Orientation/consciousness: confusion Neck Neck: Yes supple Cardio Palpation: no palpable S3 Heart sounds: no rubs Neuro General: confusion Results Lab Results 11/07/23 05:45 11/08/23 06:36 Lab results: Chemistry 11/05/23 11/06/23 11/07/23 14:37 04:36 05:45 Sodium 138 134 L 131 L Potassium 4.3 5.2 H D 5.6 H Carbon Dioxide 28 26 28 BUN 26 H 29 H 38 H Creatinine 1.00 1.03 1.04 Calcium 9.2 9.3 9.6 Phosphorus 2.5 L 3.0 11/08/23 06:36 Sodium 134 L Potassium 5.1 Carbon Dioxide 27 BUN 43 H Creatinine 1.05 Calcium 9.6 Phosphorus 2.4 L Hematology 11/07/23 05:45 WBC 5.9 Hgb 8.8 L Plt Count 45 L Assessment and Plan (1) YVONNE (acute kidney injury): Status: Acute Plan YVONNE due to contrast nephropathy/hypoperfusion. Renal function is back to baseline. Creatinine 0.8. Mild hyponatremia due to free water deficit. Sodium at 1:34. Restrict oral free water intake. Should follow along as needed. Thank you Procedures Date of Service Date of Service: 11/08/23
--- NOTE | 2023-11-08 13:57 | MHC.SL.DTX ---
Dysphagia Diet modifications: Last documented Solid diet consistencies: Chopped/Advanced (NDD3) Last documented Liquid consistency: Thin Changes made to current diet?: Yes Liquid Consistency and Strategies: Liquid Intake Recommendation: Thin Compensatory Strategies for Safe Swallow: Small Sips Compensatory Strategies for Safe Swallow(b): Sitting Upright (90 deg) Small Bites and Sips Alternate Liquids/Solids Rate of Ingestion Change Oral Check Avoid Specific Foods Solid Food Consistency: Dietary Recommendations: Chopped/Advanced (NDD3) Oral Medication Intake: Whole with Puree Strategies and Precautions to be Taken for Safe Swallow: Sitting Upright (90 deg) Small Bites and Sips Alternate Liquids/Solids Rate of Ingestion Change Oral Check Avoid Specific Foods Supervision While Eating and/Drinking: Total Supervision (1:1) Foods to Avoid: Mixed consistencies, difficult to chew solids. Swallowing Recommended Treatments: Compens. Strategy Educat. Recommendation for Speech: Inpatient Speech Therapy Comment: Recommend UPGRADE to CHOPPED/ADVANCED SOLIDS (NDD3) and maintain THIN LIQUIDS. MEDS WHOLE with PUREE. Attempt to position as upright as possible. BURNISHER will continue to follow and advanced diet as tolerated. Timeline to reassess: PRN Additional Comments: Treatment: Pt seen for PO trials after his procedure this morning. Pt is still lethargic and tired, but is communicating more logically today. He has a tray of Puree Solids (NDD1) and Thin Liquids at bed-side that is 25-50% complete. He declines initial sips of Thin Liquids (Chocolate Milk), but informs, I don't like milk. . He agrees to trial Puree Solids and Advanced Solids. Prolonged mastication of Advanced Solids with adequate recollection. Pt is edentulous, but is able to prepare this consistency with additional time and no overt s/s of aspiration. Yarn Winder Clinican/Clinical Fellow: No Supervisory Statement: I have reviewed and agree with the student/clinical fellow's documentation: N/A Speech Language Pathologist: Kayden Dee M.A., [facility]
[2023-11-08] MEDS: Morphine Sulfate 2 MG/ML CARTRIDGE IVPUSH (23:56)
[2023-11-09] VITALS (10 sets, daily range): BP systolic 105–120; BP diastolic 40–69; PULSE 64–98; RESP 16–20; TEMP 36.3–36.8; O2SAT 93–98; BMI 21.3
[2023-11-09] MEDS: ceFAZolin Sodium/Dextrose,Iso 2 GM/50 ML PIGGYBACK IV ×2 (00:05→09:14)
[2023-11-09] MEDS: 0.9 % Sodium Chloride Flush 3 ML SYRINGE IVFLUSH ×4 (00:11→21:45)
[2023-11-09 07:21] LABS: Hematocrit 28.4 % (42.0-52.0); Hemoglobin 9.5 g/dl (14.0-18.0); Mean Corpuscular HGB Conc 33.5 g/dl (31.0-36.0); Mean Corpuscular Hemoglobin 36.7 pg (27.0-33.0); Mean Corpuscular Volume 109.7 fL (80.0-98.0); Mean Platelet Volume 10.6 fL (9.4-12.4); Platelet Count 44 X10*3/uL (160-400); Red Blood Count 2.59 X10*6/uL (4.60-5.80); Red Cell Distribution Width 15.6 % (11.0-16.0); White Blood Count 4.3 X10*3/uL (4.8-10.8)
[2023-11-09] MEDS: Albuterol/Iprat 2.5/0.5MG 3 ML AMPUL.NEB INHALE ×4 (07:57→19:58)
[2023-11-09] MEDS: Fluticasone/Umeclidinium/Vilanterol 100/62.5/25 BLST.W.DEV 1 PUFF INHALE (07:57)
[2023-11-09 07:59] LABS: Alanine Aminotransferase 64 U/L (0-40); Albumin Level 3.1 g/dL (3.5-5.0); Alkaline Phosphatase 81 U/L (39-117); Anion Gap 7 (12-20); Aspartate Amino Transferase 71 U/L (5-37); Bilirubin Total 6.4 mg/dL (0.0-1.0); Blood Urea Nitrogen 41 mg/dL (9-16); Calcium 9.6 mg/dL (8.4-10.2); Carbon Dioxide 28 mmol/L (22-29); Chloride 106 mmol/L (96-108); Creatinine Clr Calc Pharmacy 63.1; Estimated Glomerular Filt Rate > 60; Glucose Random 184 mg/dL (60-115); Magnesium 2.1 mg/dL (1.6-2.6); Phosphorus 2.3 mg/dL (2.7-4.5); Potassium 4.7 mmol/L (3.3-5.1); Sodium 136 mmol/L (135-145); Triglycerides 40 mg/dL (<150)
[2023-11-09] MEDS: Lactulose 20 GM/30 ML SOLUTION PO ×3 (09:04→21:34)
[2023-11-09] MEDS: Nystatin Oral Susp 500,000 UNIT/5 ML ORAL.SUSP 500000 UNIT PO ×3 (09:04→21:34)
[2023-11-09] MEDS: methylPREDNISolone Sod Succ 40 MG/ML VIAL 20 MG IVPUSH (09:05)
[2023-11-09] MEDS: Famotidine/PF 20 MG/2 ML VIAL IVPUSH (09:06)
[2023-11-09] MEDS: Thiamine HCL 100 MG in 0.9 % Sodium Chloride 100 ML 202 MG IV ×2 (09:09→21:44)
[2023-11-09] MEDS: Zinc Sulfate 220 MG CAPSULE PO (09:15)
[2023-11-09] MEDS: rifAXIMin 550 MG TABLET PO ×3 (09:15→21:34)
--- NOTE | 2023-11-09 10:37 | P.PNIM_ITS ---
Subjective Subjective Date of Service: 11/09/23 Interval History: some cough, on 2L O2 drained ascites yesterday no abd pain Review of Systems Review of Systems: Yes all other systems are reviewed and are negative Physical Exam 2 Vital Signs: Vital Signs: Last Vital Signs Temp 98.2 F 11/09/23 07:40 Pulse 80 11/09/23 07:57 Resp 16 11/09/23 07:57 BP 105/60 11/09/23 07:40 Pulse Ox 93 11/09/23 07:40 O2 Del Method Nasal Cannula 11/09/23 07:40 O2 Flow Rate 1 11/09/23 07:40 FiO2 30 11/06/23 15:25 Oxygen Flow Rate 10 11/02/23 13:45 BMI result Body Mass Index 21.3 Gen: in no acute distress HEENT: sclera icteric, moist mucus membranes, thrush on tongue Neck: supple, RIJ CVC without signs of infection Lungs: diminished Heart: regular rate and rhythm, no murmurs Abd: some residual ascites, paracentesis site without fluid leak Ext: no edema Skin: warm/well-perfused Neuro: alert and oriented x3, no asterixis Psych: appropriate affect Objective Data Active Medications Albuterol/Ipratropium (Albuterol/Iprat 2.5/0.5mg 3 Ml Ampul.Neb) 3 ml INHALE RQ4H WHILE AWAKE [facility] Last Admin: 11/09/23 07:57 Dose: 3 ml Documented By: TEENA Famotidine (Famotidine/Pf 20 Mg/2 Ml Vial) 20 mg IVPUSH DAILY [facility] Last Admin: 11/09/23 09:06 Dose: 20 mg Documented By: JEFERSON Fluticasone/Umeclidinium/Vilanterol (Fluticasone/Umeclidinium/Vilanterol 100/62.5/25 Blst.W.Dev) 1 puff INHALE RDAILY [facility] Last Admin: 11/09/23 07:57 Dose: 1 puff Documented By: TEENA Furosemide (Furosemide 20 Mg Tablet) 20 mg PO BID@0900,1800 [facility]; Protocol Last Admin: 11/09/23 09:15 Dose: 20 mg Documented By: JEFERSON Thiamine HCl 100 mg/ Sodium (Chloride) 101 mls @ 202 mls/hr IV BID [facility] Last Admin: 11/09/23 09:09 Dose: 202 mls/hr Documented By: JEFERSON Cefazolin Sodium/Dextrose (Ancef) 2 gm in 50 mls @ 100 mls/hr IV Q8H [facility] Last Infusion: 11/09/23 10:03 Dose: Infused Documented By: JEFERSON Lactulose (Lactulose 20 Gm/30 Ml Solution) 20 gm PO QID [facility] Last Admin: 11/09/23 09:04 Dose: 20 gm Documented By: JEFERSON Methylprednisolone Sodium Succinate (Methylprednisolone Sod Succ 40 Mg/Ml Vial) 20 mg IVPUSH Q12H [facility] Last Admin: 11/09/23 09:05 Dose: 20 mg Documented By: JEFERSON Morphine Sulfate (Morphine Sulfate 2 Mg/Ml Cartridge) 2 mg IVPUSH Q3H PRN; Protocol PRN Reason: Pain, Severe (Pain Scale 7-10) Last Admin: 11/08/23 23:56 Dose: 2 mg Documented By: ROSA Nystatin (Nystatin Oral Susp 500,000 Unit/5 Ml Oral.Susp) 500,000 unit PO QID [facility]; Protocol Last Admin: 11/09/23 09:04 Dose: 500,000 unit Documented By: JEFERSON Rifaximin (Rifaximin 550 Mg Tablet) 550 mg PO TID [facility] Last Admin: 11/09/23 09:15 Dose: 550 mg Documented By: JEFERSON Sodium Chloride (0.9 % Sodium Chloride Flush 3 Ml Syringe) 3 ml IVFLUSH QSHIFT [facility] Last Admin: 11/09/23 09:14 Dose: 3 ml Documented By: JEFERSON Spironolactone (Spironolactone 25 Mg Tablet) 50 mg PO BID@0900,1800 [facility]; Protocol Last Admin: 11/09/23 09:15 Dose: 50 mg Documented By: JEFERSON Zinc Sulfate (Zinc Sulfate 220 Mg Capsule) 220 mg PO DAILY [facility] Last Admin: 11/09/23 09:15 Dose: 220 mg Documented By: JEFERSON Labs 11/09/23 06:35 11/09/23 06:35 Labs: Laboratory Results - last 24 hr 11/09/23 06:35 MCV 109.7 H MCH 36.7 H MCHC 33.5 RDW 15.6 Plt Count 44 L MPV 10.6 Absolute Nucleated RBC 0.000 Nucleated RBC % (auto) 0.0 Anion Gap 7 L Estim Creat Clear Calc 63.1 Estimated GFR > 60 Random Glucose 184 H Calcium 9.6 Phosphorus 2.3 L Magnesium 2.1 Total Bilirubin 6.4 H AST 71 H ALT 64 H Alkaline Phosphatase 81 Total Protein 6.0 L Albumin 3.1 L Triglycerides 40 Assessment and Plan (1) Acute pneumonia: Status: Acute Plan d11 68yo M with decompensated HCV cirrhosis with ascites, chronic hypoxia due to COPD admitted 10/29/23 with ascites + encephalopathy paracentesis done in ED 10/28 [3.4L removed] and 10/29 [1.5L removed], no evidence of SBP DRAPERY ESTIMATOR 11/02 for hypoxic resp failure; intubated found to have MSSA pneumonia and ileus antibiotics: ceftriaxone 10/30-, vancomycin 11/02-11/04, linezolid 11/04- [due to concern for LINDY] TPN started 11/05/23 but then started having BMs extbuated 11/06/23, stepped down to [facility] 11/07/23 MSSA pneumonia - changed to cefazolin 11/07/23-, ID consult re PO options and duration ileus - resolved; d/c'ed TPN; SYSTEM DEVELOPER ASSOCIATE MANAGER consulted and started NDD1 solids/thin liquids with good tolerance decompensated HCV cirrhosis with ascites - therapeutic tap 11/08/23 with 3.3L ascites removed and albumin given - restart furosemide and spironolactone today LINDY - mild, resolving; resume diuretics hyperK - resolved, monitor on spironolactone thrush - nystatin hepatic encephalopathy - lactulose + rifaximin untreated HCV - GI consulted, outpt treatment chronic hypoxic RF due to COPD with acute exac - continue home Trelegy, prn albuterol, 2L O2 via NC - wean Solu-Medrol -> prednisone, taper 11/10-11/25 VTE ppx - SCDs dispo - STR recommended In my clinical judgment, the patient requires continued inpatient hospitalization for the following reasons: IV ABX Total time managing care of this patient today: 35 minutes. Quality Stroke Does the patient have a stroke diagnosis?: No VTE Prior VTE?: No VTE Risk Level:: Medical - moderate - high VTE Device Contraindication: N/A - Device Ordered VTE Drug Contraindication: Treatment Not Indicated
--- NOTE | 2023-11-09 14:17 | MHC.SL.SWA ---
Risk of Aspiration Due to: Lethargy Medically Fragile History of Pneumonia Hx of Recent Extubation Reduced Cognition Weak Voice Dysphasia Diet Status: No change Liquid Consistency and Strategies for Safe Swallow: Liquid Intake Recommendation: Thin Liquid Intake Strategies: Small Sips Solid Food Consistency: Dietary Recommendations: Chopped/Advanced (NDD3) Oral Medication Intake: Whole with Puree Please contact the pharmacy regarding appropriate crushable or liquid drug formulations that are available whenever modified delivery is recommended. Compensatory Strategies and Precautions to be Taken for Safe Swallow: Sitting Upright (90 deg) Small Bites and Sips Alternate Liquids/Solids Oral Check Supervision While Eating and Drinking for Safe Swallow: Total Supervision (1:1) Foods to Avoid: Mixed consistencies, difficult to chew solids. Swallowing Recommended Treatments: Compens. Strategy Educat. Recommendation for Speech: Inpatient Speech Therapy Comment:Recommend patient continue w/ CHOPPED/ADVANCED SOLIDS (NDD3) and THIN LIQUIDS. MEDS WHOLE with PUREE. Pt will benefit from tray set-up and close supervision. 1:1 ASSISTANCE d/t mental status. Attempt to position as upright as possible. DENTAL MECHANIC will continue to follow to assess toleration. Test Engineering Technician Clinican/Clinical Fellow: No Supervisory Statement: I have reviewed and agree with the student/clinical fellow's documentation: N/A Speech Language Pathologist: Sofi Patrick M.A., CCC-DENTAL MECHANIC
--- NOTE | 2023-11-09 14:26 | HO.WOUND ---
Wound Consult: Follow up Follow up today to ensure - topical interventions in place at this time. VENKAT mattress currently not yet available - pt continue on gel mattress that is appropriate - VENKAT will aid in climate and moisture control. Pt is off loaded with use of pillows. Per direct care nurse barrier cream and foam applied as well. Wound not assessed at todays assessment. Will continue to follow.
[2023-11-10] VITALS (7 sets, daily range): BP systolic 118–133; BP diastolic 58–78; PULSE 68–85; RESP 18–20; TEMP 36.2–36.6; O2SAT 95–100; BMI 17.0
[2023-11-10] MEDS: Albuterol/Iprat 2.5/0.5MG 3 ML AMPUL.NEB INHALE ×3 (07:13→15:00)
[2023-11-10 08:09] LABS: Albumin Level 3.1 g/dL (3.5-5.0); Anion Gap 12 (12-20); Blood Urea Nitrogen 36 mg/dL (9-16); Calcium 9.7 mg/dL (8.4-10.2); Carbon Dioxide 27 mmol/L (22-29); Chloride 104 mmol/L (96-108); Estimated Glomerular Filt Rate > 60; Glucose Random 140 mg/dL (60-115); Magnesium 2.3 mg/dL (1.6-2.6); Phosphorus 2.1 mg/dL (2.7-4.5); Potassium 4.1 mmol/L (3.3-5.1); Sodium 139 mmol/L (135-145); Triglycerides 45 mg/dL (<150)
[2023-11-10] MEDS: Thiamine HCL 100 MG in 0.9 % Sodium Chloride 100 ML 202 MG IV (08:46)
[2023-11-10] MEDS: Zinc Sulfate 220 MG CAPSULE PO (08:47)
[2023-11-10] MEDS: rifAXIMin 550 MG TABLET PO ×2 (08:47→14:15)
--- NOTE | 2023-11-10 11:57 | PM.DS ---
DS: Providers Provider Date of Service: 11/10/23 Date of admission: 10/30/23 01:50 Date of discharge: 11/10/23 Primary care physician: Soledad aGlarza DO Consults: 10/30/23 01:55 Consult to Gastroenterology Routine Consulting Provider: Seth Ng Reason for consultation: Decompensated cirrhosis with ascites and encephalopathy 11/01/23 13:35 Consult to Nephrology Routine Consulting Provider: [facility] Reason for consultation: lindy in setting of liver cirrosis 11/03/23 09:07 Consult to Wound Care Routine Reason for consultation: New pressure injury to coccyx Has provider been notified: Yes 11/09/23 08:05 Consult to Infectious Diseases Routine Consulting Provider: [facility] Reason for consultation: MSSA pneumonia DS: Diagnosis Discharge Diagnosis (1) MSSA (methicillin susceptible Staphylococcus aureus) pneumonia: Status: Acute (2) LINDY (acute kidney injury): Status: Acute (3) COPD exacerbation: Status: Acute (4) Hepatopulmonary syndrome: Status: Acute (5) Acute on chronic hypoxic respiratory failure: Status: Acute (6) Hepatic encephalopathy: Status: Acute (7) Decompensated hepatic cirrhosis: Status: Acute (8) Hepatitis C: Status: Acute (9) Ascites: Status: Inactive DS: Summary Hospital Course Hospital Course: From the history and physical by the admitting hospitalist, Luis Mendoza MD, 10/30/23: This is a 68-year-old male with pertinent history of hepatitis-C cirrhosis, chronic hypoxemic respiratory failure due to COPD who presents to the emergency department for evaluation of abdominal pain. Patient also complaining of abdominal distension and difficulty breathing due to the distention. Patient is very somnolent at the time of my evaluation. He is oriented when awake but falls back to sleep at the end of conversation. Has chills but does not know if he has fevers. Unclear compliance with medications. Admits nausea but no vomiting, palpitations, chest discomfort, changes in urinary habits. In the emergency department, 1.5 L ascitic fluid drained. His ammonia was found to be elevated. 68yo M with decompensated HCV cirrhosis with ascites, and chronic hypoxia due to COPD who was initially admitted 10/29/23 with ascites + encephalopathy. Paracenteses had been done in ED 10/28 [3.4L removed] and 10/29 [1.5L removed] with no evidence of SBP. He was initially admitted to the hospitalist service for hepatic encephalopathy and treated with rifaximin and lactulose. A rapid response was called on 11/02 for hypoxic respiratory failure and the patient was intubated and transferred to the ICU, where he was found to have MSSA pneumonia and ileus. He was treated with broad-spectrum IV antibiotics and also briefly received TPN. He was extubated on 11/06/23 and stepped down to the hospitalist service on 11/07/23. Post-ICU course by problem: MSSA pneumonia - Antibiotics changed to cefazolin 11/07/23 and he was discharged on cefadroxil to end 11/16/23. No bacteremia. acute on chronic hypoxic respiratory failure due to COPD with acute exac - Weaned to home oxygen requirement of 2L via nasal cannula. Treated with IV methlyprednisolone and discharged on prednisone taper. ileus - Resolved and diet advanced to NDD3 solids/thin liquids with good tolerance. decompensated HCV cirrhosis with ascites - Another therapeutic tap on 11/08/23 yield 3.3L ascites. Albumin was given. Diuretics were restarted. He should remain on a 2g/d sodium restriction LINDY - Very mild and resolved in the ICU with fluids. thrush - Started on nystatin. hepatic encephalopathy - Treated with lactulose + rifaximin. untreated HCV - Will need outpatient Gastroenterology follow-up for HCV treatment. He was discharged to [facility] for short-term rehabilitation. Time Attestation Total time managing care of this patient today: 45 mintues. Discharge coordination time: Greater than 30 minutes Quality: Safe Use of Opioids Does Pt have an Active Cancer Diagnosis on the Problem List?: No Quality: Stroke Does the patient have a stroke diagnosis?: No Physical Exam Vital Signs: Vital Signs: Last Vital Signs Temp 97.6 F 11/10/23 11:26 Pulse 75 11/10/23 11:26 Resp 20 11/10/23 11:26 BP 124/62 11/10/23 11:26 Pulse Ox 100 11/10/23 11:26 O2 Del Method Nasal Cannula 11/10/23 11:26 O2 Flow Rate 2 11/10/23 11:26 FiO2 30 11/06/23 15:25 Oxygen Flow Rate 10 11/02/23 13:45 BMI result Body Mass Index 17.0 Gen: in no acute distress, malnourished HEENT: sclera icteric, moist mucus membranes, thrush on tongue Neck: supple Lungs: clear bilateraly Heart: regular rate and rhythm, no murmurs Abd: some residual ascites, paracentesis site without fluid leak Ext: no edema Skin: warm/well-perfused Neuro: alert and oriented x3, no asterixis Psych: appropriate affect DS: Data Data Completed and Pending Completed studies during hospitalization [Text1]: Laboratory Results WBC 7.9 X10*3/uL (4.8-10.8) 11/10/23 09:06 RBC 2.92 X10*6/uL (4.60-5.80) L 11/10/23 09:06 Hgb 10.9 g/dl (14.0-18.0) L 11/10/23 09:06 Hct 31.8 % (42.0-52.0) L 11/10/23 09:06 MCV 108.9 fL (80.0-98.0) H 11/10/23 09:06 MCH 37.3 pg (27.0-33.0) H 11/10/23 09:06 MCHC 34.3 g/dl (31.0-36.0) 11/10/23 09:06 RDW 15.8 % (11.0-16.0) 11/10/23 09:06 Plt Count 41 X10*3/uL (160-400) L 11/10/23 09:06 MPV 10.4 fL (9.4-12.4) 11/10/23 09:06 Immature Gran % (Auto) 1.0 % (0.0-0.4) H 11/07/23 05:45 Neut % (Auto) 84.7 % (45-73) H 11/07/23 05:45 Lymph % (Auto) 6.1 % (20-40) L 11/07/23 05:45 [place] % (Auto) 8.0 % (2-11) 11/07/23 05:45 Eos % (Auto) 0.0 % (0-4) 11/07/23 05:45 Baso % (Auto) 0.2 % (0-2) 11/07/23 05:45 Lymph # (Auto) 0.4 X10*3/uL (1.2-4.9) L 11/07/23 05:45 [place] # (Auto) 0.5 X10*3/uL (0.1-1.2) 11/07/23 05:45 Eos # (Auto) 0.0 X10*3/uL (0.0-0.4) 11/07/23 05:45 Baso # (Auto) 0.0 X10*3/uL (0.0-0.2) 11/07/23 05:45 Abs Immat Gran (auto) 0.06 X10*3/uL (0.00-0.03) H 11/07/23 05:45 Absolute Neuts (auto) 5.0 x10*3/uL (2.0-8.3) 11/07/23 05:45 Absolute Nucleated RBC 0.000 X10*3/uL (0.0-0.012) 11/10/23 09:06 Nucleated RBC % (auto) 0.0 /100WBC (0.0-0.2) 11/10/23 09:06 Smear Tech's Comments VERIFIED 10/29/23 22:12 Smear Path Review 10/31/23 05:15 ESR 7 MM/HR (0-15) 11/02/23 18:42 Hold Purple Top SEE NOTE 11/10/23 07:04 PT 25.6 SEC (11.1-13.3) H D 11/07/23 05:45 INR 2.1 (0.9-1.1) H 11/07/23 05:45 APTT 40.6 SEC (26.0-36.4) H 10/29/23 22:42 Hold Blue Top SEE NOTE 11/02/23 12:54 VBG pH 7.43 (7.32-7.43) 11/07/23 05:42 VBG pCO2 47 mmHg 11/07/23 05:42 VBG pO2 68 mmHg 11/07/23 05:42 VBG HCO3 31 mmol/L (22-26) H 11/07/23 05:42 VBG O2 Saturation 92.0 % 11/07/23 05:42 VBG Base Excess 6.9 mmol/L 11/07/23 05:42 Sodium 139 mmol/L (135-145) 11/10/23 07:04 Potassium 4.1 mmol/L (3.3-5.1) 11/10/23 07:04 Chloride 104 mmol/L (96-108) 11/10/23 07:04 Carbon Dioxide 27 mmol/L (22-29) 11/10/23 07:04 Anion Gap 12 (12-20) 11/10/23 07:04 BUN 36 mg/dL (9-16) H 11/10/23 07:04 Creatinine 1.08 mg/dL (0.5-1.4) 11/10/23 07:04 Estim Creat Clear Calc 49.0 11/10/23 07:04 Estimated GFR > 60 11/10/23 07:04 POC Glucose 242 mg/dL (60-115) H 11/07/23 11:44 Random Glucose 140 mg/dL (60-115) H 11/10/23 07:04 Estimat Average Glucose 88 mg/dL 11/01/23 06:26 Hemoglobin A1c % 4.7 % (<6.0) 11/01/23 06:26 Lactic Acid 1.5 mmol/L (0.5-2.0) 11/02/23 18:41 Calcium 9.7 mg/dL (8.4-10.2) 11/10/23 07:04 Phosphorus 2.1 mg/dL (2.7-4.5) L 11/10/23 07:04 Magnesium 2.3 mg/dL (1.6-2.6) 11/10/23 07:04 Total Bilirubin 6.4 mg/dL (0.0-1.0) H 11/09/23 06:35 Direct Bilirubin 4.0 mg/dL (0.0-0.5) H 11/08/23 06:36 AST 71 U/L (5-37) H 11/09/23 06:35 ALT 64 U/L (0-40) H 11/09/23 06:35 Alkaline Phosphatase 81 U/L (39-117) 11/09/23 06:35 Ammonia 65 umol/L (13-55) H 11/08/23 06:40 Total Protein 6.0 g/dL (6.5-8.0) L 11/09/23 06:35 Albumin 3.1 g/dL (3.5-5.0) L 11/10/23 07:04 Triglycerides 45 mg/dL (<150) 11/10/23 07:04 Lipase 22 U/L (8-78) 10/29/23 22:12 Vitamin B12 598 pg/mL (200-900) 10/30/23 06:25 Folate 8.9 ng/mL (> or = 4.0) 10/30/23 06:25 Procalcitonin 0.28 ng/mL 11/08/23 06:36 TSH 0.87 uIU/mL (0.32-4.0) 11/02/23 15:31 Hold Yellow Top See Note 11/02/23 12:54 Urine Color Gray 11/04/23 07:47 Urine Appearance Clear 11/04/23 07:47 Urine pH 5.0 (5.0-9.0) 11/04/23 07:47 Ur Specific [place] >= 1.030 (1.005-1.025) H 11/04/23 07:47 Urine Protein Trace mg/dL (Neg-Trace) 11/04/23 07:47 Urine Glucose (UA) See Note mg/dL (Negative) 11/04/23 07:47 Urine Ketones Trace mg/dL (Negative) 11/04/23 07:47 Urine Blood Negative (Negative) 11/04/23 07:47 Urine Nitrite See Note (Negative) 11/04/23 07:47 Ur Leukocyte Esterase Negative (Negative) 11/04/23 07:47 Urine RBC 3-5 /HPF (0-2) H 11/04/23 07:47 Urine WBC 0-5 /HPF (0-5) 11/04/23 07:47 Ur Squamous Epith Cells 0-2 /HPF (0-2) 11/04/23 07:47 Urine Bacteria None Seen (None Seen) 11/04/23 07:47 Hyaline Casts 0-2 /LPF (0-2) 11/04/23 07:47 Peritoneal pH 7.47 10/29/23 23:58 Peritoneal WBC 0.093 X10*3/uL 10/29/23 23:58 Peritoneal RBC < 0.002 X10*6/uL 10/29/23 23:58 Periton Neutrophils 8 % 10/29/23 23:58 Periton Lymphocytes 21 % 10/29/23 23:58 Peritoneal Monocytes 40 % 10/29/23 23:58 Peritoneal Other Cells 31 % 10/29/23 23:58 Peritoneal Creatinine 1.0 MG/DL 10/29/23 23:58 Peritoneal Tot Protein 0.8 GM/DL 10/29/23 23:58 Peritoneal Albumin 0.4 GM/DL 10/29/23 23:58 Peritoneal LDH 35 U/L 10/29/23 23:58 Peritoneal Glucose 186 MG/DL 10/29/23 23:58 Peritoneal Amylase 24 10/29/23 23:58 Stool Occult Blood POSITIVE (NEGATIVE) 11/04/23 03:50 Random Vancomycin 15.2 mcg/mL (15-20) 11/04/23 10:12 Influenza Type A (PCR) NEGATIVE (Negative) 10/30/23 10:15 Influenza Type B (PCR) NEGATIVE (Negative) 10/30/23 10:15 RSV RNA Qual (PCR) NEGATIVE (Negative) 10/30/23 10:15 SARS-CoV-2 RNA (RT-PCR) NEGATIVE (Negative) 10/30/23 10:15 Impressions Abdomen/Pelvis CT 10/30/23 18:42 IMPRESSION: 1. Cirrhotic appearing liver with splenomegaly and ascites. 2. Other incidental findings as described above. 3. A cause for the patient's severe abdominal pain has not been found. Fleischner guidelines were followed. Head CT 10/31/23 11:41 IMPRESSION: 1. No acute intracranial abnormalities. 2. Mild white matter chronic small vessel ischemic changes. Chest CT 11/02/23 21:08 IMPRESSION: Diffuse emphysema with left lower lobe small focal consolidation/atelectasis. Diffuse ascites and lobulated liver is suspicious for cirrhosis. Fleischner guidelines were followed. KUB X-Ray 11/03/23 19:20 IMPRESSION: Diffuse gaseous distention of the small and large bowel suggesting the presence of ongoing ileus, not convincingly changed compared to 10/30/2023. Doppler Study Ultrasound 11/04/23 09:14 IMPRESSION: Patency and normal directional flow portal, hepatic veins and hepatic arteries. Cirrhosis and ascites. Chest X-Ray 11/05/23 10:19 IMPRESSION: 1. Endotracheal tube with its tip approximately 2.8 cm proximal to the dillon. Additional support lines in appropriate position as above. 2. No acute cardiopulmonary findings. Abdomen Ultrasound 11/07/23 09:35 IMPRESSION: Moderate to large volume ascites, increased when compared to the CT dated 10/30/2023. Paracentesis Ultrasound 11/08/23 11:11 IMPRESSION: Ultrasound-guided paracentesis as described above. No immediate complications Discharge Plan Discharge Anticipated Discharge Date/Time: 11/10/23 11:48 Patient Disposition: Xfer SNF Discharge Diagnosis: acute/chronic hypoxic respiratory failure due to MSSA pneumonia and COPD exacerbation ileus decompensated HCV cirrhosis with ascites LINDY thrush hepatic encephalopathy Referrals: [facility] [Outside] - 1 Week Soledad Galarza DO [Primary Care Provider] - 1 Week Seth Ng MD [Physician] - 2 Weeks Discharge Medications: New nystatin 100,000 unit/mL Suspension 500,000 unit PO QID Qty: 200 0RF prednisone 10 mg Tablet See Rx Instructions .ROUTE .COMPLEX Qty: 13 0RF Rx Instructions: 30 mg daily x 2 days, then 20 mg daily x 2 days, then 10 mg daily x 2 days, then 5 mg daily x 2 days, then stop furosemide 20 mg Tablet 20 mg PO BID@0900,1800 Qty: 60 0RF Protocol: Hold for SBP< HOLD for SBP < : 90 Xifaxan 550 mg Tablet 550 mg PO TID Qty: 60 0RF lactulose 20 gram/30 mL Solution 20 g PO QID Qty: 2880 0RF cefadroxil 1 gram tablet 1,000 mg PO DAILY 6 Days Qty: 6 0RF Continued Trelegy Ellipta 100-62.5-25 mcg blister with device 1 ea INHALATION QAM spironolactone 50 mg tablet 50 mg PO BID 30 Days Qty: 60 0RF albuterol sulfate 90 mcg/actuation aerosol powdr breath activated 2 inh inhalation Q4-6H PRN (Reason: shortness of breath or wheezing) Qty: 1 0RF Discontinued furosemide [Lasix] 40 mg tablet 40 mg PO DAILY Qty: 30 0RF Discharge Orders: Discharge Order (Routine); Ordered 11/10/23 Ordered By: Nicki Horta Diet: Low salt diet Activity on Discharge: As tolerated Stand Alone Forms: Patient Portal Discharge page Care Plan Goals: recovery from hospitalization liver health Health Concerns: acute/chronic hypoxic respiratory failure due to MSSA pneumonia and COPD exacerbation ileus decompensated HCV cirrhosis with ascites LINDY thrush hepatic encephalopathy Plan of Treatment: cefadroxil 1 gram daily x 6 days prednisone 30 mg daily x 2 days, then 20 mg daily x 2 days, then 10 mg daily x 2 days, then 5 mg daily x 2 days ileus resolved see Gastroenterology in 2 weeks and get hepatitis C treated restrict sodium to 2000 mg/d. take furosemide and spironolactone as prescribed. take nystatin as prescribed. take rifaximin and lactulose as prescribed. Please follow up with your primary care doctor within 1 week of discharge from short-term rehabilitation at [facility] . Return to the hospital if you experience recurrent or worsening symptoms. Assessment: See Discharge Summary.
--- NOTE | 2023-11-10 12:11 | MHC.CM.PN ---
Second IMM given 11/10. Pt is medically cleared for D/C to STR at [facility] today. Pts daughter/HCP John called and updated (she picked [facility] as first choice vs [facility] or [facility]). This CM met with pt who is also in agreement with going to [facility]. Transport set up for 4pm via BLS/Eric.
[2023-11-10] MEDS: 0.9 % Sodium Chloride Flush 3 ML SYRINGE IVFLUSH (14:15)
--- NOTE | 2023-11-10 14:42 | MHC.SL.SWA ---
Speech Pathologist Impression: Risk of Aspiration Due to: Lethargy Medically Fragile History of Pneumonia Hx of Recent Extubation Reduced Cognition Weak Voice Dysphasia Diet Status: Recommend patient continue w/ CHOPPED/ADVANCED SOLIDS (NDD3) and THIN LIQUIDS. MEDS WHOLE with PUREE. Pt will benefit from tray set-up and close supervision. 1:1 ASSISTANCE d/t mental status. Attempt to position as upright as possible. TAPPER SUPERVISOR will continue to follow to assess toleration. Liquid Consistency and Strategies for Safe Swallow: Liquid Intake Recommendation: Thin Liquid Intake Strategies: Small Sips Solid Food Consistency: Dietary Recommendations: Chopped/Advanced (NDD3) Additional Modifications to Solid Foods: Patient with poor po intake, may behaviorally decline food. Continue to offer food to patient, even if patient declines, as today accepted food when it was fed/presented. Oral Medication Intake: Whole with Puree Please contact the pharmacy regarding appropriate crushable or liquid drug formulations that are available whenever modified delivery is recommended. Compensatory Strategies and Precautions to be Taken for Safe Swallow: Sitting Upright (90 deg) Small Bites and Sips Alternate Liquids/Solids Oral Check Supervision While Eating and Drinking for Safe Swallow: Total Assistance (1:1) Foods to Avoid: Mixed consistencies, difficult to chew solids. Swallowing Recommended Treatments: Compens. Strategy Educat. Recommendation for Speech: Inpatient Speech Therapy Comment: Patient seen at lunch, but upon arrival noted tray to one side of bed, with patient awake, alert, still sitting up in bed. Tray evidenced a few bites of food taken from each item, but mostly uneaten. When food was then offered to patient, he declined. Patient evidencing high level of confusion, mild hallucination, e.g. believed and son were in room or hospital (but not present in reality). Patient was offered remainder of magic cup on tray, which patient initially declined, but then accepted when presented with spoonful. Patient produced a timely oral phase, timely swallow on this consistency. Patient repeatedly declined or said that's enough when presented with more of the Magic cup, but then accepted when spoonful of food was presented. Patient took all of the magic cup. Patient appeared to be anticipating discharge, was mildly agitated and anxiousl. Frequency/Duration: Date Range for Service Req: Timeline to reassess: PRN Toy Stuffer Clinican/Clinical Fellow: No Supervisory Statement: I have reviewed and agree with the student/clinical fellow's documentation: N/A Speech Language Pathologist: Rosa Maria London M.A., CCC-TAPPER SUPERVISOR
--- NOTE | 2023-11-10 15:17 | HO.WOUND ---
Wound Consult: Follow up 68yr old male admitted to [facility] on?10/30/23 01:50 - See progress notes and H&P for detailed history. Wound consult placed for Sacral wound - previous assessment Per direct care team pink intact tissue did not rimma over observed bony prominence of sacrum - stage 1 Pressure injury, irregular maroon pigmentations are not pressure related despite not blanching they are not consistent in pressure injury formation and are related to patients Thrombocytopenia - see chart for lab values. Patient agreeable to assessment today and photo documentation -Chart review reveals pt remains with Thrombocytopenia. Sacrum and coccyx assessed today and unchanged remains a Deep Tissue Injury - coccyx noted for dark maroon purple intact nonblanchable tissue in area previously noted to be Stage 1 Pressure Injury, currently DTI - see below for details. Pt set for D/C this afternoon to rehab facility. Sacrum Etiology: ??Deep Tissue Injury Wound Bed: Dark maroon purple nonblanchable tissue Drainage / Odor: None Edges: ? irregular Janene wound: pink blanchable tissue along wth scattered areas of Purpura (related to Thrombocytopenia) Goals of Treatment: ?Foam application to protect from friction and moisture and aid in off loading No new topical recommendations needed at this time - continue with foam application and off loading pressure Recommendations: 1. Turn and Reposition every 2 hours and as needed for patient comfort. - Use wedges and or pillows to aid in supportive off loading position. 2. Off Load all bony prominences with use of pillows and heel boots if needed.? Apply Preventative foams where needed. ? 3. Monitor for incontinence and moisture control, use barrier creams when needed for prevention and treatment. 4. Provide adequate and supplemental nutrition. 5. Continue low air loss mattress. 6.Sacrum - Off Load Pressure - Cleanse with routine cleansing, pat dry. ?Cover with foam dressing peel back and assess Q shift and change every 3 days and PRN for soiling. Re-consult wound care Nurse for wound deterioration or wound changes.
== END 2023-11-10 17:40 | disposition skilled nursing facility (03) | DRG 432 ==
LOC: HO.ED 10-30 00:10 → HO.EDOVER 10-30 02:59 → HO.S3 10-30 03:54 → HO.ICU 11-02 13:12 → HO.IMC 11-07 07:34
PROVIDERS: Internal Medicine; Internal Medicine Cardiovascular Disease; Nurse Practitioner Family; Physician Assistant Surgical; Admitting Provider Student in an Organized Health Care Education/Training Program; Emergency Provider Emergency Medicine; PCP Family Medicine; Visit Provider Family Medicine
DX: K74.69 Other cirrhosis of liver (principal); J15.211 Pneumonia due to Methicillin susceptible Staphylococcus aureus; J96.21 Acute and chronic respiratory failure with hypoxia; R18.8 Other ascites; N17.9 Acute kidney failure, unspecified; K76.6 Portal hypertension; F05 Delirium due to known physiological condition; K56.7 Ileus, unspecified; B37.0 Candidal stomatitis; E87.5 Hyperkalemia; K76.81 Hepatopulmonary syndrome; D69.59 Other secondary thrombocytopenia; K72.10 Chronic hepatic failure without coma; J44.9 Chronic obstructive pulmonary disease, unspecified; K76.82 Hepatic encephalopathy; B18.2 Chronic viral hepatitis C; D53.9 Nutritional anemia, unspecified; Z20.822 Contact with and (suspected) exposure to COVID-19; Z99.81 Dependence on supplemental oxygen; Z79.899 Other long term (current) drug therapy
CPT/HCPCS: 0241U; 36415; 49083; 70450; 71045; 71250; 74018; 74176; 74177; 76705; 80048; 80051; 80053; 80076; 80202; 81001; 82040; 82042; 82140; 82150; 82248; 82272; 82310; 82565; 82570; 82607; 82746; 82803; 82945; 82947; 83036; 83605; 83615; 83690; 83735; 83986; 84100; 84145; 84157; 84443; 84478; 84520; 85025; 85027; 85610; 85652; 85730; 87040; 87070; 87073; 87077; 87147; 87186; 87205; 89051; 92526; 92610; 93975; 94002; 94003; 94640; 94799; 97162; 97530; 99285; C1758; C9113; J0690; J0696; J1170; J2020; J2060; J2250; J2270; J2704; J2920; J3370; J3371; J3411; J3475; P9047; Q9967

== ENCOUNTER → 2023-10-29 21:46 | Outpatient (BNV) | payer MEDICARE, MEDICAID, SELFPAY | PROVIDERS: Emergency Provider Emergency Medicine; PCP Family Medicine; Visit Provider Student in an Organized Health Care Education/Training Program | DX: J15.211 Pneumonia due to Methicillin susceptible Staphylococcus aureus (principal); N17.9 Acute kidney failure, unspecified; J44.1 Chronic obstructive pulmonary disease with (acute) exacerbation; K76.81 Hepatopulmonary syndrome; J96.21 Acute and chronic respiratory failure with hypoxia; K76.82 Hepatic encephalopathy; K72.90 Hepatic failure, unspecified without coma; K74.60 Unspecified cirrhosis of liver; B19.20 Unspecified viral hepatitis C without hepatic coma; R18.8 Other ascites | CPT/HCPCS: 99222; 99232; 99233; 99239; 99499 ==

== ENCOUNTER 2023-10-30 01:50 | Outpatient (BNV) | payer MEDICARE, MEDICAID, SELFPAY | END 2023-11-08 09:40 | PROVIDERS: Admitting Provider Student in an Organized Health Care Education/Training Program; Emergency Provider Emergency Medicine; PCP Family Medicine; Visit Provider Radiology Diagnostic Radiology | DX: R18.8 Other ascites (principal) | CPT/HCPCS: 49083 ==

== ENCOUNTER → 2023-10-30 01:50 | Outpatient (BNV) | payer MEDICARE, MEDICAID, SELFPAY | PROVIDERS: Admitting Provider Student in an Organized Health Care Education/Training Program; Emergency Provider Emergency Medicine; PCP Family Medicine; Visit Provider Internal Medicine Hypertension Specialist | DX: N17.9 Acute kidney failure, unspecified (principal) | CPT/HCPCS: 99222; 99499 ==

== ENCOUNTER → 2023-10-30 01:50 | Outpatient (BNV) | payer MEDICARE, MEDICAID, SELFPAY | PROVIDERS: Admitting Provider Student in an Organized Health Care Education/Training Program; Emergency Provider Emergency Medicine; PCP Family Medicine; Visit Provider Internal Medicine Cardiovascular Disease | DX: J96.01 Acute respiratory failure with hypoxia (principal); J18.9 Pneumonia, unspecified organism; K76.82 Hepatic encephalopathy; K76.81 Hepatopulmonary syndrome; K72.90 Hepatic failure, unspecified without coma; J44.1 Chronic obstructive pulmonary disease with (acute) exacerbation; R10.9 Unspecified abdominal pain; K74.60 Unspecified cirrhosis of liver; B19.20 Unspecified viral hepatitis C without hepatic coma; E72.20 Disorder of urea cycle metabolism, unspecified; K65.2 Spontaneous bacterial peritonitis; N20.0 Calculus of kidney | CPT/HCPCS: 99291; 99499 ==

== ENCOUNTER 2023-11-12 21:19 | Emergency (ER) | payer MEDICARE, SELFPAY ==
[2023-11-12 21:37] VITALS: BP 124/59; BP 134/58; PULSE 74; PULSE 78; RESP 14; TEMP 36.7; O2SAT 97; O2SAT 99; BMI 19.4
--- NOTE | 2023-11-12 21:42 | ED.GENADULT ---
HPI - General Adult General Chief complaint: Altered Mental Status Stated complaint: ams, agitated Time Seen by Provider: 11/12/23 21:35 Source: patient, EMS, RN notes reviewed and old records reviewed Mode of arrival: EMS Limitations: no limitations History of Present Illness HPI narrative: This is a 68-year-old male with pertinent history of hep C cirrhosis, chronic hypoxemic respiratory failure due to COPD who presented today from rehab for being agitated and aggressive patient refused to take his medication. Patient declined fever, chills, abdominal pain, abdominal distention, nausea, vomiting, diarrhea, dysuria, frequency urination, chest pain, shortness of breath, or cough. Patient in the emergency department declined SI or HI, no VAH. Related Data Home Medications Medication Instructions Recorded Confirmed fluticasone fur. 100 mcg-umeclid 1 ea inhalation QAM 10/11/23 10/30/23 62.5 mcg-vilant 25 mcg inhalat.powder (Trelegy Ellipta) Previous Rx's Medication Instructions Recorded spironolactone 50 mg tablet 50 mg PO BID 30 days #60 tabs 10/22/23 albuterol sulfate 90 mcg/actuation 2 inh inhalation Q4-6H PRN 10/26/23 breath activated powder inhaler shortness of breath or wheezing #1 ea cefadroxil 1 gram tablet 1,000 mg PO DAILY 6 days #6 tabs 11/10/23 furosemide 20 mg tablet 20 mg PO BID@0900,1800 #60 tabs 11/10/23 lactulose 20 gram/30 mL oral 20 g (30 mL) PO QID #2,880 mL 11/10/23 solution nystatin 100,000 unit/mL oral 500,000 unit (5 mL) PO QID #200 mL 11/10/23 suspension prednisone 10 mg tablet See Rx Instructions .Route 11/10/23 .COMPLEX #13 tabs rifaximin 550 mg tablet (Xifaxan) 550 mg PO TID #60 tabs 11/10/23 Allergies Allergy/AdvReac Type Severity Reaction Status Date / Time aspirin [Aspirin] Allergy Unknown RASH, Verified 10/16/23 04:26 SWELLING OF FACE, VOMITING ibuprofen [From Motrin] Allergy Unknown RASH, Verified 10/16/23 04:26 NUMBNESS TO EXTREMITIES NSAIDS (Non-Steroidal Allergy Unknown UNKNOWN Verified 10/16/23 04:26 Anti-Inflamma [Nsaids] aspirin Allergy Unknown swelling Uncoded 08/31/23 15:33 motrin Allergy Unknown swelling Uncoded 08/31/23 15:33 Review of Systems Review of Systems: all other systems are reviewed and are negative Constitutional: Reports as per HPI and Reports no additional constitutional complaints Eyes: Reports as per HPI and Reports no additional eye complaints Reports system reviewed and no additional complaints, except as documented Cardiovascular: Reports as per HPI and Reports no additional cardiovascular complaints Respiratory: Reports as per HPI and Reports no additional respiratory complaints Gastrointestinal: Reports as per HPI and Reports no additional gastrointestinal complaints Genitourinary: Reports no additional female genitourinary complaints Musculoskeletal: Reports no additional musculoskeletal complaints Skin/Breast: Reports system reviewed and no additional complaints, except as docu Psychiatric: Reports no additional psychiatric complaints Endocrine: Reports no additional endocrine complaints Hematologic/Lymphatic: Reports no additional hematologic/lymphatic complaints Allergic/Immunologic: Reports no additional allergic/immunologic complaints Reports system reviewed and no additional complaints, except as documented and Reports Abnormal speech present PMFSH Past Medical History Onset Date is defined in the Problem List Problems that require an onset date and time if occurred within 24 hrs of arrival to the ED Aortic Dissection and Rupture; Neurologic impairment; Cardiopulmonary Arrest; Endotracheal Intubation; Insertion or Replacement of Mechanical Circulatory Assist Device Medical History Hepatitis C Cirrhosis COPD (chronic obstructive pulmonary disease) Oxygen dependent Social History Social History Household Members: Unknown / Unable to assess Housing: Unknown / Unable to assess Unable to assess alcohol history related to: Unable to respond Alcohol intake: former Comment: 1:1 sitter at bedside. Patient Tobacco Use Status: Tobacco use Unknown Smoked in Last 30 Days: No Use of substances other than those prescribed or required for medical reasons: No Advance Directives: Yes Advance Directives on File: Yes Advance Directives Date on File: 11/11/23 service: No Physical Exam ED Vital Signs: Vital Signs - 24 hr 11/12/23 21:37 11/12/23 23:55 Temperature 98.1 F 98.1 F Pulse Rate 74 76 Respiratory Rate 14 14 Blood Pressure 124/59 L 104/46 L Pulse Oximetry 99 97 Oxygen Delivery Method Nasal Cannula Room Air BMI result Body Mass Index 19.4 Vital signs have been reviewed and appear to be correct. Blood pressure elevated. Heart rate normal. Respiratory rate normal. Temperature normal. Oxygen saturation normal. Appearance: Alert. Oriented X3. No acute distress. Head: Normal external exam. Normocephalic. Atraumatic. No Gregory signs noted. No raccoon eyes noted Eyes: PERRLA. EOMI. Conjunctiva and sclera normal. Eyelids normal. ENT: TM's Normal. Pharynx normal. Uvula midline. Moist mucous membranes. No trismus noted. No drooling noted. No muffled voice noted. Neck: Normal inspection. Neck supple. FROM. No adenopathy. Thyroid Normal. No meningeal signs. No neck mass noted. CVS: Normal heart rate and rhythm. Heart sound normal. No murmurs noted. Pulses normal throughout. Respiratory: No respiratory distress. Painless inspiration. Breath sounds normal. No wheezes/rales/rhonchi noted. Chest nontender. No accessory muscle usage noted or decreased air movement noted. Abdomen: Soft and nontender. Bowel sounds normal in all 4 quadrants. No distention noted. No organomegaly noted. No visible injury noted. Back: No CVA tenderness. Full range of motion noted. Skin: Skin warm and dry. Normal skin color. Normal skin turgor. No rashes/lesions/lacerations noted. Extremities: No lower extremity edema. Extremities exhibit normal range of motion. Extremities nontender. Neuro: Oriented X 3. Cranial nerve exam: II-XII are grossly intact No motor deficit. No sensory deficit. Reflexes normal. Course Reevaluation(s) Reevaluation #1: 68-year-old male came in from rehab for being agitated and refusing to take medication, the patient is well known to ED staff patient is at his baseline mental status, labs was reviewed and was at baseline slightly anemic no rectal bleeding, chronic thrombocytopenia with no active bleeding, Labs is consistent with chronic liver cirrhosis and failure with acute elevation of total bilirubin hepatic ultrasound showed no acute obstructive biliary disease. Will send patient back to Rehab. Time: 04:48 Medical Decision Making Differential Diagnosis Differential Diagnoses: The differential diagnosis associated with the presentation includes ( Hyperammonemia, electrolyte abnormality, dehydration, severe anemia, SBP, UTI, acute hepatic encephalopathy.) Admission/Observation Consideration of admission/observation: Escalation of care including admission/observation considered Lab Data MDM Lab Attestation statement: I reviewed the patient's lab results. 11/12/23 22:15 11/12/23 22:15 Labs: Lab Results 11/12/23 11/12/23 Range/Units 22:15 23:34 WBC 8.5 (4.8-10.8) X10*3/uL RBC 2.39 L (4.60-5.80) X10*6/uL Hgb 8.8 L (14.0-18.0) g/dl Hct 25.4 L D (42.0-52.0) % MCV 106.3 H (80.0-98.0) fL MCH 36.8 H (27.0-33.0) pg MCHC 34.6 (31.0-36.0) g/dl RDW 15.7 (11.0-16.0) % Plt Count 29 L D (160-400) X10*3/uL MPV 11.2 (9.4-12.4) fL Immature Gran % (Auto) 0.5 H (0.0-0.4) % Neut % (Auto) 88.7 H (45-73) % Lymph % (Auto) 5.9 L (20-40) % [place] % (Auto) 4.8 (2-11) % Eos % (Auto) 0.0 (0-4) % Baso % (Auto) 0.1 (0-2) % Lymph # (Auto) 0.5 L (1.2-4.9) X10*3/uL [place] # (Auto) 0.4 (0.1-1.2) X10*3/uL Eos # (Auto) 0.0 (0.0-0.4) X10*3/uL Baso # (Auto) 0.0 (0.0-0.2) X10*3/uL Abs Immat Gran (auto) 0.04 H (0.00-0.03) X10*3/uL Absolute Neuts (auto) 7.5 (2.0-8.3) x10*3/uL Absolute Nucleated RBC 0.000 (0.0-0.012) X10*3/uL Nucleated RBC % (auto) 0.0 (0.0-0.2) /100WBC PT 24.9 H (11.1-13.3) SEC INR 2.0 H (0.9-1.1) Sodium 134 L (135-145) mmol/L Potassium 4.8 (3.3-5.1) mmol/L Chloride 97 (96-108) mmol/L Carbon Dioxide 31 H (22-29) mmol/L Anion Gap 11 L (12-20) BUN 38 H (9-16) mg/dL Creatinine 0.82 (0.5-1.4) mg/dL Estim Creat Clear Calc 67.3 Estimated GFR > 60 Random Glucose 166 H (60-115) mg/dL Calcium 10.0 (8.4-10.2) mg/dL Total Bilirubin 18.6 H (0.0-1.0) mg/dL Direct Bilirubin 12.1 H (0.0-0.5) mg/dL AST 84 H (5-37) U/L ALT 51 H (0-40) U/L Alkaline Phosphatase 111 (39-117) U/L Ammonia 55 (13-55) umol/L Troponin I High Sens 6.8 (<3.5-35.0) ng/L B-Natriuretic Peptide 97 (<100) pg/mL Total Protein 6.4 L (6.5-8.0) g/dL Albumin 3.2 L (3.5-5.0) g/dL Lipase 30 (8-78) U/L Urine Color Dark Yellow Urine Appearance Clear Urine pH 5.5 (5.0-9.0) Ur Specific [place] 1.020 (1.005-1.025) Urine Protein Negative (Neg-Trace) mg/dL Urine Glucose (UA) Negative (Negative) mg/dL Urine Ketones Negative (Negative) mg/dL Urine Blood Negative (Negative) Urine Nitrite Positive H (Negative) Ur Leukocyte Esterase Small (1+) H (Negative) Urine RBC 0-2 (0-2) /HPF Urine WBC 0-5 (0-5) /HPF Ur Squamous Epith Cells 0-2 (0-2) /HPF Urine Bacteria None Seen (None Seen) Hyaline Casts 6-10 (0-2) /LPF Influenza Type A (PCR) NEGATIVE (Negative) Influenza Type B (PCR) NEGATIVE (Negative) RSV RNA Qual (PCR) NEGATIVE (Negative) SARS-CoV-2 RNA (RT-PCR) NEGATIVE (Negative) Independent Interpretation I performed an independent interpretation of an: Plain X-Ray ( No acute intrathoracic pathology.) and Ultrasound ( Abdomen:1. Cirrhotic appearing liver with a small to moderate amount of ascites. 2. There is a small to moderate amount of faintly echogenic nonshadowing material within the gallbladder likely echogenic bile/sludge. Small gallstones is not excluded. 3. There is nonspecific gallbladder wall thi) Radiology Impression Discussion of test interpretation with radiology: I have reviewed the radiologist's reading. Chronic Conditions Patient?s care impacted by: Other ( Liver cirrhosis) Discharge Plan Discharge Clinical Impression: Cirrhosis of liver Patient Disposition: Xfer SNF Instructions: Cirrhosis (ED) Prescriptions: No Action Trelegy Ellipta 100-62.5-25 mcg blister with device 1 ea INHALATION QAM spironolactone 50 mg tablet 50 mg PO BID 30 Days Qty: 60 0RF albuterol sulfate 90 mcg/actuation aerosol powdr breath activated 2 inh inhalation Q4-6H PRN (Reason: shortness of breath or wheezing) Qty: 1 0RF nystatin 100,000 unit/mL Suspension 500,000 unit PO QID Qty: 200 0RF prednisone 10 mg Tablet See Rx Instructions .ROUTE .COMPLEX Qty: 13 0RF Rx Instructions: 30 mg daily x 2 days, then 20 mg daily x 2 days, then 10 mg daily x 2 days, then 5 mg daily x 2 days, then stop furosemide 20 mg Tablet 20 mg PO BID@0900,1800 Qty: 60 0RF Protocol: Hold for SBP< HOLD for SBP < : 90 Xifaxan 550 mg Tablet 550 mg PO TID Qty: 60 0RF lactulose 20 gram/30 mL Solution 20 g PO QID Qty: 2880 0RF cefadroxil 1 gram tablet 1,000 mg PO DAILY 6 Days Qty: 6 0RF
[2023-11-12 23:01] LABS: Alanine Aminotransferase 51 U/L (0-40); Albumin Level 3.2 g/dL (3.5-5.0); Alkaline Phosphatase 111 U/L (39-117); Anion Gap 11 (12-20); Aspartate Amino Transferase 84 U/L (5-37); Bilirubin Direct 12.1 mg/dL (0.0-0.5); Bilirubin Total 18.6 mg/dL (0.0-1.0); Blood Urea Nitrogen 38 mg/dL (9-16); Carbon Dioxide 31 mmol/L (22-29); Chloride 97 mmol/L (96-108); Creatinine Clr Calc Pharmacy 67.3; Estimated Glomerular Filt Rate > 60; Glucose Random 166 mg/dL (60-115); Lipase 30 U/L (8-78); Potassium 4.8 mmol/L (3.3-5.1); Sodium 134 mmol/L (135-145); Total Protein 6.4 g/dL (6.5-8.0)
[2023-11-12 23:55] VITALS: BP 104/46; PULSE 76; RESP 14; TEMP 36.7; O2SAT 97
--- NOTE | 2023-11-13 01:12 | PC.NURSE ---
Pt removed IV line. Area cleaned and dry. No injury noted. Dressing applied. Pt taken to u/s
--- NOTE | 2023-11-13 02:01 | PC.NURSE ---
Pts daughter, John, called for an update. Update provided. John would like a call once pt returns to the facility.
--- NOTE | 2023-11-13 06:18 | MHC.EDTECH ---
call out to maria elena at [phone], estimated eta given was [phone]
--- NOTE | 2023-11-13 06:54 | PC.NURSE ---
Nursing report given to [facility] at [facility] via telephone as pt is returning via EMS.
== END 2023-11-13 06:57 | disposition skilled nursing facility (03) ==
PROVIDERS: Emergency Provider Emergency Medicine
DX: R41.82 Altered mental status, unspecified (principal); K74.60 Unspecified cirrhosis of liver; J96.21 Acute and chronic respiratory failure with hypoxia; J44.9 Chronic obstructive pulmonary disease, unspecified; K76.82 Hepatic encephalopathy; B19.20 Unspecified viral hepatitis C without hepatic coma; Z99.81 Dependence on supplemental oxygen
CPT/HCPCS: 0241U; 36415; 71045; 76705; 80048; 80076; 81001; 82140; 83690; 83880; 84484; 85025; 85610; 87086; 93005; 99285

== ENCOUNTER → 2023-11-12 21:49 | Outpatient (BNV) | payer MEDICARE, MEDICAID, SELFPAY | PROVIDERS: Emergency Provider Emergency Medicine; Visit Provider Internal Medicine Cardiovascular Disease | DX: R94.31 Abnormal electrocardiogram [ECG] [EKG] (principal); R41.82 Altered mental status, unspecified | CPT/HCPCS: 93010 ==

== ENCOUNTER 2023-11-15 09:09 | Inpatient (IN) | payer MEDICARE, MEDICAID, SELFPAY ==
--- NOTE | ~2023-11-15 | XR_ITS ---
EXAMINATION: XR LUMBOSACRAL SPINE CLINICAL INFORMATION: Low back pain COMPARISON: None available. TECHNIQUE: Three views of the lumbosacral spine. FINDINGS: There is mild straightening of lumbar lordosis. The vertebral bodies and posterior elements are normal. The disc spaces are preserved and the vertebral alignment is normal. The paraspinal soft tissues are normal. XR/XR lumbar spine 2-3V IMPRESSION: Mild straightening of lumbar lordosis likely spasm. No visible acute fracture or dislocation seen.
[2023-11-15 09:24] VITALS: BP 108/50; PULSE 65; RESP 15; TEMP 36.5; O2SAT 100
[2023-11-15 09:27] VITALS: BP 108/50; BP 99/50; PULSE 67; PULSE 78; RESP 16; TEMP 36.5; O2SAT 100; O2SAT 95; BMI 19.1
--- NOTE | 2023-11-15 11:14 | PC.NURSE ---
Daughter Gerri [phone]. call if any updates.
--- NOTE | 2023-11-15 11:30 | ED_ITS ---
HPI - Fall General Chief Complaint: Fall Stated Complaint: LOW BACK PAIN S/P UNWIT FALL FROM SNF PER EMS Time Seen by Provider: 11/15/23 11:03 Source: family ( and daughter) Mode of arrival: EMS Limitations: altered mental status History of Present Illness HPI Narrative: 68-year-old male with decompensated HCV cirrhosis with ascites, and chronic hypoxia due to COPD who was initially admitted 10/29/23 with hepatic encephalitis with elevated ammonia levels treated with lactulose and rifaximin, on 11/02/2023 he developed hypoxia required intubation and had an MSSA pneumonia with ileus, treated with broad-spectrum antibiotics and TPN. Patient eventually improved and was discharged to [facility] for short-term rehab. Family states that since he has been a rehab he has not been eating but has been drinking fluids. He has been refusing his medications. According to the ED nursing note patient had 3 unwitnessed falls last night. This morning he was trying to open his room door, lost his balance and fell. He was complaining of 10/10 lower back pain. At the time my evaluation he is awake and alert oriented to person only, lacks insight as to why he is here. He is complaining of lower back pain and is asking for food since he is hungry. . Related Data Home Medications Medication Instructions Recorded Confirmed fluticasone fur. 100 mcg-umeclid 1 ea inhalation QAM 10/11/23 10/30/23 62.5 mcg-vilant 25 mcg inhalat.powder (Trelegy Ellipta) Previous Rx's Medication Instructions Recorded spironolactone 50 mg tablet 50 mg PO BID 30 days #60 tabs 10/22/23 albuterol sulfate 90 mcg/actuation 2 inh inhalation Q4-6H PRN 10/26/23 breath activated powder inhaler shortness of breath or wheezing #1 ea cefadroxil 1 gram tablet 1,000 mg PO DAILY 6 days #6 tabs 11/10/23 furosemide 20 mg tablet 20 mg PO BID@0900,1800 #60 tabs 11/10/23 lactulose 20 gram/30 mL oral 20 g (30 mL) PO QID #2,880 mL 11/10/23 solution nystatin 100,000 unit/mL oral 500,000 unit (5 mL) PO QID #200 mL 11/10/23 suspension prednisone 10 mg tablet See Rx Instructions .Route 11/10/23 .COMPLEX #13 tabs rifaximin 550 mg tablet (Xifaxan) 550 mg PO TID #60 tabs 11/10/23 Allergies Allergy/AdvReac Type Severity Reaction Status Date / Time aspirin [Aspirin] Allergy Unknown RASH, Verified 11/15/23 09:40 SWELLING OF FACE, VOMITING ibuprofen [From Motrin] Allergy Unknown RASH, Verified 11/15/23 09:40 NUMBNESS TO EXTREMITIES NSAIDS (Non-Steroidal Allergy Unknown UNKNOWN Verified 11/15/23 09:40 Anti-Inflamma [Nsaids] aspirin Allergy Unknown swelling Uncoded 08/31/23 15:33 motrin Allergy Unknown swelling Uncoded 08/31/23 15:33 Review of Systems 2 Review of Systems: Yes Unobtainable due to mental status PMFSH Past Medical History Onset Date is defined in the Problem List Problems that require an onset date and time if occurred within 24 hrs of arrival to the ED Aortic Dissection and Rupture; Neurologic impairment; Cardiopulmonary Arrest; Endotracheal Intubation; Insertion or Replacement of Mechanical Circulatory Assist Device Medical History Hepatitis C Cirrhosis COPD (chronic obstructive pulmonary disease) Oxygen dependent Social History Social History Household Members: Unknown / Unable to assess Housing: Unknown / Unable to assess Unable to assess alcohol history related to: Unable to respond Alcohol intake: former Comment: 1:1 sitter at bedside. Patient Tobacco Use Status: Tobacco use Unknown Smoked in Last 30 Days: No Use of substances other than those prescribed or required for medical reasons: No Advance Directives: Yes Advance Directives on File: Yes Advance Directives Date on File: 11/11/23 service: No Physical Exam 2 Vital Signs: Vital Signs: Last Vital Signs Temp 98.9 F 11/15/23 14:10 Pulse 79 11/15/23 14:10 Resp 16 11/15/23 14:10 BP 105/54 L 11/15/23 14:10 Pulse Ox 93 11/15/23 14:10 O2 Del Method Nasal Cannula 11/15/23 14:10 O2 Flow Rate 3 11/15/23 14:10 BMI result Body Mass Index 19.1 Vital signs were normal Exam: General: Patient is awake, oriented to person, patient's sclera are icteric in his skin is jaundice, he is cachectic Head: Normocephalic, atraumatic EENT: PERRL, sclera icteric, mouth revealed moist membranes with no erythema or exudates Neck: Supple, no adenopathy Lung: breath sounds symmetric, no wheezing, rales or rhonchi Chest: symmetric movement, nontender Heart: regular rate and rhythm, normal S1, S2 no murmurs or rubs Abdomen: soft, non-tender, nondistended, normal bowel sounds Back: no vertebral tenderness, no CVAT, no ecchymosis or skin breakdown Extremities: no deformities, moves all extremities symmetrically Skin: Jaundice Neuro: Awake, alert, oriented to person, normal speech, cranial nerves intact, moves all extremities symmetrically Psych: Pleasant, cooperative Medical Decision Making Medical Decision Making MDM Narrative: 68-year-old male with decompensated HCV cirrhosis with ascites, and chronic hypoxia due to COPD who was initially admitted 10/29/23 with hepatic encephalitis with elevated ammonia levels treated with lactulose and rifaximin, on 11/02/2023 he developed hypoxia required intubation and had an MSSA pneumonia with ileus, treated with broad-spectrum antibiotics and TPN, discharged to [facility] for short-term rehab on 11/10/2023. Family reports that the patient is not been eating or drinking well and has been refusing his medications. Nursing note reports that the patient fell 3 times last night and 1 time this morning when he was trying to open his door he lost his balance. Patient is complaining of lower back pain and is complaining of feeling hungry. Vital signs were normal. Physical examination is consistent with his decompensated hepatitis-C cirrhosis. Patient did not have any localizing tenderness of his vertebrae of his back, there has no ecchymosis or abrasions noted. Following evaluation was ordered: CBC, CMP, magnesium, troponin, urinalysis, ammonia, CK, XR [id number]-[id number] lumbar spine 13:53 My interpretation patient's laboratory evaluation is as follows: Consistent with his decompensated cirrhosis. Patient's ammonia level however is elevated at 78 which could explain his weakness. CK was normal at 35. X-ray of the patient's lumbar sacral spine did not reveal any acute fractures. I did order lactulose 30 mg orally at rifaximin 550 mg orally. Given his weakness in his noncompliance at the nursing facility, the patient will need to be admitted to try to stabilize him again. The patient's daughter does not want the patient to return to [facility]. Differential Diagnosis Differential Diagnoses: The differential diagnosis associated with the presentation includes Differential diagnosis includes but is not limited to electrolyte abnormalities, hepatic encephalopathy, rhabdomyolysis Admission/Observation Consideration of admission/observation: Escalation of care including admission/observation considered Consult Healthcare Provider Management of the patient was discussed with: Hospitalist Lab Data [facility] Lab Attestation statement: I reviewed the patient's lab results. 11/15/23 11:45 11/15/23 11:45 Labs: Lab Results 11/15/23 Range/Units 11:45 WBC 10.0 (4.8-10.8) X10*3/uL RBC 2.51 L (4.60-5.80) X10*6/uL Hgb 9.2 L (14.0-18.0) g/dl Hct 26.6 L (42.0-52.0) % MCV 106.0 H (80.0-98.0) fL MCH 36.7 H (27.0-33.0) pg MCHC 34.6 (31.0-36.0) g/dl RDW 17.1 H (11.0-16.0) % Plt Count 47 L D (160-400) X10*3/uL MPV 11.6 (9.4-12.4) fL Immature Gran % (Auto) 1.4 H (0.0-0.4) % Neut % (Auto) 83.2 H (45-73) % Lymph % (Auto) 7.3 L (20-40) % [place] % (Auto) 6.8 (2-11) % Eos % (Auto) 1.1 (0-4) % Baso % (Auto) 0.2 (0-2) % Lymph # (Auto) 0.7 L (1.2-4.9) X10*3/uL [place] # (Auto) 0.7 (0.1-1.2) X10*3/uL Eos # (Auto) 0.1 (0.0-0.4) X10*3/uL Baso # (Auto) 0.0 (0.0-0.2) X10*3/uL Abs Immat Gran (auto) 0.14 H (0.00-0.03) X10*3/uL Absolute Neuts (auto) 8.3 (2.0-8.3) x10*3/uL Absolute Nucleated RBC 0.000 (0.0-0.012) X10*3/uL Nucleated RBC % (auto) 0.0 (0.0-0.2) /100WBC Sodium 132 L (135-145) mmol/L Potassium 5.2 H (3.3-5.1) mmol/L Chloride 98 (96-108) mmol/L Carbon Dioxide 31 H (22-29) mmol/L Anion Gap 8 L (12-20) BUN 36 H (9-16) mg/dL Creatinine 0.89 (0.5-1.4) mg/dL Estim Creat Clear Calc 64.9 Estimated GFR > 60 Random Glucose 97 (60-115) mg/dL Calcium 9.3 D (8.4-10.2) mg/dL Magnesium 1.9 (1.6-2.6) mg/dL Total Bilirubin 24.0 H (0.0-1.0) mg/dL AST 104 H (5-37) U/L ALT 69 H (0-40) U/L Alkaline Phosphatase 134 H (39-117) U/L Ammonia 78 H (13-55) umol/L Total Creatine Kinase 35 L (38-174) U/L Troponin I High Sens 4.5 (<3.5-35.0) ng/L Total Protein 6.0 L (6.5-8.0) g/dL Albumin 2.8 L (3.5-5.0) g/dL Radiology Impression Discussion of test interpretation with radiology: I have reviewed the radiologist's reading. Radiologist Impression: XR lumbar spine 2-3V IMPRESSION: Mild straightening of lumbar lordosis likely spasm. No visible acute fracture or dislocation seen. Dictated By: Seth Upton MD Independent Historian Clinical information obtained from an independent historian. History obtained from or confirmed by: Other (Sister, brother and daughter) External Record Review External record reviewed: Inpatient record Chronic Conditions Patient?s care impacted by: Other (HCV cirrhosis) Discharge Plan Discharge Clinical Impression: Acute hepatic encephalopathy, Weakness, Multiple falls Patient Disposition: Admitted As Inpatient
[2023-11-15 11:50] LABS: MANUAL DIFF FLAG NO
[2023-11-15 11:57] LABS: Basophils Percent Auto 0.2 % (0-2); Eosinophils Absolute Auto 0.1 X10*3/uL (0.0-0.4); Eosinophils Percent Auto 1.1 % (0-4); Hematocrit 26.6 % (42.0-52.0); Hemoglobin 9.2 g/dl (14.0-18.0); Imm Gran Abs Auto 0.14 X10*3/uL (0.00-0.03); Imm Gran Pct Auto 1.4 % (0.0-0.4); Lymphocytes Absolute Auto 0.7 X10*3/uL (1.2-4.9); Lymphocytes Percent Auto 7.3 % (20-40); Mean Corpuscular HGB Conc 34.6 g/dl (31.0-36.0); Mean Corpuscular Hemoglobin 36.7 pg (27.0-33.0); Mean Platelet Volume 11.6 fL (9.4-12.4); Monocytes Absolute Auto 0.7 X10*3/uL (0.1-1.2); Monocytes Percent Auto 6.8 % (2-11); Neutrophils Absolute Auto 8.3 x10*3/uL (2.0-8.3); Neutrophils Percent Auto 83.2 % (45-73); Platelet Count 47 X10*3/uL (160-400); Red Blood Count 2.51 X10*6/uL (4.60-5.80); Red Cell Distribution Width 17.1 % (11.0-16.0)
[2023-11-15 12:01] LABS: Ammonia 78 umol/L (13-55)
[2023-11-15 12:11] LABS: Alanine Aminotransferase 69 U/L (0-40); Albumin Level 2.8 g/dL (3.5-5.0); Alkaline Phosphatase 134 U/L (39-117); Anion Gap 8 (12-20); Aspartate Amino Transferase 104 U/L (5-37); Blood Urea Nitrogen 36 mg/dL (9-16); Calcium 9.3 mg/dL (8.4-10.2); Carbon Dioxide 31 mmol/L (22-29); Chloride 98 mmol/L (96-108); Creatinine Clr Calc Pharmacy 64.9; Estimated Glomerular Filt Rate > 60; Glucose Random 97 mg/dL (60-115); Magnesium 1.9 mg/dL (1.6-2.6); Potassium 5.2 mmol/L (3.3-5.1); Sodium 132 mmol/L (135-145)
[2023-11-15 12:14] LABS: Troponin-I High Sensitivity 4.5 ng/L (<3.5-35.0)
[2023-11-15 14:10] VITALS: BP 105/54; PULSE 79; RESP 16; TEMP 37.2; O2SAT 93
--- NOTE | 2023-11-15 14:50 | P.HPHOSP_ITS ---
History of Present Illness Date of Service: 11/15/23 Chief Complaint: confusion 68M PMH hcv cirrhosis, chronic hypoxic respiratory failure due to copd, recently discharged from [facility] [place] 11/10/23 after hospitalization for symptomatic ascites, mssa pneumonia (intubated, extubated, on cefodroxil), sent in from SNF for increased confusion, weakness, 3 falls. patient is able to provide vague history, but confabulates, denies fever, chills, abd pain or distension. snf reports poor compliance with lactulose. Review of Systems 2 Review of Systems: Yes all other systems are reviewed and are negative [facility] Medical History Hepatitis C Cirrhosis COPD (chronic obstructive pulmonary disease) Oxygen dependent Social History Household Members: Unknown / Unable to assess Housing: Unknown / Unable to assess Unable to assess alcohol history related to: Unable to respond Alcohol intake: former Comment: 1:1 sitter at bedside. Patient Tobacco Use Status: Tobacco use Unknown Smoked in Last 30 Days: No Use of substances other than those prescribed or required for medical reasons: No Advance Directives: Yes Advance Directives on File: Yes Advance Directives Date on File: 11/11/23 service: No Meds Allergies Allergy/AdvReac Type Severity Reaction Status Date / Time aspirin [Aspirin] Allergy Unknown RASH, Verified 11/15/23 09:40 SWELLING OF FACE, VOMITING ibuprofen [From Motrin] Allergy Unknown RASH, Verified 11/15/23 09:40 NUMBNESS TO EXTREMITIES NSAIDS (Non-Steroidal Allergy Unknown UNKNOWN Verified 11/15/23 09:40 Anti-Inflamma [Nsaids] aspirin Allergy Unknown swelling Uncoded 08/31/23 15:33 motrin Allergy Unknown swelling Uncoded 08/31/23 15:33 Active Medications: Current Medications Lactulose (Lactulose 20 Gm/30 Ml Solution) 20 gm PO BID MARINA Sodium Chloride (0.9 % Sodium Chloride Flush 3 Ml Syringe) 3 ml IVFLUSH QSHIFT [facility] Home Medications Medication Instructions Recorded Confirmed Last Taken Type fluticasone fur. 100 mcg-umeclid 1 ea inhalation DAILY 10/11/23 11/15/23 10/11/23 History 62.5 mcg-vilant 25 mcg inhalat.powder (Trelegy Ellipta) albuterol sulfate 90 mcg/actuation 2 inh inhalation Q6H PRN shortness 11/15/23 11/15/23 Unknown History breath activated powder inhaler of breath or wheezing bisacodyl 10 mg rectal suppository 10 mg MD DAILY PRN Constipation 11/15/23 11/15/23 Unknown History magnesium hydroxide 400 mg/5 mL 30 ml PO DAILY PRN Constipation 11/15/23 11/15/23 Unknown History oral suspension (Milk of Magnesia) prednisone 10 mg tablet See Rx Instructions .Route .COMPLEX 11/15/23 11/15/23 Unknown History prednisone 5 mg tablet See Rx Instructions .Route .COMPLEX 11/15/23 11/15/23 Unknown History rifaximin 550 mg tablet (Xifaxan) 550 mg PO BID 11/15/23 11/15/23 Unknown History sodium phosphates 19 gram-7 118 ml MD DAILY PRN Constipation 11/15/23 11/15/23 Unknown History gram/118 mL enema (Fleet Enema) Physical Exam 2 Vital Signs and Narrative: Vital Signs: Last Vital Signs Temp 98.9 F 11/15/23 14:10 Pulse 79 11/15/23 14:10 Resp 16 11/15/23 14:10 BP 105/54 L 11/15/23 14:10 Pulse Ox 93 11/15/23 14:10 O2 Del Method Nasal Cannula 11/15/23 14:10 O2 Flow Rate 3 11/15/23 14:10 BMI result Body Mass Index 19.1 General: AO X 2, cachexic, jaundiced, ill appearing Resp: diminished bilateral, no accessory muscles used CVS: S1,S2,RRR GI: soft, non tender, non distended Neuro: motor grossly weak, alert, some confusion Results Labs 11/15/23 11:45 11/15/23 11:45 Labs: Laboratory Results - last 24 hr 11/15/23 11:45 MCV 106.0 H MCH 36.7 H MCHC 34.6 RDW 17.1 H Plt Count 47 L D MPV 11.6 Immature Gran % (Auto) 1.4 H Neut % (Auto) 83.2 H Lymph % (Auto) 7.3 L [place] % (Auto) 6.8 Eos % (Auto) 1.1 Baso % (Auto) 0.2 Lymph # (Auto) 0.7 L [place] # (Auto) 0.7 Eos # (Auto) 0.1 Baso # (Auto) 0.0 Abs Immat Gran (auto) 0.14 H Absolute Neuts (auto) 8.3 Absolute Nucleated RBC 0.000 Nucleated RBC % (auto) 0.0 Anion Gap 8 L Estim Creat Clear Calc 64.9 Estimated GFR > 60 Random Glucose 97 Calcium 9.3 D Magnesium 1.9 Total Bilirubin 24.0 H AST 104 H ALT 69 H Alkaline Phosphatase 134 H Ammonia 78 H Total Creatine Kinase 35 L Total Protein 6.0 L Albumin 2.8 L Imaging Radiologist's Impressions: Impressions Lumbar Spine X-Ray 11/15/23 11:14 IMPRESSION: Mild straightening of lumbar lordosis likely spasm. No visible acute fracture or dislocation seen. Assessment and Plan (1) Multiple falls: Status: Acute Plan 68M PMH hcv cirrhosis, chronic hypoxic respiratory failure due to copd, recently discharged from [facility] [place] 11/10/23 after hospitalization for symptomatic ascites, mssa pneumonia (intubated, extubated, on cefodroxil), sent in from SNF for increased confusion decompnesated hcv cirrhosis with acute metabolic encephalopathy due to hepatic encephalopathy lactulose, rifaxmin, aldactone, lasix chronic hypoxic resp failure due to copd stable recenet mssa pneumonia cefadroxil to complete 11/16/23 moderate protein calorie malnutrition encourage po intake dvt prophylaxis - mechanical due to thrombocytopenia full code patient wiht acute encephaloapthy due to advanced liver cirrhosis needing lactulose and close monitoring of response and progression, expected to require atleast 2 midnights inpatient. Quality Stroke Does the patient have a stroke diagnosis?: No VTE Prior VTE?: No VTE Risk Level:: Medical - moderate - high VTE Device Contraindication: N/A - Device Ordered VTE Drug Contraindication: Treatment Not Indicated
--- NOTE | 2023-11-15 14:54 | PHA.MEDREC ---
Pharmacy Consult ? Medication Reconciliation Pharmacy has completed the medication reconciliation. PT [facility]
[2023-11-15] MEDS: Lactulose 20 GM/30 ML SOLUTION 30 GM PO (15:07)
--- NOTE | 2023-11-15 15:14 | PC.NURSE ---
pt took 25ml of lactulose before refusing to drink any more because it's too sweet. pt yelling at nurse to get out and stating that he wont take any medicine. pt educated on importance of medicine if he wants to increase strength and be able to go home. pt cont'd to refuse. provider aware.
--- NOTE | 2023-11-15 15:20 | PC.NURSE ---
pharmacy contacted for outstanding medication.
[2023-11-15] MEDS: rifAXIMin 550 MG TABLET PO ×2 (16:22→21:06)
[2023-11-15] MEDS: 0.9 % Sodium Chloride Flush 3 ML SYRINGE IVFLUSH (17:11)
[2023-11-15] MEDS: Furosemide 20 MG TABLET PO (17:55)
[2023-11-15] MEDS: Lactulose 20 GM/30 ML SOLUTION PO ×2 (17:56→21:52)
[2023-11-15 20:34] VITALS: BP 88/47; PULSE 72; RESP 15; O2SAT 100
[2023-11-15] MEDS: Lactated Ringers 500 ML 999 ML IV (21:06)
[2023-11-15] MEDS: cephALEXin 500 MG CAPSULE PO (21:22)
--- NOTE | 2023-11-15 21:42 | PC.NURSE ---
this nurse entered pt room for 2100 meds, upon entrance to exam [facility], pt was noted to be wailing loudly, wanting to get out of room. pt sts she knows I can't be in a small room like this I need to get some air . advised pt that we are doing our best to get pt a more comfortable situation, appologized for delay in bed assignment. pt began refusing meds. educated pt on need for medication as his ammonia level is significantly elevated. pt continues to refuse. this nurse assisted pt is contacting pt dtr John (contact info in pt demo's) via pt personal cell phone. Extensive medication education provided. Dtr and movie writer reassured pt that pt was in a safe place, pt stopped crying, and pt took his medication without further incident. this nurse warmed pt soup repositioned pt, initiated 500ml LR fluid bolus, siderails up for safety, reeducated pt on use of call ceron and reoriented to room surroundings. Aldactone held d/t SBP less than 90,. Primary RN aware
[2023-11-15 21:43] VITALS: BP 103/50; PULSE 66; RESP 13; O2SAT 100
--- NOTE | 2023-11-15 22:15 | PC.NURSE ---
pt began screaming from room I can't breathe! this nurse entered room, pt began screaming and whailing about being is a small room, encouraged pt to take slow deep breaths,. pt continues to be tearful, keeps asking nurse to put [Him] in the hallway on the floor. reassured pt exam room door is open , once again reeducated oracle financial application developer ceron use. pt requests lights be left on. call ceron within reach. MD Silva notified via [employer] connect re: pt increasing anxiety. Primary RN also aware.
[2023-11-15] MEDS: HaloperidoL 1 MG TABLET 2 MG PO (22:46)
[2023-11-15 23:16] LABS: Appearance Urine Clear; Color Urine Dark Yellow; Glucose Urine UA Negative (Negative); Leukocyte Esterase Urine Negative (Negative); Nitrite Urine Negative (Negative); PH 6.5 (5.0-9.0); Specific Gravity - Urine 1.015 (1.005-1.025); Urine Blood Negative (Negative); Urine Ketones Negative (Negative); Urine Protein Negative (Neg-Trace)
[2023-11-16] MEDS: 0.9 % Sodium Chloride Flush 3 ML SYRINGE IVFLUSH ×4 (04:23→20:38)
--- NOTE | 2023-11-16 04:27 | PC.NURSE ---
Assumed care for pt. Pt calm and cooperative resting at the bedside. VSS on 3L NC. Reports generalized body pain, 5/10.No apparent distress noted. Urinal provided to void. Call ceron and belongings placed within reach. Pending bed assignment.
[2023-11-16 06:47] LABS: PLT CLUMP 1
[2023-11-16 06:49] LABS: Hematocrit 26.4 % (42.0-52.0); Hemoglobin 9.1 g/dl (14.0-18.0); Mean Corpuscular HGB Conc 34.5 g/dl (31.0-36.0); Mean Corpuscular Hemoglobin 36.7 pg (27.0-33.0); Mean Corpuscular Volume 106.5 fL (80.0-98.0); Mean Platelet Volume 11.9 fL (9.4-12.4); Red Blood Count 2.48 X10*6/uL (4.60-5.80); Red Cell Distribution Width 17.7 % (11.0-16.0); White Blood Count 6.3 X10*3/uL (4.8-10.8)
[2023-11-16 06:50] LABS: Platelet Count 40 X10*3/uL (160-400)
[2023-11-16 06:57] LABS: INTERNATIONAL NORM RATIO 1.9 (0.9-1.1); Prothrombin Time 22.9 SEC (11.1-13.3)
[2023-11-16 07:09] LABS: Alanine Aminotransferase 69 U/L (0-40); Albumin Level 2.5 g/dL (3.5-5.0); Alkaline Phosphatase 137 U/L (39-117); Anion Gap 13 (12-20); Aspartate Amino Transferase 107 U/L (5-37); Bilirubin Total 23.6 mg/dL (0.0-1.0); Blood Urea Nitrogen 32 mg/dL (9-16); Calcium 8.7 mg/dL (8.4-10.2); Carbon Dioxide 27 mmol/L (22-29); Chloride 99 mmol/L (96-108); Creatinine Clr Calc Pharmacy 70.4; Estimated Glomerular Filt Rate > 60; Glucose Fasting 135 mg/dL (60-99); Magnesium 1.9 mg/dL (1.6-2.6); Potassium 4.7 mmol/L (3.3-5.1); Sodium 134 mmol/L (135-145); Total Protein 5.6 g/dL (6.5-8.0)
--- NOTE | 2023-11-16 07:23 | PC.NURSE ---
Assumed care of pt from previous RN, patient resting comfortably on stretcher with respirations equal and unlabored. Awaiting inpatient bed assignment.
[2023-11-16 07:38] VITALS: PULSE 78; RESP 18; O2SAT 96
[2023-11-16] MEDS: Fluticasone/Umeclidinium/Vilanterol 100/62.5/25 BLST.W.DEV 1 PUFF INHALE (07:38)
[2023-11-16 07:57] LABS: Bilirubin Direct 15.2 mg/dL (0.0-0.5)
--- NOTE | 2023-11-16 08:08 | PC.NURSE ---
Pt incontinent of stool, requesting to use bathroom. Due to pt's weakness, pt assisted (x2 staff members) to commode. Pt very weak. Pt condescending and verbally abrasive towards staff. Janene care provided, linens changed. Pt set up for breakfast, call ceron within reach.
[2023-11-16 08:55] VITALS: BP 108/53; PULSE 66; RESP 14; TEMP 36.4; O2SAT 98
[2023-11-16] MEDS: predniSONE 10 MG TABLET PO (08:57)
[2023-11-16] MEDS: cephALEXin 500 MG CAPSULE PO ×2 (08:57→20:39)
[2023-11-16] MEDS: Furosemide 20 MG TABLET PO ×2 (08:57→18:39)
[2023-11-16] MEDS: Spironolactone 25 MG TABLET 50 MG PO ×2 (08:57→20:37)
[2023-11-16] MEDS: Lactulose 20 GM/30 ML SOLUTION PO ×2 (08:58→20:38)
--- NOTE | 2023-11-16 09:06 | PC.NURSE ---
Pt given am medications including lactulose. Pt took pills in cup, then swallowed part of the lactulose. Noted that pt spit out all his pills into his lactulose. Only agreeable to taking 1/2 dose of the lactulose.
--- NOTE | 2023-11-16 09:31 | MHC.CM.PN ---
[facility] PT LIVES ALONE AND IS INDEPENDENT AT BASELINE HE USES ONLY A NEBULIZER FOR DME HE HAD NO SERVICES HCP ON FILE PCP: PATRIZIA DAVE IMM DELIVERED DCP TBD PT WILL LIKELY NEED TO CONTINUE STR HOWEVER HOPES HE CAN GO TO A DIFFERENT SNF REFERRALS ARE OUT
--- NOTE | 2023-11-16 09:40 | HO.PM.IMPN ---
Subjective Subjective Date of Service: 11/16/23 Interval History: Seen and evaluated this morning Feels better, moving bowels encephalopathy improving Review of Systems Review of Systems: Yes all other systems are reviewed and are negative Physical Exam Vital Signs: Vital Signs: Last Vital Signs Temp 97.5 F 11/16/23 08:55 Pulse 66 11/16/23 08:55 Resp 14 11/16/23 08:55 BP 108/53 L 11/16/23 08:55 Pulse Ox 98 11/16/23 08:55 O2 Del Method Nasal Cannula 11/16/23 08:55 O2 Flow Rate 2 11/16/23 08:55 BMI result Body Mass Index 19.1 Const: Other: Constitutional : Awake, interactive, Jaundiced, not in distress Neck : Normal inspection, Supple Cardiovascular : RRR, no JVP, no lower extremity edema Respiratory : good bilateral air entry, no crackles Gastrointestinal: soft, lax, Normal bowel sounds, Non tender Skin : Warm, Dry, yellow discoloration in skin Neurological : Alert & oriented x3, No focal deficit Objective Data Active Medications Albuterol Sulfate (Albuterol Sulfate 90 Mcg 8 Gm Inhaler) 2 puff INHALE Q6H PRN PRN Reason: shortness of breath or wheezing Cephalexin HCl (Cephalexin 500 Mg Capsule) 500 mg PO BID [facility] Stop: 11/16/23 21:01 Last Admin: 11/16/23 08:57 Dose: 500 mg Documented By: SHANELL Fluticasone/Umeclidinium/Vilanterol (Fluticasone/Umeclidinium/Vilanterol 100/62.5/25 Blst.W.Dev) 1 puff INHALE RDAILY [facility] Last Admin: 11/16/23 07:38 Dose: 1 puff Documented By: TEENA Furosemide (Furosemide 20 Mg Tablet) 20 mg PO BID@0900,1800 [facility]; Protocol Last Admin: 11/16/23 08:57 Dose: 20 mg Documented By: SHANELL Lactulose (Lactulose 20 Gm/30 Ml Solution) 20 gm PO QID [facility] Last Admin: 11/16/23 08:58 Dose: 20 gm Documented By: SHANELL Prednisone (Prednisone 5 Mg Tablet) 5 mg PO DAILY [facility] Stop: 11/19/23 09:01 Rifaximin (Rifaximin 550 Mg Tablet) 550 mg PO BID [facility] Last Admin: 11/16/23 09:01 Dose: Not Given Documented By: SHANELL Non-Admin Reason: Med Not Available Sodium Chloride (0.9 % Sodium Chloride Flush 3 Ml Syringe) 3 ml IVFLUSH QSHIFT [facility] Last Admin: 11/16/23 09:01 Dose: 3 ml Documented By: SHANELL Spironolactone (Spironolactone 25 Mg Tablet) 50 mg PO BID [facility]; Protocol Last Admin: 11/16/23 08:57 Dose: 50 mg Documented By: SHANELL Labs 11/16/23 06:00 11/16/23 06:00 Labs: Laboratory Results - last 24 hr 11/15/23 11/15/23 11/16/23 11:45 23:08 06:00 MCV 106.0 H 106.5 H MCH 36.7 H 36.7 H MCHC 34.6 34.5 RDW 17.1 H 17.7 H Plt Count 47 L D 40 L MPV 11.6 11.9 Immature Gran % (Auto) 1.4 H Neut % (Auto) 83.2 H Lymph % (Auto) 7.3 L [place] % (Auto) 6.8 Eos % (Auto) 1.1 Baso % (Auto) 0.2 Lymph # (Auto) 0.7 L [place] # (Auto) 0.7 Eos # (Auto) 0.1 Baso # (Auto) 0.0 Abs Immat Gran (auto) 0.14 H Absolute Neuts (auto) 8.3 Absolute Nucleated RBC 0.000 0.000 Nucleated RBC % (auto) 0.0 0.0 PT 22.9 H INR 1.9 H Anion Gap 8 L 13 Estim Creat Clear Calc 64.9 70.4 Estimated GFR > 60 > 60 Random Glucose 97 Fasting Glucose 135 H Calcium 9.3 D 8.7 D Magnesium 1.9 1.9 Total Bilirubin 24.0 H 23.6 H Direct Bilirubin 15.2 H AST 104 H 107 H ALT 69 H 69 H Alkaline Phosphatase 134 H 137 H Ammonia 78 H Total Creatine Kinase 35 L Total Protein 6.0 L 5.6 L Albumin 2.8 L 2.5 L Urine Color Dark Yellow Urine Appearance Clear Urine pH 6.5 Ur Specific [place] 1.015 Urine Protein Negative Urine Glucose (UA) Negative Urine Ketones Negative Urine Blood Negative Urine Nitrite Negative Ur Leukocyte Esterase Negative Assessment and Plan (1) Acute hepatic encephalopathy: Status: Acute Plan 68M PMH hcv cirrhosis, chronic hypoxic respiratory failure due to copd, [place] [facility] [place] hospitalization for symptomatic ascites, mssa pneumonia (intubated, extubated, on cefodroxil), sent in from SNF for increased confusion decompnesated hcv cirrhosis with acute metabolic encephalopathy due to hepatic encephalopathy Secondary to refusing medications Improved with lactulose, rifaxmin as he is having bowel movements again Continue aldactone, lasix chronic hypoxic resp failure due to copd stable recenet mssa pneumonia cefadroxil to complete 11/16/23 moderate protein calorie malnutrition encourage po intake dvt prophylaxis - mechanical due to thrombocytopenia full code patient wiht acute encephaloapthy due to advanced liver cirrhosis needing lactulose and close monitoring pending safe discharge plan. Quality Stroke Does the patient have a stroke diagnosis?: No VTE Prior VTE?: No VTE Risk Level:: Medical - moderate - high VTE Device Contraindication: N/A - Device Ordered VTE Drug Contraindication: Treatment Not Indicated
--- NOTE | 2023-11-16 10:24 | PC.NURSE ---
MD Dotson made aware that pt spit out/refused his am medications including lactolose.
[2023-11-16 15:23] VITALS: BP 107/56; PULSE 78; RESP 20; TEMP 36.9; O2SAT 96
[2023-11-16 19:25] VITALS: BP 109/58; PULSE 76; RESP 18; TEMP 36.6; O2SAT 100
[2023-11-16] MEDS: rifAXIMin 550 MG TABLET PO (20:38)
--- NOTE | 2023-11-16 21:13 | PC.NURSE ---
pt's daughter put him 3L of oxygen with 100%, educated of oxygen toxicity. pt and daughter understand it, verbalized it. pt's daughter said you don't have to educate me, I know COPD. will continue to monitor.
[2023-11-16] MEDS: oxyCODONE HCl Immed Release 5 MG TABLET PO (21:17)
[2023-11-17 03:41] VITALS: BP 104/57; PULSE 69; RESP 18; TEMP 36; O2SAT 98
[2023-11-17] MEDS: oxyCODONE HCl Immed Release 5 MG TABLET PO ×3 (04:08→23:50)
[2023-11-17 07:48] VITALS: BP 118/56; PULSE 82; RESP 18; TEMP 36.2; O2SAT 96
[2023-11-17] MEDS: Fluticasone/Umeclidinium/Vilanterol 100/62.5/25 BLST.W.DEV 1 PUFF INHALE (08:12)
[2023-11-17 08:14] VITALS: PULSE 76; RESP 20; O2SAT 94
[2023-11-17] MEDS: predniSONE 5 MG TABLET PO (08:46)
[2023-11-17] MEDS: Furosemide 20 MG TABLET PO ×2 (08:47→16:55)
[2023-11-17] MEDS: 0.9 % Sodium Chloride Flush 3 ML SYRINGE IVFLUSH ×2 (08:47→16:56)
[2023-11-17] MEDS: Lactulose 20 GM/30 ML SOLUTION PO ×3 (08:47→16:55)
[2023-11-17] MEDS: Spironolactone 25 MG TABLET 50 MG PO (08:47)
[2023-11-17] MEDS: rifAXIMin 550 MG TABLET PO (08:47)
[2023-11-17 10:58] VITALS: BMI 19.1
--- NOTE | 2023-11-17 11:04 | P.PNIM_ITS ---
Subjective Subjective Date of Service: 11/17/23 Interval History: Seen and evaluated this morning Feels better, moved bowels once refuses medications on occasions encephalopathy improving Review of Systems Review of Systems: Yes all other systems are reviewed and are negative Physical Exam 2 Vital Signs: Vital Signs: Last Vital Signs Temp 97.1 F 11/17/23 07:48 Pulse 76 11/17/23 08:14 Resp 20 11/17/23 08:14 BP 118/56 L 11/17/23 07:48 Pulse Ox 96 11/17/23 07:48 O2 Del Method Nasal Cannula 11/17/23 07:48 O2 Flow Rate 2.0 11/17/23 07:48 BMI result Body Mass Index 19.1 Const: Other: Constitutional : Awake, interactive, Jaundiced, not in distress Neck : Normal inspection, Supple Cardiovascular : RRR, no JVP, no lower extremity edema Respiratory : good bilateral air entry, no crackles Gastrointestinal: soft, lax, Normal bowel sounds, Non tender Skin : Warm, Dry, yellow discoloration in skin Neurological : Alert & oriented x3, No focal deficit Objective Data Active Medications Albuterol Sulfate (Albuterol Sulfate 90 Mcg 8 Gm Inhaler) 2 puff INHALE Q6H PRN PRN Reason: shortness of breath or wheezing Fluticasone/Umeclidinium/Vilanterol (Fluticasone/Umeclidinium/Vilanterol 100/62.5/25 Blst.W.Dev) 1 puff INHALE RDAILY [facility] Last Admin: 11/17/23 08:12 Dose: 1 puff Documented By: SHIRA Furosemide (Furosemide 20 Mg Tablet) 20 mg PO BID@0900,1800 [facility]; Protocol Last Admin: 11/17/23 08:47 Dose: 20 mg Documented By: CISCO Lactulose (Lactulose 20 Gm/30 Ml Solution) 20 gm PO QID [facility] Last Admin: 11/17/23 08:47 Dose: 20 gm Documented By: CISCO Oxycodone HCl (Oxycodone Hcl Immed Release 5 Mg Tablet) 5 mg PO Q4H PRN PRN Reason: Pain, Severe (Pain Scale 7-10) Last Admin: 11/17/23 04:08 Dose: 5 mg Documented By: SERGIO Prednisone (Prednisone 5 Mg Tablet) 5 mg PO DAILY [facility] Stop: 11/19/23 09:01 Last Admin: 11/17/23 08:46 Dose: 5 mg Documented By: CISCO Rifaximin (Rifaximin 550 Mg Tablet) 550 mg PO BID [facility] Last Admin: 11/17/23 08:47 Dose: 550 mg Documented By: CISCO Sodium Chloride (0.9 % Sodium Chloride Flush 3 Ml Syringe) 3 ml IVFLUSH QSHIFT [facility] Last Admin: 11/17/23 08:47 Dose: 3 ml Documented By: CISCO Spironolactone (Spironolactone 25 Mg Tablet) 50 mg PO BID [facility]; Protocol Last Admin: 11/17/23 08:47 Dose: 50 mg Documented By: CISCO Labs 11/16/23 06:00 11/16/23 06:00 Assessment and Plan (1) Multiple falls: Status: Acute (2) Acute hepatic encephalopathy: Status: Acute Plan 68M PMH hcv cirrhosis, chronic hypoxic respiratory failure due to copd, recently [place] [facility] [place] 11/10/23 after hospitalization for symptomatic ascites, mssa pneumonia (intubated, extubated, on cefodroxil), sent in from SNF for increased confusion decompnesated hcv cirrhosis with acute metabolic encephalopathy due to hepatic encephalopathy Secondary to refusing medications Improved with lactulose, rifaxmin as he is having bowel movements again Continue aldactone, lasix Discussed goals of care with him and his HCP who is considering home Hospice. will start with the informative meeting with Hospice. CW following. chronic hypoxic resp failure due to copd stable recenet mssa pneumonia cefadroxil to complete 11/16/23 moderate protein calorie malnutrition encourage po intake dvt prophylaxis - mechanical due to thrombocytopenia full code patient wiht acute encephaloapthy due to advanced liver cirrhosis needing lactulose and close monitoring pending safe discharge plan. Quality Stroke Does the patient have a stroke diagnosis?: No VTE Prior VTE?: No VTE Risk Level:: Medical - moderate - high VTE Device Contraindication: N/A - Device Ordered VTE Drug Contraindication: Treatment Not Indicated
--- NOTE | 2023-11-17 11:04 | MHC.CLN ---
PT IS MODERATELY MALNOURISHED PT WITH MILDLY DEPLETED SUBCUTAENOUS FAT AND MUSCLE MASS WITH 13% SIGNIFICANT WT LOSS X 6 MONTHS WITH INCREASED NUTRITION RISK R/T PRESSURE INJURY. FAMILIAR WITH PT FROM PREVIOUS ADMISSION TO ICU (RECEIVED TPN, S/P INTUBATION) PT APPEARS CACHEXIC AND JAUNDICED. SNF REPORTED POOR COMPLIANCE WITH LACTULOSE. DIET RX: CHOPPED RECOMMEND ADDING GELATEIN TID TO PROMOTE WOUND HEALING SUPP TO PROVIDE 480KCALS, 60G PROTEIN MONITOR PO INTAKE AND ENCOURAGE SUPPLEMENT SEE FULL CLINICAL NUTRITION ASSESSMENT
[2023-11-17 15:14] VITALS: BP 106/59; PULSE 80; RESP 18; TEMP 36.1; O2SAT 94
--- NOTE | 2023-11-17 15:16 | MHC.CM.PN ---
Addendum entered by Taryn Pool 11/17/23 15:21: PTS DAUGHTER HAS CONFIRMED PT WILL DC TO HER HOME AT [address] [place] [address] [address] [place] Original Note: CM SPOKE TO BOTH OF PTS HCP AGENTS PT AND [facility] REQUESTING A HOSPICE INFORMATIONAL CM SPOKE TO PTS DAUGHTER, FAUSTINO, WHO STATES SHE WILL BE TAKING A JOHN FROM WORK TO BE HER FATHERS 30/05 CAREGIVER SHE DOES HAVE HELP IF NEEDED [facility] HAS MET WITH FAMILY AND PT WILL BE SIGNED ONTO SERVICE PER [facility], PT SHOULD BE ALL SET TO DC HOME TOMORROW AROUND 1230. EQUIPMENT WILL BE DELIVERED BEFORE THEN
--- NOTE | 2023-11-17 16:49 | HO.WOUND ---
Wound Consult: Initial 68yr old ?[place] [facility] [place] See progress notes and H&P for detailed history.? Wound consult placed for Coccxy Wound POA. Arrival to bedside patient is agreeable to assessment and photo documentation. Daughter at bedside - she reports pt set for d/c tomorrow to her home with Hospice services. She reported foams are frequently changed due to soiling with loose stools. We discussed hydrocolloid to allow for moist wound healing it may allow for less frequent changes advised to gently wipe outside of hydrocolloid if soiled on outside and as long as it is not underneath the dressing may remain in place for up to 5 days. Daughter prefers this to the foam dressings at this time. We discussed switching to barrier cream such as Triad should the hydorcolloid not stay in place as we intend. She reports understanding. Coccyx Etiology: Stage 2 Pressure Injury??Present on Admission Measurements: See charting for details Wound Bed: red pink moist tissue - thin layer or slough - no dressing in place at the time of my assessment Drainage / Odor: none noted Edges: ? attached Janene wound: ?Red hyperpigmented - remains intact and blanchable - MASD noted to periwound - No Induration, Fluctuance or Warmth noted Pain: tenderness noted Goals of Treatment: ? off load pressure and hydrocolloid to protect from friction and moisture. Recommendations: 1. Turn and Reposition every 2 hours and as needed for patient comfort.? Use pillows or wedges to support off loading positions. 2. Off Load all bony prominences with use of pillows and heel boots if needed.? Apply Preventative foams where needed. ? 3. Monitor for incontinence and moisture control, use barrier creams when needed for prevention and treatment. 4. Provide adequate and supplemental nutrition. Place Nutrition consult if appropriate. 5. Order or Continue low air loss mattress. 6. Maintain blood glucose levels per Providers orders if applicable. 7. Coccyx - Cleanse with Ph balanced wipes or cleanser, pat dry. Apply skin prep barrier wipe to periwound. Cover wound bed with Hydrocolloid to allow for autolytic healing and protect from friction and moisture. May stay in place up to 5 days but recommend changing every 3 days and PRN for soiling. Re-consult wound care Nurse for wound deterioration or wound changes.
[2023-11-17 19:28] VITALS: BP 116/69; PULSE 78; RESP 16; TEMP 36.6; O2SAT 98
[2023-11-18 02:35] VITALS: BP 98/50; PULSE 70; RESP 16; TEMP 36.4; O2SAT 97
--- NOTE | 2023-11-18 05:44 | PC.NURSE ---
pt IV access lost before my shift, this nurse offered to put new IV. pt refused. no, no, no notified. at this time no IV meds. throughout the night, pt called to daughter multiple times. pt wants to call the police, disoriented. sitting up to the edge of bed, and recliner. pt did not sleep all night. afew minutes to take a nap. provided best as we can. all staffs answered call bells. will continue to monitor until discharge.
[2023-11-18 07:37] VITALS: BP 115/55; PULSE 65; RESP 17; TEMP 36.1; O2SAT 95
[2023-11-18] MEDS: rifAXIMin 550 MG TABLET PO (08:01)
[2023-11-18] MEDS: Spironolactone 25 MG TABLET 50 MG PO (08:01)
[2023-11-18] MEDS: Furosemide 20 MG TABLET PO (08:01)
[2023-11-18] MEDS: Lactulose 20 GM/30 ML SOLUTION PO (08:01)
[2023-11-18] MEDS: predniSONE 5 MG TABLET PO (08:01)
[2023-11-18] MEDS: Fluticasone/Umeclidinium/Vilanterol 100/62.5/25 BLST.W.DEV 1 PUFF INHALE (08:38)
[2023-11-18 08:41] VITALS: PULSE 79; RESP 18; O2SAT 95
--- NOTE | 2023-11-18 09:30 | PM.DS ---
DS: Providers Provider Date of Service: 11/18/23 Date of admission: 11/15/23 14:49 Primary care physician: Gracie Thrasher MD Consults: 11/16/23 14:33 Consult to Wound Care Routine Reason for consultation: Patient noted to have stage 2 pressure wound on admission Has provider been notified: Yes DS: Diagnosis Discharge Diagnosis (1) Multiple falls: Status: Acute (2) Acute hepatic encephalopathy: Status: Acute (3) Stage II pressure ulcer: Status: Acute DS: Summary Hospital Course Hospital Course: Admission note HPI 68M PMH hcv cirrhosis, chronic hypoxic respiratory failure due to copd, [place] [facility] [place] hospitalization for symptomatic ascites, mssa pneumonia (intubated, extubated, on cefodroxil), sent in from SNF for increased confusion, weakness, 3 falls. patient is able to provide vague history, but confabulates, denies fever, chills, abd pain or distension. snf reports poor compliance with lactulose. Hospital course The patient was admitted for treatment of decompnesated HCV cirrhosis with acute metabolic encephalopathy due to hepatic encephalopathy as a result of refusing medications at the facility. He did improve with lactulose, rifaxmin as he had bowel movements again. Continued aldactone and lasix with no ascites. Discussed goals of care with him and his HCP who is considering home Hospice. the patient agrees to the plan and signed a MOLST form. Morphine and Ativan prescribed for comfort measures as needed. Seen by wound care nurse for coccyx wound. covered with dressing. To be followed by visiting nurses at home. Take your Lactulose as prescribed along with the rest of home medications Goal of 1-2 bowel movements daily Turn and reposition. Apply skin Prep for the pressure wound Time Attestation Discharge coordination time: Greater than 30 minutes Quality: Safe Use of Opioids Does Pt have an Active Cancer Diagnosis on the Problem List?: No Quality: Stroke Does the patient have a stroke diagnosis?: No Physical Exam Vital Signs: Vital Signs: Last Vital Signs Temp 97.0 F 11/18/23 07:37 Pulse 79 11/18/23 08:41 Resp 18 11/18/23 08:41 BP 115/55 L 11/18/23 07:37 Pulse Ox 95 11/18/23 07:37 O2 Del Method Nasal Cannula 11/18/23 07:37 O2 Flow Rate 2.0 11/18/23 07:37 BMI result Body Mass Index 19.1 Const: Other: Constitutional : Awake, interactive, Jaundiced, not in distress Neck : Normal inspection, Supple Cardiovascular : RRR, no JVP, no lower extremity edema Respiratory : good bilateral air entry, no crackles Gastrointestinal: soft, lax, Normal bowel sounds, Non tender Skin : Warm, Dry, yellow discoloration in skin, stage 2 coccyx wound covered with dressing Neurological : Alert & oriented to self and place, No focal deficit DS: Data Data Completed and Pending Completed studies during hospitalization [Text1]: Procedures Drainage of Peritoneal Cavity, Percutaneous Approach (10/30/23) Insertion of Endotracheal Airway into Trachea, Via Natural or Artificial Opening (10/30/23) Introduction of Vasopressor into Central Vein, Percutaneous Approach (10/30/23) Respiratory Ventilation, Greater than 96 Consecutive Hours (10/30/23) Imaging Chest x-ray: Radiologist's impression: ITS Impressions Lumbar Spine X-Ray 11/15/23 11:14 IMPRESSION: Mild straightening of lumbar lordosis likely spasm. No visible acute fracture or dislocation seen. Discharge Plan Discharge Anticipated Discharge Date/Time: 11/18/23 09:19 Patient Disposition: Home Health Service Discharge Diagnosis: Hepatic encephalopathy Referrals: Ernesto PIZANO [Outside] Gracie Thrasher MD [Physician] - 1 Week Discharge Medications: New morphine concentrate 100 mg/5 mL (20 mg/mL) solution 10 mg PO Q4H PRN (Reason: pain, Dyspnea) Qty: 30 0RF Rx Instructions: Partial Fill upon patient request. lorazepam [Lorazepam Intensol] 2 mg/mL concentrate 0.5 mg PO Q6H PRN (Reason: anxiety) Qty: 30 0RF Continued Trelegy Ellipta 100-62.5-25 mcg blister with device 1 ea INHALATION DAILY spironolactone 50 mg tablet 50 mg PO BID 30 Days Qty: 60 0RF prednisone 5 mg Tablet See Rx Instructions .ROUTE .COMPLEX Rx Instructions: 5 mg orally DAILY; START DATE: 11/17/23; END DATE: 11/19/23 magnesium hydroxide [Milk of Magnesia] 400 mg/5 mL Suspension 30 ml PO DAILY PRN (Reason: Constipation) bisacodyl 10 mg Suppository 10 mg UT DAILY PRN (Reason: Constipation) Fleet Enema 19-7 gram/118 mL Enema 118 ml UT DAILY PRN (Reason: Constipation) prednisone 10 mg tablet See Rx Instructions .ROUTE .COMPLEX Rx Instructions: 10 mg orally DAILY; END DATE: 11/17/23 Xifaxan 550 mg tablet 550 mg PO BID albuterol sulfate 90 mcg/actuation aerosol powdr breath activated 2 inh inhalation Q6H PRN (Reason: shortness of breath or wheezing) nystatin 100,000 unit/mL Suspension 500,000 unit PO QID Qty: 200 0RF Rx Instructions: END DATE: 11/20/23 furosemide 20 mg Tablet 20 mg PO BID@0900,1800 Qty: 60 0RF Protocol: Hold for SBP< HOLD for SBP < : 90 lactulose 20 gram/30 mL Solution 20 g PO QID Qty: 2880 0RF Discontinued cefadroxil 1 gram tablet 1,000 mg PO DAILY 6 Days Qty: 6 0RF Rx Instructions: END DATE: 11/17/23 Discharge Orders: Discharge Order (Routine); Ordered 11/18/23 Ordered By: Bryon Dotson Diet: Advance to usual diet Activity on Discharge: As tolerated Stand Alone Forms: Patient Portal Discharge page Activity Restrictions/Additional Instructions: Topical Wound Care Recommendations: 1. Turn and Reposition every 2 hours and as needed for patient comfort.? Use pillows or wedges to support off loading positions. 2. Off Load all bony prominences with use of pillows and heel boots if needed.? 3. Monitor for incontinence and moisture control, use barrier creams when needed for prevention and treatment. 4. Coccyx - Cleanse with Ph balanced wipes or cleanser, pat dry. Apply skin prep barrier wipe to periwound. Cover wound bed with Hydrocolloid to allow for autolytic healing and protect from friction and moisture. May stay in place up to 5 days but recommend changing every 3 days and PRN for soiling. Care Plan Goals: Read below Health Concerns: Read below Plan of Treatment: Read below Assessment: Take your Lactulose as prescribed along with the rest of home medications Goal of 1-2 bowel movements daily Turn and reposition. Apply skin Prep for the pressure wound
[2023-11-18 09:56] VITALS: PULSE 79
--- NOTE | 2023-11-18 11:32 | MHC.CLN ---
F/U DIET RX: CHOPPED GELATEIN TID TO PROMOTE WOUND HEALING. PROVIDES 480KCALS, 60G PROTEIN. INTAKE VARIABLE, 25-100. ENCOURAGE PO INTAKE ABLE.
--- NOTE | 2023-11-18 13:34 | MHC.CM.PN ---
PT TO DC HOME TODAY WITH [facility] HAS CONFIRMED EQUIPMENT WILL BE DELIVERED BY 1230 HOURS TODAY AND A NURSE CAN BE THERE AT THAT TIME TO START CARE THEY ARE AWARE PTS MEDS WERE SENT TO HIS PREFERRED PHARMACY CM MET WITH PT AND DAUGHTER DAUGHTER STATES THE [facility] NURSE TOLD HER THE PT SHOULD CHANGE HIS HCP SO THAT SHE IS PRIMARY CM INFORMED PT THIS WAS HIS CHOICE, PT AGREED TO CHANGE HCP NEW HCP COMPLETED, DAUGHTER FAUSTINO IS NOW PRIMARY AND BROTHER NAN IS ALTERNATE PT DISCHARGED HOME VIA [facility] AT 1230
== END 2023-11-18 13:32 | disposition home health service (06) | DRG 432 ==
LOC: HO.ED 14:14 → HO.EDOVER 14:57 → HO.S3 11-16 12:17
PROVIDERS: Physician Assistant; Admitting Provider Internal Medicine; Emergency Provider Emergency Medicine Emergency Medical Services; PCP Family Medicine; Visit Provider Student in an Organized Health Care Education/Training Program
DX: K74.69 Other cirrhosis of liver (principal); G93.41 Metabolic encephalopathy; R18.8 Other ascites; E44.0 Moderate protein-calorie malnutrition; Z68.1 Body mass index [BMI] 19.9 or less, adult; D69.6 Thrombocytopenia, unspecified; J44.9 Chronic obstructive pulmonary disease, unspecified; R29.6 Repeated falls; L89.152 Pressure ulcer of sacral region, stage 2; K76.82 Hepatic encephalopathy; Z91.148 Patient's other noncompliance with medication regimen for other reason; Z86.19 Personal history of other infectious and parasitic diseases; Z99.81 Dependence on supplemental oxygen; Z87.891 Personal history of nicotine dependence; Z79.899 Other long term (current) drug therapy
CPT/HCPCS: 0241U; 36415; 71045; 72100; 76705; 80048; 80053; 80076; 81001; 81003; 82140; 82550; 83690; 83735; 83880; 84484; 85025; 85027; 85610; 87086; 93005; 94640; 94664; 97162; 99285; J7120

== ENCOUNTER → 2023-11-15 14:49 | Outpatient (BNV) | payer MEDICARE, MEDICAID, SELFPAY | PROVIDERS: Admitting Provider Internal Medicine; Emergency Provider Emergency Medicine Emergency Medical Services; PCP Internal Medicine; Visit Provider Internal Medicine | DX: K76.82 Hepatic encephalopathy (principal); R29.6 Repeated falls; L89.92 Pressure ulcer of unspecified site, stage 2 | CPT/HCPCS: 99223; 99232; 99239 ==